=== PATIENT | female | born 1955 | race Caucasian/White ===

== ENCOUNTER → 2018-04-02 10:40 | Outpatient (CLI) | payer MEDICARE, MEDICAID, SELFPAY ==
--- NOTE | 2018-04-02 | DI.MRI.S_ITS ---
PROCEDURE: MR STROKE Pre- and post-contrast brain MRI, non-contrast brain MR angiogram, pre- and postcontrast neck MR angiogram INDICATIONS: TRANSIENT CEREBRAL ISCHEMIC ATTACK TECHNIQUE: Brain: Noncontrast axial T1 spin echo, axial T2 fast spin echo, sagittal and axial FLAIR, coronal T2 fast spin echo, axial gradient echo, axial diffusion and ADC through the brain. After the administration of contrast, axial 3D VIBE of the cranial vasculature and brain. Brain MRA: Non-contrast 3-D time of flight MR angiogram, with multiple jpjpugw-crvnmlfes-mlahfbjfew (MIP) reformats performed. Neck MRA: Axial and sagittal TruFISP through the neck. Coronal dynamic MR angiogram during administration of contrast in the arterial and venous phases, with 3-dimenstional abmzhoc-lvmghcnof-vjfkxrzsne (MIP) reformats constructed from subtraction images. COMPARISON: [facility], US, THYROID,NECK OR HEAD SONOGRAM, 01/09/2014, 13:51. [facility], CT, CHEST W/O CONTRAST, 10/20/2015, 10:57. FINDINGS: Image quality: Excellent. BRAIN: CSF spaces: Ventricles are normal in size and shape. Basal cisterns are patent. No extra-axial fluid collections. Brain: No intracranial bleeds or mass effects. Prather-white matter interface is normal. Mild cerebral volume loss. Diffusion weighted images show no acute ischemic insults. Brainstem appears normal. Normal intravascular flow voids are present. No abnormal intracranial enhancement. Skull and face: Calvarial marrow signal is normal. Orbits appear normal. Sinuses: Sinuses and mastoids are clear. BRAIN MR ANGIOGRAM: Anterior circulation: Intracranial internal carotid arteries are normal in size and enhancement. The flow within the paired anterior cerebral arteries is normal and symmetric. The flow within the middle cerebral arteries is normal and symmetric. The anterior communicating artery is seen. No stenoses, occlusions, or aneurysms. Posterior circulation: The visualized portions of the vertebral arteries demonstrate normal caliber, and join to form a normal appearing basilar artery. The flow within the posterior cerebral arteries is normal and symmetric. No stenoses, occlusions, or aneurysms. NECK MR ANGIOGRAM: Carotids: Great vessels demonstrate a conventional anatomy as they arise from the aortic arch. The origins of the common carotid arteries appear patent. The calibers and courses of both common carotid arteries are normal. The bifurcation regions appear normal bilaterally. The internal carotid arteries demonstrate normal course and caliber. Posterior circulation: The origins of the vertebral arteries appear patent. More superior portions of both vertebral arteries demonstrate normal course and caliber, and join to form a normal appearing basilar artery. Miscellaneous: Subclavian arteries appear patent. Pre-contrast images through the neck show no soft tissue abnormalities. IMPRESSION: BRAIN MRI: 1. No acute intracranial abnormalities. No acute stroke. 2. Mild cerebral volume loss. BRAIN MR ANGIOGRAM: 1. Normal anterior circulation. 2. Normal posterior circulation. NECK MR ANGIOGRAM: 1. Normal neck MR angiogram. 2. Suspect a left thyroid mass. A followup thyroid ultrasound is suggested if clinically indicated. Dictated by: Nivia Sarmiento M.D. on 04/02/2018 at 13:56 Approved by: Nivia Sarmiento M.D. on 04/03/2018 at 9:53
--- NOTE | 2018-04-02 | DI.ECHO.S_ITS ---
[place] [facility]---------+ [facility] +---------+ : : [address] : : : : [id number] : : : : Phone: [phone] Echocardiogram Report + + :Name: ALENA WASHINGTON Study Date: 04/02/2018 Height: 64 in : :[facility] Weight: 117 lb : : Gender: Female BSA: 1.6 m2 : :: 1955 Age: 62 yrs BP: 118/68 mmHg: :Reason For Study: TIA : : Performed By: Cammy Wang : :Referring: ELIDA FERGUSON : + + Interpretation Summary Normal sinus rhythm. Normal LV size, wall thickness, wall motion and LV systolic function. EF is 60-65%. Moderate left atrial enlargement. Aortic sclerosis without stenosis. No evidence of PFO present based on agitated saline study. No source of embolism identified. No prior study available for comparison. Procedure: A two-dimensional transthoracic echocardiogram with color flow and Doppler was performed. The study quality was technically good. There is no prior echocardiogram noted for this patient. The patient was in normal sinus rhythm during the exam. Left Ventricle: The left ventricle is normal in size, wall thickness, and systolic function without any focal wall motion abnormalities. The ejection fraction is estimated to be 60-65%. Assessment of diastolic parameters indicates normal left ventricular diastolic function and normal filling pressures. Right Ventricle: The right ventricle grossly appears normal in size with probable normal systolic function. Atria: The left atrium is moderately dilated. Right atrial size is normal. Injection of contrast documented no interatrial shunt. Mitral Valve: The mitral valve is normal. There is trace mitral regurgitation. Aortic Valve: The aortic valve is trileaflet. The aortic valve opens well. There is mild aortic valve sclerosis. No aortic regurgitation is present. Tricuspid Valve: The tricuspid valve is normal in structure and function. There is a trace or physiologic amount of tricuspid regurgitation. The right ventricular systolic pressure is estimated at 24 mmHg assuming a right atrial pressure of 3 mm Hg. Pulmonic Valve: The pulmonic valve is not well seen, but is grossly normal. There is trace pulmonic regurgitation. Great Vessels: The aortic root is normal size. The dimensions of the ascending aorta are normal. The IVC is of normal diameter and collapses greater than 50% with a sniff. This suggests a low right atrial pressure of 3 mm Hg. Pericardium/ Pleura There is no pericardial effusion. There is no pleural effusion. MMode/2D Measurements & Calculations LVIDd: 5.0 cm Ao root diam: 3.4 cm LVIDs: 3.2 cm Aortic Jxn: 2.6 cm FS: 34.5 % asc Aorta Diam: 3.2 cm EPSS: 0.32 cm Ao Arch Diam (Prox Trans): 2.5 cm IVSd: 0.78 cm LVPWd: 0.88 cm LV glez. diameter/BSA (cm/m^2): 3.2 LV sys. diameter/BSA (cm/m^2): 2.1 LA dimension: 4.1 cm RA long axis: 4.1 cm LA A2 area: 22.5 cm2 RA area: 15.4 cm2 LA A4 area: 18.4 cm2 RA vol: 48.5 ml LA length (vol): 4.9 cm RA : 31.1 ml/m2 LA vol: 71.5 ml IVC diam: 1.4 cm LA vol index: 45.9 ml/m2 RVDd major: 6.1 cm RVD1 (basal): 3.6 cm RVD2 (mid): 2.8 cm Doppler Measurements & Calculations Ao V2 max: 187.1 cm/sec MV E max jairo: 90.7 cm/sec Ao V2 mean: 124.2 cm/sec MV A max jairo: 103.1 cm/sec Ao max P.0 mmHg MV E/A: 0.88 Ao mean P.3 mmHg Med Peak E' Jairo: 8.3 cm/sec Ao V2 VTI: 42.7 cm E/E' med: 11.0 Lat Peak E' Jairo: 12.6 cm/sec E/E' lat: 7.2 E/e' average: 9.1 MV dec time: 0.23 sec MV P1/2t: 70.9 msec TR max jairo: 224.0 cm/sec MV P1/2t max jairo: 92.1 cm/sec TR max P.1 mmHg MVA(P1/2t): 3.1 cm2 PA V2 max: 76.2 cm/sec PA V2 mean: 51.1 cm/sec PA mean P.2 mmHg PA Accel Time: 0.13 sec Reading Physician:04:21 AM
[2018-04-02 13:02] LABS: BUN Creatinine Ratio 23.8 (6-22); Estimated Glomerular Filt Rate > 60.0 mL/min (>60)
== END ==
PROVIDERS: Family Provider Family Medicine; PCP Family Medicine; Visit Provider Family Medicine
DX: G45.9 Transient cerebral ischemic attack, unspecified (principal); R94.6 Abnormal results of thyroid function studies
CPT/HCPCS: 36415; 70553; 82565; 84520; 93306; A9579

== ENCOUNTER 2019-04-29 15:19 | Emergency (ER) | payer MEDICARE, MEDICAID, SELFPAY ==
[2019-04-29 15:29] VITALS: BP 181/67; PULSE 80; RESP 16; TEMP 36.9; O2SAT 98; BMI 20.9
--- NOTE | 2019-04-29 15:43 | DI.US.S_ITS ---
PROCEDURE: US ABDOMEN LIMITED INDICATIONS: RUQ PAIN, +SALAZAR'S SIGN TECHNIQUE: Real-time focused scanning was performed of the abdomen, with image documentation. COMPARISON: [facility], US, ABDOMEN COMPLETE, 10/15/2012, 11:13. [facility], CT, CHEST/ABD/PEL WITH CONTRAST, 08/02/2012, 14:51. FINDINGS: The liver is normal in size. No definite liver lesions are identified. There is no intrahepatic biliary dilatation. The common bile duct is noted to be enlarged and measures up to 9 mm in diameter, which is similar to the examination from 2012. The gallbladder is within normal limits. There is no cholelithiasis or evidence of gallbladder wall inflammation. Imaged portions of the pancreas are unremarkable. The main pancreatic duct measures 3 mm in diameter. Please note that the right kidney, abdominal aorta, and inferior vena cava were not well evaluated on this study. IMPRESSION: 1. No cholelithiasis or evidence to suggest acute cholecystitis. 2. Enlarged common bile duct is similar to exams from 2012. If there is clinical concern for choledocholithiasis, please consider MRCP for further evaluation. Dictated by: Gerry Guzman M.D. on 04/29/2019 at 17:35 Approved by: Gerry Guzman M.D. on 04/29/2019 at 17:37
--- NOTE | 2019-04-29 16:01 | ED_ITS ---
HPI - Abdominal Pain <CASEY Shook - Last Filed: 04/29/19 21:55> General Chief Complaint: Abdominal Pain Stated Complaint: REALLY BAD PAIN UNDER RIGHT SIDE OF RIBS Time Seen by Provider: 04/29/19 15:25 Source: patient Mode of arrival: ambulatory Limitations: no limitations History of Present Illness HPI narrative: 63-year-old female with a history of hypertension, hernia repair, chronic methadone use, presents emergency department complaining of right upper quadrant pain for the past 4 days which has worsened in the past hour. States pain is a dull aching with occasional sharp stabbing 6/10 that is worse with a deep breath and worse with moving. States pain is not affected with eating. Denies fevers, chills, nausea, vomiting, diarrhea, chest pain, trauma to the area, shortness of breath, increased leg swelling, or new medications. Related Data Home Medications Medication Instructions Recorded Confirmed Allergy Cream 1 applic TOPICAL PRN PRN 04/29/19 04/29/19 Centrum Silver Women 1 tab PO DAILY 04/29/19 04/29/19 aspirin 81 mg PO QPM 04/29/19 04/29/19 carisoprodol 350 mg PO QID 04/29/19 04/29/19 lamotrigine 50 mg PO BID 04/29/19 04/29/19 lamotrigine 200 mg PO BID 04/29/19 04/29/19 lisinopril 40 mg PO DAILY 04/29/19 04/29/19 lorazepam 0.5 mg PO TID 04/29/19 04/29/19 methadone 40 mg PO DAILY 04/29/19 04/29/19 temazepam 15 mg PO BEDTIME 04/29/19 04/29/19 Allergies Allergy/AdvReac Type Severity Reaction Status Date / Time carbamazepine Allergy Unknown Verified 04/29/19 18:29 Sulfa (Sulfonamide Allergy Unknown very Verified 04/29/19 18:29 Antibiotics) sick, hospitalized Ioevzti-Qhc-Oos Reductase AdvReac Mild extreme Verified 04/29/19 18:29 Inhibitor pain baclofen AdvReac Unknown felt like Verified 04/29/19 18:29 I was going to have a seizure, nausea NSAIDS (Non-Steroidal AdvReac Unknown gi upset; Verified 04/29/19 18:29 Anti-Inflamma ibuprofen ok Review of Systems <CASEY Shook - Last Filed: 04/29/19 21:55> Review of Systems REVIEW OF SYSTEMS: GENERAL: Denies fever or chills. HENT: No head trauma, hearing loss or sore throat. EYES: No loss of vision, double vision, eye pain, or irritation. CARDIOVASCULAR: No chest pain or syncope. RESPIRATORY: No shortness of breath or cough. GASTROINTESTINAL: See HPI, complaints of abdominal pain. GENITOURINARY: No flank pain or dysuria. MUSCULOSKELETAL: No pain, weakness, or deformities. INTEGUMENTARY: No rash, lesions, or pruritus. NEURO: No numbness, tingling, memory loss, or confusion. PSYCH: No behavior or mood changes. PFSH <CASEY Shook - Last Filed: 04/29/19 21:55> Medical History Methadone use (Chronic) Social History Smoking Status: Never smoker Social History Smoking Status: Never smoker Exam <CASEY Shook - Last Filed: 04/29/19 21:55> Initial Vital Signs Initial Vital Signs: Vital Signs Temperature 98.4 F 04/29/19 15:29 Pulse Rate 80 04/29/19 15:29 Respiratory Rate 16 04/29/19 15:29 Blood Pressure 181/67 H 04/29/19 15:29 Pulse Oximetry 98 04/29/19 15:29 PHYSICAL EXAMINATION: GENERAL: Disheveled but alert, smells of cigarette smoke. Answers questions promptly and appropriately. Vital signs noted. HENT: Normocephalic, atraumatic. EYES: Conjunctiva pink, sclera white, no periorbital swelling. CHEST: Normal to inspection and without deformities. CARDIOVASCULAR: S1 and S2 sounds normal. Regular rate and rhythm, no murmurs, clicks, or bruits. No pedal edema. RESPIRATORY: Normal respiratory rate, trachea midline, airway patent. No stridor, nasal flaring or accessory muscle use. Diminished lung sounds bilaterally, no wheeze, rhonchi, or crackles. GASTROINTESTINAL: Bowel sounds normoactive. Abdomen is soft, right upper quadr ant tenderness with deep palpation, positive Amaro sign. No flank tenderness, no masses, no rebound tenderness. MUSCULOSKELETAL: Normal gait and coordination. Equal tone and mass bilaterally. . EXTREMITIES: CMS intact. Moves all extremities. SKIN: Warm, dry, soft, appropriate color for ethnicity. No lesions, rashes, or wounds. NEURO: Alert and Oriented X 3. Good coordination. No ataxia, or cognitive issues. PSYCH: Appropriate affect and mood. <Ron Wu DO - Last Filed: 04/30/19 20:16> Initial Vital Signs Initial Vital Signs: Vital Signs Temperature 98.4 F 04/29/19 15:29 Pulse Rate 80 04/29/19 15:29 Respiratory Rate 16 04/29/19 15:29 Blood Pressure 181/67 H 04/29/19 15:29 Pulse Oximetry 98 04/29/19 15:29 Course <CASEY Shook - Last Filed: 04/29/19 21:55> Course Narrative: Nursing notes decreased oxygen saturation and patient is asleep, when patient is awake, oxygen saturation returns normal. Patient was observed sleeping, sleep apnea appears to be the cause of the hydration. However due to risk factors chest x-ray was obtained. Patient also admitted before discharge that she took methadone that she was prescribed. Orders Ordered: Discontinued Medications Ibuprofen (Advil) 400 mg PO NOW ONE Stop: 04/29/19 18:25 Last Admin: 04/29/19 18:25 Dose: 400 mg Reevaluation(s) Reevaluation #1: Patient's pain slightly decreased after examination however was not completely gone. Consultations Consultation #1: Patient discussed with Vital Signs - 8 hr 04/29/19 15:29 04/29/19 18:04 Temperature 98.4 F Pulse Rate 80 91 H Respiratory Rate 16 20 Blood Pressure 181/67 H Blood Pressure [Right Arm] 157/64 H Pulse Oximetry 98 94 <Ron Wu DO - Last Filed: 04/30/19 20:16> Orders Ordered: Discontinued Medications Ibuprofen (Advil) 400 mg PO NOW ONE Stop: 04/29/19 18:25 Last Admin: 04/29/19 18:25 Dose: 400 mg Vital Signs - 8 hr 04/29/19 15:29 04/29/19 18:04 Temperature 98.4 F Pulse Rate 80 91 H Respiratory Rate 16 20 Blood Pressure 181/67 H Blood Pressure [Right Arm] 157/64 H Pulse Oximetry 98 94 MDM - Abdominal Pain <Cheryl FrancoisCASEY - Last Filed: 04/29/19 21:55> Medical Records Attestation: I reviewed the patient's medical records. Lab Data Attestation: I reviewed the patient's lab results. Result diagrams: 04/29/19 15:57 04/29/19 15:57 Lab Results 04/29/19 04/29/19 04/29/19 Range/Units 15:57 15:57 15:57 WBC 6.0 (4.5-11.0) X10^3/uL RBC 3.47 L (4.0-5.2) X10^6/uL Hgb 11.3 L (12.0-16.0) g/dL Hct 32.5 L (36-46) % MCV 93.6 (80-100) fL MCH 32.5 (26-34) PG MCHC 34.7 (30-36) % RDW 14.0 (11.6-14.8) % Plt Count 191 (150-400) X10^3/uL Neut % (Auto) 60.0 (50-75) % Lymph % (Auto) 28.3 (25-40) % Carter % (Auto) 5.9 (3-14) % Eos % (Auto) 5.5 H (2-4) % Baso % (Auto) 0.3 (0-2) % Neut # (Auto) 3600 (6431-1062) /uL Lymph # (Auto) 1700 (9430-4994) /uL Carter # (Auto) 400 (0-900) /uL Eos # (Auto) 300 (0-450) /uL Baso # (Auto) 0 (0-100) /uL PT 10.4 (10.1-12.7) SECONDS INR 0.9 (0.9-1.3) APTT 33 (26.4-36.2) SECONDS Sodium 141 (137-145) mmol/L Potassium 4.0 (3.4-5.1) mmol/L Chloride 100 (98-107) mmol/L Carbon Dioxide 36 H (22-32) mmol/L BUN 16 (7-17) mg/dL Creatinine 0.70 (0.52-1.04) mg/dL Estimated GFR > 60.0 (>60) mL/min BUN/Creatinine Ratio 22.9 H (6-22) Glucose 87 (80-110) mg/dL Calcium 9.2 (8.4-10.2) mg/dL Total Bilirubin 0.4 (0.2-1.3) mg/dL AST 27 (14-36) IU/L ALT 18 (9-52) IU/L Alkaline Phosphatase 75 (38-126) U/L Total Protein 6.4 (6.3-8.2) g/dL Albumin 4.0 (3.5-5.0) g/dL Globulin 2.4 (1.7-4.1) g/dL Albumin/Globulin Ratio 1.7 (1.0-2.8) Lipase 35 (23-300) U/L Imaging Data Chest x-ray: Radiologist's impression: [address] [address] XRay Report Signed Patient: Silvia Rosas RMR#: [id number] : 4Acct:[id number] Age/Sex: 63 / FDate of Service: 04/29/19 Loc: ED Accession Number: [id number] Procedure: XR chest 1V Ordering Provider: Cheryl Francois PROCEDURE: XR CHEST 1V INDICATIONS: diminished lower lung sounds, R side pain.. TECHNIQUE: One view of the chest was acquired. COMPARISON: [facility], CT, CHEST/ABD/PEL WITH CONTRAST, 08/02/2012, 14:51. [facility], CR, CHEST 1 VIEW, 12/10/2010, 19:41. FINDINGS: Surgical changes and devices: None. Lungs and pleura: Lungs are clear. No pleural effusions or pneumothorax. Mediastinum: The cardiac contours are within normal limits. The aorta demonstrates calcification and tortuosity. Bones and chest wall: No suspicious bony lesions. Levoconvex thoracolumbar scoliosis is seen. Age-appropriate bony degenerative changes are seen. Overlying soft tissues appear unremarkable. IMPRESSION: No acute portable chest abnormality is seen. Dictated by: Malick Marino M.D. on 04/29/2019 at 16:26 Approved by: Malick Marino M.D. on 04/29/2019 at 16:27 US - abdomen: Radiologist's impression: [address] [address] Ultrasound Report Signed Patient: Silvia Rosas RMR#: [id number] : 4Acct:[id number] Age/Sex: 63 / FDate of Service: 04/29/19 Loc: ED Accession Number: [id number] Procedure: US abdomen limited Ordering Provider: Cheryl Francois PROCEDURE: US ABDOMEN LIMITED INDICATIONS: RUQ PAIN, +AMARO'S SIGN TECHNIQUE: Real-time focused scanning was performed of the abdomen, with image docu mentation. COMPARISON: [facility], US, ABDOMEN COMPLETE, 10/15/2012, 11:13. [facility], CT, CHEST/ABD/PEL WITH CONTRAST, 08/02/2012, 14:51. FINDINGS: The liver is normal in size. No definite liver lesions are identified. There is no intrahepatic biliary dilatation. The common bile duct is noted to be enlarged and measures up to 9 mm in diameter, which is similar to the examination from 2012. The gallbladder is within normal limits. There is no cholelithiasis or evidence of gallbladder wall inflammation. Imaged portions of the pancreas are unremarkable. The main pancreatic duct measures 3 mm in diameter. Please note that the right kidney, abdominal aorta, and inferior vena cava were not well evaluated on this study. IMPRESSION: 1. No cholelithiasis or evidence to suggest acute cholecystitis. 2. Enlarged common bile duct is similar to exams from 2011. If there is clinical concern for choledocholithiasis, please consider MRCP for further evaluation. Dictated by: Gerry Guzman M.D. on 04/29/2019 at 17:35 Approved by: Gerry Guzman M.D. on 04/29/2019 at 17:37 ECG Data Attestation: I personally reviewed and interpreted this ECG as follows: Interpretation: Rate 50 beats per minute, sinus rhythm, HI 182, QTC 423, no ST elevation or ST depression. EKG also reviewed by . [facility] Narrative Medical decision making narrative: Unsure exact cause of patient's upper abdominal pain, however it is a possibility that she may have a gallstone due to bile duct dilation seen on imaging. Patient was discharged due to normal lipase and liver enzymes, no change in bile duct dilation since 2011, and pain was not severe and disabling. Low suspicion for acute coronary syndrome as pain is more abdominal in nature and patient does not describe other associated symptoms such as diaphoresis, shortness of breath, chest pain, dizziness, or syncope. Low suspicion for acute abdomen due to lack of food and no rebound tenderness. Discussed with patient that she may have sleep apnea as observed during her stay. Patient was advised to follow up with primary care provider for further testing of her abdominal pain symptoms persist and further testing for sleep a pnea. Strict return precautions given. <Ron Wu, DO - Last Filed: 04/30/19 20:16> Lab Data Lab Results 04/29/19 04/29/19 04/29/19 Range/Units 15:57 15:57 15:57 WBC 6.0 (4.5-11.0) X10^3/uL RBC 3.47 L (4.0-5.2) X10^6/uL Hgb 11.3 L (12.0-16.0) g/dL Hct 32.5 L (36-46) % MCV 93.6 (80-100) fL MCH 32.5 (26-34) PG MCHC 34.7 (30-36) % RDW 14.0 (11.6-14.8) % Plt Count 191 (150-400) X10^3/uL Neut % (Auto) 60.0 (50-75) % Lymph % (Auto) 28.3 (25-40) % Carter % (Auto) 5.9 (3-14) % Eos % (Auto) 5.5 H (2-4) % Baso % (Auto) 0.3 (0-2) % Neut # (Auto) 3600 (8227-2414) /uL Lymph # (Auto) 1700 (0345-4910) /uL Carter # (Auto) 400 (0-900) /uL Eos # (Auto) 300 (0-450) /uL Baso # (Auto) 0 (0-100) /uL PT 10.4 (10.1-12.7) SECONDS INR 0.9 (0.9-1.3) APTT 33 (26.4-36.2) SECONDS Sodium 141 (137-145) mmol/L Potassium 4.0 (3.4-5.1) mmol/L Chloride 100 (98-107) mmol/L Carbon Dioxide 36 H (22-32) mmol/L BUN 16 (7-17) mg/dL Creatinine 0.70 (0.52-1.04) mg/dL Estimated GFR > 60.0 (>60) mL/min BUN/Creatinine Ratio 22.9 H (6-22) Glucose 87 (80-110) mg/dL Calcium 9.2 (8.4-10.2) mg/dL Total Bilirubin 0.4 (0.2-1.3) mg/dL AST 27 (14-36) IU/L ALT 18 (9-52) IU/L Alkaline Phosphatase 75 (38-126) U/L Total Protein 6.4 (6.3-8.2) g/dL Albumin 4.0 (3.5-5.0) g/dL Globulin 2.4 (1.7-4.1) g/dL Albumin/Globulin Ratio 1.7 (1.0-2.8) Lipase 35 (23-300) U/L Discharge Plan Departure Patient Disposition: Home Clinical Impression: Abdominal pain Qualifiers: Abdominal location: right upper quadrant Qualified Code(s): R10.11 - Right upper quadrant pain Discharge Date/Time: 04/29/19 18:31 Interventions: ED Discharge Assessment Last Done: 04/29/19 18:29 Instructions: DI for Gallstones, DI for Abdominal Pain-Adult Activity Restrictions/Additional Instructions: Thank you for entrusting me with your care today. As discussed, your ultrasound shows that you may have a gallstone, however this is not a change from the last ultrasound in 2011. I suggest to follow up with her primary care provider in the next week or so to discuss further testing if her symptoms do not resolve. I would also discuss testing for sleep apnea with your primary care provider as your oxygen saturation was low when you are sleeping during her stay in the emergency department. Return to the emergency department if you develop bleeding your stool, uncontrollable vomiting, disabling pain, fevers, chills, chest pain, or shortness of breath. Prescriptions: No Action carisoprodol 350 mg tablet 350 mg PO QID RF: 0 lamotrigine 200 mg tablet 200 mg PO BID RF: 0 methadone 10 mg tablet 40 mg PO DAILY RF: 0 lamotrigine 25 mg tablet 50 mg PO BID RF: 0 lorazepam 0.5 mg tablet 0.5 mg PO TID RF: 0 temazepam 15 mg capsule 15 mg PO BEDTIME RF: 0 lisinopril 40 mg tablet 40 mg PO DAILY RF: 0 Allergy Cream 1 applic topical PRN PRN (Reason: Itching) RF: 0 aspirin 81 mg Tablet,Delayed Release (Dr/Ec) 81 mg PO QPM RF: 0 Centrum Silver Women 1 tab PO DAILY RF: 0 Referrals: Viktor Alvarez MD [Primary Care Provider] - <Ron Wu DO - Last Filed: 04/30/19 20:16> Cosign ED Attending Kenjiature Attestation: I was available for consultation during this patient's emergency department encounter
[2019-04-29 16:05] LABS: Add Manual Diff / Slide Review NO; Basophils Absolute Auto 0 /uL (0-100); Basophils Percent Auto 0.3 % (0-2); Eosinophils Absolute Auto 300 /uL (0-450); Eosinophils Percent Auto 5.5 % (2-4); Hematocrit 32.5 % (36-46); Hemoglobin 11.3 g/dL (12.0-16.0); Lymphocytes Absolute Auto 1700 /uL (1100-4500); Lymphocytes Percent Auto 28.3 % (25-40); Mean Corpuscular HGB Conc 34.7 % (30-36); Mean Corpuscular Hemoglobin 32.5 PG (26-34); Mean Corpuscular Volume 93.6 fL (80-100); Monocytes Absolute Auto 400 /uL (0-900); Monocytes Percent Auto 5.9 % (3-14); Neutrophils Absolute Auto 3600 /uL (1500-7000); Platelet Count 191 X10^3/uL (150-400); Red Blood Cell Count 3.47 X10^6/uL (4.0-5.2)
[2019-04-29 16:09] LABS: INR 0.9 (0.9-1.3); Prothrombin Time 10.4 SECONDS (10.1-12.7)
[2019-04-29 16:12] LABS: PTT Partial Thromboplastin Tim 33 SECONDS (26.4-36.2)
[2019-04-29 16:18] LABS: Alanine Aminotransferase 18 IU/L (9-52); Albumin Globulin Ratio 1.7 (1.0-2.8); Alkaline Phosphatase 75 U/L (38-126); Aspartate Aminotransferase 27 IU/L (14-36); BUN Creatinine Ratio 22.9 (6-22); Bilirubin Total 0.4 mg/dL (0.2-1.3); Blood Urea Nitrogen 16 mg/dL (7-17); Calcium 9.2 mg/dL (8.4-10.2); Carbon Dioxide 36 mmol/L (22-32); Chloride 100 mmol/L (98-107); Estimated Glomerular Filt Rate > 60.0 mL/min (>60); Globulin 2.4 g/dL (1.7-4.1); Glucose 87 mg/dL (80-110); HEMOLYSIS < 15 (0-50); Lipase 35 U/L (23-300); Sodium 141 mmol/L (137-145); Total Protein 6.4 g/dL (6.3-8.2)
--- NOTE | 2019-04-29 16:58 | PC.NURSE ---
Report faxed to [facility].
--- NOTE | 2019-04-29 17:01 | DI.RAD.S_ITS ---
PROCEDURE: XR CHEST 1V INDICATIONS: diminished lower lung sounds, R side pain.. TECHNIQUE: One view of the chest was acquired. COMPARISON: [facility], CT, CHEST/ABD/PEL WITH CONTRAST, 08/02/2012, 14:51. [facility], CR, CHEST 1 VIEW, 12/10/2010, 19:41. FINDINGS: Surgical changes and devices: None. Lungs and pleura: Lungs are clear. No pleural effusions or pneumothorax. Mediastinum: The cardiac contours are within normal limits. The aorta demonstrates calcification and tortuosity. Bones and chest wall: No suspicious bony lesions. Levoconvex thoracolumbar scoliosis is seen. Age-appropriate bony degenerative changes are seen. Overlying soft tissues appear unremarkable. IMPRESSION: No acute portable chest abnormality is seen. Dictated by: Malick Marino M.D. on 04/29/2019 at 16:26 Approved by: Malick Marino M.D. on 04/29/2019 at 16:27
[2019-04-29 18:04] VITALS: BP 157/64; PULSE 91; RESP 20; O2SAT 94
[2019-04-29] MEDS: IBUPROFEN 400 MG TABLET PO (18:25)
== END 2019-04-29 18:31 | disposition home or self-care (01) ==
PROVIDERS: Emergency Provider Nurse Practitioner; Family Provider Family Medicine; PCP Family Medicine
DX: R10.11 Right upper quadrant pain (principal); R03.0 Elevated blood-pressure reading, without diagnosis of hypertension
CPT/HCPCS: 36415; 36591; 71045; 76705; 80053; 83690; 85025; 85610; 85730; 93005; 93010; 99282; 99285

== ENCOUNTER → 2019-05-08 16:13 | Outpatient (CLI) | payer MEDICARE, MEDICAID, SELFPAY ==
--- NOTE | 2019-05-08 | DI.MRI.S_ITS ---
PROCEDURE: MR ABDOMEN WO CON INDICATIONS: Right upper quadrant abdominal pain TECHNIQUE: Coronal HASTE through the abdomen, axial 2-D FLASH in- and [id number], and breath-hold T2 FSE with fat saturation through the biliary system and pancreas. Oblique coronal and axial thin-slice HASTE, radial thick-slab HASTE centered on the extrahepatic bile ducts. Intravenous secretin: Not requested. COMPARISON: [facility], , ABDOMEN LIMITED, 04/29/2019, 16:31. FINDINGS: Image quality: Excellent. Pancreas and biliary system: Intra- and extra-hepatic biliary ducts are non dilated. Pancreas is normal in morphology, without adjacent soft tissue edema. Pancreatic duct is normal in caliber, without developmental anomalies. Gallbladder appears normal. Other solid organs: Liver is normal in size. Spleen is normal in size. No adrenal nodules. Both kidneys are normal in size, without hydronephrosis. Nodes and vessels: No retroperitoneal or mesenteric adenopathy by size criteria. Aorta and inferior vena cava are normal in size. Bowel and peritoneum: Unenhanced bowel loops are normal in caliber. No free fluid. Lung bases: No basal pleural effusions. Heart size is normal. Bones and soft tissues: No ventral hernias. Bone marrow is of normal overall signal. IMPRESSION: Normal appearing gallbladder and bile ducts, no evidence of common duct calculus or impinging mass lesion. Source of right upper quadrant pain is not seen. Dictated by: Mario Newton M.D. on 05/09/2019 at 9:42 Approved by: Mario Newton M.D. on 05/09/2019 at 9:53
== END ==
PROVIDERS: Family Provider Family Medicine; PCP Family Medicine; Visit Provider Family Medicine
DX: R10.11 Right upper quadrant pain (principal)
CPT/HCPCS: 74181

== ENCOUNTER → 2019-06-06 12:13 | Outpatient (CLI) | payer MEDICARE, MEDICAID, SELFPAY ==
--- NOTE | 2019-06-06 12:17 | DI.NM.S_ITS ---
PROCEDURE: NM HIDA WITH CCK PHARMACEUTICAL: 5.2 mCi Tc-99m mebrofenin IV; 1.0 mcg CCK IV. INDICATIONS: Right upper quadrant pain TECHNIQUE: Following intravenous administration of Tc-99m mebrofenin, sequential anterior abdominal images were obtained. To evaluate the contractile response of the gallbladder in response to Cholecystokinin (CCK), sincalide (0.02 ?g/kg) was administered by slow intravenous infusion approximately 60 minutes after the administration of the radiopharmaceutical. Sequential imaging was continued for 30 minutes after the start of CCK infusion. Gallbladder ejection fraction was calculated. COMPARISON: [facility], US, US ABDOMEN LIMITED, 04/29/2019, 16:31. [facility], , MR ABDOMEN WO CON, 05/08/2019, 17:48. FINDINGS: Biliary scan: There is normal tracer uptake and excretion by the liver. There is normal visualization of the intrahepatic ducts, common bile duct, and gallbladder. There is normal tracer transit into the duodenum. CCK stimulation: There is normal contractile response of the gallbladder to CCK infusion. The calculated gallbladder ejection fraction is 89%; normal values are above 35%. It has been shown that any patient abdominal pain after CCK administration is related to the rate of CCK injection, rather than to any underlying gallbladder disease (Clinical Nuclear Medicine 2012; 37: 63-70. Journal of Nuclear Medicine 2014; 55: 1-9). IMPRESSION: 1. Normal filling of gallbladder. No evidence for acute cholecystitis. 2. Normal contractile response of gallbladder to CCK stimulation. Dictated by: Nivia Sarmiento M.D. on 06/06/2019 at 15:06 Approved by: Nivia Sarmiento M.D. on 06/06/2019 at 15:07
== END ==
PROVIDERS: Family Provider Family Medicine; PCP Family Medicine; Visit Provider Family Medicine
DX: R10.11 Right upper quadrant pain (principal)
CPT/HCPCS: 78227; A9537; J2805

== ENCOUNTER → 2020-06-10 14:08 | Outpatient (CLI) | payer MEDICARE, MEDICAID, SELFPAY | PROVIDERS: Family Provider Family Medicine; PCP Family Medicine; Referring Provider Family Medicine; Visit Provider Family Medicine | DX: M81.0 Age-related osteoporosis without current pathological fracture (principal); Z78.0 Asymptomatic menopausal state; Z82.62 Family history of osteoporosis; F17.200 Nicotine dependence, unspecified, uncomplicated | CPT/HCPCS: 77080 ==

== ENCOUNTER → 2021-05-05 11:54 | Outpatient (CLI) | payer MEDICARE, MEDICAID, SELFPAY ==
--- NOTE | 2021-05-05 | DI.MRI.S_ITS ---
PROCEDURE: MR HEAD/BRAIN WO/W CON INDICATIONS: unspecified convulsions TECHNIQUE: Noncontrast axial T1 spin echo, axial T2 fast spin echo, sagittal and axial FLAIR, coronal T2 fast spin echo, axial gradient echo, axial diffusion and ADC through the brain. After the administration of contrast, axial and coronal 3D VIBE or T1 spin echo with fat saturation through the brain. COMPARISON: None. FINDINGS: Image quality: Excellent. CSF Spaces: Basal cisterns are patent. No extra-axial fluid collections. Ventricles are normal in size and shape. Brain: No midline shift. No intracranial bleeds or masses. No abnormal intracranial enhancement. The brainstem appears normal. Diffusion-weighted images demonstrate no acute ischemic insults. No chronic ischemic insults. Normal intravascular flow voids are present. Skull and face: Calvarial marrow is normal in signal. Orbits appear normal. Sinuses: Sinuses and mastoids appear clear. IMPRESSION: 1. No acute intracranial process. Dictated by: Monica Mclaughlin M.D. on 05/05/2021 at 13:14 Approved by: Monica Mclaughlin M.D. on 05/05/2021 at 13:16
== END ==
PROVIDERS: Family Provider Family Medicine; PCP Family Medicine; Referring Provider Family Medicine; Visit Provider Family Medicine
DX: R56.9 Unspecified convulsions (principal); G44.89 Other headache syndrome; Z91.81 History of falling
CPT/HCPCS: 70553

== ENCOUNTER 2021-06-03 13:59 | Emergency (ER) | payer MEDICARE, MEDICAID, SELFPAY ==
[2021-06-03 14:37] VITALS: BP 195/95; PULSE 79; RESP 14; TEMP 36.5; O2SAT 97; BMI 21.4
--- NOTE | 2021-06-03 16:54 | ED.FALL ---
HPI - Fall General Chief Complaint: Fall Stated Complaint: I keep falling, going on for a long time, high BP Time Seen by Provider: 06/03/21 16:54 Source: patient Mode of arrival: Wheelchair Related Data Home Medications Medication Instructions Recorded Confirmed Allergy Cream 1 applic TOPICAL PRN PRN 04/29/19 04/29/19 Centrum Silver Women 1 tab PO DAILY 04/29/19 04/29/19 aspirin 81 mg tablet,delayed 81 mg PO QPM 04/29/19 04/29/19 release carisoprodol 350 mg tablet 350 mg PO QID 04/29/19 04/29/19 lamotrigine 200 mg tablet 200 mg PO BID 04/29/19 04/29/19 lamotrigine 25 mg tablet 50 mg PO BID 04/29/19 04/29/19 lisinopril 40 mg tablet 40 mg PO DAILY 04/29/19 04/29/19 lorazepam 0.5 mg tablet 0.5 mg PO TID 04/29/19 04/29/19 methadone 10 mg tablet 40 mg PO DAILY 04/29/19 04/29/19 temazepam 15 mg capsule 15 mg PO BEDTIME 04/29/19 04/29/19 Allergies Allergy/AdvReac Type Severity Reaction Status Date / Time carbamazepine Allergy Unknown Verified 06/03/21 14:37 Sulfa (Sulfonamide Allergy Unknown very Verified 06/03/21 14:37 Antibiotics) sick, hospitalized [id number] Reductase AdvReac Mild extreme Verified 06/03/21 14:37 Inhibitor pain baclofen AdvReac Unknown felt like Verified 06/03/21 14:37 I was going to have a seizure, nausea NSAIDS (Non-Steroidal AdvReac Unknown gi upset; Verified 06/03/21 14:37 Anti-Inflamma ibuprofen ok Patient History Medical History (Updated 05/14/19 @ 00:00 by ) Methadone use Social History Smoking Status: Current every day smoker Smoking Status: Current every day smoker alcohol intake frequency: holidays/special occasions only Substance Use Type: does not use Exam Initial Vital Signs Initial Vital Signs: Vital Signs Temperature 97.7 F 06/03/21 14:37 Pulse Rate 79 06/03/21 14:37 Respiratory Rate 14 06/03/21 14:37 Blood Pressure 195/95 H 06/03/21 14:37 Pulse Oximetry 97 06/03/21 14:37 Course Vital Signs Vital signs: Vital Signs - 8 hr 06/03/21 14:37 Temperature 97.7 F Pulse Rate 79 Respiratory Rate 14 Blood Pressure 195/95 H Pulse Oximetry 97 Discharge Plan Departure Prescriptions: No Action carisoprodol 350 mg tablet 350 mg PO QID RF: 0 lamotrigine 200 mg tablet 200 mg PO BID RF: 0 methadone 10 mg tablet 40 mg PO DAILY RF: 0 lamotrigine 25 mg tablet 50 mg PO BID RF: 0 lorazepam 0.5 mg tablet 0.5 mg PO TID RF: 0 temazepam 15 mg capsule 15 mg PO BEDTIME RF: 0 lisinopril 40 mg tablet 40 mg PO DAILY RF: 0 Allergy Cream 1 applic topical PRN PRN (Reason: Itching) RF: 0 aspirin 81 mg Tablet,Delayed Release (Dr/Ec) 81 mg PO QPM RF: 0 Centrum Silver Women 1 tab PO DAILY RF: 0 Referrals: Viktor Alvarez MD [Primary Care Provider] -
[2021-06-03 17:11] VITALS: PULSE 67; O2SAT 98
[2021-06-03 17:12] VITALS: BP 192/90; PULSE 64; O2SAT 97
[2021-06-03 17:30] VITALS: BP 209/94; PULSE 67; O2SAT 95
[2021-06-03 18:49] LABS: Add Manual Diff / Slide Review NO; Basophils Absolute Auto 0 /uL (0-100); Basophils Percent Auto 0.4 % (0-2); Eosinophils Absolute Auto 200 /uL (0-450); Eosinophils Percent Auto 4.2 % (2-4); Hematocrit 36.5 % (36-46); Hemoglobin 12.4 g/dL (12.0-16.0); Lymphocytes Absolute Auto 1600 /uL (1100-4500); Lymphocytes Percent Auto 29.5 % (25-40); Mean Corpuscular HGB Conc 33.9 % (30-36); Mean Corpuscular Hemoglobin 31.1 PG (26-34); Mean Corpuscular Volume 91.7 fL (80-100); Monocytes Absolute Auto 300 /uL (0-900); Monocytes Percent Auto 6.1 % (3-14); Neutrophils Absolute Auto 3300 /uL (1500-7000); Neutrophils Percent Auto 59.8 % (50-75); Platelet Count 251 X10^3/uL (150-400); Red Blood Cell Count 3.98 X10^6/uL (4.0-5.2); Red Cell Distribution Width 14.2 % (11.6-14.8); White Blood Cell Count 5.5 X10^3/uL (4.5-11.0)
[2021-06-03 18:54] LABS: BUN Creatinine Ratio 11.3 (6-22); Blood Urea Nitrogen 7 mg/dL (7-17); Calcium 9.2 mg/dL (8.4-10.2); Carbon Dioxide 37 mmol/L (22-32); Chloride 97 mmol/L (98-107); Creatine Kinase 215 U/L (30-135); Estimated Glomerular Filt Rate > 60.0 mL/min (>60); Glucose 88 mg/dL (80-110); HEMOLYSIS < 15 (0-50); Potassium 3.3 mmol/L (3.4-5.1); Sodium 138 mmol/L (137-145)
[2021-06-03 19:09] LABS: CKMB % Relative Index 2.8 % (1.5-5.0); Creatine Kinase MB 6.06 ng/mL (<2.37); Troponin I 0.037 ng/mL (0.01-0.034)
--- NOTE | 2021-06-03 19:11 | ED_ITS ---
HPI - Fall General Chief Complaint: Fall Stated Complaint: I keep falling, going on for a long time, high BP Time Seen by Provider: 06/03/21 16:54 Source: patient Mode of arrival: Wheelchair History of Present Illness HPI Narrative: Patient is a 65-year-old female who is here for evaluation multiple fall and also high blood pressure. She has a history of high blood pressure. Is on medication for this. She also has a history of seizures. For the past several weeks/months she has had episodes where she is losing her balance and falling over. She is not on blood thinners. Has not hit her head. She has had 2 occasions where she woke up on the ground is unsure exactly how she got there. She does not think that she had a seizure during these times. She also has issues with her knees and so she walks with a cane. She sometimes just loses her balance and falls over. She denies any chest pain or shortness of breath. No lightheadedness. No dizziness. She has seen her primary doctor. She has an appointment to see a neurologist. Has also being set up with home physical therapy. She also has an appointment to see orthopedics. She is here today because family stated that she should come in to be seen. Related Data Home Medications Medication Instructions Recorded Confirmed Allergy Cream 1 applic TOPICAL PRN PRN 04/29/19 04/29/19 Centrum Silver Women 1 tab PO DAILY 04/29/19 04/29/19 aspirin 81 mg tablet,delayed 81 mg PO QPM 04/29/19 04/29/19 release carisoprodol 350 mg tablet 350 mg PO QID 04/29/19 04/29/19 lamotrigine 200 mg tablet 200 mg PO BID 04/29/19 04/29/19 lamotrigine 25 mg tablet 50 mg PO BID 04/29/19 04/29/19 lisinopril 40 mg tablet 40 mg PO DAILY 04/29/19 04/29/19 lorazepam 0.5 mg tablet 0.5 mg PO TID 04/29/19 04/29/19 methadone 10 mg tablet 40 mg PO DAILY 04/29/19 04/29/19 temazepam 15 mg capsule 15 mg PO BEDTIME 04/29/19 04/29/19 Allergies Allergy/AdvReac Type Severity Reaction Status Date / Time carbamazepine Allergy Unknown Verified 06/03/21 14:37 Sulfa (Sulfonamide Allergy Unknown very Verified 06/03/21 14:37 Antibiotics) sick, hospitalized [id number]-Trc Reductase AdvReac Mild extreme Verified 06/03/21 14:37 Inhibitor pain baclofen AdvReac Unknown felt like Verified 06/03/21 14:37 I was going to have a seizure, nausea NSAIDS (Non-Steroidal AdvReac Unknown gi upset; Verified 06/03/21 14:37 Anti-Inflamma ibuprofen ok Review of Systems Constitutional Constitutional: Denies fever(s), Reports frequent falls and Denies headache(s) Eyes Eyes: Denies change in vision ENT Ears, Nose, Mouth, and Throat: Denies vertigo, Denies dizziness and Denies headache(s) Cardiovascular Cardiovascular: Denies chest pain, Denies rapid heart rate, Denies lightheadedness and Denies dyspnea Respiratory Respiratory: Denies dyspnea Gastrointestinal Gastrointestinal: Denies abdominal pain Genitourinary Comments: No urinary symptoms Musculoskeletal Musculoskeletal: Reports abnormal gait, Denies numbness and Denies tingling Comments: Knee pain but this is not new. No neck pain. Integumentary/Breasts Skin/Breast: Reports system reviewed and no additional complaints, except as documented Neurologic Neurologic: Reports abnormal gait, Denies behavioral changes, Denies vertigo, Denies dizziness, Reports frequent falls, Denies headache(s), Denies numbness and Denies tingling Psychiatric Psychiatric: Denies behavioral changes Hematologic/Lymphatic On Anticoagulants: No Allergic/Immunologic Allergic/Immunologic: Reports system reviewed and no additional complaints, except as documented Patient History Medical History Hypertension Methadone use Seizures Social History Smoking Status: Current every day smoker Smoking Status: Current every day smoker alcohol intake frequency: holidays/special occasions only Substance Use Type: does not use Exam Initial Vital Signs Initial Vital Signs: Vital Signs Temperature 97.7 F 06/03/21 14:37 Pulse Rate 79 06/03/21 14:37 Respiratory Rate 14 06/03/21 14:37 Blood Pressure 195/95 H 06/03/21 14:37 Pulse Oximetry 97 06/03/21 14:37 Const General: cooperative, healthy appearing, comfortable, well developed, well groomed and No acute distress [facility] Head: normal to inspection and normocephalic Eyes General: appearance normal, both eyes and all related structures Resp Effort & Inspection: normal respiratory effort Auscultation: clear to auscultation bilaterally Cardio Rate: regular rate Rhythm: regular rhythm GI Inspection: normal to inspection Palpation: soft Back/Spine/Pelvis Cervical Spine: No cervical spinal tenderness Skin General: no rashes or lesions noted Neuro General: patient alert, patient awake, patient oriented x3 and moves all extremi ties Cognition: normal cognition Speech: speech normal Sensory Exam: no sensory deficits noted Extrem General: normal to inspection and capillary refill normal Psych Appearance: grossly normal and well kempt Course Orders Ordered: ED Orders 06/03/21 18:24 EKG-12 Lead Stat 06/03/21 18:35 Basic Metabolic Panel Stat Complete Blood Count AUTO DIFF Stat Troponin & CK Cardiac Panel Stat Vital Signs Vital signs: Vital Signs - 8 hr 06/03/21 19:36 Pulse Rate 86 Respiratory Rate 12 Blood Pressure 192/80 H Pulse Oximetry 98 MDM - Fall Lab Data Attestation: I reviewed the patient's lab results. Result diagrams: 06/03/21 18:35 06/03/21 18:35 Labs: Lab Results 06/03/21 06/03/21 Range/Units 18:35 18:35 WBC 5.5 (4.5-11.0) X10^3/uL RBC 3.98 L (4.0-5.2) X10^6/uL Hgb 12.4 (12.0-16.0) g/dL Hct 36.5 (36-46) % MCV 91.7 (80-100) fL MCH 31.1 (26-34) PG MCHC 33.9 (30-36) % RDW 14.2 (11.6-14.8) % Plt Count 251 (150-400) X10^3/uL Neut % (Auto) 59.8 (50-75) % Lymph % (Auto) 29.5 (25-40) % [place] % (Auto) 6.1 (3-14) % Eos % (Auto) 4.2 H (2-4) % Baso % (Auto) 0.4 (0-2) % Neut # (Auto) 3300 (9618-3843) /uL Lymph # (Auto) 1600 (8642-8164) /uL [place] # (Auto) 300 (0-900) /uL Eos # (Auto) 200 (0-450) /uL Baso # (Auto) 0 (0-100) /uL Sodium 138 (137-145) mmol/L Potassium 3.3 L (3.4-5.1) mmol/L Chloride 97 L (98-107) mmol/L Carbon Dioxide 37 H (22-32) mmol/L BUN 7 (7-17) mg/dL Creatinine 0.62 (0.52-1.04) mg/dL Estimated GFR > 60.0 (>60) mL/min BUN/Creatinine Ratio 11.3 (6-22) Glucose 88 (80-110) mg/dL Calcium 9.2 (8.4-10.2) mg/dL Total Creatine Kinase 215 H (30-135) U/L CK-MB (CK-2) 6.06 H (<2.37) ng/mL CK-MB (CK-2) Rel Index 2.8 (1.5-5.0) % Troponin I 0.037 H (0.01-0.034) ng/mL Urine Dip Bedside Urine Glucose Negative Bedside Urine Bilirubin - Negative Bedside Urine Ketone - Negative Urine Specific [place] 1.015 Bedside Urine Occult Blood - Negative Bedside Urine pH 7.0 Bedside Urine Protein - Negative Bedside Urine Urobilinogen - Negative Bedside Urine Nitrite - Negative Bedside Urine Leukocytes - Negative Esterase ECG Data Attestation: I personally reviewed and interpreted this ECG as follows: Interpretation: Sinus rhythm Ventricular rate is 65 Normal axis Normal QRS QTC 503 Inverted T-waves V1 V2 V3 V4 V5 V6 MDM Narrative Medical decision making narrative: Patient is asymptomatic. She did ambulate here in the emergency department and does seem to have some discomfort with doing so because of pain in her left knee although she did not fall. She is using a cane she has no chest pain. No shortness of breath. Her balance issues and falls are not new today. She has seen her primary doctor does have appropriate referrals. Low suspicion for ACS given her presentation. I do have some concern that potentially some of these falls may have been seizures because she states that she wakes up on the ground is unsure as to how she got there. The patient does not think that they are seizures. Feel that we can hold on a further workup for now. She is alert oriented x3. Has a GCS of 15. Will have her follow-up with her primary doctor and keep all of her scheduled medical appointments. She was given strict return precautions. She expressed understanding and agreement. Discharge Plan Departure Patient Disposition: Home Clinical Impression: Balance problem Instructions: How to Prevent Falls Activity Restrictions/Additional Instructions: I do recommend that you continue with the scheduled appointments with the neurologist and also physical therapy and the orthopedic providers. Continue all of your medications as directed. Contact your primary provider for follow- up. Return to the emergency department for any new or worsening symptoms Prescriptions: No Action carisoprodol 350 mg tablet 350 mg PO QID RF: 0 lamotrigine 200 mg tablet 200 mg PO BID RF: 0 methadone 10 mg tablet 40 mg PO DAILY RF: 0 lamotrigine 25 mg tablet 50 mg PO BID RF: 0 lorazepam 0.5 mg tablet 0.5 mg PO TID RF: 0 temazepam 15 mg capsule 15 mg PO BEDTIME RF: 0 lisinopril 40 mg tablet 40 mg PO DAILY RF: 0 Allergy Cream 1 applic topical PRN PRN (Reason: Itching) RF: 0 aspirin 81 mg Tablet,Delayed Release (Dr/Ec) 81 mg PO QPM RF: 0 Centrum Silver Women 1 tab PO DAILY RF: 0 Referrals: Viktor Alvarez MD [Primary Care Provider] -
[2021-06-03 19:36] VITALS: BP 192/80; PULSE 86; RESP 12; O2SAT 98
== END 2021-06-03 19:37 | disposition home or self-care (01) ==
PROVIDERS: Emergency Provider Emergency Medicine; Family Provider Family Medicine; PCP Family Medicine
DX: R26.89 Other abnormalities of gait and mobility (principal); R29.6 Repeated falls; R07.9 Chest pain, unspecified
CPT/HCPCS: 36415; 80048; 81003; 82550; 82553; 84484; 85025; 93005; 93010; 99283; 99284

== ENCOUNTER 2021-10-19 13:00 | Outpatient (RCR) | payer MEDICARE, MEDICAID, SELFPAY ==
[2021-08-17 11:34] VITALS: BP 136/64
--- NOTE | 2021-08-17 12:41 | PT.OIE ---
Current Diagnoses Other abnormalities of gait and mobility (08/17/21) History of falling (08/17/21) Past Medical History (Last Reviewed 06/04/21 @ 01:39 by Ron Wu DO) Hypertension Methadone use Seizures Visit Care Team Role Provider Type Viktor Alvarez MD Family Provider Physician Primary Care Provider Specialty: Family Practice Address: [address] [place] [address], [facility] [place], [address] Email: [email or web address] Cyndi Keller MD Attending Provider Non-Staff Referring Provider Specialty: Neurology Address: [address] [place] [address], [id number] Email: Physical Therapy Initial Evaluation PT-OP-A Visit Information Start: 08/17/21 11:30 Freq: Status: Active Protocol: Document 08/17/21 11:34 HH (Rec: 08/17/21 12:10 [email or web address]) Out-Patient Physical Therapy Visit Information Visit Information Visit Type Initial Evaluation Visit Start Time 08:15 Visit Stop Time 09:00 Total Visit Minutes 45 Visit Number 12/01 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 She has a history of high blood pressure and osteoporosis. (T-score at L hip =-3.4) She also has a history of seizures and often zone out as she stated. She c/o severe R hip pain and L knee pain 10/10 often during WB activities. She has very poor balance which caused her to fall multiple times within the past couple months but she was able to get up on her own . She uses a SPC sometimes but does not drive and mostly stay home. 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 She had R hip replaced twice, L knee replaced twice and ORIF at L ankle. 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 Denies dizziness/ numbness. Any AROM / PROM on R hip and L knee tends to reproduce severe pain . She has to take methadone for pain management. She also smokes cig x5 /day. Prior Treatments and Tests L femur T-score= -3.4 Current Functional Impairments (Reported) Functional Limitations- Mobility/Gait multiple falls knee knee gait L>R furniture surfing at home for support B UE to push off for sit to stand Personal Factors Other Personal Factors That May Effect Osteoporosis Therapy/Recovery high fall risks HTN previous TIA 2019 seizures. PT-OP-C Subjective Start: 08/17/21 11:30 Freq: Status: Active Protocol: Document 08/17/21 11:34 (Rec: 08/17/21 12:10 [email or web address]) Patient Questionnaires ABC- Activity Specific Balance Confidence Scale ABC Score 23 ABC Functional Impairment 60 to <80% Impaired (Score 21- 40) OP-PT Pain Assessment Location L knee Intensity 10 Scale Used Numeric (0 - 10) Description Aching,Pinching,Pressure,Sharp Frequency Frequent Pain Aggravating Factors Position,Changing Position, Activity,Exercise,Standing, Walking,Stair Climbing,Bending ,Lifting Pain Alleviating Factors Inactivity R hip Intensity 10 Scale Used Numeric (0 - 10) Description Pinching,Pressure,Pulling, Radiating,Sharp Frequency Frequent Pain Aggravating Factors Position,ADL's,Activity, Exercise,Standing,Walking, Stair Climbing,Lifting Pain Alleviating Factors Inactivity PT-OP-D Balance Start: 08/17/21 11:30 Freq: Status: Active Protocol: Document 08/17/21 11:34 (Rec: 08/17/21 12:10 [email or web address]) Balance Tests Single Limb Standing Single Limb- Right unable Single Limb- Left unable PT-OP-G Mobility & Gait Start: 08/17/21 11:30 Freq: Status: Active Protocol: Document 08/17/21 11:34 (Rec: 08/17/21 12:10 [email or web address]) OP Mobility Evaluation Transfers Sit to Stand sit to stand: knock knee pattern to gain stability and BUE push off from chair armrests. stand to sit: BUE support to decend OP Gait Assessment Gait Deviations General Gait Pattern Antalgic,Decreased Stride Length,Decreased Feet Clearance,Flexed Trunk,Lateral Trunk Lean Factors Limiting Gait Function Factors Limiting Gait Function Decreased Activity Tolerance, Decreased Strength,Limited Range of Motion,Pain,Poor Balance,Poor Safety Awareness Comments Gait Comments often look for wall support while walking L knee extreme valgus, unstable gait with minimal step over pattern. excessive lateral shift bilaterally L>R PT-OP-H Neuro Start: 08/17/21 11:30 Freq: Status: Active Protocol: Document 08/17/21 11:34 HH (Rec: 08/17/21 12:10 [email or web address]) Deep Tendon Reflex & Clonus Assessment Deep Tendon Reflex Bilateral Achilles Deep Tendon Reflex 2+ Normal Left Patellar Deep Tendon Reflex 1+ Diminished Right Patellar Deep Tendon Reflex 2+ Normal Vital Signs Blood Pressure Sitting Blood Pressure (90/60-120/80 mmHg) 136/64 H Blood Pressure Source Manual Cuff PT-OP-J Posture/Palpation/Skin Start: 08/17/21 11:30 Freq: Status: Active Protocol: Document 08/17/21 11:34 HH (Rec: 08/17/21 12:10 [email or web address]) Posture Evaluation Position Standing Knee Posture (L) Genu Valgus,(L) Ext. Tibial Torsion,(L) Excess Flexion Ankle/Foot Posture (L) Pronated Palpation Assessment Location R hip Palpation Findings Tenderness,Trigger Point Palpation Details significant bony prominence on R greater trochanter. PT-OP-K Range of Motion Start: 08/17/21 11:30 Freq: Status: Active Protocol: Document 08/17/21 11:34 (Rec: 08/17/21 12:10 [email or web address]) Hip Goniometric Range of Motion Hip Right Active Comments grimacing pain with PROM Left Active Internal Rotation 55 External Rotation 30 Comments hip PROM = WFL Knee Goniometric Range of Motion Knee Right Extension Active (degrees) 0 Left Extension Active (degrees) 3 Comments knee valgus from mid line= 15 degrees R knee= 0 Ankle and Foot Goniometric Range of Motion Ankle and Foot Right Active Dorsiflexion with Knee Extended 2 Plantarflexion 56 Inversion 35 Eversion 11 Left Active Plantarflexion 48 Inversion 45 Eversion 10 Comments DF with knee extended= -2 PT-OP-M Strength Start: 08/17/21 11:30 Freq: Status: Active Protocol: Document 08/17/21 11:34 (Rec: 08/17/21 12:10 [email or web address]) Hip Strength Hip Manual Muscle Testing Right Flexion (L2) 2- Poor- Extension (S1) 2- Poor- Abduction 2- Poor- Adduction 2- Poor- Comments significant pain noted Left Flexion (L2) 2+ Poor+ Extension (S1) 2+ Poor+ Abduction 2+ Poor+ Adduction 2+ Poor+ Knee Strength Knee Manual Muscle Testing Right Flexion (S2) 3 Fair Extension (L3) 3 Fair Left Flexion (S2) 3+ Fair+ Extension (L3) 3+ Fair+ Ankle/Foot Strength Ankle and Foot Manual Muscle Testing Right Dorsiflexion (L4) 4- Good- Plantarflexion (S1) 4- Good- Inversion 3+ Fair+ Eversion (S1) 3+ Fair+ Left Dorsiflexion (L4) 4- Good- Plantarflexion (S1) 4- Good- Inversion 3+ Fair+ Eversion (S1) 3+ Fair+ PT-OP-T Assessment and Plan Start: 08/17/21 11:30 Freq: Status: Active Protocol: Document 08/17/21 11:34 (Rec: 08/17/21 12:10 [email or web address]) Physical Therapy Assessment Rehab Potential Rehabilitation Potential Fair Evaluation Complexity Number of Personal Factors/Comorbidities 3 or More Number of Body Systems Impaired 4 or More Clinical Presentation at Evaluation Stable Impairments Impairments Activity Tolerance,Balance, Functional Activities, Functional Mobility,Gait,Pain, Posture,ROM,Sensation,Soft Tissue Mobility,Strength, Transfers Goals strength Impairment very weak hip strength Short Term Goal (STG) pt will show improved overall hip strength up to 3-/5 to improve her gait stability STG Duration 5 weeks Shelter Goal (LTG) pt will show improved overall hip strength up to 3+/5 to improve her gait stability and balance LTG Duration 10 weeks falls Impairment multiple falls within the past few months Short Term Goal (STG) pt will show improved safety awareness to use AD for mobility and not fall for a month STG Duration 5 weeks Shelter Goal (LTG) pt will show improved safety awareness to use AD for mobility and overall balance so she will not fall for 2 months LTG Duration 10 weeks ABC scale Impairment pt scores 23% on ABC scale Short Term Goal (STG) pt will show improved confidence for balance to score >30 on ABC scale STG Duration 5 weeks Shelter Goal (LTG) pt will show improved confidence for balance to score >40 on ABC scale LTG Duration 10 weeks Assessment Summary Assessment Silvia is a 65yo fragile female here for decreased balance and chronic severe hip pain R>L. Pt has multiple cormobidities and complicated surgical hx such as osteoporosis, B hip displasia, previous TIA, HTN, seizures, multiple R RONNIE/ L TKA. Upon assessment, pt presents severe L knee valgus (>15 degrees) possibly d/t her previous L TKA and L ankle ORIF. Her R hip is extremely weak 2-/5 and very sensitive to movements. All these aforementioned impairments contribute to her poor gait stability and I recommended her to use SPC/ FWW for mobility at this point . D/t the complexity of her medical conditions, this is going to be a long rehab to address her impairments. I believe pt will benefit from increasing hip and ankle ROM followed by hip strengthening to improve her gait stability which reduces her fall risk. Physical Therapy Plan Frequency and Duration Frequency of Treatment 2x/Week Duration of Treatment 12 weeks Plan of Care Start Date 08/17/21 Plan of Care End Date 11/15/21 Therapeutic Interventions Therapeutic Interventions Aquatic Therapy,Balance Training,Gait Training,Home Exercise Program,Joint Mobilizations,Manual Therapy, Neuromuscular Re-education, Patient/Caregiver Education, Self-Care/Home Management,Soft Tissue Mobilization,Taping, Therapeutic Activities, Therapeutic Exercises Modalities Cold Pack/Ice Massage,Electric Stimulation,Hot Packs, Infrared Therapy,Ultrasound Next Visit Focus/Plan Next Note Type Treatment Note Next Visit Plan STM at hip gentle hip and ankle ROM isometric hip strengthening educate to use SPC/ FWW
--- NOTE | 2021-08-17 12:41 | PT.OPPOC ---
Physical, Occupational & Speech Therapy At [facility] Current Diagnoses Other abnormalities of gait and mobility (08/17/21) History of falling (08/17/21) Visit Care Team Role Provider Type Viktor Alvarez MD Family Provider Physician Primary Care Provider Specialty: Family Practice Address: [address] [place] [address], [id number] Email: [email or web address] Cyndi Keller MD Attending Provider Non-Staff Referring Provider Specialty: Neurology Address: [address] [place] [address], [id number] Email: Plan Of Care PT-OP-T Assessment and Plan Start: 08/17/21 11:30 Freq: Status: Active Protocol: Document 08/17/21 11:34 (Rec: 08/17/21 12:10 [email or web address]) Physical Therapy Assessment Rehab Potential Rehabilitation Potential Fair Evaluation Complexity Number of Personal Factors/Comorbidities 3 or More Number of Body Systems Impaired 4 or More Clinical Presentation at Evaluation Stable Impairments Impairments Activity Tolerance,Balance, Functional Activities, Functional Mobility,Gait,Pain, Posture,ROM,Sensation,Soft Tissue Mobility,Strength, Transfers Goals strength Impairment very weak hip strength Short Term Goal (STG) pt will show improved overall hip strength up to 3-/5 to improve her gait stability STG Duration 5 weeks Examiner Rating Clerk Goal (LTG) pt will show improved overall hip strength up to 3+/5 to improve her gait stability and balance LTG Duration 10 weeks falls Impairment multiple falls within the past few months Short Term Goal (STG) pt will show improved safety awareness to use AD for mobility and not fall for a month STG Duration 5 weeks Residential Goal (LTG) pt will show improved safety awareness to use AD for mobility and overall balance so she will not fall for 2 months LTG Duration 10 weeks ABC scale Impairment pt scores 23% on ABC scale Short Term Goal (STG) pt will show improved confidence for balance to score >30 on ABC scale STG Duration 5 weeks Examiner Rating Clerk Goal (LTG) pt will show improved confidence for balance to score >40 on ABC scale LTG Duration 10 weeks Assessment Summary Assessment Silvia is a 65yo fragile female here for decreased balance and chronic severe hip pain R>L. Pt has multiple cormobidities and complicated surgical hx such as osteoporosis, B hip displasia, previous TIA, HTN, seizures, multiple R RONNIE/ L TKA. Upon assessment, pt presents severe L knee valgus (>15 degrees) possibly d/t her previous L TKA and L ankle ORIF. Her R hip is extremely weak 2-/5 and very sensitive to movements. All these aforementioned impairments contribute to her poor gait stability and I recommended her to use SPC/ FWW for mobility at this point . D/t the complexity of her medical conditions, this is going to be a long rehab to address her impairments. I believe pt will benefit from increasing hip and ankle ROM followed by hip strengthening to improve her gait stability which reduces her fall risk. Physical Therapy Plan Frequency and Duration Frequency of Treatment 2x/Week Duration of Treatment 12 weeks Plan of Care Start Date 08/17/21 Plan of Care End Date 11/15/21 Therapeutic Interventions Therapeutic Interventions Aquatic Therapy,Balance Training,Gait Training,Home Exercise Program,Joint Mobilizations,Manual Therapy, Neuromuscular Re-education, Patient/Caregiver Education, Self-Care/Home Management,Soft Tissue Mobilization,Taping, Therapeutic Activities, Therapeutic Exercises Modalities Cold Pack/Ice Massage,Electric Stimulation,Hot Packs, Infrared Therapy,Ultrasound Next Visit Focus/Plan Next Note Type Treatment Note Next Visit Plan STM at hip gentle hip and ankle ROM isometric hip strengthening educate to use SPC/ FWW Plan of Care Dates Plan of Care Start Date 08/17/21 Plan of Care End Date 11/15/21 Electronically Signed by: Aj Nelson PT 08/17/21 0031 Please Sign and Return: I have reviewed this Plan of Care and certify that the skilled therapy services above are required to meet the patient?s needs. Physician Signature Date Printed Name and Credentials Clinical Instructor Signature Printed Name and Credentials
--- NOTE | 2021-08-19 15:28 | PT.OTN ---
Current Diagnoses Other abnormalities of gait and mobility (08/19/21) History of falling (08/19/21) Physical Therapy Treatment Note PT-OP-A Visit Information Start: 08/17/21 11:30 Freq: Status: Active Protocol: Document 08/19/21 12:59 HH (Rec: 08/19/21 15:28 HH [id number]) Out-Patient Physical Therapy Visit Information Visit Information Visit Type Treatment Note Visit Start Time 13:00 Visit Stop Time 13:55 Total Visit Minutes 55 Visit Number 01/01 Number of NUTRITIONIST PUBLIC HEALTH Visits 0 PT-OP-B Current Condition Start: 08/17/21 11:30 Freq: Status: Active Protocol: Document 08/17/21 11:34 HH (Rec: 08/17/21 12:10 HH [email or web address]) Current Condition History of Current Condition Onset Date many years ago Current Complaints B hip pain R>L, gait instability History of Current Condition 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 She has a history of high blood pressure and osteoporosis. (T-score at L hip =-3.4) She also has a history of seizures and often zone out as she stated. She c/o severe R hip pain and L knee pain 10/10 often during WB activities. She has very poor balance which caused her to fall multiple times within the past couple months but she was able to get up on her own . She uses a SPC sometimes but does not drive and mostly stay home. 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 She had R hip replaced twice, L knee replaced twice and ORIF at L ankle. 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 Denies dizziness/ numbness. Any AROM / PROM on R hip and L knee tends to reproduce severe pain . She has to take methadone for pain management. She also smokes cig x5 /day. Prior Treatments and Tests L femur T-score= -3.4 Current Functional Impairments (Reported) Functional Limitations- Mobility/Gait multiple falls knee knee gait L>R furniture surfing at home for support B UE to push off for sit to stand Personal Factors Other Personal Factors That May Effect Osteoporosis Therapy/Recovery high fall risks HTN previous TIA 2019 seizures. PT-OP-C Subjective Start: 08/17/21 11:30 Freq: Status: Active Protocol: Document 08/19/21 12:59 HH (Rec: 08/19/21 15:28 [id number]) OP-PT Subjective Patient Comments Patient Comments I just fell last night and hit my head. I just didnt feel balanced last night. Im doing okay. Patient Reported Progress Same PT-OP-D Balance Start: 08/17/21 11:30 Freq: Status: Active Protocol: Document 08/17/21 11:34 HH (Rec: 08/17/21 12:10 [email or web address]) Balance Tests Single Limb Standing Single Limb- Right unable Single Limb- Left unable PT-OP-G Mobility & Gait Start: 08/17/21 11:30 Freq: Status: Active Protocol: Document 08/17/21 11:34 HH (Rec: 08/17/21 12:10 [email or web address]) OP Mobility Evaluation Transfers Sit to Stand sit to stand: knock knee pattern to gain stability and BUE push off from chair armrests. stand to sit: BUE support to decend OP Gait Assessment Gait Deviations General Gait Pattern Antalgic,Decreased Stride Length,Decreased Feet Clearance,Flexed Trunk,Lateral Trunk Lean Factors Limiting Gait Function Factors Limiting Gait Function Decreased Activity Tolerance, Decreased Strength,Limited Range of Motion,Pain,Poor Balance,Poor Safety Awareness Comments Gait Comments often look for wall support while walking L knee extreme valgus, unstable gait with minimal step over pattern. excessive lateral shift bilaterally L>R PT-OP-H Neuro Start: 08/17/21 11:30 Freq: Status: Active Protocol: Document 08/17/21 11:34 HH (Rec: 08/17/21 12:10 [email or web address]) Deep Tendon Reflex & Clonus Assessment Deep Tendon Reflex Bilateral Achilles Deep Tendon Reflex 2+ Normal Left Patellar Deep Tendon Reflex 1+ Diminished Right Patellar Deep Tendon Reflex 2+ Normal Vital Signs Blood Pressure Sitting Blood Pressure (90/60-120/80 mmHg) 136/64 H Blood Pressure Source Manual Cuff PT-OP-J Posture/Palpation/Skin Start: 08/17/21 11:30 Freq: Status: Active Protocol: Document 08/17/21 11:34 HH (Rec: 08/17/21 12:10 [email or web address]) Posture Evaluation Position Standing Knee Posture (L) Genu Valgus,(L) Ext. Tibial Torsion,(L) Excess Flexion Ankle/Foot Posture (L) Pronated Palpation Assessment Location R hip Palpation Findings Tenderness,Trigger Point Palpation Details significant bony prominence on R greater trochanter. PT-OP-K Range of Motion Start: 08/17/21 11:30 Freq: Status: Active Protocol: Document 08/17/21 11:34 (Rec: 08/17/21 12:10 [email or web address]) Hip Goniometric Range of Motion Hip Right Active Comments grimacing pain with PROM Left Active Internal Rotation 55 External Rotation 30 Comments hip PROM = WFL Knee Goniometric Range of Motion Knee Right Extension Active (degrees) 0 Left Extension Active (degrees) 3 Comments knee valgus from mid line= 15 degrees R knee= 0 Ankle and Foot Goniometric Range of Motion Ankle and Foot Right Active Dorsiflexion with Knee Extended 2 Plantarflexion 56 Inversion 35 Eversion 11 Left Active Plantarflexion 48 Inversion 45 Eversion 10 Comments DF with knee extended= -2 PT-OP-M Strength Start: 08/17/21 11:30 Freq: Status: Active Protocol: Document 08/17/21 11:34 (Rec: 08/17/21 12:10 [email or web address]) Hip Strength Hip Manual Muscle Testing Right Flexion (L2) 2- Poor- Extension (S1) 2- Poor- Abduction 2- Poor- Adduction 2- Poor- Comments significant pain noted Left Flexion (L2) 2+ Poor+ Extension (S1) 2+ Poor+ Abduction 2+ Poor+ Adduction 2+ Poor+ Knee Strength Knee Manual Muscle Testing Right Flexion (S2) 3 Fair Extension (L3) 3 Fair Left Flexion (S2) 3+ Fair+ Extension (L3) 3+ Fair+ Ankle/Foot Strength Ankle and Foot Manual Muscle Testing Right Dorsiflexion (L4) 4- Good- Plantarflexion (S1) 4- Good- Inversion 3+ Fair+ Eversion (S1) 3+ Fair+ Left Dorsiflexion (L4) 4- Good- Plantarflexion (S1) 4- Good- Inversion 3+ Fair+ Eversion (S1) 3+ Fair+ PT-OP-Q Treatments Start: 08/17/21 11:30 Freq: Status: Active Protocol: Document 08/19/21 12:59 (Rec: 08/19/21 15:28 [id number]) Therapeutic Exercises Supine Exercises supine hip ER Comments unable with unilateral hip ER d/t weakness supine hip abd isometrics Equipment Used yellow band Reps/Minutes 10s hold x 10 Comments for HEP Manual Therapy Treatment Soft Tissue Mobilization R QL Mobilization Type Myofascial Release,Sustained Pressure,Trigger Point Release Intensity/Depth Moderate Body Position Sidelying R glute Mobilization Type Myofascial Release,Sustained Pressure,Trigger Point Release Intensity/Depth Moderate Body Position Sidelying Joint Mobilizations calcaneal Joint L calcaneal eversion Grade III Body Position Supine Comments pt reports of increased pain at medial knee at the begining buy subside after. Manual Traction hip Body Position Supine Reps/Duration 10s hold x10 Comments pt reports significant relief on Low back and hip PT-OP-R Modalities Start: 08/17/21 11:30 Freq: Status: Active Protocol: Document 08/19/21 12:59 HH (Rec: 08/19/21 15:28 [id number]) Hot Pack/Cold Pack Treatment hip Location bilateral Patient Position Hooklying Treatment Duration (minutes) 15 Patient Tolerance Good PT-OP-T Assessment and Plan Start: 08/17/21 11:30 Freq: Status: Active Protocol: Document 08/19/21 12:59 HH (Rec: 08/19/21 15:28 [id number]) Physical Therapy Assessment Goals strength Impairment very weak hip strength Short Term Goal (STG) pt will show improved overall hip strength up to 3-/5 to improve her gait stability STG Duration 5 weeks Group Home Goal (LTG) pt will show improved overall hip strength up to 3+/5 to improve her gait stability and balance LTG Duration 10 weeks falls Impairment multiple falls within the past few months Short Term Goal (STG) pt will show improved safety awareness to use AD for mobility and not fall for a month STG Duration 5 weeks Precision Farming Specialist Goal (LTG) pt will show improved safety awareness to use AD for mobility and overall balance so she will not fall for 2 months LTG Duration 10 weeks ABC scale Impairment pt scores 23% on ABC scale Short Term Goal (STG) pt will show improved confidence for balance to score >30 on ABC scale STG Duration 5 weeks Precision Farming Specialist Goal (LTG) pt will show improved confidence for balance to score >40 on ABC scale LTG Duration 10 weeks Assessment Summary Assessment pt does have good knee alignment in supine but significant valgus in WB position. Her core and hip are very weak and unable to tolerate supine hip ER. Started hip abd isometrics and she kristofer okay. Will check her post session tolerance. Physical Therapy Plan Frequency and Duration Frequency of Treatment 2x/Week Duration of Treatment 12 weeks Plan of Care Start Date 08/17/21 Plan of Care End Date 11/15/21 Therapeutic Interventions Therapeutic Interventions Aquatic Therapy,Balance Training,Gait Training,Home Exercise Program,Joint Mobilizations,Manual Therapy, Neuromuscular Re-education, Patient/Caregiver Education, Self-Care/Home Management,Soft Tissue Mobilization,Taping, Therapeutic Activities, Therapeutic Exercises Modalities Cold Pack/Ice Massage,Electric Stimulation,Hot Packs, Infrared Therapy,Ultrasound Next Visit Focus/Plan Next Note Type Treatment Note Next Visit Plan STM at hip gentle hip and ankle ROM isometric hip strengthening educate to use SPC/ FWW
--- NOTE | 2021-08-24 10:30 | PT.OTN ---
Current Diagnoses Other abnormalities of gait and mobility (08/24/21) History of falling (08/24/21) Physical Therapy Treatment Note PT-OP-A Visit Information Start: 08/17/21 11:30 Freq: Status: Active Protocol: Document 08/24/21 09:40 HH (Rec: 08/24/21 10:30 HH [id number]) Out-Patient Physical Therapy Visit Information Visit Information Visit Type Treatment Note Visit Start Time 09:45 Visit Stop Time 10:39 Total Visit Minutes 54 Visit Number 01/29 Number of SHEEP HERDER Visits 0 PT-OP-B Current Condition Start: 08/17/21 11:30 Freq: Status: Active Protocol: Document 08/17/21 11:34 HH (Rec: 08/17/21 12:10 HH [email or web address]) Current Condition History of Current Condition Onset Date many years ago Current Complaints B hip pain R>L, gait instability History of Current Condition 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 She has a history of high blood pressure and osteoporosis. (T-score at L hip =-3.4) She also has a history of seizures and often zone out as she stated. She c/o severe R hip pain and L knee pain 10/10 often during WB activities. She has very poor balance which caused her to fall multiple times within the past couple months but she was able to get up on her own . She uses a SPC sometimes but does not drive and mostly stay home. 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 She had R hip replaced twice, L knee replaced twice and ORIF at L ankle. 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 Denies dizziness/ numbness. Any AROM / PROM on R hip and L knee tends to reproduce severe pain . She has to take methadone for pain management. She also smokes cig x5 /day. Prior Treatments and Tests L femur T-score= -3.4 Current Functional Impairments (Reported) Functional Limitations- Mobility/Gait multiple falls knee knee gait L>R furniture surfing at home for support B UE to push off for sit to stand Personal Factors Other Personal Factors That May Effect Osteoporosis Therapy/Recovery high fall risks HTN previous TIA 2019 seizures. PT-OP-C Subjective Start: 08/17/21 11:30 Freq: Status: Active Protocol: Document 08/24/21 09:40 HH (Rec: 08/24/21 10:30 [id number]) OP-PT Subjective Patient Comments Patient Comments I havent done any exercises. I did feel really when i left here but got really sore the next day. Patient Reported Progress Improving PT-OP-D Balance Start: 08/17/21 11:30 Freq: Status: Active Protocol: Document 08/17/21 11:34 HH (Rec: 08/17/21 12:10 [email or web address]) Balance Tests Single Limb Standing Single Limb- Right unable Single Limb- Left unable PT-OP-G Mobility & Gait Start: 08/17/21 11:30 Freq: Status: Active Protocol: Document 08/17/21 11:34 HH (Rec: 08/17/21 12:10 [email or web address]) OP Mobility Evaluation Transfers Sit to Stand sit to stand: knock knee pattern to gain stability and BUE push off from chair armrests. stand to sit: BUE support to decend OP Gait Assessment Gait Deviations General Gait Pattern Antalgic,Decreased Stride Length,Decreased Feet Clearance,Flexed Trunk,Lateral Trunk Lean Factors Limiting Gait Function Factors Limiting Gait Function Decreased Activity Tolerance, Decreased Strength,Limited Range of Motion,Pain,Poor Balance,Poor Safety Awareness Comments Gait Comments often look for wall support while walking L knee extreme valgus, unstable gait with minimal step over pattern. excessive lateral shift bilaterally L>R PT-OP-H Neuro Start: 08/17/21 11:30 Freq: Status: Active Protocol: Document 08/17/21 11:34 HH (Rec: 08/17/21 12:10 [email or web address]) Deep Tendon Reflex & Clonus Assessment Deep Tendon Reflex Bilateral Achilles Deep Tendon Reflex 2+ Normal Left Patellar Deep Tendon Reflex 1+ Diminished Right Patellar Deep Tendon Reflex 2+ Normal Vital Signs Blood Pressure Sitting Blood Pressure (90/60-120/80 mmHg) 136/64 H Blood Pressure Source Manual Cuff PT-OP-J Posture/Palpation/Skin Start: 08/17/21 11:30 Freq: Status: Active Protocol: Document 08/17/21 11:34 HH (Rec: 08/17/21 12:10 [email or web address]) Posture Evaluation Position Standing Knee Posture (L) Genu Valgus,(L) Ext. Tibial Torsion,(L) Excess Flexion Ankle/Foot Posture (L) Pronated Palpation Assessment Location R hip Palpation Findings Tenderness,Trigger Point Palpation Details significant bony prominence on R greater trochanter. PT-OP-K Range of Motion Start: 08/17/21 11:30 Freq: Status: Active Protocol: Document 08/17/21 11:34 (Rec: 08/17/21 12:10 [email or web address]) Hip Goniometric Range of Motion Hip Right Active Comments grimacing pain with PROM Left Active Internal Rotation 55 External Rotation 30 Comments hip PROM = WFL Knee Goniometric Range of Motion Knee Right Extension Active (degrees) 0 Left Extension Active (degrees) 3 Comments knee valgus from mid line= 15 degrees R knee= 0 Ankle and Foot Goniometric Range of Motion Ankle and Foot Right Active Dorsiflexion with Knee Extended 2 Plantarflexion 56 Inversion 35 Eversion 11 Left Active Plantarflexion 48 Inversion 45 Eversion 10 Comments DF with knee extended= -2 PT-OP-M Strength Start: 08/17/21 11:30 Freq: Status: Active Protocol: Document 08/17/21 11:34 HH (Rec: 08/17/21 12:10 [email or web address]) Hip Strength Hip Manual Muscle Testing Right Flexion (L2) 2- Poor- Extension (S1) 2- Poor- Abduction 2- Poor- Adduction 2- Poor- Comments significant pain noted Left Flexion (L2) 2+ Poor+ Extension (S1) 2+ Poor+ Abduction 2+ Poor+ Adduction 2+ Poor+ Knee Strength Knee Manual Muscle Testing Right Flexion (S2) 3 Fair Extension (L3) 3 Fair Left Flexion (S2) 3+ Fair+ Extension (L3) 3+ Fair+ Ankle/Foot Strength Ankle and Foot Manual Muscle Testing Right Dorsiflexion (L4) 4- Good- Plantarflexion (S1) 4- Good- Inversion 3+ Fair+ Eversion (S1) 3+ Fair+ Left Dorsiflexion (L4) 4- Good- Plantarflexion (S1) 4- Good- Inversion 3+ Fair+ Eversion (S1) 3+ Fair+ PT-OP-Q Treatments Start: 08/17/21 11:30 Freq: Status: Active Protocol: Document 08/24/21 09:40 HH (Rec: 08/24/21 10:30 [id number]) Therapeutic Exercises Supine Exercises supine hip ER Equipment Used no band Reps/Minutes 8x2 Comments for HEP supine hip abd isometrics Equipment Used yellow band Reps/Minutes 10s hold x 10 Comments for HEP Manual Therapy Treatment Soft Tissue Mobilization R QL Mobilization Type Myofascial Release,Sustained Pressure,Trigger Point Release Intensity/Depth Moderate Body Position Sidelying R glute Body Location + L glute Mobilization Type Myofascial Release,Sustained Pressure,Trigger Point Release Intensity/Depth Moderate Body Position Sidelying Joint Mobilizations calcaneal Joint L calcaneal eversion Grade III Body Position Supine Comments pt reports of increased pain at medial knee at the begining buy subside after. Manual Traction hip Body Position Supine Reps/Duration 10s hold x10 Comments pt reports significant relief on Low back and hip PT-OP-R Modalities Start: 08/17/21 11:30 Freq: Status: Active Protocol: Document 08/24/21 09:40 HH (Rec: 08/24/21 10:30 [id number]) Hot Pack/Cold Pack Treatment hip Location bilateral Patient Position Hooklying Treatment Duration (minutes) 15 Patient Tolerance Good PT-OP-T Assessment and Plan Start: 08/17/21 11:30 Freq: Status: Active Protocol: Document 08/24/21 09:40 HH (Rec: 08/24/21 10:30 [id number]) Physical Therapy Assessment Goals strength Impairment very weak hip strength Short Term Goal (STG) pt will show improved overall hip strength up to 3-/5 to improve her gait stability STG Duration 5 weeks Director Of Distribution Goal (LTG) pt will show improved overall hip strength up to 3+/5 to improve her gait stability and balance LTG Duration 10 weeks falls Impairment multiple falls within the past few months Short Term Goal (STG) pt will show improved safety awareness to use AD for mobility and not fall for a month STG Duration 5 weeks Director Of Distribution Goal (LTG) pt will show improved safety awareness to use AD for mobility and overall balance so she will not fall for 2 months LTG Duration 10 weeks ABC scale Impairment pt scores 23% on ABC scale Short Term Goal (STG) pt will show improved confidence for balance to score >30 on ABC scale STG Duration 5 weeks Director Of Distribution Goal (LTG) pt will show improved confidence for balance to score >40 on ABC scale LTG Duration 10 weeks Assessment Summary Assessment Pt is very forgetful, and very CIRCLE and needs multiple reminders/cues of her HEP. She fell asleep couple times during reviewing HEP. Spent time educating her the importance of HEP, strength training for hip stabilizers and she expresses understading and will be compliant to her HEP Physical Therapy Plan Frequency and Duration Frequency of Treatment 2x/Week Duration of Treatment 12 weeks Plan of Care Start Date 08/17/21 Plan of Care End Date 11/15/21 Therapeutic Interventions Therapeutic Interventions Aquatic Therapy,Balance Training,Gait Training,Home Exercise Program,Joint Mobilizations,Manual Therapy, Neuromuscular Re-education, Patient/Caregiver Education, Self-Care/Home Management,Soft Tissue Mobilization,Taping, Therapeutic Activities, Therapeutic Exercises Modalities Cold Pack/Ice Massage,Electric Stimulation,Hot Packs, Infrared Therapy,Ultrasound Next Visit Focus/Plan Next Note Type Treatment Note Next Visit Plan STM at hip gentle hip and ankle ROM isometric hip strengthening educate to use SPC/ FWW
--- NOTE | 2021-08-26 14:31 | PT.OTN ---
Current Diagnoses Other abnormalities of gait and mobility (08/26/21) History of falling (08/26/21) Physical Therapy Treatment Note PT-OP-A Visit Information Start: 08/17/21 11:30 Freq: Status: Active Protocol: Document 08/26/21 12:53 HH (Rec: 08/26/21 14:31 HH [id number]) Out-Patient Physical Therapy Visit Information Visit Information Visit Type Treatment Note Visit Start Time 13:00 Visit Stop Time 13:55 Total Visit Minutes 55 Visit Number 03/01 Number of BARREL BANDER Visits 0 PT-OP-B Current Condition Start: 08/17/21 11:30 Freq: Status: Active Protocol: Document 08/17/21 11:34 HH (Rec: 08/17/21 12:10 HH [email or web address]) Current Condition History of Current Condition Onset Date many years ago Current Complaints B hip pain R>L, gait instability History of Current Condition 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 She has a history of high blood pressure and osteoporosis. (T-score at L hip =-3.4) She also has a history of seizures and often zone out as she stated. She c/o severe R hip pain and L knee pain 10/10 often during WB activities. She has very poor balance which caused her to fall multiple times within the past couple months but she was able to get up on her own . She uses a SPC sometimes but does not drive and mostly stay home. 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 She had R hip replaced twice, L knee replaced twice and ORIF at L ankle. 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 Denies dizziness/ numbness. Any AROM / PROM on R hip and L knee tends to reproduce severe pain . She has to take methadone for pain management. She also smokes cig x5 /day. Prior Treatments and Tests L femur T-score= -3.4 Current Functional Impairments (Reported) Functional Limitations- Mobility/Gait multiple falls knee knee gait L>R furniture surfing at home for support B UE to push off for sit to stand Personal Factors Other Personal Factors That May Effect Osteoporosis Therapy/Recovery high fall risks HTN previous TIA 2019 seizures. PT-OP-C Subjective Start: 08/17/21 11:30 Freq: Status: Active Protocol: Document 08/26/21 12:53 HH (Rec: 08/26/21 14:31 [id number]) OP-PT Subjective Patient Comments Patient Comments I started doing the home exercises. My L shoulder is hurting a lot today. Patient Reported Progress Same PT-OP-D Balance Start: 08/17/21 11:30 Freq: Status: Active Protocol: Document 08/17/21 11:34 HH (Rec: 08/17/21 12:10 [email or web address]) Balance Tests Single Limb Standing Single Limb- Right unable Single Limb- Left unable PT-OP-G Mobility & Gait Start: 08/17/21 11:30 Freq: Status: Active Protocol: Document 08/17/21 11:34 HH (Rec: 08/17/21 12:10 [email or web address]) OP Mobility Evaluation Transfers Sit to Stand sit to stand: knock knee pattern to gain stability and BUE push off from chair armrests. stand to sit: BUE support to decend OP Gait Assessment Gait Deviations General Gait Pattern Antalgic,Decreased Stride Length,Decreased Feet Clearance,Flexed Trunk,Lateral Trunk Lean Factors Limiting Gait Function Factors Limiting Gait Function Decreased Activity Tolerance, Decreased Strength,Limited Range of Motion,Pain,Poor Balance,Poor Safety Awareness Comments Gait Comments often look for wall support while walking L knee extreme valgus, unstable gait with minimal step over pattern. excessive lateral shift bilaterally L>R PT-OP-H Neuro Start: 08/17/21 11:30 Freq: Status: Active Protocol: Document 08/17/21 11:34 HH (Rec: 08/17/21 12:10 [email or web address]) Deep Tendon Reflex & Clonus Assessment Deep Tendon Reflex Bilateral Achilles Deep Tendon Reflex 2+ Normal Left Patellar Deep Tendon Reflex 1+ Diminished Right Patellar Deep Tendon Reflex 2+ Normal Vital Signs Blood Pressure Sitting Blood Pressure (90/60-120/80 mmHg) 136/64 H Blood Pressure Source Manual Cuff PT-OP-J Posture/Palpation/Skin Start: 08/17/21 11:30 Freq: Status: Active Protocol: Document 08/17/21 11:34 HH (Rec: 08/17/21 12:10 [email or web address]) Posture Evaluation Position Standing Knee Posture (L) Genu Valgus,(L) Ext. Tibial Torsion,(L) Excess Flexion Ankle/Foot Posture (L) Pronated Palpation Assessment Location R hip Palpation Findings Tenderness,Trigger Point Palpation Details significant bony prominence on R greater trochanter. PT-OP-K Range of Motion Start: 08/17/21 11:30 Freq: Status: Active Protocol: Document 08/17/21 11:34 HH (Rec: 08/17/21 12:10 [email or web address]) Hip Goniometric Range of Motion Hip Right Active Comments grimacing pain with PROM Left Active Internal Rotation 55 External Rotation 30 Comments hip PROM = WFL Knee Goniometric Range of Motion Knee Right Extension Active (degrees) 0 Left Extension Active (degrees) 3 Comments knee valgus from mid line= 15 degrees R knee= 0 Ankle and Foot Goniometric Range of Motion Ankle and Foot Right Active Dorsiflexion with Knee Extended 2 Plantarflexion 56 Inversion 35 Eversion 11 Left Active Plantarflexion 48 Inversion 45 Eversion 10 Comments DF with knee extended= -2 PT-OP-M Strength Start: 08/17/21 11:30 Freq: Status: Active Protocol: Document 08/17/21 11:34 (Rec: 08/17/21 12:10 [email or web address]) Hip Strength Hip Manual Muscle Testing Right Flexion (L2) 2- Poor- Extension (S1) 2- Poor- Abduction 2- Poor- Adduction 2- Poor- Comments significant pain noted Left Flexion (L2) 2+ Poor+ Extension (S1) 2+ Poor+ Abduction 2+ Poor+ Adduction 2+ Poor+ Knee Strength Knee Manual Muscle Testing Right Flexion (S2) 3 Fair Extension (L3) 3 Fair Left Flexion (S2) 3+ Fair+ Extension (L3) 3+ Fair+ Ankle/Foot Strength Ankle and Foot Manual Muscle Testing Right Dorsiflexion (L4) 4- Good- Plantarflexion (S1) 4- Good- Inversion 3+ Fair+ Eversion (S1) 3+ Fair+ Left Dorsiflexion (L4) 4- Good- Plantarflexion (S1) 4- Good- Inversion 3+ Fair+ Eversion (S1) 3+ Fair+ PT-OP-Q Treatments Start: 08/17/21 11:30 Freq: Status: Active Protocol: Document 08/26/21 12:53 HH (Rec: 08/26/21 14:31 [id number]) Therapeutic Exercises Supine Exercises supine hip ER Equipment Used no band Reps/Minutes 8x2 Comments for HEP, p shows good understanding supine hip abd isometrics Equipment Used yellow band Reps/Minutes 10s hold x 10 Comments for HEP, pt shows good understanding Manual Therapy Treatment Soft Tissue Mobilization L knee Body Location medial joint line Mobilization Type Myofascial Release R QL Mobilization Type Myofascial Release,Sustained Pressure,Trigger Point Release Intensity/Depth Moderate Body Position Sidelying R glute Body Location + L glute Mobilization Type Myofascial Release,Sustained Pressure,Trigger Point Release Intensity/Depth Moderate Body Position Sidelying Joint Mobilizations calcaneal Joint L calcaneal eversion Grade III Body Position Supine Comments reduced pain at medial knee Manual Traction hip Body Position Supine Reps/Duration 10s hold x10 Comments pt reports significant relief on Low back and hip PT-OP-R Modalities Start: 08/17/21 11:30 Freq: Status: Active Protocol: Document 08/26/21 12:53 HH (Rec: 08/26/21 14:31 [id number]) Hot Pack/Cold Pack Treatment Cold Pack Location ice massage at L shoulder Patient Tolerance Fair Comments warm and painful to touch, signifciant swelling at the anterior capsule. hip Location bilateral Patient Position Hooklying Treatment Duration (minutes) 10 Patient Tolerance Good PT-OP-T Assessment and Plan Start: 08/17/21 11:30 Freq: Status: Active Protocol: Document 08/26/21 12:53 HH (Rec: 08/26/21 14:31 [id number]) Physical Therapy Assessment Goals strength Impairment very weak hip strength Short Term Goal (STG) pt will show improved overall hip strength up to 3-/5 to improve her gait stability STG Duration 5 weeks Retail Merchandising Specialist Goal (LTG) pt will show improved overall hip strength up to 3+/5 to improve her gait stability and balance LTG Duration 10 weeks falls Impairment multiple falls within the past few months Short Term Goal (STG) pt will show improved safety awareness to use AD for mobility and not fall for a month STG Duration 5 weeks Fdc Goal (LTG) pt will show improved safety awareness to use AD for mobility and overall balance so she will not fall for 2 months LTG Duration 10 weeks ABC scale Impairment pt scores 23% on ABC scale Short Term Goal (STG) pt will show improved confidence for balance to score >30 on ABC scale STG Duration 5 weeks Retail Merchandising Specialist Goal (LTG) pt will show improved confidence for balance to score >40 on ABC scale LTG Duration 10 weeks Assessment Summary Assessment Pt came in with significant L shoulder pain today. Swelliing , warm and painful to touch at anterior joint capsule. Used Ice massage and she kristofer well. She was able to execute her HEP fairly well today. Physical Therapy Plan Frequency and Duration Frequency of Treatment 2x/Week Duration of Treatment 12 weeks Plan of Care Start Date 08/17/21 Plan of Care End Date 11/15/21 Therapeutic Interventions Therapeutic Interventions Aquatic Therapy,Balance Training,Gait Training,Home Exercise Program,Joint Mobilizations,Manual Therapy, Neuromuscular Re-education, Patient/Caregiver Education, Self-Care/Home Management,Soft Tissue Mobilization,Taping, Therapeutic Activities, Therapeutic Exercises Modalities Cold Pack/Ice Massage,Electric Stimulation,Hot Packs, Infrared Therapy,Ultrasound Next Visit Focus/Plan Next Note Type Treatment Note Next Visit Plan STM at hip gentle hip and ankle ROM isometric hip strengthening educate to use SPC/ FWW
--- NOTE | 2021-08-31 13:48 | PT.OTN ---
Current Diagnoses Other abnormalities of gait and mobility (08/31/21) History of falling (08/31/21) Physical Therapy Treatment Note PT-OP-A Visit Information Start: 08/17/21 11:30 Freq: Status: Active Protocol: Document 08/31/21 12:55 SP (Rec: 08/31/21 15:36 SP [id number]) Out-Patient Physical Therapy Visit Information Visit Information Visit Type Treatment Note Visit Start Time 13:00 Visit Stop Time 13:48 Total Visit Minutes 48 Visit Number 03/31 Number of BULK LOADER Visits 1 Evaluation Information Evaluation Date 08/17/21 Precautions Precautions Osteoporosis high fall risks HTN previous TIA 2019 seizures. 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 She has a history of high blood pressure and osteoporosis. (T-score at L hip =-3.4) She also has a history of seizures and often zone out as she stated. She c/o severe R hip pain and L knee pain 10/10 often during WB activities. She has very poor balance which caused her to fall multiple times within the past couple months but she was able to get up on her own . She uses a SPC sometimes but does not drive and mostly stay home. 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 She had R hip replaced twice, L knee replaced twice and ORIF at L ankle. 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 Denies dizziness/ numbness. Any AROM / PROM on R hip and L knee tends to reproduce severe pain . She has to take methadone for pain management. She also smokes cig x5 /day. Prior Treatments and Tests L femur T-score= -3.4 Current Functional Impairments (Reported) Functional Limitations- Mobility/Gait multiple falls knee knee gait L>R furniture surfing at home for support B UE to push off for sit to stand Personal Factors Other Personal Factors That May Effect Osteoporosis Therapy/Recovery high fall risks HTN previous TIA 2019 seizures. PT-OP-C Subjective Start: 08/17/21 11:30 Freq: Status: Active Protocol: Document 08/31/21 12:55 SP (Rec: 08/31/21 15:36 SP [id number]) OP-PT Subjective Patient Comments Patient Comments Pt stated L shld felt better after last tx with CP and manual. She states L shld affecting her sleeping on L. PT-OP-D Balance Start: 08/17/21 11:30 Freq: Status: Active Protocol: Document 08/17/21 11:34 HH (Rec: 08/17/21 12:10 HH [email or web address]) Balance Tests Single Limb Standing Single Limb- Right unable Single Limb- Left unable PT-OP-G Mobility & Gait Start: 08/17/21 11:30 Freq: Status: Active Protocol: Document 08/17/21 11:34 HH (Rec: 08/17/21 12:10 HH [email or web address]) OP Mobility Evaluation Transfers Sit to Stand sit to stand: knock knee pattern to gain stability and BUE push off from chair armrests. stand to sit: BUE support to decend OP Gait Assessment Gait Deviations General Gait Pattern Antalgic,Decreased Stride Length,Decreased Feet Clearance,Flexed Trunk,Lateral Trunk Lean Factors Limiting Gait Function Factors Limiting Gait Function Decreased Activity Tolerance, Decreased Strength,Limited Range of Motion,Pain,Poor Balance,Poor Safety Awareness Comments Gait Comments often look for wall support while walking L knee extreme valgus, unstable gait with minimal step over pattern. excessive lateral shift bilaterally L>R PT-OP-H Neuro Start: 08/17/21 11:30 Freq: Status: Active Protocol: Document 08/17/21 11:34 HH (Rec: 08/17/21 12:10 HH [email or web address]) Deep Tendon Reflex & Clonus Assessment Deep Tendon Reflex Bilateral Achilles Deep Tendon Reflex 2+ Normal Left Patellar Deep Tendon Reflex 1+ Diminished Right Patellar Deep Tendon Reflex 2+ Normal Vital Signs Blood Pressure Sitting Blood Pressure (90/60-120/80 mmHg) 136/64 H Blood Pressure Source Manual Cuff PT-OP-J Posture/Palpation/Skin Start: 08/17/21 11:30 Freq: Status: Active Protocol: Document 08/17/21 11:34 HH (Rec: 08/17/21 12:10 HH [email or web address]) Posture Evaluation Position Standing Knee Posture (L) Genu Valgus,(L) Ext. Tibial Torsion,(L) Excess Flexion Ankle/Foot Posture (L) Pronated Palpation Assessment Location R hip Palpation Findings Tenderness,Trigger Point Palpation Details significant bony prominence on R greater trochanter. PT-OP-K Range of Motion Start: 08/17/21 11:30 Freq: Status: Active Protocol: Document 08/17/21 11:34 HH (Rec: 08/17/21 12:10 [email or web address]) Hip Goniometric Range of Motion Hip Right Active Comments grimacing pain with PROM Left Active Internal Rotation 55 External Rotation 30 Comments hip PROM = WFL Knee Goniometric Range of Motion Knee Right Extension Active (degrees) 0 Left Extension Active (degrees) 3 Comments knee valgus from mid line= 15 degrees R knee= 0 Ankle and Foot Goniometric Range of Motion Ankle and Foot Right Active Dorsiflexion with Knee Extended 2 Plantarflexion 56 Inversion 35 Eversion 11 Left Active Plantarflexion 48 Inversion 45 Eversion 10 Comments DF with knee extended= -2 PT-OP-M Strength Start: 08/17/21 11:30 Freq: Status: Active Protocol: Document 08/17/21 11:34 HH (Rec: 08/17/21 12:10 [email or web address]) Hip Strength Hip Manual Muscle Testing Right Flexion (L2) 2- Poor- Extension (S1) 2- Poor- Abduction 2- Poor- Adduction 2- Poor- Comments significant pain noted Left Flexion (L2) 2+ Poor+ Extension (S1) 2+ Poor+ Abduction 2+ Poor+ Adduction 2+ Poor+ Knee Strength Knee Manual Muscle Testing Right Flexion (S2) 3 Fair Extension (L3) 3 Fair Left Flexion (S2) 3+ Fair+ Extension (L3) 3+ Fair+ Ankle/Foot Strength Ankle and Foot Manual Muscle Testing Right Dorsiflexion (L4) 4- Good- Plantarflexion (S1) 4- Good- Inversion 3+ Fair+ Eversion (S1) 3+ Fair+ Left Dorsiflexion (L4) 4- Good- Plantarflexion (S1) 4- Good- Inversion 3+ Fair+ Eversion (S1) 3+ Fair+ PT-OP-Q Treatments Start: 08/17/21 11:30 Freq: Status: Active Protocol: Document 08/31/21 12:55 SP (Rec: 08/31/21 15:36 SP [id number]) Therapeutic Exercises Supine Exercises supine hip ABD Supine Exercise Name opposite LE bent Side right Equipment Used assessment for potential HEP in future Reps/Minutes x5 reps- cued TA & PPT awareness. Comments unable on L due pain medial L knee and challenged TA weakness. supine hip ER Supine Exercise Name HEP Resistance AAROM Equipment Used (forefoot on 1/2 foam roller neutral ankle positioning) Reps/Minutes 8x2 Comments pt shows good understanding supine hip abd isometrics Supine Exercise Name HEP Equipment Used yellow band Reps/Minutes 10s hold x 10 Comments cued for neutral pelvis and TA to decrease LS ext/ hip ext recruitment Sitting Exercises ankle DF, EV Sitting Exercise Name assessed for future HEP Side bilateral Resistance AROM Reps/Minutes 10 reps Comments good performance to decrease PF tightness Therapeutic Activity Therapeutic Activity side sleeping alignment Comments education on use of pillows between BLE, small folded towel/ pillow under superior ribcage to unweight shld for pain control and allowance sleep. Gait Training Gait Activity gait using SPC Device Used SPC in RUE Level of Assistance S Surface firm Distance/Duration 100ft Treatment Focus tall posture, hip abd facilitation, increase stride, heel strike to toe Comments BLE valgus alignment, cued tall posture increase stride length with awareness of hip abd and quad facilitation upon WB, improved with cues but tires quickly Manual Therapy Treatment Soft Tissue Mobilization L knee Body Location medial joint line Mobilization Type Myofascial Release R QL Mobilization Type Myofascial Release,Sustained Pressure,Trigger Point Release Intensity/Depth Moderate Body Position Sidelying R glute Body Location + L glute Mobilization Type Myofascial Release,Sustained Pressure,Trigger Point Release Intensity/Depth Moderate Body Position Sidelying Joint Mobilizations calcaneal Joint L calcaneal eversion Grade III Body Position Supine Comments reduced pain at medial knee Manual Traction hip Body Position Supine Reps/Duration 10s hold x10 Comments pt reports significant relief on Low back and hip PT-OP-R Modalities Start: 08/17/21 11:30 Freq: Status: Active Protocol: Document 08/26/21 12:53 HH (Rec: 08/26/21 14:31 HH [id number]) Hot Pack/Cold Pack Treatment Cold Pack Location ice massage at L shoulder Patient Tolerance Fair Comments warm and painful to touch, signifciant swelling at the anterior capsule. hip Location bilateral Patient Position Hooklying Treatment Duration (minutes) 10 Patient Tolerance Good PT-OP-T Assessment and Plan Start: 08/17/21 11:30 Freq: Status: Active Protocol: Document 08/31/21 12:55 SP (Rec: 08/31/21 15:36 SP [id number]) Physical Therapy Assessment Goals strength Impairment very weak hip strength Short Term Goal (STG) pt will show improved overall hip strength up to 3-/5 to improve her gait stability STG Duration 5 weeks Care Home Goal (LTG) pt will show improved overall hip strength up to 3+/5 to improve her gait stability and balance LTG Duration 10 weeks falls Impairment multiple falls within the past few months Short Term Goal (STG) pt will show improved safety awareness to use AD for mobility and not fall for a month STG Duration 5 weeks Care Home Goal (LTG) pt will show improved safety awareness to use AD for mobility and overall balance so she will not fall for 2 months LTG Duration 10 weeks ABC scale Impairment pt scores 23% on ABC scale Short Term Goal (STG) pt will show improved confidence for balance to score >30 on ABC scale STG Duration 5 weeks High School Assistant Principal Goal (LTG) pt will show improved confidence for balance to score >40 on ABC scale LTG Duration 10 weeks Assessment Summary Assessment Pt reported L shld better after last tx. Continues to have L shld pain, will be calling physician for another shot has helped in past. Tx focused on manual for pain relief and allowable HEP review for hip abd facilitation strengtheng R>L. CP applied to L shld during ther ex for comfort. Cued for PPT and TA awareness w/ ankle alignment. Initiated Le and trunk alignment side sleeping for support and pain relief usign pillows with good response better than without. Check gait w/ FWW next tx, show racquetball self STMs to posterlateral hip at wall for self application. Physical Therapy Plan Frequency and Duration Frequency of Treatment 2x/Week Duration of Treatment 12 weeks Plan of Care Start Date 08/17/21 Plan of Care End Date 11/15/21 Therapeutic Interventions Therapeutic Interventions Aquatic Therapy,Balance Training,Gait Training,Home Exercise Program,Joint Mobilizations,Manual Therapy, Neuromuscular Re-education, Patient/Caregiver Education, Self-Care/Home Management,Soft Tissue Mobilization,Taping, Therapeutic Activities, Therapeutic Exercises Modalities Cold Pack/Ice Massage,Electric Stimulation,Hot Packs, Infrared Therapy,Ultrasound Next Visit Focus/Plan Next Note Type Treatment Note Next Visit Plan Assess response to side sleeping with pillow support ed last tx. POC: STM at hip gentle hip and ankle ROM isometric hip strengthening educate to use SPC/ FWW
--- NOTE | 2021-09-07 14:33 | PT.OTN ---
Current Diagnoses Other abnormalities of gait and mobility (09/07/21) History of falling (09/07/21) Physical Therapy Treatment Note PT-OP-A Visit Information Start: 08/17/21 11:30 Freq: Status: Active Protocol: Document 09/07/21 13:49 SP (Rec: 09/07/21 16:31 SP [id number]) Out-Patient Physical Therapy Visit Information Visit Information Visit Type Treatment Note Visit Start Time 13:49 Visit Stop Time 14:33 Total Visit Minutes 44 Visit Number 05/01 Number of HOT TAR ROOFER Visits 2 PT-OP-B Current Condition Start: 08/17/21 11:30 Freq: Status: Active Protocol: Document 08/17/21 11:34 HH (Rec: 08/17/21 12:10 HH [email or web address]) Current Condition History of Current Condition Onset Date many years ago Current Complaints B hip pain R>L, gait instability History of Current Condition 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 She has a history of high blood pressure and osteoporosis. (T-score at L hip =-3.4) She also has a history of seizures and often zone out as she stated. She c/o severe R hip pain and L knee pain 10/10 often during WB activities. She has very poor balance which caused her to fall multiple times within the past couple months but she was able to get up on her own . She uses a SPC sometimes but does not drive and mostly stay home. 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 She had R hip replaced twice, L knee replaced twice and ORIF at L ankle. 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 Denies dizziness/ numbness. Any AROM / PROM on R hip and L knee tends to reproduce severe pain . She has to take methadone for pain management. She also smokes cig x5 /day. Prior Treatments and Tests L femur T-score= -3.4 Current Functional Impairments (Reported) Functional Limitations- Mobility/Gait multiple falls knee knee gait L>R furniture surfing at home for support B UE to push off for sit to stand Personal Factors Other Personal Factors That May Effect Osteoporosis Therapy/Recovery high fall risks HTN previous TIA 2019 seizures. PT-OP-C Subjective Start: 08/17/21 11:30 Freq: Status: Active Protocol: Document 09/07/21 13:49 SP (Rec: 09/07/21 16:31 SP [id number]) OP-PT Subjective Patient Comments Patient Comments Pt stated felt better after last appt. She is more conscious of walking taller post last tx cues but doesn't last long due to leg weakness. She states still has R>L shld pain and b hip/ knee pain with no significant changes. PT-OP-D Balance Start: 08/17/21 11:30 Freq: Status: Active Protocol: Document 08/17/21 11:34 HH (Rec: 08/17/21 12:10 HH [email or web address]) Balance Tests Single Limb Standing Single Limb- Right unable Single Limb- Left unable PT-OP-G Mobility & Gait Start: 08/17/21 11:30 Freq: Status: Active Protocol: Document 08/17/21 11:34 HH (Rec: 08/17/21 12:10 HH [email or web address]) OP Mobility Evaluation Transfers Sit to Stand sit to stand: knock knee pattern to gain stability and BUE push off from chair armrests. stand to sit: BUE support to decend OP Gait Assessment Gait Deviations General Gait Pattern Antalgic,Decreased Stride Length,Decreased Feet Clearance,Flexed Trunk,Lateral Trunk Lean Factors Limiting Gait Function Factors Limiting Gait Function Decreased Activity Tolerance, Decreased Strength,Limited Range of Motion,Pain,Poor Balance,Poor Safety Awareness Comments Gait Comments often look for wall support while walking L knee extreme valgus, unstable gait with minimal step over pattern. excessive lateral shift bilaterally L>R PT-OP-H Neuro Start: 08/17/21 11:30 Freq: Status: Active Protocol: Document 08/17/21 11:34 HH (Rec: 08/17/21 12:10 HH [email or web address]) Deep Tendon Reflex & Clonus Assessment Deep Tendon Reflex Bilateral Achilles Deep Tendon Reflex 2+ Normal Left Patellar Deep Tendon Reflex 1+ Diminished Right Patellar Deep Tendon Reflex 2+ Normal Vital Signs Blood Pressure Sitting Blood Pressure (90/60-120/80 mmHg) 136/64 H Blood Pressure Source Manual Cuff PT-OP-J Posture/Palpation/Skin Start: 08/17/21 11:30 Freq: Status: Active Protocol: Document 08/17/21 11:34 HH (Rec: 08/17/21 12:10 HH [email or web address]) Posture Evaluation Position Standing Knee Posture (L) Genu Valgus,(L) Ext. Tibial Torsion,(L) Excess Flexion Ankle/Foot Posture (L) Pronated Palpation Assessment Location R hip Palpation Findings Tenderness,Trigger Point Palpation Details significant bony prominence on R greater trochanter. PT-OP-K Range of Motion Start: 08/17/21 11:30 Freq: Status: Active Protocol: Document 08/17/21 11:34 (Rec: 08/17/21 12:10 [email or web address]) Hip Goniometric Range of Motion Hip Right Active Comments grimacing pain with PROM Left Active Internal Rotation 55 External Rotation 30 Comments hip PROM = WFL Knee Goniometric Range of Motion Knee Right Extension Active (degrees) 0 Left Extension Active (degrees) 3 Comments knee valgus from mid line= 15 degrees R knee= 0 Ankle and Foot Goniometric Range of Motion Ankle and Foot Right Active Dorsiflexion with Knee Extended 2 Plantarflexion 56 Inversion 35 Eversion 11 Left Active Plantarflexion 48 Inversion 45 Eversion 10 Comments DF with knee extended= -2 PT-OP-M Strength Start: 08/17/21 11:30 Freq: Status: Active Protocol: Document 08/17/21 11:34 (Rec: 08/17/21 12:10 [email or web address]) Hip Strength Hip Manual Muscle Testing Right Flexion (L2) 2- Poor- Extension (S1) 2- Poor- Abduction 2- Poor- Adduction 2- Poor- Comments significant pain noted Left Flexion (L2) 2+ Poor+ Extension (S1) 2+ Poor+ Abduction 2+ Poor+ Adduction 2+ Poor+ Knee Strength Knee Manual Muscle Testing Right Flexion (S2) 3 Fair Extension (L3) 3 Fair Left Flexion (S2) 3+ Fair+ Extension (L3) 3+ Fair+ Ankle/Foot Strength Ankle and Foot Manual Muscle Testing Right Dorsiflexion (L4) 4- Good- Plantarflexion (S1) 4- Good- Inversion 3+ Fair+ Eversion (S1) 3+ Fair+ Left Dorsiflexion (L4) 4- Good- Plantarflexion (S1) 4- Good- Inversion 3+ Fair+ Eversion (S1) 3+ Fair+ PT-OP-Q Treatments Start: 08/17/21 11:30 Freq: Status: Active Protocol: Document 09/07/21 13:49 SP (Rec: 09/07/21 16:31 SP [id number]) Therapeutic Exercises Supine Exercises supine hip ABD Supine Exercise Name opposite LE bent- added to HEP Side right Equipment Used assessment for potential HEP in future Reps/Minutes x5 reps- cued TA & PPT awareness. Comments unable on L due pain medial L knee and challenged TA weakness. supine hip abd isometrics Supine Exercise Name HEP reviewed Equipment Used yellow band Reps/Minutes 10s hold x 10 Comments cued for neutral pelvis and TA to decrease LS ext/ hip ext recruitment Sitting Exercises clamshell Sitting Exercise Name performed in PT Side bilateral Resistance Tb #1 Reps/Minutes x5 Comments good performance Did not add to HEP due to overwhelming more than has. sit<> stands Sitting Exercise Name added to HEP Equipment Used small ball between knees for knee alignment Reps/Minutes x5 Comments 1 UE support, low pain level Gait Training Gait Activity gait using SPC Device Used SPC in RUE Level of Assistance S Surface firm Distance/Duration 40 ft x3 laps Treatment Focus tall posture, hip abd facilitation, increase stride, heel strike to toe Comments BLE valgus alignment, cued tall posture increase stride length with awareness of hip abd and quad facilitation upon WB, improved with cues but tires quickly PT-OP-R Modalities Start: 08/17/21 11:30 Freq: Status: Active Protocol: Document 08/26/21 12:53 HH (Rec: 08/26/21 14:31 HH [id number]) Hot Pack/Cold Pack Treatment Cold Pack Location ice massage at L shoulder Patient Tolerance Fair Comments warm and painful to touch, signifciant swelling at the anterior capsule. hip Location bilateral Patient Position Hooklying Treatment Duration (minutes) 10 Patient Tolerance Good PT-OP-T Assessment and Plan Start: 08/17/21 11:30 Freq: Status: Active Protocol: Document 09/07/21 13:49 SP (Rec: 09/07/21 16:31 SP [id number]) Physical Therapy Assessment Goals strength Impairment very weak hip strength Short Term Goal (STG) pt will show improved overall hip strength up to 3-/5 to improve her gait stability STG Duration 5 weeks Retirement Goal (LTG) pt will show improved overall hip strength up to 3+/5 to improve her gait stability and balance LTG Duration 10 weeks falls Impairment multiple falls within the past few months Short Term Goal (STG) pt will show improved safety awareness to use AD for mobility and not fall for a month STG Duration 5 weeks Configuration Specialist Goal (LTG) pt will show improved safety awareness to use AD for mobility and overall balance so she will not fall for 2 months LTG Duration 10 weeks ABC scale Impairment pt scores 23% on ABC scale Short Term Goal (STG) pt will show improved confidence for balance to score >30 on ABC scale STG Duration 5 weeks Retirement Goal (LTG) pt will show improved confidence for balance to score >40 on ABC scale LTG Duration 10 weeks Assessment Summary Assessment Pt continues to have L>R shoulder pain but knows unable to add to tx due to not UE order. Tx focused on HEP review, improved performance ROM B hip ER against resistance today in hooklying and able to perform hip ABD AROM today so added to HEP. Initiated sit<> stands with RUE support improved with stability and alignment with small ball between B thighs to help facilitate hip abds, added to HEP. Pt reports to condence HEP when progressed. Attempted Fig 4 piriformis stretch end of tx but causes to much discomfort. Physical Therapy Plan Frequency and Duration Frequency of Treatment 2x/Week Duration of Treatment 12 weeks Plan of Care Start Date 08/17/21 Plan of Care End Date 11/15/21 Therapeutic Interventions Therapeutic Interventions Aquatic Therapy,Balance Training,Gait Training,Home Exercise Program,Joint Mobilizations,Manual Therapy, Neuromuscular Re-education, Patient/Caregiver Education, Self-Care/Home Management,Soft Tissue Mobilization,Taping, Therapeutic Activities, Therapeutic Exercises Modalities Cold Pack/Ice Massage,Electric Stimulation,Hot Packs, Infrared Therapy,Ultrasound Next Visit Focus/Plan Next Note Type Treatment Note Next Visit Plan Assess response to added STS, hip abd supine and gait last tx. POC: STM at hip gentle hip and ankle ROM isometric hip strengthening educate to use SPC/ FWW
--- NOTE | 2021-09-14 13:56 | PT.OTN ---
Current Diagnoses Other abnormalities of gait and mobility (09/14/21) History of falling (09/14/21) Physical Therapy Treatment Note PT-OP-A Visit Information Start: 08/17/21 11:30 Freq: Status: Active Protocol: Document 09/14/21 12:55 HH (Rec: 09/14/21 13:56 HH [id number]) Out-Patient Physical Therapy Visit Information Visit Information Visit Type Treatment Note Visit Note pt has not fallen since evaluation. 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 She has a history of high blood pressure and osteoporosis. (T-score at L hip =-3.4) She also has a history of seizures and often zone out as she stated. She c/o severe R hip pain and L knee pain 10/10 often during WB activities. She has very poor balance which caused her to fall multiple times within the past couple months but she was able to get up on her own . She uses a SPC sometimes but does not drive and mostly stay home. 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 She had R hip replaced twice, L knee replaced twice and ORIF at L ankle. 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 Denies dizziness/ numbness. Any AROM / PROM on R hip and L knee tends to reproduce severe pain . She has to take methadone for pain management. She also smokes cig x5 /day. Prior Treatments and Tests L femur T-score= -3.4 Current Functional Impairments (Reported) Functional Limitations- Mobility/Gait multiple falls knee knee gait L>R furniture surfing at home for support B UE to push off for sit to stand Personal Factors Other Personal Factors That May Effect Osteoporosis Therapy/Recovery high fall risks HTN previous TIA 2019 seizures. PT-OP-C Subjective Start: 08/17/21 11:30 Freq: Status: Active Protocol: Document 09/14/21 12:55 HH (Rec: 09/14/21 13:56 [id number]) OP-PT Subjective Patient Comments Patient Comments I think Im getting stronger especially my legs. Im trying to do my exercises and walk straighter here and there. Patient Reported Progress Improving PT-OP-D Balance Start: 08/17/21 11:30 Freq: Status: Active Protocol: Document 08/17/21 11:34 HH (Rec: 08/17/21 12:10 [email or web address]) Balance Tests Single Limb Standing Single Limb- Right unable Single Limb- Left unable PT-OP-G Mobility & Gait Start: 08/17/21 11:30 Freq: Status: Active Protocol: Document 08/17/21 11:34 HH (Rec: 08/17/21 12:10 [email or web address]) OP Mobility Evaluation Transfers Sit to Stand sit to stand: knock knee pattern to gain stability and BUE push off from chair armrests. stand to sit: BUE support to decend OP Gait Assessment Gait Deviations General Gait Pattern Antalgic,Decreased Stride Length,Decreased Feet Clearance,Flexed Trunk,Lateral Trunk Lean Factors Limiting Gait Function Factors Limiting Gait Function Decreased Activity Tolerance, Decreased Strength,Limited Range of Motion,Pain,Poor Balance,Poor Safety Awareness Comments Gait Comments often look for wall support while walking L knee extreme valgus, unstable gait with minimal step over pattern. excessive lateral shift bilaterally L>R PT-OP-H Neuro Start: 08/17/21 11:30 Freq: Status: Active Protocol: Document 08/17/21 11:34 HH (Rec: 08/17/21 12:10 [email or web address]) Deep Tendon Reflex & Clonus Assessment Deep Tendon Reflex Bilateral Achilles Deep Tendon Reflex 2+ Normal Left Patellar Deep Tendon Reflex 1+ Diminished Right Patellar Deep Tendon Reflex 2+ Normal Vital Signs Blood Pressure Sitting Blood Pressure (90/60-120/80 mmHg) 136/64 H Blood Pressure Source Manual Cuff PT-OP-J Posture/Palpation/Skin Start: 08/17/21 11:30 Freq: Status: Active Protocol: Document 08/17/21 11:34 HH (Rec: 08/17/21 12:10 [email or web address]) Posture Evaluation Position Standing Knee Posture (L) Genu Valgus,(L) Ext. Tibial Torsion,(L) Excess Flexion Ankle/Foot Posture (L) Pronated Palpation Assessment Location R hip Palpation Findings Tenderness,Trigger Point Palpation Details significant bony prominence on R greater trochanter. PT-OP-K Range of Motion Start: 08/17/21 11:30 Freq: Status: Active Protocol: Document 08/17/21 11:34 (Rec: 08/17/21 12:10 [email or web address]) Hip Goniometric Range of Motion Hip Right Active Comments grimacing pain with PROM Left Active Internal Rotation 55 External Rotation 30 Comments hip PROM = WFL Knee Goniometric Range of Motion Knee Right Extension Active (degrees) 0 Left Extension Active (degrees) 3 Comments knee valgus from mid line= 15 degrees R knee= 0 Ankle and Foot Goniometric Range of Motion Ankle and Foot Right Active Dorsiflexion with Knee Extended 2 Plantarflexion 56 Inversion 35 Eversion 11 Left Active Plantarflexion 48 Inversion 45 Eversion 10 Comments DF with knee extended= -2 PT-OP-M Strength Start: 08/17/21 11:30 Freq: Status: Active Protocol: Document 08/17/21 11:34 (Rec: 08/17/21 12:10 [email or web address]) Hip Strength Hip Manual Muscle Testing Right Flexion (L2) 2- Poor- Extension (S1) 2- Poor- Abduction 2- Poor- Adduction 2- Poor- Comments significant pain noted Left Flexion (L2) 2+ Poor+ Extension (S1) 2+ Poor+ Abduction 2+ Poor+ Adduction 2+ Poor+ Knee Strength Knee Manual Muscle Testing Right Flexion (S2) 3 Fair Extension (L3) 3 Fair Left Flexion (S2) 3+ Fair+ Extension (L3) 3+ Fair+ Ankle/Foot Strength Ankle and Foot Manual Muscle Testing Right Dorsiflexion (L4) 4- Good- Plantarflexion (S1) 4- Good- Inversion 3+ Fair+ Eversion (S1) 3+ Fair+ Left Dorsiflexion (L4) 4- Good- Plantarflexion (S1) 4- Good- Inversion 3+ Fair+ Eversion (S1) 3+ Fair+ PT-OP-Q Treatments Start: 08/17/21 11:30 Freq: Status: Active Protocol: Document 09/14/21 12:55 (Rec: 09/14/21 13:56 [id number]) Therapeutic Exercises Supine Exercises heel slide Side left Reps/Minutes 10 x2 supine hip ABD Supine Exercise Name opposite LE bent- added to HEP Side right Equipment Used assessment for potential HEP in future Reps/Minutes x8 reps-2 sets cued TA & PPT awareness. Comments unable on L due pain medial L knee and challenged TA weakness. supine hip abd isometrics Supine Exercise Name HEP reviewed Equipment Used yellow band Reps/Minutes 10s hold x 10 Comments cued for neutral pelvis and TA to decrease LS ext/ hip ext recruitment Sitting Exercises LAQ Reps/Minutes 10 x2 Comments for HEP Gait Training Gait Activity gait using SPC Device Used SPC in RUE Level of Assistance S Surface firm Distance/Duration 40 ft x6 laps Treatment Focus tall posture, hip abd facilitation, increase stride, heel strike to toe Comments focus on 2 point pattern with same contact time with SPC and L heel. Pt shows improved gait stability and tall posture. Manual Therapy Treatment Soft Tissue Mobilization R glute Body Location + L glute Mobilization Type Myofascial Release,Sustained Pressure,Trigger Point Release Intensity/Depth Moderate Body Position Sidelying Joint Mobilizations calcaneal Joint L calcaneal eversion Grade III Body Position Supine Comments no pain at medial knee PT-OP-R Modalities Start: 08/17/21 11:30 Freq: Status: Active Protocol: Document 08/26/21 12:53 (Rec: 08/26/21 14:31 [id number]) Hot Pack/Cold Pack Treatment Cold Pack Location ice massage at L shoulder Patient Tolerance Fair Comments warm and painful to touch, signifciant swelling at the anterior capsule. hip Location bilateral Patient Position Hooklying Treatment Duration (minutes) 10 Patient Tolerance Good PT-OP-T Assessment and Plan Start: 08/17/21 11:30 Freq: Status: Active Protocol: Document 09/14/21 12:55 (Rec: 09/14/21 13:56 [id number]) Physical Therapy Assessment Goals strength Impairment very weak hip strength Short Term Goal (STG) pt will show improved overall hip strength up to 3-/5 to improve her gait stability STG Duration 5 weeks Group Home Goal (LTG) pt will show improved overall hip strength up to 3+/5 to improve her gait stability and balance LTG Duration 10 weeks falls Impairment multiple falls within the past few months Short Term Goal (STG) pt will show improved safety awareness to use AD for mobility and not fall for a month STG Duration 5 weeks Group Home Goal (LTG) pt will show improved safety awareness to use AD for mobility and overall balance so she will not fall for 2 months LTG Duration 10 weeks ABC scale Impairment pt scores 23% on ABC scale Short Term Goal (STG) pt will show improved confidence for balance to score >30 on ABC scale STG Duration 5 weeks Any Commod[employer]er Goal (LTG) pt will show improved confidence for balance to score >40 on ABC scale LTG Duration 10 weeks Assessment Summary Assessment pt reports she is getting stronger and has not fallen since evaluation. Reviewed exercises with her today and recommended her to bring HEP every visit since she is forgetful. Spent time on gait training today for 2 point pattern to improve gait stability. Physical Therapy Plan Frequency and Duration Frequency of Treatment 2x/Week Duration of Treatment 12 weeks Plan of Care Start Date 08/17/21 Plan of Care End Date 11/15/21 Therapeutic Interventions Therapeutic Interventions Aquatic Therapy,Balance Training,Gait Training,Home Exercise Program,Joint Mobilizations,Manual Therapy, Neuromuscular Re-education, Patient/Caregiver Education, Self-Care/Home Management,Soft Tissue Mobilization,Taping, Therapeutic Activities, Therapeutic Exercises Modalities Cold Pack/Ice Massage,Electric Stimulation,Hot Packs, Infrared Therapy,Ultrasound Next Visit Focus/Plan Next Note Type Treatment Note Next Visit Plan Assess response to added STS, hip abd supine and gait last tx. POC: STM at hip gentle hip and ankle ROM isometric hip strengthening educate to use SPC/ FWW
--- NOTE | 2021-09-16 15:17 | PT.OTN ---
Current Diagnoses Other abnormalities of gait and mobility (09/16/21) History of falling (09/16/21) Physical Therapy Treatment Note PT-OP-A Visit Information Start: 08/17/21 11:30 Freq: Status: Active Protocol: Document 09/16/21 12:56 HH (Rec: 09/16/21 15:17 HH [id number]) Out-Patient Physical Therapy Visit Information Visit Information Visit Type Treatment Note Visit Note pt has not fallen since evaluation. 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 She has a history of high blood pressure and osteoporosis. (T-score at L hip =-3.4) She also has a history of seizures and often zone out as she stated. She c/o severe R hip pain and L knee pain 10/10 often during WB activities. She has very poor balance which caused her to fall multiple times within the past couple months but she was able to get up on her own . She uses a SPC sometimes but does not drive and mostly stay home. 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 She had R hip replaced twice, L knee replaced twice and ORIF at L ankle. 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 Denies dizziness/ numbness. Any AROM / PROM on R hip and L knee tends to reproduce severe pain . She has to take methadone for pain management. She also smokes cig x5 /day. Prior Treatments and Tests L femur T-score= -3.4 Current Functional Impairments (Reported) Functional Limitations- Mobility/Gait multiple falls knee knee gait L>R furniture surfing at home for support B UE to push off for sit to stand Personal Factors Other Personal Factors That May Effect Osteoporosis Therapy/Recovery high fall risks HTN previous TIA 2019 seizures. PT-OP-C Subjective Start: 10/05/21 11:30 Freq: Status: Active Protocol: Document 09/16/21 12:56 HH (Rec: 09/16/21 15:17 HH [id number]) OP-PT Subjective Patient Comments Patient Comments Suzy been working really hard on walking upright. So far its been not bad. I also havent fallen since I saw you. Suzy been paying more attention to my steps. Patient Reported Progress Improving PT-OP-D Balance Start: 08/17/21 11:30 Freq: Status: Active Protocol: Document 08/17/21 11:34 HH (Rec: 08/17/21 12:10 [email or web address]) Balance Tests Single Limb Standing Single Limb- Right unable Single Limb- Left unable PT-OP-G Mobility & Gait Start: 08/17/21 11:30 Freq: Status: Active Protocol: Document 08/17/21 11:34 HH (Rec: 08/17/21 12:10 [email or web address]) OP Mobility Evaluation Transfers Sit to Stand sit to stand: knock knee pattern to gain stability and BUE push off from chair armrests. stand to sit: BUE support to decend OP Gait Assessment Gait Deviations General Gait Pattern Antalgic,Decreased Stride Length,Decreased Feet Clearance,Flexed Trunk,Lateral Trunk Lean Factors Limiting Gait Function Factors Limiting Gait Function Decreased Activity Tolerance, Decreased Strength,Limited Range of Motion,Pain,Poor Balance,Poor Safety Awareness Comments Gait Comments often look for wall support while walking L knee extreme valgus, unstable gait with minimal step over pattern. excessive lateral shift bilaterally L>R PT-OP-H Neuro Start: 08/17/21 11:30 Freq: Status: Active Protocol: Document 08/17/21 11:34 HH (Rec: 08/17/21 12:10 [email or web address]) Deep Tendon Reflex & Clonus Assessment Deep Tendon Reflex Bilateral Achilles Deep Tendon Reflex 2+ Normal Left Patellar Deep Tendon Reflex 1+ Diminished Right Patellar Deep Tendon Reflex 2+ Normal Vital Signs Blood Pressure Sitting Blood Pressure (90/60-120/80 mmHg) 136/64 H Blood Pressure Source Manual Cuff PT-OP-J Posture/Palpation/Skin Start: 08/17/21 11:30 Freq: Status: Active Protocol: Document 08/17/21 11:34 HH (Rec: 08/17/21 12:10 [email or web address]) Posture Evaluation Position Standing Knee Posture (L) Genu Valgus,(L) Ext. Tibial Torsion,(L) Excess Flexion Ankle/Foot Posture (L) Pronated Palpation Assessment Location R hip Palpation Findings Tenderness,Trigger Point Palpation Details significant bony prominence on R greater trochanter. PT-OP-K Range of Motion Start: 08/17/21 11:30 Freq: Status: Active Protocol: Document 08/17/21 11:34 (Rec: 08/17/21 12:10 [email or web address]) Hip Goniometric Range of Motion Hip Right Active Comments grimacing pain with PROM Left Active Internal Rotation 55 External Rotation 30 Comments hip PROM = WFL Knee Goniometric Range of Motion Knee Right Extension Active (degrees) 0 Left Extension Active (degrees) 3 Comments knee valgus from mid line= 15 degrees R knee= 0 Ankle and Foot Goniometric Range of Motion Ankle and Foot Right Active Dorsiflexion with Knee Extended 2 Plantarflexion 56 Inversion 35 Eversion 11 Left Active Plantarflexion 48 Inversion 45 Eversion 10 Comments DF with knee extended= -2 PT-OP-M Strength Start: 08/17/21 11:30 Freq: Status: Active Protocol: Document 08/17/21 11:34 (Rec: 08/17/21 12:10 [email or web address]) Hip Strength Hip Manual Muscle Testing Right Flexion (L2) 2- Poor- Extension (S1) 2- Poor- Abduction 2- Poor- Adduction 2- Poor- Comments significant pain noted Left Flexion (L2) 2+ Poor+ Extension (S1) 2+ Poor+ Abduction 2+ Poor+ Adduction 2+ Poor+ Knee Strength Knee Manual Muscle Testing Right Flexion (S2) 3 Fair Extension (L3) 3 Fair Left Flexion (S2) 3+ Fair+ Extension (L3) 3+ Fair+ Ankle/Foot Strength Ankle and Foot Manual Muscle Testing Right Dorsiflexion (L4) 4- Good- Plantarflexion (S1) 4- Good- Inversion 3+ Fair+ Eversion (S1) 3+ Fair+ Left Dorsiflexion (L4) 4- Good- Plantarflexion (S1) 4- Good- Inversion 3+ Fair+ Eversion (S1) 3+ Fair+ PT-OP-Q Treatments Start: 08/17/21 11:30 Freq: Status: Active Protocol: Document 09/16/21 12:56 (Rec: 09/16/21 15:17 [id number]) Therapeutic Exercises Supine Exercises marches Supine Exercise Name unilateral hip flexion Reps/Minutes 8x2 heel slide Side left Reps/Minutes 10 x2 supine hip ABD Supine Exercise Name opposite LE bent- added to HEP Side right Equipment Used assessment for potential HEP in future Reps/Minutes x8 reps-2 sets cued TA & PPT awareness. Comments soreness noted. supine hip abd isometrics Supine Exercise Name HEP reviewed Equipment Used yellow band Reps/Minutes 10s hold x 10 Comments cued for neutral pelvis and TA to decrease LS ext/ hip ext recruitment Gait Training Gait Activity gait using SPC Device Used SPC in RUE Level of Assistance S Surface firm Distance/Duration 40 ft x6 laps Treatment Focus tall posture, hip abd facilitation, increase stride, heel strike to toe Comments focus on 2 point pattern with same contact time with SPC and L heel. pt has difficulty understanding 2 point pattern today. She often misplaced her SPC while heel strike on LLE. Manual Therapy Treatment Soft Tissue Mobilization L knee Body Location medial joint line Mobilization Type Myofascial Release Joint Mobilizations calcaneal Joint L calcaneal eversion Grade III Body Position Supine Comments no pain at medial knee PT-OP-R Modalities Start: 08/17/21 11:30 Freq: Status: Active Protocol: Document 09/16/21 12:56 (Rec: 09/16/21 15:17 [id number]) Hot Pack/Cold Pack Treatment Cold Pack Location ice massage at L shoulder Patient Tolerance Fair Comments warm and painful to touch, signifciant swelling at the anterior capsule. hip Location bilateral Patient Position Hooklying Treatment Duration (minutes) 10 Patient Tolerance Good PT-OP-T Assessment and Plan Start: 08/17/21 11:30 Freq: Status: Active Protocol: Document 09/16/21 12:56 (Rec: 09/16/21 15:17 [id number]) Physical Therapy Assessment Goals strength Impairment very weak hip strength Short Term Goal (STG) pt will show improved overall hip strength up to 3-/5 to improve her gait stability STG Duration 5 weeks State [employer] Goal (LTG) pt will show improved overall hip strength up to 3+/5 to improve her gait stability and balance LTG Duration 10 weeks falls Impairment multiple falls within the past few months Short Term Goal (STG) pt will show improved safety awareness to use AD for mobility and not fall for a month STG Duration 5 weeks State Pilot Goal (LTG) pt will show improved safety awareness to use AD for mobility and overall balance so she will not fall for 2 months LTG Duration 10 weeks ABC scale Impairment pt scores 23% on ABC scale Short Term Goal (STG) pt will show improved confidence for balance to score >30 on ABC scale STG Duration 5 weeks State [employer] Goal (LTG) pt will show improved confidence for balance to score >40 on ABC scale LTG Duration 10 weeks Assessment Summary Assessment Pt reports she has been more stable by walking more upright . Continue to focus on hip strengthening ex and gait training today. She has significant difficulty practicing and remembering 2 point pattern today. Might recommend her to use FWW in the future if she cannot retain the skills. Physical Therapy Plan Frequency and Duration Frequency of Treatment 2x/Week Duration of Treatment 12 weeks Plan of Care Start Date 08/17/21 Plan of Care End Date 11/15/21 Therapeutic Interventions Therapeutic Interventions Aquatic Therapy,Balance Training,Gait Training,Home Exercise Program,Joint Mobilizations,Manual Therapy, Neuromuscular Re-education, Patient/Caregiver Education, Self-Care/Home Management,Soft Tissue Mobilization,Taping, Therapeutic Activities, Therapeutic Exercises Modalities Cold Pack/Ice Massage,Electric Stimulation,Hot Packs, Infrared Therapy,Ultrasound Next Visit Focus/Plan Next Note Type Treatment Note Next Visit Plan Assess response to added STS, hip abd supine and gait last tx. POC: STM at hip gentle hip and ankle ROM isometric hip strengthening educate to use SPC/ FWW
--- NOTE | 2021-09-21 13:48 | PT.OTN ---
Current Diagnoses Other abnormalities of gait and mobility (09/21/21) History of falling (09/21/21) Physical Therapy Treatment Note PT-OP-A Visit Information Start: 08/17/21 11:30 Freq: Status: Active Protocol: Document 09/21/21 13:00 HH (Rec: 09/21/21 13:48 HH [id number]) Out-Patient Physical Therapy Visit Information Visit Information Visit Type Treatment Note Visit Note pt has not fallen since evaluation. 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 She has a history of high blood pressure and osteoporosis. (T-score at L hip =-3.4) She also has a history of seizures and often zone out as she stated. She c/o severe R hip pain and L knee pain 10/10 often during WB activities. She has very poor balance which caused her to fall multiple times within the past couple months but she was able to get up on her own . She uses a SPC sometimes but does not drive and mostly stay home. 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 She had R hip replaced twice, L knee replaced twice and ORIF at L ankle. 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 Denies dizziness/ numbness. Any AROM / PROM on R hip and L knee tends to reproduce severe pain . She has to take methadone for pain management. She also smokes cig x5 /day. Prior Treatments and Tests L femur T-score= -3.4 Current Functional Impairments (Reported) Functional Limitations- Mobility/Gait multiple falls knee knee gait L>R furniture surfing at home for support B UE to push off for sit to stand Personal Factors Other Personal Factors That May Effect Osteoporosis Therapy/Recovery high fall risks HTN previous TIA 2019 seizures. PT-OP-C Subjective Start: 08/17/21 11:30 Freq: Status: Active Protocol: Document 09/21/21 13:00 HH (Rec: 09/21/21 13:48 HH [email or web address]) OP-PT Subjective Patient Comments Patient Comments I was tired after last session. I havent fallen so far. I did lose balance a few times but i was able to catch myself. Patient Reported Progress Improving PT-OP-D Balance Start: 08/17/21 11:30 Freq: Status: Active Protocol: Document 08/17/21 11:34 HH (Rec: 08/17/21 12:10 [email or web address]) Balance Tests Single Limb Standing Single Limb- Right unable Single Limb- Left unable PT-OP-G Mobility & Gait Start: 08/17/21 11:30 Freq: Status: Active Protocol: Document 08/17/21 11:34 HH (Rec: 08/17/21 12:10 [email or web address]) OP Mobility Evaluation Transfers Sit to Stand sit to stand: knock knee pattern to gain stability and BUE push off from chair armrests. stand to sit: BUE support to decend OP Gait Assessment Gait Deviations General Gait Pattern Antalgic,Decreased Stride Length,Decreased Feet Clearance,Flexed Trunk,Lateral Trunk Lean Factors Limiting Gait Function Factors Limiting Gait Function Decreased Activity Tolerance, Decreased Strength,Limited Range of Motion,Pain,Poor Balance,Poor Safety Awareness Comments Gait Comments often look for wall support while walking L knee extreme valgus, unstable gait with minimal step over pattern. excessive lateral shift bilaterally L>R PT-OP-H Neuro Start: 08/17/21 11:30 Freq: Status: Active Protocol: Document 08/17/21 11:34 HH (Rec: 08/17/21 12:10 [email or web address]) Deep Tendon Reflex & Clonus Assessment Deep Tendon Reflex Bilateral Achilles Deep Tendon Reflex 2+ Normal Left Patellar Deep Tendon Reflex 1+ Diminished Right Patellar Deep Tendon Reflex 2+ Normal Vital Signs Blood Pressure Sitting Blood Pressure (90/60-120/80 mmHg) 136/64 H Blood Pressure Source Manual Cuff PT-OP-J Posture/Palpation/Skin Start: 08/17/21 11:30 Freq: Status: Active Protocol: Document 08/17/21 11:34 HH (Rec: 08/17/21 12:10 [email or web address]) Posture Evaluation Position Standing Knee Posture (L) Genu Valgus,(L) Ext. Tibial Torsion,(L) Excess Flexion Ankle/Foot Posture (L) Pronated Palpation Assessment Location R hip Palpation Findings Tenderness,Trigger Point Palpation Details significant bony prominence on R greater trochanter. PT-OP-K Range of Motion Start: 08/17/21 11:30 Freq: Status: Active Protocol: Document 08/17/21 11:34 (Rec: 08/17/21 12:10 [email or web address]) Hip Goniometric Range of Motion Hip Right Active Comments grimacing pain with PROM Left Active Internal Rotation 55 External Rotation 30 Comments hip PROM = WFL Knee Goniometric Range of Motion Knee Right Extension Active (degrees) 0 Left Extension Active (degrees) 3 Comments knee valgus from mid line= 15 degrees R knee= 0 Ankle and Foot Goniometric Range of Motion Ankle and Foot Right Active Dorsiflexion with Knee Extended 2 Plantarflexion 56 Inversion 35 Eversion 11 Left Active Plantarflexion 48 Inversion 45 Eversion 10 Comments DF with knee extended= -2 PT-OP-M Strength Start: 08/17/21 11:30 Freq: Status: Active Protocol: Document 08/17/21 11:34 (Rec: 08/17/21 12:10 [email or web address]) Hip Strength Hip Manual Muscle Testing Right Flexion (L2) 2- Poor- Extension (S1) 2- Poor- Abduction 2- Poor- Adduction 2- Poor- Comments significant pain noted Left Flexion (L2) 2+ Poor+ Extension (S1) 2+ Poor+ Abduction 2+ Poor+ Adduction 2+ Poor+ Knee Strength Knee Manual Muscle Testing Right Flexion (S2) 3 Fair Extension (L3) 3 Fair Left Flexion (S2) 3+ Fair+ Extension (L3) 3+ Fair+ Ankle/Foot Strength Ankle and Foot Manual Muscle Testing Right Dorsiflexion (L4) 4- Good- Plantarflexion (S1) 4- Good- Inversion 3+ Fair+ Eversion (S1) 3+ Fair+ Left Dorsiflexion (L4) 4- Good- Plantarflexion (S1) 4- Good- Inversion 3+ Fair+ Eversion (S1) 3+ Fair+ PT-OP-Q Treatments Start: 08/17/21 11:30 Freq: Status: Active Protocol: Document 09/21/21 13:00 HH (Rec: 09/21/21 13:48 [id number]) Therapeutic Exercises Supine Exercises bridging Reps/Minutes 10 x2 Comments for HEP, few inches off the table. heel slide Side left Reps/Minutes 10 x2 supine hip ABD Supine Exercise Name opposite LE bent- added to HEP Side right Equipment Used assessment for potential HEP in future Reps/Minutes x8 reps-2 sets cued TA & PPT awareness. Comments soreness noted. supine hip ER Supine Exercise Name HEP Resistance yellow band Reps/Minutes 8x2 Comments for HEP Gait Training Gait Activity gait using SPC Device Used SPC in RUE Level of Assistance S Surface firm Distance/Duration 60 ft x4 laps Treatment Focus tall posture, hip abd facilitation, increase stride, heel strike to toe Comments min cues needed today. good 2 point pattern. Manual Therapy Treatment Joint Mobilizations calcaneal Joint L calcaneal eversion Grade III Body Position Supine Comments no pain at medial knee PT-OP-R Modalities Start: 08/17/21 11:30 Freq: Status: Active Protocol: Document 09/21/21 13:00 (Rec: 09/21/21 13:48 [id number]) Hot Pack/Cold Pack Treatment Cold Pack Location ice massage at L shoulder Patient Tolerance Fair Comments warm and painful to touch, signifciant swelling at the anterior capsule. 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) pt will show improved overall hip strength up to 3+/5 to improve her gait stability and balance LTG Duration 10 weeks falls Impairment multiple falls within the past few months Short Term Goal (STG) pt will show improved safety awareness to use AD for mobility and not fall for a month STG Duration 5 weeks Half-Way Goal (LTG) pt will show improved safety awareness to use AD for mobility and overall balance so she will not fall for 2 months LTG Duration 10 weeks ABC scale Impairment pt scores 23% on ABC scale Short Term Goal (STG) pt will show improved confidence for balance to score >30 on ABC scale STG Duration 5 weeks [place] Truck Driver Goal (LTG) pt will show improved confidence for balance to score >40 on ABC scale LTG Duration 10 weeks Assessment Summary Assessment Pt had a good session today. She was able to walk with 2 point pattern with SPC with min cues needed. She also reports less pain on R hip and L knee lately possibly d/t improved weight distribution during gait. Physical Therapy Plan Frequency and Duration Frequency of Treatment 2x/Week Duration of Treatment 12 weeks Plan of Care Start Date 08/17/21 Plan of Care End Date 11/15/21 Therapeutic Interventions Therapeutic Interventions Aquatic Therapy,Balance Training,Gait Training,Home Exercise Program,Joint Mobilizations,Manual Therapy, Neuromuscular Re-education, Patient/Caregiver Education, Self-Care/Home Management,Soft Tissue Mobilization,Taping, Therapeutic Activities, Therapeutic Exercises Modalities Cold Pack/Ice Massage,Electric Stimulation,Hot Packs, Infrared Therapy,Ultrasound Next Visit Focus/Plan Next Note Type Treatment Note Next Visit Plan Assess response to added STS, hip abd supine and gait last tx. POC: STM at hip gentle hip and ankle ROM isometric hip strengthening educate to use SPC/ FWW
--- NOTE | 2021-09-23 14:03 | PT.OTN ---
Current Diagnoses Other abnormalities of gait and mobility (09/23/21) History of falling (09/23/21) Physical Therapy Treatment Note PT-OP-A Visit Information Start: 08/17/21 11:30 Freq: Status: Active Protocol: Document 09/23/21 13:56 HH (Rec: 09/23/21 14:03 HH [email or web address]) Out-Patient Physical Therapy Visit Information Visit Information Visit Type Treatment Note Visit Note pt has not fallen since evaluation. 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 She has a history of high blood pressure and osteoporosis. (T-score at L hip =-3.4) She also has a history of seizures and often zone out as she stated. She c/o severe R hip pain and L knee pain 10/10 often during WB activities. She has very poor balance which caused her to fall multiple times within the past couple months but she was able to get up on her own . She uses a SPC sometimes but does not drive and mostly stay home. 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 She had R hip replaced twice, L knee replaced twice and ORIF at L ankle. 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 Denies dizziness/ numbness. Any AROM / PROM on R hip and L knee tends to reproduce severe pain . She has to take methadone for pain management. She also smokes cig x5 /day. Prior Treatments and Tests L femur T-score= -3.4 Current Functional Impairments (Reported) Functional Limitations- Mobility/Gait multiple falls knee knee gait L>R furniture surfing at home for support B UE to push off for sit to stand Personal Factors Other Personal Factors That May Effect Osteoporosis Therapy/Recovery high fall risks HTN previous TIA 2019 seizures. PT-OP-C Subjective Start: 08/17/21 11:30 Freq: Status: Active Protocol: Document 09/23/21 13:56 HH (Rec: 09/23/21 14:03 [email or web address]) OP-PT Subjective Patient Comments Patient Comments I honestly think im getting better and walking better. I have fallen since.I know how to use the cane better now Patient Reported Progress Improving PT-OP-D Balance Start: 08/17/21 11:30 Freq: Status: Active Protocol: Document 08/17/21 11:34 HH (Rec: 08/17/21 12:10 [email or web address]) Balance Tests Single Limb Standing Single Limb- Right unable Single Limb- Left unable PT-OP-G Mobility & Gait Start: 08/17/21 11:30 Freq: Status: Active Protocol: Document 08/17/21 11:34 HH (Rec: 08/17/21 12:10 [email or web address]) OP Mobility Evaluation Transfers Sit to Stand sit to stand: knock knee pattern to gain stability and BUE push off from chair armrests. stand to sit: BUE support to decend OP Gait Assessment Gait Deviations General Gait Pattern Antalgic,Decreased Stride Length,Decreased Feet Clearance,Flexed Trunk,Lateral Trunk Lean Factors Limiting Gait Function Factors Limiting Gait Function Decreased Activity Tolerance, Decreased Strength,Limited Range of Motion,Pain,Poor Balance,Poor Safety Awareness Comments Gait Comments often look for wall support while walking L knee extreme valgus, unstable gait with minimal step over pattern. excessive lateral shift bilaterally L>R PT-OP-H Neuro Start: 08/17/21 11:30 Freq: Status: Active Protocol: Document 08/17/21 11:34 HH (Rec: 08/17/21 12:10 [email or web address]) Deep Tendon Reflex & Clonus Assessment Deep Tendon Reflex Bilateral Achilles Deep Tendon Reflex 2+ Normal Left Patellar Deep Tendon Reflex 1+ Diminished Right Patellar Deep Tendon Reflex 2+ Normal Vital Signs Blood Pressure Sitting Blood Pressure (90/60-120/80 mmHg) 136/64 H Blood Pressure Source Manual Cuff PT-OP-J Posture/Palpation/Skin Start: 08/17/21 11:30 Freq: Status: Active Protocol: Document 08/17/21 11:34 HH (Rec: 08/17/21 12:10 [email or web address]) Posture Evaluation Position Standing Knee Posture (L) Genu Valgus,(L) Ext. Tibial Torsion,(L) Excess Flexion Ankle/Foot Posture (L) Pronated Palpation Assessment Location R hip Palpation Findings Tenderness,Trigger Point Palpation Details significant bony prominence on R greater trochanter. PT-OP-K Range of Motion Start: 08/17/21 11:30 Freq: Status: Active Protocol: Document 08/17/21 11:34 HH (Rec: 08/17/21 12:10 [email or web address]) Hip Goniometric Range of Motion Hip Right Active Comments grimacing pain with PROM Left Active Internal Rotation 55 External Rotation 30 Comments hip PROM = WFL Knee Goniometric Range of Motion Knee Right Extension Active (degrees) 0 Left Extension Active (degrees) 3 Comments knee valgus from mid line= 15 degrees R knee= 0 Ankle and Foot Goniometric Range of Motion Ankle and Foot Right Active Dorsiflexion with Knee Extended 2 Plantarflexion 56 Inversion 35 Eversion 11 Left Active Plantarflexion 48 Inversion 45 Eversion 10 Comments DF with knee extended= -2 PT-OP-M Strength Start: 08/17/21 11:30 Freq: Status: Active Protocol: Document 08/17/21 11:34 HH (Rec: 08/17/21 12:10 [email or web address]) Hip Strength Hip Manual Muscle Testing Right Flexion (L2) 2- Poor- Extension (S1) 2- Poor- Abduction 2- Poor- Adduction 2- Poor- Comments significant pain noted Left Flexion (L2) 2+ Poor+ Extension (S1) 2+ Poor+ Abduction 2+ Poor+ Adduction 2+ Poor+ Knee Strength Knee Manual Muscle Testing Right Flexion (S2) 3 Fair Extension (L3) 3 Fair Left Flexion (S2) 3+ Fair+ Extension (L3) 3+ Fair+ Ankle/Foot Strength Ankle and Foot Manual Muscle Testing Right Dorsiflexion (L4) 4- Good- Plantarflexion (S1) 4- Good- Inversion 3+ Fair+ Eversion (S1) 3+ Fair+ Left Dorsiflexion (L4) 4- Good- Plantarflexion (S1) 4- Good- Inversion 3+ Fair+ Eversion (S1) 3+ Fair+ PT-OP-Q Treatments Start: 08/17/21 11:30 Freq: Status: Active Protocol: Document 09/23/21 13:56 HH (Rec: 09/23/21 14:03 [email or web address]) Therapeutic Exercises Supine Exercises LTR Equipment Used red therapy ball Reps/Minutes 10 x2 Comments cues on good control leg curl Side bilateral Equipment Used blue therapy ball Reps/Minutes 10 x2 Comments cues on good control supine hip ABD Supine Exercise Name opposite LE bent- added to HEP Side right Equipment Used assessment for potential HEP in future Reps/Minutes x8 reps-2 sets cued TA & PPT awareness. Comments soreness noted. supine hip ER Supine Exercise Name HEP Resistance yellow band Reps/Minutes 10x2 Comments for HEP supine hip abd isometrics Supine Exercise Name HEP reviewed Equipment Used yellow band Reps/Minutes 10s hold x 10 Comments cued for neutral pelvis and TA to decrease LS ext/ hip ext recruitment Gait Training Gait Activity gait using SPC Device Used a different SPC in RUE Level of Assistance S Surface firm Distance/Duration 60 ft x4 laps Treatment Focus tall posture, hip abd facilitation, increase stride, heel strike to toe Comments min cues needed today. good 2 point pattern with better stability than her personal cane PT-OP-R Modalities Start: 08/17/21 11:30 Freq: Status: Active Protocol: Document 09/23/21 13:56 (Rec: 09/23/21 14:03 [email or web address]) Hot Pack/Cold Pack Treatment Cold Pack Location ice massage at L shoulder Patient Tolerance Fair Comments warm and painful to touch, signifciant swelling at the anterior capsule. hip Location bilateral Patient Position Hooklying Treatment Duration (minutes) 10 Patient Tolerance Good PT-OP-T Assessment and Plan Start: 08/17/21 11:30 Freq: Status: Active Protocol: Document 09/23/21 13:56 (Rec: 09/23/21 14:03 [email or web address]) Physical Therapy Assessment Goals strength Impairment very weak hip strength Short Term Goal (STG) 09/23 goal met pt shows improved overall hip strength up to 2+ to 3-/5 to improve her gait stability. She is able to comlpete supine hip ER and hip abduction. 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 She reports her strength and balance have improved and has better understanding to use her SPC. 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 She has not fallen since she started PT ( pt was falling almost every week). I also recommended her to acquire a new SPC which is canvas baster with better base of support for her since she showed improved gait quality. Physical Therapy Plan Frequency and Duration Frequency of Treatment 2x/Week Duration of Treatment 12 weeks Plan of Care Start Date 08/17/21 Plan of Care End Date 11/15/21 Therapeutic Interventions Therapeutic Interventions Aquatic Therapy,Balance Training,Gait Training,Home Exercise Program,Joint Mobilizations,Manual Therapy, Neuromuscular Re-education, Patient/Caregiver Education, Self-Care/Home Management,Soft Tissue Mobilization,Taping, Therapeutic Activities, Therapeutic Exercises Modalities Cold Pack/Ice Massage,Electric Stimulation,Hot Packs, Infrared Therapy,Ultrasound Next Visit Focus/Plan Next Note Type Treatment Note Next Visit Plan Assess response to added STS, hip abd supine and gait last tx. POC: STM at hip gentle hip and ankle ROM isometric hip strengthening educate to use SPC/ FWW
--- NOTE | 2021-09-28 13:47 | PT.OTN ---
Current Diagnoses Other abnormalities of gait and mobility (09/28/21) History of falling (09/28/21) Physical Therapy Treatment Note PT-OP-A Visit Information Start: 08/17/21 11:30 Freq: Status: Active Protocol: Document 09/28/21 12:57 HH (Rec: 09/28/21 13:47 HH [id number]) Out-Patient Physical Therapy Visit Information Visit Information Visit Type Treatment Note Visit Note pt has not fallen since evaluation. 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 She has a history of high blood pressure and osteoporosis. (T-score at L hip =-3.4) She also has a history of seizures and often zone out as she stated. She c/o severe R hip pain and L knee pain 10/10 often during WB activities. She has very poor balance which caused her to fall multiple times within the past couple months but she was able to get up on her own . She uses a SPC sometimes but does not drive and mostly stay home. 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 She had R hip replaced twice, L knee replaced twice and ORIF at L ankle. 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 Denies dizziness/ numbness. Any AROM / PROM on R hip and L knee tends to reproduce severe pain . She has to take methadone for pain management. She also smokes cig x5 /day. Prior Treatments and Tests L femur T-score= -3.4 Current Functional Impairments (Reported) Functional Limitations- Mobility/Gait multiple falls knee knee gait L>R furniture surfing at home for support B UE to push off for sit to stand Personal Factors Other Personal Factors That May Effect Osteoporosis Therapy/Recovery high fall risks HTN previous TIA 2019 seizures. PT-OP-C Subjective Start: 08/17/21 11:30 Freq: Status: Active Protocol: Document 09/23/21 13:56 HH (Rec: 09/23/21 14:03 [email or web address]) OP-PT Subjective Patient Comments Patient Comments I honestly think im getting better and walking better. I have fallen since.I know how to use the cane better now Patient Reported Progress Improving PT-OP-D Balance Start: 08/17/21 11:30 Freq: Status: Active Protocol: Document 08/17/21 11:34 HH (Rec: 08/17/21 12:10 [email or web address]) Balance Tests Single Limb Standing Single Limb- Right unable Single Limb- Left unable PT-OP-G Mobility & Gait Start: 08/17/21 11:30 Freq: Status: Active Protocol: Document 08/17/21 11:34 HH (Rec: 08/17/21 12:10 [email or web address]) OP Mobility Evaluation Transfers Sit to Stand sit to stand: knock knee pattern to gain stability and BUE push off from chair armrests. stand to sit: BUE support to decend OP Gait Assessment Gait Deviations General Gait Pattern Antalgic,Decreased Stride Length,Decreased Feet Clearance,Flexed Trunk,Lateral Trunk Lean Factors Limiting Gait Function Factors Limiting Gait Function Decreased Activity Tolerance, Decreased Strength,Limited Range of Motion,Pain,Poor Balance,Poor Safety Awareness Comments Gait Comments often look for wall support while walking L knee extreme valgus, unstable gait with minimal step over pattern. excessive lateral shift bilaterally L>R PT-OP-H Neuro Start: 08/17/21 11:30 Freq: Status: Active Protocol: Document 08/17/21 11:34 HH (Rec: 08/17/21 12:10 [email or web address]) Deep Tendon Reflex & Clonus Assessment Deep Tendon Reflex Bilateral Achilles Deep Tendon Reflex 2+ Normal Left Patellar Deep Tendon Reflex 1+ Diminished Right Patellar Deep Tendon Reflex 2+ Normal Vital Signs Blood Pressure Sitting Blood Pressure (90/60-120/80 mmHg) 136/64 H Blood Pressure Source Manual Cuff PT-OP-J Posture/Palpation/Skin Start: 08/17/21 11:30 Freq: Status: Active Protocol: Document 08/17/21 11:34 HH (Rec: 08/17/21 12:10 [email or web address]) Posture Evaluation Position Standing Knee Posture (L) Genu Valgus,(L) Ext. Tibial Torsion,(L) Excess Flexion Ankle/Foot Posture (L) Pronated Palpation Assessment Location R hip Palpation Findings Tenderness,Trigger Point Palpation Details significant bony prominence on R greater trochanter. PT-OP-K Range of Motion Start: 08/17/21 11:30 Freq: Status: Active Protocol: Document 08/17/21 11:34 (Rec: 08/17/21 12:10 [email or web address]) Hip Goniometric Range of Motion Hip Right Active Comments grimacing pain with PROM Left Active Internal Rotation 55 External Rotation 30 Comments hip PROM = WFL Knee Goniometric Range of Motion Knee Right Extension Active (degrees) 0 Left Extension Active (degrees) 3 Comments knee valgus from mid line= 15 degrees R knee= 0 Ankle and Foot Goniometric Range of Motion Ankle and Foot Right Active Dorsiflexion with Knee Extended 2 Plantarflexion 56 Inversion 35 Eversion 11 Left Active Plantarflexion 48 Inversion 45 Eversion 10 Comments DF with knee extended= -2 PT-OP-M Strength Start: 08/17/21 11:30 Freq: Status: Active Protocol: Document 08/17/21 11:34 (Rec: 08/17/21 12:10 [email or web address]) Hip Strength Hip Manual Muscle Testing Right Flexion (L2) 2- Poor- Extension (S1) 2- Poor- Abduction 2- Poor- Adduction 2- Poor- Comments significant pain noted Left Flexion (L2) 2+ Poor+ Extension (S1) 2+ Poor+ Abduction 2+ Poor+ Adduction 2+ Poor+ Knee Strength Knee Manual Muscle Testing Right Flexion (S2) 3 Fair Extension (L3) 3 Fair Left Flexion (S2) 3+ Fair+ Extension (L3) 3+ Fair+ Ankle/Foot Strength Ankle and Foot Manual Muscle Testing Right Dorsiflexion (L4) 4- Good- Plantarflexion (S1) 4- Good- Inversion 3+ Fair+ Eversion (S1) 3+ Fair+ Left Dorsiflexion (L4) 4- Good- Plantarflexion (S1) 4- Good- Inversion 3+ Fair+ Eversion (S1) 3+ Fair+ PT-OP-Q Treatments Start: 08/17/21 11:30 Freq: Status: Active Protocol: Document 09/28/21 12:57 (Rec: 09/28/21 13:47 HH [id number]) Therapeutic Exercises Supine Exercises LTR Equipment Used red therapy ball Reps/Minutes 10 x2 Comments cues on good control leg curl Side bilateral Equipment Used blue therapy ball Reps/Minutes 10 x2 Comments cues on good control marches Supine Exercise Name unilateral hip flexion Reps/Minutes 8x2 supine hip ER Supine Exercise Name HEP, unilateral Resistance yellow band Reps/Minutes 10x2 Comments for HEP Sitting Exercises sit<> stands Sitting Exercise Name from elevated table. Equipment Used small ball between knees for knee alignment Reps/Minutes 8x2 Comments 1 UE support, low pain level Gait Training Gait Activity gait using SPC Device Used a different SPC in RUE Level of Assistance S Surface firm Distance/Duration 60 ft x4 laps Treatment Focus tall posture, hip abd facilitation, increase stride, heel strike to toe Comments min cues needed today. good 2 point pattern with better stability than her personal cane Manual Therapy Treatment Soft Tissue Mobilization L knee Body Location medial joint line Mobilization Type Myofascial Release R glute Body Location + R glute Mobilization Type Myofascial Release,Sustained Pressure,Trigger Point Release Intensity/Depth Moderate Body Position Sidelying Joint Mobilizations calcaneal Joint L calcaneal eversion Grade III Body Position Supine Comments no pain at medial knee PT-OP-R Modalities Start: 08/17/21 11:30 Freq: Status: Active Protocol: Document 09/23/21 13:56 HH (Rec: 09/23/21 14:03 [email or web address]) Hot Pack/Cold Pack Treatment Cold Pack Location ice massage at L shoulder Patient Tolerance Fair Comments warm and painful to touch, signifciant swelling at the anterior capsule. hip Location bilateral Patient Position Hooklying Treatment Duration (minutes) 10 Patient Tolerance Good PT-OP-T Assessment and Plan Start: 08/17/21 11:30 Freq: Status: Active Protocol: Document 09/28/21 12:57 HH (Rec: 09/28/21 13:47 [id number]) Physical Therapy Assessment Goals STS x5 Impairment pt takes 35s to complete 5 x STS Short Term Goal (STG) pt will show improved leg strength to complete 5 times STS within 30 s STG Duration 4 weeks Appeals Reviewer Veteran Goal (LTG) pt will show improved leg strength to complete 5 times STS within 25 s LTG Duration 8 weeks strength Impairment very weak hip strength Short Term Goal (STG) 09/23 goal met pt shows improved overall hip strength up to 2+ to 3-/5 to improve her gait stability. She is able to comlpete supine hip ER and hip abduction. STG Duration 5 weeks Appeals Reviewer Veteran Goal (LTG) pt will show improved overall hip strength up to 3+/5 to improve her gait stability and balance LTG Duration 10 weeks falls Impairment multiple falls within the past few months Short Term Goal (STG) 09/23 goal met pt has not fallen since evaluation. She reports her strength and balance have improved and has better understanding to use her SPC. pt will show improved safety awareness to use AD for mobility and not fall for a month STG Duration 5 weeks Alf Goal (LTG) pt will show improved safety awareness to use AD for mobility and overall balance so she will not fall for 2 months LTG Duration 10 weeks ABC scale Impairment pt scores 23% on ABC scale Short Term Goal (STG) pt will show improved confidence for balance to score >30 on ABC scale STG Duration 5 weeks Alf Goal (LTG) pt will show improved confidence for balance to score >40 on ABC scale LTG Duration 10 weeks Assessment Summary Assessment Pt states she is getting stronger but she did forget her step sequence with a SPC. I encouraged her again to get a new cane from [employer] today. Physical Therapy Plan Frequency and Duration Frequency of Treatment 2x/Week Duration of Treatment 12 weeks Plan of Care Start Date 08/17/21 Plan of Care End Date 11/15/21 Therapeutic Interventions Therapeutic Interventions Aquatic Therapy,Balance Training,Gait Training,Home Exercise Program,Joint Mobilizations,Manual Therapy, Neuromuscular Re-education, Patient/Caregiver Education, Self-Care/Home Management,Soft Tissue Mobilization,Taping, Therapeutic Activities, Therapeutic Exercises Modalities Cold Pack/Ice Massage,Electric Stimulation,Hot Packs, Infrared Therapy,Ultrasound Next Visit Focus/Plan Next Note Type Treatment Note Next Visit Plan Assess response to added STS, hip abd supine and gait last tx. POC: STM at hip gentle hip and ankle ROM isometric hip strengthening educate to use SPC/ FWW
--- NOTE | 2021-10-04 13:48 | PT.OTN ---
Current Diagnoses Other abnormalities of gait and mobility (09/28/21) History of falling (09/28/21) Physical Therapy Treatment Note PT-OP-A Visit Information Start: 08/17/21 11:30 Freq: Status: Active Protocol: Document 10/04/21 12:57 HH (Rec: 10/04/21 13:48 HH [id number]) Out-Patient Physical Therapy Visit Information Visit Information Visit Type Treatment Note Visit Note pt has not fallen since evaluation. 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 She has a history of high blood pressure and osteoporosis. (T-score at L hip =-3.4) She also has a history of seizures and often zone out as she stated. She c/o severe R hip pain and L knee pain 10/10 often during WB activities. She has very poor balance which caused her to fall multiple times within the past couple months but she was able to get up on her own . She uses a SPC sometimes but does not drive and mostly stay home. 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 She had R hip replaced twice, L knee replaced twice and ORIF at L ankle. 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 Denies dizziness/ numbness. Any AROM / PROM on R hip and L knee tends to reproduce severe pain . She has to take methadone for pain management. She also smokes cig x5 /day. Prior Treatments and Tests L femur T-score= -3.4 Current Functional Impairments (Reported) Functional Limitations- Mobility/Gait multiple falls knee knee gait L>R furniture surfing at home for support B UE to push off for sit to stand Personal Factors Other Personal Factors That May Effect Osteoporosis Therapy/Recovery high fall risks HTN previous TIA 2019 seizures. PT-OP-C Subjective Start: 08/17/21 11:30 Freq: Status: Active Protocol: Document 10/04/21 12:57 HH (Rec: 10/04/21 13:48 HH [id number]) OP-PT Subjective Patient Comments Patient Comments Im more cautious in general. I havent been falling which I did before almost every couple days. Patient Reported Progress Improving Patient Questionnaires ABC- Activity Specific Balance Confidence Scale ABC Score 57.82 ABC Functional Impairment 40 to <60% Impaired (Score 41- 60) PT-OP-D Balance Start: 08/17/21 11:30 Freq: Status: Active Protocol: Document 08/17/21 11:34 HH (Rec: 08/17/21 12:10 [email or web address]) Balance Tests Single Limb Standing Single Limb- Right unable Single Limb- Left unable PT-OP-G Mobility & Gait Start: 08/17/21 11:30 Freq: Status: Active Protocol: Document 08/17/21 11:34 HH (Rec: 08/17/21 12:10 [email or web address]) OP Mobility Evaluation Transfers Sit to Stand sit to stand: knock knee pattern to gain stability and BUE push off from chair armrests. stand to sit: BUE support to decend OP Gait Assessment Gait Deviations General Gait Pattern Antalgic,Decreased Stride Length,Decreased Feet Clearance,Flexed Trunk,Lateral Trunk Lean Factors Limiting Gait Function Factors Limiting Gait Function Decreased Activity Tolerance, Decreased Strength,Limited Range of Motion,Pain,Poor Balance,Poor Safety Awareness Comments Gait Comments often look for wall support while walking L knee extreme valgus, unstable gait with minimal step over pattern. excessive lateral shift bilaterally L>R PT-OP-H Neuro Start: 08/17/21 11:30 Freq: Status: Active Protocol: Document 08/17/21 11:34 HH (Rec: 08/17/21 12:10 [email or web address]) Deep Tendon Reflex & Clonus Assessment Deep Tendon Reflex Bilateral Achilles Deep Tendon Reflex 2+ Normal Left Patellar Deep Tendon Reflex 1+ Diminished Right Patellar Deep Tendon Reflex 2+ Normal Vital Signs Blood Pressure Sitting Blood Pressure (90/60-120/80 mmHg) 136/64 H Blood Pressure Source Manual Cuff PT-OP-J Posture/Palpation/Skin Start: 08/17/21 11:30 Freq: Status: Active Protocol: Document 08/17/21 11:34 HH (Rec: 08/17/21 12:10 [email or web address]) Posture Evaluation Position Standing Knee Posture (L) Genu Valgus,(L) Ext. Tibial Torsion,(L) Excess Flexion Ankle/Foot Posture (L) Pronated Palpation Assessment Location R hip Palpation Findings Tenderness,Trigger Point Palpation Details significant bony prominence on R greater trochanter. PT-OP-K Range of Motion Start: 08/17/21 11:30 Freq: Status: Active Protocol: Document 08/17/21 11:34 (Rec: 08/17/21 12:10 [email or web address]) Hip Goniometric Range of Motion Hip Right Active Comments grimacing pain with PROM Left Active Internal Rotation 55 External Rotation 30 Comments hip PROM = WFL Knee Goniometric Range of Motion Knee Right Extension Active (degrees) 0 Left Extension Active (degrees) 3 Comments knee valgus from mid line= 15 degrees R knee= 0 Ankle and Foot Goniometric Range of Motion Ankle and Foot Right Active Dorsiflexion with Knee Extended 2 Plantarflexion 56 Inversion 35 Eversion 11 Left Active Plantarflexion 48 Inversion 45 Eversion 10 Comments DF with knee extended= -2 PT-OP-M Strength Start: 08/17/21 11:30 Freq: Status: Active Protocol: Document 08/17/21 11:34 (Rec: 08/17/21 12:10 [email or web address]) Hip Strength Hip Manual Muscle Testing Right Flexion (L2) 2- Poor- Extension (S1) 2- Poor- Abduction 2- Poor- Adduction 2- Poor- Comments significant pain noted Left Flexion (L2) 2+ Poor+ Extension (S1) 2+ Poor+ Abduction 2+ Poor+ Adduction 2+ Poor+ Knee Strength Knee Manual Muscle Testing Right Flexion (S2) 3 Fair Extension (L3) 3 Fair Left Flexion (S2) 3+ Fair+ Extension (L3) 3+ Fair+ Ankle/Foot Strength Ankle and Foot Manual Muscle Testing Right Dorsiflexion (L4) 4- Good- Plantarflexion (S1) 4- Good- Inversion 3+ Fair+ Eversion (S1) 3+ Fair+ Left Dorsiflexion (L4) 4- Good- Plantarflexion (S1) 4- Good- Inversion 3+ Fair+ Eversion (S1) 3+ Fair+ PT-OP-Q Treatments Start: 08/17/21 11:30 Freq: Status: Active Protocol: Document 10/04/21 12:57 HH (Rec: 10/04/21 13:48 [id number]) Cardio Equipment Recumbent Stepper (Sci-Fit) Duration (Minutes) 5 Resistance 5 Therapeutic Exercises Supine Exercises SLR Side bilateral Comments R= 8 x2, L= 6x2 LTR Equipment Used red therapy ball Reps/Minutes 10 x2 Comments cues on good control leg curl Side bilateral Equipment Used blue therapy ball Reps/Minutes 10 x2 Comments cues on good control supine hip ER Supine Exercise Name HEP, unilateral Resistance yellow band Reps/Minutes 10x2 Comments for HEP Sitting Exercises sit<> stands Sitting Exercise Name from elevated table. Equipment Used small ball between knees for knee alignment Reps/Minutes 8x2 Comments 1 UE support, low pain level Gait Training Gait Activity gait using SPC Device Used a different SPC in RUE Level of Assistance S Surface firm Distance/Duration 60 ft x4 laps Treatment Focus tall posture, hip abd facilitation, increase stride, heel strike to toe Comments min cues needed today. good 2 point pattern with better stability than her personal cane PT-OP-R Modalities Start: 08/17/21 11:30 Freq: Status: Active Protocol: Document 09/23/21 13:56 HH (Rec: 09/23/21 14:03 [email or web address]) Hot Pack/Cold Pack Treatment Cold Pack Location ice massage at L shoulder Patient Tolerance Fair Comments warm and painful to touch, signifciant swelling at the anterior capsule. hip Location bilateral Patient Position Hooklying Treatment Duration (minutes) 10 Patient Tolerance Good PT-OP-T Assessment and Plan Start: 08/17/21 11:30 Freq: Status: Active Protocol: Document 10/04/21 12:57 (Rec: 10/04/21 13:48 [id number]) Physical Therapy Assessment Goals STS x5 Impairment pt takes 35s to complete 5 x STS Short Term Goal (STG) pt will show improved leg strength to complete 5 times STS within 30 s STG Duration 4 weeks Shelter Goal (LTG) pt will show improved leg strength to complete 5 times STS within 25 s LTG Duration 8 weeks strength Impairment very weak hip strength Short Term Goal (STG) 09/23 goal met pt shows improved overall hip strength up to 2+ to 3-/5 to improve her gait stability. She is able to comlpete supine hip ER and hip abduction. STG Duration 5 weeks Harpsichord Maker Goal (LTG) pt will show improved overall hip strength up to 3+/5 to improve her gait stability and balance LTG Duration 10 weeks falls Impairment multiple falls within the past few months Short Term Goal (STG) 09/23 goal met pt has not fallen since evaluation. She reports her strength and balance have improved and has better understanding to use her SPC. pt will show improved safety awareness to use AD for mobility and not fall for a month STG Duration 5 weeks Harpsichord Maker Goal (LTG) pt will show improved safety awareness to use AD for mobility and overall balance so she will not fall for 2 months LTG Duration 10 weeks ABC scale Impairment pt scores 23% on ABC scale Short Term Goal (STG) 10/04 Pt scores 57.82 today. pt will show improved confidence for balance to score >30 on ABC scale STG Duration 5 weeks Shelter Goal (LTG) pt will show improved confidence for balance to score >40 on ABC scale LTG Duration 10 weeks Assessment Summary Assessment pt came in with the incorrect gait pattern again. Pt scores 57.82% on ABC balance score ( 23 from initial evaluation). Spent time educating her the reciprocal 2 point pattern and she was able to retain at the end of session. Added SLR today and she kristofer okay. Physical Therapy Plan Frequency and Duration Frequency of Treatment 2x/Week Duration of Treatment 12 weeks Plan of Care Start Date 08/17/21 Plan of Care End Date 11/15/21 Therapeutic Interventions Therapeutic Interventions Aquatic Therapy,Balance Training,Gait Training,Home Exercise Program,Joint Mobilizations,Manual Therapy, Neuromuscular Re-education, Patient/Caregiver Education, Self-Care/Home Management,Soft Tissue Mobilization,Taping, Therapeutic Activities, Therapeutic Exercises Modalities Cold Pack/Ice Massage,Electric Stimulation,Hot Packs, Infrared Therapy,Ultrasound Next Visit Focus/Plan Next Note Type Treatment Note Next Visit Plan Assess response to added STS, hip abd supine and gait last tx. POC: STM at hip gentle hip and ankle ROM isometric hip strengthening educate to use SPC/ FWW
--- NOTE | 2021-10-06 13:48 | PT.OTN ---
Current Diagnoses Other abnormalities of gait and mobility (10/06/21) History of falling (10/06/21) Physical Therapy Treatment Note PT-OP-A Visit Information Start: 08/17/21 11:30 Freq: Status: Active Protocol: Document 10/06/21 12:58 HH (Rec: 10/06/21 13:47 HH [id number]) Out-Patient Physical Therapy Visit Information Visit Information Visit Type Treatment Note Visit Note pt has not fallen since evaluation. 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 She has a history of high blood pressure and osteoporosis. (T-score at L hip =-3.4) She also has a history of seizures and often zone out as she stated. She c/o severe R hip pain and L knee pain 10/10 often during WB activities. She has very poor balance which caused her to fall multiple times within the past couple months but she was able to get up on her own . She uses a SPC sometimes but does not drive and mostly stay home. 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 She had R hip replaced twice, L knee replaced twice and ORIF at L ankle. 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 Denies dizziness/ numbness. Any AROM / PROM on R hip and L knee tends to reproduce severe pain . She has to take methadone for pain management. She also smokes cig x5 /day. Prior Treatments and Tests L femur T-score= -3.4 Current Functional Impairments (Reported) Functional Limitations- Mobility/Gait multiple falls knee knee gait L>R furniture surfing at home for support B UE to push off for sit to stand Personal Factors Other Personal Factors That May Effect Osteoporosis Therapy/Recovery high fall risks HTN previous TIA 2019 seizures. PT-OP-C Subjective Start: 10/05/21 11:30 Freq: Status: Active Protocol: Document 10/06/21 12:58 HH (Rec: 10/06/21 13:47 HH [id number]) OP-PT Subjective Patient Comments Patient Comments Suzy been practicing walking with the cane so its getting better. I tried to get a cane from [employer] but they only open on Monday for a few hours. Patient Reported Progress Improving PT-OP-D Balance Start: 08/17/21 11:30 Freq: Status: Active Protocol: Document 08/17/21 11:34 HH (Rec: 08/17/21 12:10 [email or web address]) Balance Tests Single Limb Standing Single Limb- Right unable Single Limb- Left unable PT-OP-G Mobility & Gait Start: 08/17/21 11:30 Freq: Status: Active Protocol: Document 08/17/21 11:34 HH (Rec: 08/17/21 12:10 [email or web address]) OP Mobility Evaluation Transfers Sit to Stand sit to stand: knock knee pattern to gain stability and BUE push off from chair armrests. stand to sit: BUE support to decend OP Gait Assessment Gait Deviations General Gait Pattern Antalgic,Decreased Stride Length,Decreased Feet Clearance,Flexed Trunk,Lateral Trunk Lean Factors Limiting Gait Function Factors Limiting Gait Function Decreased Activity Tolerance, Decreased Strength,Limited Range of Motion,Pain,Poor Balance,Poor Safety Awareness Comments Gait Comments often look for wall support while walking L knee extreme valgus, unstable gait with minimal step over pattern. excessive lateral shift bilaterally L>R PT-OP-H Neuro Start: 08/17/21 11:30 Freq: Status: Active Protocol: Document 08/17/21 11:34 HH (Rec: 08/17/21 12:10 [email or web address]) Deep Tendon Reflex & Clonus Assessment Deep Tendon Reflex Bilateral Achilles Deep Tendon Reflex 2+ Normal Left Patellar Deep Tendon Reflex 1+ Diminished Right Patellar Deep Tendon Reflex 2+ Normal Vital Signs Blood Pressure Sitting Blood Pressure (90/60-120/80 mmHg) 136/64 H Blood Pressure Source Manual Cuff PT-OP-J Posture/Palpation/Skin Start: 08/17/21 11:30 Freq: Status: Active Protocol: Document 08/17/21 11:34 HH (Rec: 08/17/21 12:10 [email or web address]) Posture Evaluation Position Standing Knee Posture (L) Genu Valgus,(L) Ext. Tibial Torsion,(L) Excess Flexion Ankle/Foot Posture (L) Pronated Palpation Assessment Location R hip Palpation Findings Tenderness,Trigger Point Palpation Details significant bony prominence on R greater trochanter. PT-OP-K Range of Motion Start: 08/17/21 11:30 Freq: Status: Active Protocol: Document 08/17/21 11:34 (Rec: 08/17/21 12:10 [email or web address]) Hip Goniometric Range of Motion Hip Right Active Comments grimacing pain with PROM Left Active Internal Rotation 55 External Rotation 30 Comments hip PROM = WFL Knee Goniometric Range of Motion Knee Right Extension Active (degrees) 0 Left Extension Active (degrees) 3 Comments knee valgus from mid line= 15 degrees R knee= 0 Ankle and Foot Goniometric Range of Motion Ankle and Foot Right Active Dorsiflexion with Knee Extended 2 Plantarflexion 56 Inversion 35 Eversion 11 Left Active Plantarflexion 48 Inversion 45 Eversion 10 Comments DF with knee extended= -2 PT-OP-M Strength Start: 08/17/21 11:30 Freq: Status: Active Protocol: Document 08/17/21 11:34 (Rec: 08/17/21 12:10 [email or web address]) Hip Strength Hip Manual Muscle Testing Right Flexion (L2) 2- Poor- Extension (S1) 2- Poor- Abduction 2- Poor- Adduction 2- Poor- Comments significant pain noted Left Flexion (L2) 2+ Poor+ Extension (S1) 2+ Poor+ Abduction 2+ Poor+ Adduction 2+ Poor+ Knee Strength Knee Manual Muscle Testing Right Flexion (S2) 3 Fair Extension (L3) 3 Fair Left Flexion (S2) 3+ Fair+ Extension (L3) 3+ Fair+ Ankle/Foot Strength Ankle and Foot Manual Muscle Testing Right Dorsiflexion (L4) 4- Good- Plantarflexion (S1) 4- Good- Inversion 3+ Fair+ Eversion (S1) 3+ Fair+ Left Dorsiflexion (L4) 4- Good- Plantarflexion (S1) 4- Good- Inversion 3+ Fair+ Eversion (S1) 3+ Fair+ PT-OP-Q Treatments Start: 08/17/21 11:30 Freq: Status: Active Protocol: Document 10/06/21 12:58 HH (Rec: 10/06/21 13:47 [id number]) Cardio Equipment Recumbent Stepper (Sci-Fit) Duration (Minutes) 5 Resistance 5 Therapeutic Exercises Supine Exercises SLR Side bilateral Comments R= 8 x2, L= 6x2 LTR Equipment Used red therapy ball Reps/Minutes 10 x2 Comments cues on good control leg curl Side bilateral Equipment Used blue therapy ball Reps/Minutes 10 x2 Comments cues on good control Sitting Exercises sit<> stands Sitting Exercise Name from elevated table. Resistance UE on chair backseat for support Reps/Minutes 8x2 Comments 1 UE support, low pain level Manual Therapy Treatment Soft Tissue Mobilization L knee Body Location medial joint line Mobilization Type Myofascial Release Intensity/Depth Moderate Body Position Supine R glute Body Location + R glute Mobilization Type Myofascial Release,Sustained Pressure,Trigger Point Release Intensity/Depth Moderate Body Position Sidelying Self-Care/Home Management Treatment Education Other Education educated pt focusing on eating less processed food d/t its inflammatory nature. PT-OP-R Modalities Start: 08/17/21 11:30 Freq: Status: Active Protocol: Document 09/23/21 13:56 (Rec: 09/23/21 14:03 [email or web address]) Hot Pack/Cold Pack Treatment Cold Pack Location ice massage at L shoulder Patient Tolerance Fair Comments warm and painful to touch, signifciant swelling at the anterior capsule. hip Location bilateral Patient Position Hooklying Treatment Duration (minutes) 10 Patient Tolerance Good PT-OP-T Assessment and Plan Start: 08/17/21 11:30 Freq: Status: Active Protocol: Document 10/06/21 12:58 (Rec: 10/06/21 13:47 [id number]) Physical Therapy Assessment Goals STS x5 Impairment pt takes 35s to complete 5 x STS Short Term Goal (STG) pt will show improved leg strength to complete 5 times STS within 30 s STG Duration 4 weeks Computer Systems Software Engineer Goal (LTG) pt will show improved leg strength to complete 5 times STS within 25 s LTG Duration 8 weeks strength Impairment very weak hip strength Short Term Goal (STG) 09/23 goal met pt shows improved overall hip strength up to 2+ to 3-/5 to improve her gait stability. She is able to comlpete supine hip ER and hip abduction. STG Duration 5 weeks Computer Systems Software Engineer Goal (LTG) pt will show improved overall hip strength up to 3+/5 to improve her gait stability and balance LTG Duration 10 weeks falls Impairment multiple falls within the past few months Short Term Goal (STG) 09/23 goal met pt has not fallen since evaluation. She reports her strength and balance have improved and has better understanding to use her SPC. pt will show improved safety awareness to use AD for mobility and not fall for a month STG Duration 5 weeks Longterm Goal (LTG) pt will show improved safety awareness to use AD for mobility and overall balance so she will not fall for 2 months LTG Duration 10 weeks ABC scale Impairment pt scores 23% on ABC scale Short Term Goal (STG) 10/04 Pt scores 57.82 today. pt will show improved confidence for balance to score >30 on ABC scale STG Duration 5 weeks Computer Systems Software Engineer Goal (LTG) pt will show improved confidence for balance to score >40 on ABC scale LTG Duration 10 weeks Assessment Summary Assessment pt reports improved gait stability and strength. She still c/o night pain which is possibly a chronic inflammatory response. Educated her to look into anti inflammatory diet such as fish, avocado, seeds. Physical Therapy Plan Frequency and Duration Frequency of Treatment 2x/Week Duration of Treatment 12 weeks Plan of Care Start Date 08/17/21 Plan of Care End Date 11/15/21 Therapeutic Interventions Therapeutic Interventions Aquatic Therapy,Balance Training,Gait Training,Home Exercise Program,Joint Mobilizations,Manual Therapy, Neuromuscular Re-education, Patient/Caregiver Education, Self-Care/Home Management,Soft Tissue Mobilization,Taping, Therapeutic Activities, Therapeutic Exercises Modalities Cold Pack/Ice Massage,Electric Stimulation,Hot Packs, Infrared Therapy,Ultrasound Next Visit Focus/Plan Next Note Type Treatment Note Next Visit Plan Assess response to added STS, hip abd supine and gait last tx. POC: STM at hip gentle hip and ankle ROM isometric hip strengthening educate to use SPC/ FWW
--- NOTE | 2021-10-14 13:50 | PT.OTN ---
Current Diagnoses Other abnormalities of gait and mobility (10/14/21) History of falling (10/14/21) Physical Therapy Treatment Note PT-OP-A Visit Information Start: 08/17/21 11:30 Freq: Status: Active Protocol: Document 10/14/21 12:56 HH (Rec: 10/14/21 13:50 HH [id number]) Out-Patient Physical Therapy Visit Information Visit Information Visit Type Treatment Note Visit Note pt has not fallen since evaluation. 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 She has a history of high blood pressure and osteoporosis. (T-score at L hip =-3.4) She also has a history of seizures and often zone out as she stated. She c/o severe R hip pain and L knee pain 10/10 often during WB activities. She has very poor balance which caused her to fall multiple times within the past couple months but she was able to get up on her own . She uses a SPC sometimes but does not drive and mostly stay home. 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 She had R hip replaced twice, L knee replaced twice and ORIF at L ankle. 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 Denies dizziness/ numbness. Any AROM / PROM on R hip and L knee tends to reproduce severe pain . She has to take methadone for pain management. She also smokes cig x5 /day. Prior Treatments and Tests L femur T-score= -3.4 Current Functional Impairments (Reported) Functional Limitations- Mobility/Gait multiple falls knee knee gait L>R furniture surfing at home for support B UE to push off for sit to stand Personal Factors Other Personal Factors That May Effect Osteoporosis Therapy/Recovery high fall risks HTN previous TIA 2019 seizures. PT-OP-C Subjective Start: 10/05/21 11:30 Freq: Status: Active Protocol: Document 10/14/21 12:56 HH (Rec: 10/14/21 13:50 HH [id number]) OP-PT Subjective Patient Comments Patient Comments I saw Dr. Alvarez and he is pleased with my progress. Suzy been practicing my walking and my balance has gotten so much better. But my shoulders hurt really bad. Patient Reported Progress Improving PT-OP-D Balance Start: 08/17/21 11:30 Freq: Status: Active Protocol: Document 08/17/21 11:34 HH (Rec: 08/17/21 12:10 [email or web address]) Balance Tests Single Limb Standing Single Limb- Right unable Single Limb- Left unable PT-OP-G Mobility & Gait Start: 08/17/21 11:30 Freq: Status: Active Protocol: Document 08/17/21 11:34 HH (Rec: 08/17/21 12:10 [email or web address]) OP Mobility Evaluation Transfers Sit to Stand sit to stand: knock knee pattern to gain stability and BUE push off from chair armrests. stand to sit: BUE support to decend OP Gait Assessment Gait Deviations General Gait Pattern Antalgic,Decreased Stride Length,Decreased Feet Clearance,Flexed Trunk,Lateral Trunk Lean Factors Limiting Gait Function Factors Limiting Gait Function Decreased Activity Tolerance, Decreased Strength,Limited Range of Motion,Pain,Poor Balance,Poor Safety Awareness Comments Gait Comments often look for wall support while walking L knee extreme valgus, unstable gait with minimal step over pattern. excessive lateral shift bilaterally L>R PT-OP-H Neuro Start: 08/17/21 11:30 Freq: Status: Active Protocol: Document 08/17/21 11:34 HH (Rec: 08/17/21 12:10 HH [email or web address]) Deep Tendon Reflex & Clonus Assessment Deep Tendon Reflex Bilateral Achilles Deep Tendon Reflex 2+ Normal Left Patellar Deep Tendon Reflex 1+ Diminished Right Patellar Deep Tendon Reflex 2+ Normal Vital Signs Blood Pressure Sitting Blood Pressure (90/60-120/80 mmHg) 136/64 H Blood Pressure Source Manual Cuff PT-OP-J Posture/Palpation/Skin Start: 08/17/21 11:30 Freq: Status: Active Protocol: Document 08/17/21 11:34 HH (Rec: 08/17/21 12:10 [email or web address]) Posture Evaluation Position Standing Knee Posture (L) Genu Valgus,(L) Ext. Tibial Torsion,(L) Excess Flexion Ankle/Foot Posture (L) Pronated Palpation Assessment Location R hip Palpation Findings Tenderness,Trigger Point Palpation Details significant bony prominence on R greater trochanter. PT-OP-K Range of Motion Start: 08/17/21 11:30 Freq: Status: Active Protocol: Document 08/17/21 11:34 (Rec: 08/17/21 12:10 [email or web address]) Hip Goniometric Range of Motion Hip Right Active Comments grimacing pain with PROM Left Active Internal Rotation 55 External Rotation 30 Comments hip PROM = WFL Knee Goniometric Range of Motion Knee Right Extension Active (degrees) 0 Left Extension Active (degrees) 3 Comments knee valgus from mid line= 15 degrees R knee= 0 Ankle and Foot Goniometric Range of Motion Ankle and Foot Right Active Dorsiflexion with Knee Extended 2 Plantarflexion 56 Inversion 35 Eversion 11 Left Active Plantarflexion 48 Inversion 45 Eversion 10 Comments DF with knee extended= -2 PT-OP-M Strength Start: 08/17/21 11:30 Freq: Status: Active Protocol: Document 08/17/21 11:34 (Rec: 08/17/21 12:10 [email or web address]) Hip Strength Hip Manual Muscle Testing Right Flexion (L2) 2- Poor- Extension (S1) 2- Poor- Abduction 2- Poor- Adduction 2- Poor- Comments significant pain noted Left Flexion (L2) 2+ Poor+ Extension (S1) 2+ Poor+ Abduction 2+ Poor+ Adduction 2+ Poor+ Knee Strength Knee Manual Muscle Testing Right Flexion (S2) 3 Fair Extension (L3) 3 Fair Left Flexion (S2) 3+ Fair+ Extension (L3) 3+ Fair+ Ankle/Foot Strength Ankle and Foot Manual Muscle Testing Right Dorsiflexion (L4) 4- Good- Plantarflexion (S1) 4- Good- Inversion 3+ Fair+ Eversion (S1) 3+ Fair+ Left Dorsiflexion (L4) 4- Good- Plantarflexion (S1) 4- Good- Inversion 3+ Fair+ Eversion (S1) 3+ Fair+ PT-OP-Q Treatments Start: 08/17/21 11:30 Freq: Status: Active Protocol: Document 10/14/21 12:56 (Rec: 10/14/21 13:50 [id number]) Cardio Equipment Recumbent Stepper (Sci-Fit) Duration (Minutes) 5 Resistance 5 Other just LEs. Therapeutic Exercises Supine Exercises SLR Side bilateral Comments R= 8 x2, L= 6x2 LTR Equipment Used red therapy ball Reps/Minutes 10 x2 Comments cues on good control leg curl Side bilateral Equipment Used blue therapy ball Reps/Minutes 10 x2 Comments cues on good control bridging Reps/Minutes 10 x2 Comments for HEP, few inches off the table. Gait Training Gait Activity gait using SPC Device Used a different SPC in RUE Level of Assistance S Surface firm Distance/Duration 60 ft x4 laps Treatment Focus tall posture, hip abd facilitation, increase stride, heel strike to toe Comments min cues needed today. good 2 point pattern with better stability than her personal cane Manual Therapy Treatment Soft Tissue Mobilization L knee Body Location medial joint line Mobilization Type Myofascial Release Intensity/Depth Moderate Body Position Supine PT-OP-R Modalities Start: 08/17/21 11:30 Freq: Status: Active Protocol: Document 09/23/21 13:56 (Rec: 09/23/21 14:03 [email or web address]) Hot Pack/Cold Pack Treatment Cold Pack Location ice massage at L shoulder Patient Tolerance Fair Comments warm and painful to touch, signifciant swelling at the anterior capsule. hip Location bilateral Patient Position Hooklying Treatment Duration (minutes) 10 Patient Tolerance Good PT-OP-T Assessment and Plan Start: 08/17/21 11:30 Freq: Status: Active Protocol: Document 10/14/21 12:56 (Rec: 10/14/21 13:50 [id number]) Physical Therapy Assessment Goals STS x5 Impairment pt takes 35s to complete 5 x STS Short Term Goal (STG) pt will show improved leg strength to complete 5 times STS within 30 s STG Duration 4 weeks Lumber Press Operator Goal (LTG) pt will show improved leg strength to complete 5 times STS within 25 s LTG Duration 8 weeks strength Impairment very weak hip strength Short Term Goal (STG) 09/23 goal met pt shows improved overall hip strength up to 2+ to 3-/5 to improve her gait stability. She is able to comlpete supine hip ER and hip abduction. STG Duration 5 weeks Skilled Nursing Goal (LTG) pt will show improved overall hip strength up to 3+/5 to improve her gait stability and balance LTG Duration 10 weeks falls Impairment multiple falls within the past few months Short Term Goal (STG) 09/23 goal met pt has not fallen since evaluation. She reports her strength and balance have improved and has better understanding to use her SPC. pt will show improved safety awareness to use AD for mobility and not fall for a month STG Duration 5 weeks Skilled Nursing Goal (LTG) pt will show improved safety awareness to use AD for mobility and overall balance so she will not fall for 2 months LTG Duration 10 weeks ABC scale Impairment pt scores 23% on ABC scale Short Term Goal (STG) 10/04 Pt scores 57.82 today. pt will show improved confidence for balance to score >30 on ABC scale STG Duration 5 weeks Lumber Press Operator Goal (LTG) pt will show improved confidence for balance to score >40 on ABC scale LTG Duration 10 weeks Assessment Summary Assessment pt states she is doing more housework carefully. She is more confident with her balance and gait now since she hasnt fallen. expect to DC next visit. Physical Therapy Plan Frequency and Duration Frequency of Treatment 2x/Week Duration of Treatment 12 weeks Plan of Care Start Date 08/17/21 Plan of Care End Date 11/15/21 Therapeutic Interventions Therapeutic Interventions Aquatic Therapy,Balance Training,Gait Training,Home Exercise Program,Joint Mobilizations,Manual Therapy, Neuromuscular Re-education, Patient/Caregiver Education, Self-Care/Home Management,Soft Tissue Mobilization,Taping, Therapeutic Activities, Therapeutic Exercises Modalities Cold Pack/Ice Massage,Electric Stimulation,Hot Packs, Infrared Therapy,Ultrasound Next Visit Focus/Plan Next Note Type Treatment Note Next Visit Plan Assess response to added STS, hip abd supine and gait last tx. POC: STM at hip gentle hip and ankle ROM isometric hip strengthening educate to use SPC/ FWW
--- NOTE | 2021-10-19 13:51 | PT.OTN ---
Current Diagnoses Other abnormalities of gait and mobility (10/19/21) History of falling (10/19/21) Physical Therapy Treatment Note PT-OP-A Visit Information Start: 08/17/21 11:30 Freq: Status: Active Protocol: Document 10/19/21 13:07 HH (Rec: 10/19/21 13:51 HH [id number]) Out-Patient Physical Therapy Visit Information Visit Information Visit Type Discharge Summary Visit Note pt fell a few days ago Visit Start Time 13:05 Visit Stop Time 13:45 Total Visit Minutes 42 Visit Number 15 Number of RESERVOIR CARETAKER Visits 0 PT-OP-B Current Condition Start: 08/17/21 11:30 Freq: Status: Active Protocol: Document 08/17/21 11:34 HH (Rec: 08/17/21 12:10 HH [email or web address]) Current Condition History of Current Condition Onset Date many years ago Current Complaints B hip pain R>L, gait instability History of Current Condition 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 She has a history of high blood pressure and osteoporosis. (T-score at L hip =-3.4) She also has a history of seizures and often zone out as she stated. She c/o severe R hip pain and L knee pain 10/10 often during WB activities. She has very poor balance which caused her to fall multiple times within the past couple months but she was able to get up on her own . She uses a SPC sometimes but does not drive and mostly stay home. 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 She had R hip replaced twice, L knee replaced twice and ORIF at L ankle. 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 Denies dizziness/ numbness. Any AROM / PROM on R hip and L knee tends to reproduce severe pain . She has to take methadone for pain management. She also smokes cig x5 /day. Prior Treatments and Tests L femur T-score= -3.4 Current Functional Impairments (Reported) Functional Limitations- Mobility/Gait multiple falls knee knee gait L>R furniture surfing at home for support B UE to push off for sit to stand Personal Factors Other Personal Factors That May Effect Osteoporosis Therapy/Recovery high fall risks HTN previous TIA 2019 seizures. PT-OP-C Subjective Start: 08/17/21 11:30 Freq: Status: Active Protocol: Document 10/19/21 13:07 HH (Rec: 10/19/21 13:51 [id number]) OP-PT Subjective Patient Comments Patient Comments I was out of my meclinzine couple days ago so my balance has not been too good Patient Reported Progress Same PT-OP-D Balance Start: 08/17/21 11:30 Freq: Status: Active Protocol: Document 08/17/21 11:34 HH (Rec: 08/17/21 12:10 [email or web address]) Balance Tests Single Limb Standing Single Limb- Right unable Single Limb- Left unable PT-OP-G Mobility & Gait Start: 08/17/21 11:30 Freq: Status: Active Protocol: Document 08/17/21 11:34 HH (Rec: 08/17/21 12:10 [email or web address]) OP Mobility Evaluation Transfers Sit to Stand sit to stand: knock knee pattern to gain stability and BUE push off from chair armrests. stand to sit: BUE support to decend OP Gait Assessment Gait Deviations General Gait Pattern Antalgic,Decreased Stride Length,Decreased Feet Clearance,Flexed Trunk,Lateral Trunk Lean Factors Limiting Gait Function Factors Limiting Gait Function Decreased Activity Tolerance, Decreased Strength,Limited Range of Motion,Pain,Poor Balance,Poor Safety Awareness Comments Gait Comments often look for wall support while walking L knee extreme valgus, unstable gait with minimal step over pattern. excessive lateral shift bilaterally L>R PT-OP-H Neuro Start: 08/17/21 11:30 Freq: Status: Active Protocol: Document 08/17/21 11:34 HH (Rec: 08/17/21 12:10 [email or web address]) Deep Tendon Reflex & Clonus Assessment Deep Tendon Reflex Bilateral Achilles Deep Tendon Reflex 2+ Normal Left Patellar Deep Tendon Reflex 1+ Diminished Right Patellar Deep Tendon Reflex 2+ Normal Vital Signs Blood Pressure Sitting Blood Pressure (90/60-120/80 mmHg) 136/64 H Blood Pressure Source Manual Cuff PT-OP-J Posture/Palpation/Skin Start: 08/17/21 11:30 Freq: Status: Active Protocol: Document 08/17/21 11:34 HH (Rec: 08/17/21 12:10 [email or web address]) Posture Evaluation Position Standing Knee Posture (L) Genu Valgus,(L) Ext. Tibial Torsion,(L) Excess Flexion Ankle/Foot Posture (L) Pronated Palpation Assessment Location R hip Palpation Findings Tenderness,Trigger Point Palpation Details significant bony prominence on R greater trochanter. PT-OP-K Range of Motion Start: 08/17/21 11:30 Freq: Status: Active Protocol: Document 08/17/21 11:34 (Rec: 08/17/21 12:10 [email or web address]) Hip Goniometric Range of Motion Hip Right Active Comments grimacing pain with PROM Left Active Internal Rotation 55 External Rotation 30 Comments hip PROM = WFL Knee Goniometric Range of Motion Knee Right Extension Active (degrees) 0 Left Extension Active (degrees) 3 Comments knee valgus from mid line= 15 degrees R knee= 0 Ankle and Foot Goniometric Range of Motion Ankle and Foot Right Active Dorsiflexion with Knee Extended 2 Plantarflexion 56 Inversion 35 Eversion 11 Left Active Plantarflexion 48 Inversion 45 Eversion 10 Comments DF with knee extended= -2 PT-OP-M Strength Start: 08/17/21 11:30 Freq: Status: Active Protocol: Document 08/17/21 11:34 (Rec: 08/17/21 12:10 [email or web address]) Hip Strength Hip Manual Muscle Testing Right Flexion (L2) 2- Poor- Extension (S1) 2- Poor- Abduction 2- Poor- Adduction 2- Poor- Comments significant pain noted Left Flexion (L2) 2+ Poor+ Extension (S1) 2+ Poor+ Abduction 2+ Poor+ Adduction 2+ Poor+ Knee Strength Knee Manual Muscle Testing Right Flexion (S2) 3 Fair Extension (L3) 3 Fair Left Flexion (S2) 3+ Fair+ Extension (L3) 3+ Fair+ Ankle/Foot Strength Ankle and Foot Manual Muscle Testing Right Dorsiflexion (L4) 4- Good- Plantarflexion (S1) 4- Good- Inversion 3+ Fair+ Eversion (S1) 3+ Fair+ Left Dorsiflexion (L4) 4- Good- Plantarflexion (S1) 4- Good- Inversion 3+ Fair+ Eversion (S1) 3+ Fair+ PT-OP-Q Treatments Start: 08/17/21 11:30 Freq: Status: Active Protocol: Document 10/19/21 13:07 (Rec: 10/19/21 13:51 [id number]) Cardio Equipment Recumbent Stepper (Sci-Fit) Duration (Minutes) 5 Resistance 5 Other just LEs. Therapeutic Exercises Supine Exercises SLR Side bilateral Comments R= 8 x2, L= 6x2 LTR Equipment Used red therapy ball Reps/Minutes 10 x2 Comments cues on good control leg curl Side bilateral Equipment Used blue therapy ball Reps/Minutes 10 x2 Comments cues on good control bridging Reps/Minutes 10 x2 Comments for HEP, few inches off the table. Manual Therapy Treatment Soft Tissue Mobilization L knee Body Location medial joint line Mobilization Type Myofascial Release Intensity/Depth Moderate Body Position Supine Joint Mobilizations calcaneal Joint L calcaneal eversion Grade III Body Position Supine Comments no pain at medial knee PT-OP-R Modalities Start: 08/17/21 11:30 Freq: Status: Active Protocol: Document 09/23/21 13:56 (Rec: 09/23/21 14:03 [email or web address]) Hot Pack/Cold Pack Treatment Cold Pack Location ice massage at L shoulder Patient Tolerance Fair Comments warm and painful to touch, signifciant swelling at the anterior capsule. hip Location bilateral Patient Position Hooklying Treatment Duration (minutes) 10 Patient Tolerance Good PT-OP-T Assessment and Plan Start: 08/17/21 11:30 Freq: Status: Active Protocol: Document 10/19/21 13:07 (Rec: 10/19/21 13:51 [id number]) Physical Therapy Assessment Goals STS x5 Impairment pt takes 35s to complete 5 x STS Short Term Goal (STG) pt will show improved leg strength to complete 5 times STS within 30 s STG Duration 4 weeks Group Home Goal (LTG) 10/19 goal met pt completed 7 times STS in 30s pt will show improved leg strength to complete 5 times STS within 25 s LTG Duration 8 weeks strength Impairment very weak hip strength Short Term Goal (STG) 09/23 goal met pt shows improved overall hip strength up to 2+ to 3-/5 to improve her gait stability. She is able to comlpete supine hip ER and hip abduction. STG Duration 5 weeks Group Home Goal (LTG) pt will show improved overall hip strength up to 3+/5 to improve her gait stability and balance LTG Duration 10 weeks falls Impairment multiple falls within the past few months Short Term Goal (STG) 09/23 goal met pt has not fallen since evaluation. She reports her strength and balance have improved and has better understanding to use her SPC. pt will show improved safety awareness to use AD for mobility and not fall for a month STG Duration 5 weeks Group Home Goal (LTG) pt will show improved safety awareness to use AD for mobility and overall balance so she will not fall for 2 months LTG Duration 10 weeks ABC scale Impairment pt scores 23% on ABC scale Short Term Goal (STG) 10/04 Pt scores 57.82 today. pt will show improved confidence for balance to score >30 on ABC scale STG Duration 5 weeks Group Home Goal (LTG) pt will show improved confidence for balance to score >40 on ABC scale LTG Duration 10 weeks Assessment Summary Assessment pt is very lethargic and tired today. She fell a few days and has been having difficulty staying awake possibly due to running out of her Meclinze for a few days. Pt stated she is slowly getting back to where she was earlier last week. Pt has a HEP routine and I reminded her to acquire a new SPC, use ice for shoulder pain and diet management. She agreed to be DC from PT today but I recommended her to have PT occasionally to improve her overall physical health. Physical Therapy Plan Frequency and Duration Frequency of Treatment 2x/Week Duration of Treatment 12 weeks Plan of Care Start Date 08/17/21 Plan of Care End Date 11/15/21 Therapeutic Interventions Therapeutic Interventions Aquatic Therapy,Balance Training,Gait Training,Home Exercise Program,Joint Mobilizations,Manual Therapy, Neuromuscular Re-education, Patient/Caregiver Education, Self-Care/Home Management,Soft Tissue Mobilization,Taping, Therapeutic Activities, Therapeutic Exercises Modalities Cold Pack/Ice Massage,Electric Stimulation,Hot Packs, Infrared Therapy,Ultrasound Next Visit Focus/Plan Next Note Type Treatment Note Next Visit Plan Assess response to added STS, hip abd supine and gait last tx. POC: STM at hip gentle hip and ankle ROM isometric hip strengthening educate to use SPC/ FWW
== END 2021-12-14 08:57 ==
LOC: PHYS 13:00
PROVIDERS: Family Provider Family Medicine; PCP Family Medicine; Referring Provider Psychiatry & Neurology Neurology; Visit Provider Psychiatry & Neurology Neurology
DX: R26.89 Other abnormalities of gait and mobility (principal); Z91.81 History of falling
CPT/HCPCS: 97110; 97116; 97140; 97163; 97530

== ENCOUNTER 2021-11-22 20:35 | Inpatient (IN) | payer MEDICARE, MEDICAID, SELFPAY ==
[2021-11-22] VITALS (13 sets, daily range): BP systolic 152–174; BP diastolic 74–86; PULSE 69–79; RESP 20; TEMP 36.4; O2SAT 93–97
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
--- NOTE | 2021-11-22 22:52 | DI.RAD.S_ITS ---
PROCEDURE: XR HAND RT MIN 3V INDICATIONS: Swelling and pain TECHNIQUE: 3 views of the hand(s) acquired. COMPARISON: [facility], , HAND 3V RIGHT, 07/26/2010, 10:34. FINDINGS: Bones: Study limited due to patient positioning. Diffuse osteopenia. No definite acute fractures or dislocations. Carpal bones appear to be normally aligned. No suspicious bony lesions. Degenerative changes of the right 1st metacarpophalangeal, 1st carpometacarpal, and triscaphe joints. There also degenerative changes of the 2nd and 3rd metacarpophalangeal joints. Soft tissues: No suspicious soft tissue calcifications. Moderate soft tissue swelling of the right hand and fingers. IMPRESSION: Moderate right hand soft tissue swelling without definite underlying osseous abnormalities. If there are persistent symptoms or clinical suspicion for pathology, then repeat radiographs or advanced imaging (CT or MRI) may be considered for further evaluation. Dictated by: Jeff Mata M.D. on 11/22/2021 at 23:37 Approved by: Jeff Mata M.D. on 11/22/2021 at 23:39
--- NOTE | 2021-11-22 22:52 | DI.RAD.S_ITS ---
PROCEDURE: XR HAND LT MIN 3V INDICATIONS: Swelling and pain TECHNIQUE: 3 views of the hand(s) acquired. COMPARISON: [facility], , HAND 3V RIGHT, 07/26/2010, 10:34. FINDINGS: Bones: No definite fracture or dislocation. Diffuse osteopenia. Carpal bones appear normally aligned. Moderate degenerative changes of the 1st metacarpophalangeal as well as the 1st carpometacarpal joints. Degenerative changes of the triscaphe joint. No suspicious osseous lesion. No suspicious osseous erosions. Soft tissues: No suspicious soft tissue calcifications. Moderate soft tissue swelling of the left hand and fingers. IMPRESSION: Moderate soft tissue swelling of the left hand/fingers without underlying osseous abnormalities. If there are persistent symptoms or clinical suspicion for pathology, then repeat radiographs or advanced imaging (CT or MRI) may be considered for further evaluation. Dictated by: Jeff Mata M.D. on 11/22/2021 at 23:35 Approved by: Jeff Mata M.D. on 11/22/2021 at 23:37
[2021-11-22 23:06] LABS: Alanine Aminotransferase 57 IU/L (<35); Albumin Globulin Ratio 1.5 (1.0-2.8); Alkaline Phosphatase 74 U/L (38-126); Aspartate Aminotransferase 102 IU/L (14-36); BUN Creatinine Ratio 35.6 (6-22); Blood Urea Nitrogen 26 mg/dL (7-17); Calcium 9.5 mg/dL (8.4-10.2); Carbon Dioxide 24 mmol/L (22-32); Chloride 106 mmol/L (98-107); Estimated Glomerular Filt Rate > 60.0 mL/min (>60); Ethanol (ETOH) < 10 mg/dL; Globulin 2.6 g/dL (1.7-4.1); Glucose 77 mg/dL (80-110); HEMOLYSIS 27 (0-50); Potassium 3.9 mmol/L (3.4-5.1); Sodium 142 mmol/L (137-145); Total Protein 6.6 g/dL (6.3-8.2)
[2021-11-22] MEDS: SODIUM CHLORIDE 0.9% 1,000 ML 125 ML IV (23:12)
[2021-11-22] MEDS: KETOROLAC 30 MG/ML VIAL IV (23:13)
[2021-11-22 23:15] LABS: Add Manual Diff / Slide Review NO; Basophils Absolute Auto 0 /uL (0-100); Basophils Percent Auto 0.4 % (0-2); Eosinophils Absolute Auto 100 /uL (0-450); Eosinophils Percent Auto 0.9 % (2-4); Hematocrit 40.2 % (36-46); Hemoglobin 13.8 g/dL (12.0-16.0); Lymphocytes Absolute Auto 1400 /uL (1100-4500); Lymphocytes Percent Auto 15.9 % (25-40); Mean Corpuscular HGB Conc 34.2 % (30-36); Mean Corpuscular Volume 90.5 fL (80-100); Monocytes Absolute Auto 500 /uL (0-900); Monocytes Percent Auto 5.5 % (3-14); Neutrophils Absolute Auto 7000 /uL (1500-7000); Neutrophils Percent Auto 77.3 % (50-75); Platelet Count 279 X10^3/uL (150-400); Red Blood Cell Count 4.44 X10^6/uL (4.0-5.2); White Blood Cell Count 9.1 X10^3/uL (4.5-11.0)
[2021-11-23 00:05] LABS: COVID19 - ADMIT (NP swab/PCR) Negative (Negative)
[2021-11-23] MEDS: TET,DIPH,PERTUSS(ACELL),VAC/PF 0.5 ML SYRINGE IM (00:59)
[2021-11-23 01:25] LABS: Creatine Kinase 449 U/L (30-135)
[2021-11-23 01:25] LABS: Appearance Urine UA CLEAR; Bilirubin Urine UA 2+ (NEGATIVE); Color Urine UA YELLOW; Glucose Urine UA TRACE g/dL (Negative); Ketones Urine UA 2+ (NEGATIVE); Leukocyte Esterase Urine UA TRACE (NEGATIVE); Nitrite Urine UA NEGATIVE (Negative); Occult Blood Urine UA 3+ (Negative); Protein Urine UA TRACE (Negative); Urobilinogen Urine UA 0.2 E.U./dL (0.2)
[2021-11-23 01:32] LABS: Ur Creatinine 20 (Normal); Urine pH 5.5 (Normal)
[2021-11-23 01:33] LABS: UR Morphine/Opiate cutoff 300 Negative (Negative); Urine Amphetamines Negative (Negative); Urine Barbiturates Negative (Negative); Urine Benzodiazepines Positive (Negative); Urine Cocaine Negative (Negative); Urine MDMA Negative (Negative); Urine Methadone Positive (Negative); Urine Methamphetamines Negative (Negative); Urine Oxycodone Negative (Negative); Urine Phencyclidine Negative (Negative); Urine Tetrahydrocannabinol Negative (Negative); Urine Tricyclic Antidepressant Negative (Negative)
[2021-11-23 01:42] LABS: pH Urine UA 5.5 (4.5-8.0)
[2021-11-23 01:43] LABS: Bacteria Urine None Seen; Culture Indicated Urine Cult Not Indicated; Ictotest Urine Negative (Negative); Mucus Urine 1+ (Negative); RBC Urine 10-30/HPF (0-5/HPF); Renal Epithelial Cells Urine 0-1/HPF (0-1/HPF); Squamous Epithelial Cell Urine 0-1 /HPF (0-5/HPF); WBC Urine 0-1/HPF (0-5/HPF)
[2021-11-23] MEDS: MORPHINE 2 MG/ML INJ IV ×2 (02:00→06:08)
[2021-11-23] MEDS: HYDROMORPHONE 1 MG INJ IV (02:15)
[2021-11-23] MEDS: SILVER SULFADIAZINE 1% CREAM 400 GM 1 APPLIC TOP (02:37)
[2021-11-23] MEDS: NEOMYCIN/POLYMYXIN/BACITRA UD OINT 1 EACH TOP (02:37)
[2021-11-23] MEDS: BACITRACIN OINT 0.9 GM PCKT 1 APPLIC TOP (02:38)
[2021-11-23 03:04] VITALS: BMI 19.6
--- NOTE | 2021-11-23 03:12 | PC.NURSE ---
Wound care done. Blisters opened to R hand, wounds dressed with antibiotic ointment and nonadherent pad. Eschar to left hand palm, left third distal finger, and left forearm attempted to debride, eschar could not be removed with soaking/scrubbing. Silvadene applied to areas of eschar, and wounds dressed with nonadherent dressings. Pt tolerated well.
[2021-11-23 03:30] VITALS: BP 165/79; PULSE 82; RESP 18; TEMP 36.4; O2SAT 100
[2021-11-23] MEDS: SODIUM CHLORIDE 0.9% 1,000 ML 125 ML IV ×3 (03:43→22:00)
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
[2021-11-23 08:22] VITALS: BP 115/69; PULSE 75; RESP 17; TEMP 37; O2SAT 98
[2021-11-23] MEDS: lisinopriL 20 MG TABLET 40 MG PO (08:25)
[2021-11-23] MEDS: lamoTRIgine 100 MG TABLET 200 MG PO ×2 (08:26→21:42)
[2021-11-23] MEDS: METHADONE 10 MG TABLET PO ×3 (08:26→21:42)
[2021-11-23] MEDS: lamoTRIgine 100 MG TABLET 50 MG PO ×2 (08:26→21:42)
[2021-11-23] MEDS: cephALEXin 250 MG CAPSULE 1000 MG PO ×2 (08:33→21:41)
[2021-11-23 09:28] VITALS: BP 119/61; PULSE 77; RESP 14; TEMP 36.8; O2SAT 99
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
[2021-11-23 11:35] VITALS: BP 125/67; PULSE 69; RESP 14; TEMP 36.5; O2SAT 94
[2021-11-23] MEDS: carisoprodoL 350 MG TABLET PO ×3 (11:43→21:42)
--- NOTE | 2021-11-23 11:43 | PM.CN ---
History of Present Illness Consult details Date Patient Seen: 11/23/21 Chief complaint: Failure to thrive Reason for consult: bilateral hand wounds and right cheek Requesting provider: Viktor Alvarez Narrative: Baseline unwell female with fall at home with prolong time down. NO recall of the incident. Has wounds on right cheek, chest, and bilateral hands. Hands are more consistent with [place], but could be pressure. Meds Home Medications and Allergies Home Medications Medication Instructions Recorded Confirmed Type Allergy Cream 1 applic TOPICAL PRN PRN 04/29/19 04/29/19 History Centrum Silver Women 1 tab PO DAILY 04/29/19 11/23/21 History aspirin 81 mg tablet,delayed 81 mg PO QPM 04/29/19 11/23/21 History release carisoprodol 350 mg tablet 350 mg PO QID PRN 04/29/19 11/23/21 History lamotrigine 200 mg tablet 200 mg PO BID 04/29/19 11/23/21 History lamotrigine 25 mg tablet 50 mg PO BID 04/29/19 11/23/21 History lisinopril 40 mg tablet 40 mg PO DAILY 04/29/19 11/23/21 History methadone 10 mg tablet 10 mg PO TID 04/29/19 11/23/21 History temazepam 15 mg capsule 15 mg PO BEDTIME PRN 04/29/19 11/23/21 History cephalexin 500 mg capsule 1,000 mg PO BID 11/23/21 11/23/21 History clonidine HCl 0.1 mg tablet 0.1 mg PO BEDTIME PRN 11/23/21 11/23/21 History Allergies Allergy/AdvReac Type Severity Reaction Status Date / Time carbamazepine Allergy Unknown Verified 11/22/21 23:07 Sulfa (Sulfonamide Allergy Unknown very Verified 11/22/21 23:07 Antibiotics) sick, hospitalized Qwtqlpt-NOT-GpZ Reductase AdvReac Mild extreme Verified 11/22/21 23:07 Inhibitor pain [Hppxpwc-Drr-Iai Reductase Inhibitor] baclofen AdvReac Unknown felt like Verified 11/22/21 23:07 I was going to have a seizure, nausea NSAIDS (Non-Steroidal AdvReac Unknown gi upset; Verified 11/22/21 23:07 Anti-Inflamma ibuprofen ok Review of Systems Constitutional Constitutional: Reports as per HPI, Reports frequent falls, Reports weakness and Reports weight loss ENT Ears, Nose, Mouth, and Throat: Yes disequilibrium Musculoskeletal Musculoskeletal: Reports abnormal gait, Reports myalgias, Reports atrophy, Reports deformity and Reports arthralgias Comments: hands are bilaterally deformed, swollen and limited motion Neurologic Neurologic: Reports abnormal gait, Reports confusion, Reports frequent falls, Reports memory loss, Reports seizure-like activity, Reports disequilibrium and Reports weakness Psychiatric Psychiatric: Reports confusion and Reports memory loss Exam Vital Signs (past 8 hours): - 11/23/21 08:22 11/23/21 09:28 11/23/21 11:35 Temperature 98.6 F 98.2 F 97.7 F Pulse Rate 75 77 69 Respiratory Rate 17 14 14 Blood Pressure 115/69 119/61 125/67 Pulse Oximetry 98 99 94 Oxygen Delivery Method Room Air Oxygen Flow Rate 0 Const General: cooperative and frail appearing Nutritional Appearance: malnourished [facility] Head: normocephalic Other: right check wound with escar Eyes General: appearance normal, both eyes and all related structures Sclera: sclerae normal Neck Neck: trachea midline Chest Chest: other (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 left had with larger wound and full thickness tissue loss on palm. Deformities of arthritis prohibit full range of motion. Neuro General: patient alert and patient oriented x3 Cognition: normal cognition Speech: speech normal Extrem Other: hands as above Psych Appearance: disheveled Affect: other (manipulative) Thought Process: normal Judgment: fair Objective Labs Result Diagrams: 11/22/21 20:51 11/22/21 20:51 Labs: Laboratory Results - last 24 hr 11/22/21 11/22/21 11/22/21 20:51 20:51 20:51 WBC 9.1 RBC 4.44 Hgb 13.8 Hct 40.2 MCV 90.5 MCH 31.0 MCHC 34.2 RDW 14.0 Plt Count 279 Neut % (Auto) 77.3 H Lymph % (Auto) 15.9 L [place] % (Auto) 5.5 Eos % (Auto) 0.9 L Baso % (Auto) 0.4 Neut # (Auto) 7000 Lymph # (Auto) 1400 [place] # (Auto) 500 Eos # (Auto) 100 Baso # (Auto) 0 Sodium 142 Potassium 3.9 Chloride 106 Carbon Dioxide 24 BUN 26 H Creatinine 0.73 Estimated GFR > 60.0 BUN/Creatinine Ratio 35.6 H Glucose 77 L Calcium 9.5 Total Bilirubin 1.0 AST 102 H ALT 57 H Alkaline Phosphatase 74 Total Creatine Kinase 449 H Total Protein 6.6 Albumin 4.0 Globulin 2.6 Albumin/Globulin Ratio 1.5 Urine Color Urine Appearance Urine pH Ur Specific [place] Urine Protein Urine Glucose (UA) Urine Ketones Urine Occult Blood Urine Nitrate Urine Bilirubin Ur Bilirubin Confirm Urine Urobilinogen Ur Leukocyte Esterase Urine RBC Urine WBC Ur Squamous Epith Cells Ur Renal Epithelial Cell Urine Bacteria Urine Mucus Ur Culture Indicated? U Opiates 300ng/mL cut Ur Oxycodone Screen Urine Methadone Screen Ur Barbiturates Screen U Tricyclic Antidepress Ur Phencyclidine Scrn Ur Amphetamines Screen U Methamphetamines Scrn Ur MDMA Scrn (Ecstasy) U Benzodiazepines Scrn Urine Cocaine Screen U Marijuana (THC) Screen Ethyl Alcohol < 10 SARS-CoV-2 (PCR) 11/22/21 11/23/21 11/23/21 23:17 01:15 01:15 WBC RBC Hgb Hct MCV MCH MCHC RDW Plt Count Neut % (Auto) Lymph % (Auto) [place] % (Auto) Eos % (Auto) Baso % (Auto) Neut # (Auto) Lymph # (Auto) [place] # (Auto) Eos # (Auto) Baso # (Auto) Sodium Potassium Chloride Carbon Dioxide BUN Creatinine Estimated GFR BUN/Creatinine Ratio Glucose Calcium Total Bilirubin AST ALT Alkaline Phosphatase Total Creatine Kinase Total Protein Albumin Globulin Albumin/Globulin Ratio Urine Color Yellow Urine Appearance Clear Urine pH 5.5 Ur Specific [place] 1.020 Urine Protein Trace H Urine Glucose (UA) Trace H Urine Ketones 2+ H Urine Occult Blood 3+ H Urine Nitrate Negative Urine Bilirubin 2+ H Ur Bilirubin Confirm Negative Urine Urobilinogen 0.2 Ur Leukocyte Esterase Trace H Urine RBC 10-30/hpf H Urine WBC 0-1/hpf Ur Squamous Epith Cells 0-1 /hpf Ur Renal Epithelial Cell 0-1/hpf Urine Bacteria None seen Urine Mucus 1+ H Ur Culture Indicated? Cult not indicated U Opiates 300ng/mL cut Negative Ur Oxycodone Screen Negative Urine Methadone Screen Positive H Ur Barbiturates Screen Negative U Tricyclic Antidepress Negative Ur Phencyclidine Scrn Negative Ur Amphetamines Screen Negative U Methamphetamines Scrn Negative Ur MDMA Scrn (Ecstasy) Negative U Benzodiazepines Scrn Positive H Urine Cocaine Screen Negative U Marijuana (THC) Screen Negative Ethyl Alcohol SARS-CoV-2 (PCR) Negative [facility] Medical History Hypertension Methadone use Seizures Social History household members: none Tobacco & Substance Use Smoking Status: Current every day smoker alcohol intake: former Assessment & Plan Assessment & Plan narrative: Bilateral hand and right cheek wounds requiring treatment. remaining wound will heal. Plan: Nutrition consult for high protein diet OR tomorrow for bilateral hand and right cheek debridement with possible wound vac left hand COVID-19 COVID-19 status: Negative Time Spent With Patient Time with patient: 50 to 69 minutes with 50% spent counseling/coordinating care Critical Care time: I spent a total of [] minutes of critical care time on this patient's care today; this time is exclusive of procedural time.
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
--- NOTE | 2021-11-23 13:06 | DI.MRI.S_ITS ---
PROCEDURE: MR HEAD/BRAIN WO/W CON INDICATIONS: mental status changes TECHNIQUE: Noncontrast axial T1 spin echo, axial T2 fast spin echo, sagittal and axial FLAIR, coronal T2 fast spin echo, axial gradient echo, axial diffusion and ADC through the brain. After the administration of contrast, axial and coronal 3D VIBE or T1 spin echo with fat saturation through the brain. COMPARISON: None. FINDINGS: Image quality: Excellent. CSF Spaces: Basal cisterns are patent. No extra-axial fluid collections. Ventricles are normal in size and shape. Brain: Mild global cerebral volume loss. No midline shift. No intracranial bleeds or masses. No abnormal intracranial enhancement. The brainstem appears normal. Diffusion-weighted images demonstrate no acute ischemic insults. No chronic ischemic insults. Normal intravascular flow voids are present. Skull and face: Calvarial marrow is normal in signal. Orbits appear normal. Sinuses: Sinuses and mastoids appear clear. IMPRESSION: Mild global cerebral volume loss. Otherwise unremarkable MRI of the brain. Dictated by: Jose Manuel Guadalupe M.D. on 11/23/2021 at 14:54 Approved by: Jose Manuel Guadalupe M.D. on 11/23/2021 at 14:58
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
[2021-11-23] MEDS: diazePAM 5 MG TABLET PO (14:07)
[2021-11-23] MEDS: ENOXAPARIN 40 MG/0.4 ML SYRINGE SUBCUT (14:07)
[2021-11-23 14:32] VITALS: BP 114/62; PULSE 69; RESP 16; TEMP 36.3; O2SAT 94
--- NOTE | 2021-11-23 14:58 | CM.DPC ---
DCP Ongoing SNF attempts: SW called following SNF's with new referral: [facility]- left msg and faxed referral [facility]- called and discussed and they will review [facility]- called and discussed and faxed referral [facility]- stop placement at this time, did not fax [facility]- left msg and faxed referral Printed copy of pt's COVID vaccination status. Jessica Krueger MSW
[2021-11-23] MEDS: ACETAMINOPHEN 325 MG TABLET 650 MG PO (17:31)
--- NOTE | 2021-11-23 17:40 | DIET.PN1 ---
Dietary Progress Note Assessment: RD attempted to see pt but pt was down for CT. RD to see pt first thing Wed morning to gain more insight into contributing factors to malnutrition and available food/supply resources where pt lives. In meantime, sending pt double protein portions, Vince niko to support wound healing, and Ensure Enlive. Ht: 165.1 cm Wt: 49.5 kg BMI: 19.6 UBW: Last BM: 11/23/21 (11/23/21 03:04) MNA: 8 Leonidas Score: 19 Diet: 11/23/21 Breakfast General (Regular) Diet Diet Modifications: 11/23/21 Lunch General (Regular) Diet Diet Modifications: double protein, Vince slushy c lunch, enlive bid 11/24/21 00:01 NPO Diet Diet Modifications: NPO Type: NPO except for Meds Nutrition Percent Meal Consumed 25% 11/23/21 12:41 Percent Meal Consumed 75% 11/23/21 09:30 Labs: RBC 4.44 X10^6/uL (4.0-5.2) 11/22/21 20:51 Hgb 13.8 g/dL (12.0-16.0) 11/22/21 20:51 Hct 40.2 % (36-46) 11/22/21 20:51 Creatinine 0.73 mg/dL (0.52-1.04) 11/22/21 20:51 Electronically Signed by: Kassy Walls 11/23/21 17:40 Clinical Dietitian [address] [id number]
[2021-11-23] MEDS: TEMAZEPAM 15 MG CAPSULE PO (21:42)
[2021-11-23] MEDS: SODIUM CHLORIDE 0.9% FLUSH 10 ML IV (21:45)
[2021-11-23 22:13] VITALS: BP 116/62; PULSE 65
[2021-11-24 00:09] VITALS: BP 110/65; PULSE 76; RESP 18; TEMP 36.8; O2SAT 99
[2021-11-24] MEDS: ACETAMINOPHEN 325 MG TABLET 650 MG PO ×2 (00:31→06:16)
[2021-11-24] MEDS: SODIUM CHLORIDE 0.9% 1,000 ML 125 ML IV ×2 (04:45→13:44)
[2021-11-24] MEDS: levoFLOXacin 250 MG TABLET PO (06:16)
[2021-11-24 08:00] VITALS: BP 129/63; PULSE 71; RESP 16; TEMP 36.6; O2SAT 95
[2021-11-24 08:16] LABS: Add Manual Diff / Slide Review NO; Basophils Absolute Auto 0 /uL (0-100); Basophils Percent Auto 0.4 % (0-2); Eosinophils Absolute Auto 300 /uL (0-450); Eosinophils Percent Auto 4.1 % (2-4); Hematocrit 32.2 % (36-46); Lymphocytes Absolute Auto 900 /uL (1100-4500); Lymphocytes Percent Auto 13.5 % (25-40); Mean Corpuscular Hemoglobin 31.3 PG (26-34); Monocytes Absolute Auto 500 /uL (0-900); Monocytes Percent Auto 7.2 % (3-14); Neutrophils Absolute Auto 4900 /uL (1500-7000); Neutrophils Percent Auto 74.8 % (50-75); Platelet Count 193 X10^3/uL (150-400); Red Cell Distribution Width 14.5 % (11.6-14.8); White Blood Cell Count 6.5 X10^3/uL (4.5-11.0)
[2021-11-24 08:22] LABS: Alanine Aminotransferase 30 IU/L (<35); Albumin 2.7 g/dL (3.5-5.0); Albumin Globulin Ratio 1.3 (1.0-2.8); Alkaline Phosphatase 46 U/L (38-126); Aspartate Aminotransferase 36 IU/L (14-36); BUN Creatinine Ratio 30.6 (6-22); Bilirubin Total 0.4 mg/dL (0.2-1.3); Blood Urea Nitrogen 19 mg/dL (7-17); Carbon Dioxide 26 mmol/L (22-32); Chloride 110 mmol/L (98-107); Creatine Kinase 122 U/L (30-135); Estimated Glomerular Filt Rate > 60.0 mL/min (>60); Globulin 2.1 g/dL (1.7-4.1); Glucose 99 mg/dL (80-110); HEMOLYSIS 15 (0-50); Potassium 3.8 mmol/L (3.4-5.1); Sodium 138 mmol/L (137-145); Total Protein 4.8 g/dL (6.3-8.2)
[2021-11-24] MEDS: lisinopriL 20 MG TABLET 40 MG PO (09:07)
[2021-11-24] MEDS: METHADONE 10 MG TABLET PO ×3 (09:07→20:31)
[2021-11-24] MEDS: cephALEXin 250 MG CAPSULE 1000 MG PO ×2 (09:08→20:30)
[2021-11-24] MEDS: lamoTRIgine 100 MG TABLET 200 MG PO ×2 (09:09→20:31)
[2021-11-24] MEDS: ENOXAPARIN 40 MG/0.4 ML SYRINGE SUBCUT (09:09)
[2021-11-24] MEDS: lamoTRIgine 100 MG TABLET 50 MG PO ×2 (09:10→20:31)
[2021-11-24 09:37] LABS: Prealbumin 6.4 mg/dL (17.6-36.0)
--- NOTE | 2021-11-24 10:51 | PM.PN.1 ---
Subjective Subjective Date Patient Seen: 11/24/21 Interval history: surgery postponed due to mechanical issues in OR. Continue dressing change daily. Exam Vital Signs (past 8 hours): - 11/24/21 08:00 Temperature 98 F Pulse Rate 71 Respiratory Rate 16 Blood Pressure 129/63 Pulse Oximetry 95 Oxygen Delivery Method Room Air Oxygen Flow Rate 0 Objective Labs Result Diagrams: 11/24/21 07:55 11/24/21 07:55 Labs: Laboratory Results - last 24 hr 11/24/21 11/24/21 11/24/21 07:55 07:55 07:55 WBC 6.5 RBC 3.50 L Hgb 11.0 L Hct 32.2 L MCV 92.0 MCH 31.3 MCHC 34.0 RDW 14.5 Plt Count 193 Neut % (Auto) 74.8 Lymph % (Auto) 13.5 L [place] % (Auto) 7.2 Eos % (Auto) 4.1 H Baso % (Auto) 0.4 Neut # (Auto) 4900 Lymph # (Auto) 900 L [place] # (Auto) 500 Eos # (Auto) 300 Baso # (Auto) 0 Sodium 138 Potassium 3.8 Chloride 110 H Carbon Dioxide 26 BUN 19 H Creatinine 0.62 Estimated GFR > 60.0 BUN/Creatinine Ratio 30.6 H Glucose 99 Calcium 8.0 L Total Bilirubin 0.4 AST 36 ALT 30 Alkaline Phosphatase 46 Total Creatine Kinase 122 D Total Protein 4.8 L Albumin 2.7 L Globulin 2.1 Albumin/Globulin Ratio 1.3 Prealbumin 6.4 L PFSH Medical History Hypertension Methadone use Seizures Social History household members: none Smoking Status: Current every day smoker alcohol intake: former Assessment & Plan Assessment & Plan narrative: bilateral hand wounds and face wound. Plan: Debridement when OR is repaired. Time Spent With Patient Critical Care time: I spent a total of [] minutes of critical care time on this patient's care today; this time is exclusive of procedural time. Quality VTE Deep Vein Thrombosis/Pulmonary Embolism Present on Admission: No
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
[2021-11-24] MEDS: OXYCODONE/ACETAMINOPHEN 5/325 TABLET 1 TAB PO (13:13)
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
[2021-11-24 15:59] VITALS: BP 139/68; PULSE 79; RESP 16; TEMP 36.6; O2SAT 95
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
[2021-11-24 20:30] VITALS: BP 134/63; PULSE 87; RESP 16; TEMP 36.9; O2SAT 97
[2021-11-24 20:31] VITALS: BP 139/68; PULSE 79
[2021-11-24] MEDS: cloNIDine 0.1 MG TABLET PO (20:31)
[2021-11-24] MEDS: SODIUM CHLORIDE 0.9% FLUSH 10 ML IV (20:31)
[2021-11-25] VITALS (17 sets, daily range): BP systolic 112–169; BP diastolic 58–78; PULSE 68–92; RESP 12–18; TEMP 36.2–37.2; O2SAT 91–98; BMI 18.1
[2021-11-25] MEDS: OXYCODONE/ACETAMINOPHEN 5/325 TABLET 1 TAB PO ×3 (00:10→14:10)
[2021-11-25] MEDS: SODIUM CHLORIDE 0.9% 1,000 ML 125 ML IV ×2 (03:54→22:06)
[2021-11-25] MEDS: levoFLOXacin 250 MG TABLET PO (06:39)
[2021-11-25 07:41] LABS: Add Manual Diff / Slide Review NO; Basophils Absolute Auto 0 /uL (0-100); Basophils Percent Auto 0.2 % (0-2); Eosinophils Absolute Auto 300 /uL (0-450); Eosinophils Percent Auto 4.8 % (2-4); Hematocrit 30.6 % (36-46); Hemoglobin 10.4 g/dL (12.0-16.0); Lymphocytes Absolute Auto 1400 /uL (1100-4500); Lymphocytes Percent Auto 21.3 % (25-40); Mean Corpuscular HGB Conc 33.8 % (30-36); Mean Corpuscular Hemoglobin 31.3 PG (26-34); Mean Corpuscular Volume 92.4 fL (80-100); Monocytes Absolute Auto 600 /uL (0-900); Monocytes Percent Auto 9.1 % (3-14); Neutrophils Absolute Auto 4200 /uL (1500-7000); Neutrophils Percent Auto 64.6 % (50-75); Platelet Count 180 X10^3/uL (150-400); Red Blood Cell Count 3.32 X10^6/uL (4.0-5.2); Red Cell Distribution Width 14.7 % (11.6-14.8); White Blood Cell Count 6.5 X10^3/uL (4.5-11.0)
[2021-11-25 07:55] LABS: Blood Urea Nitrogen 13 mg/dL (7-17); Calcium 8.1 mg/dL (8.4-10.2); Carbon Dioxide 28 mmol/L (22-32); Chloride 107 mmol/L (98-107); Estimated Glomerular Filt Rate > 60.0 mL/min (>60); Glucose 93 mg/dL (80-110); HEMOLYSIS < 15 (0-50); Sodium 135 mmol/L (137-145)
--- NOTE | 2021-11-25 08:12 | PC.NURSE ---
Addendum entered by Juliana Gaines R.N. 11/25/21 15:34: Patients wound vac is in place and putting out some drainage. Dressing to bilateral hands remain intact x2. Cheek dressing also in place. Given percocet about an hour and a half ago and patient denied pain. Addendum entered by Juliana Gaines R.N. 11/25/21 13:21: Patient back from [facility] about an hour ago. She has a wound vac on her l. hand and both hands are dressed with coban and dressings are cdi. She also has a dressing to her r.cheek that has also been debrided and dressing is wnl. Patient up to the commode, [facility]. She is due for pain medication at 1500. Original Note: Assess- Patient is alert and oriented x3 today, she states that she is having some pain. Will give her pain medications around 0830 and medications with a sip of water. She has dressings on both hands that are cdi, and cheek wound is the same as yesterday with some eschar. chest also has an abrasion, and chest area looks swollen. She is watching television and has been distracting herself. She remains NPO as she is going to go to surgery around 1045.
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
[2021-11-25] MEDS: lamoTRIgine 100 MG TABLET 200 MG PO ×2 (08:55→20:26)
[2021-11-25] MEDS: cephALEXin 250 MG CAPSULE 1000 MG PO ×2 (08:55→20:26)
[2021-11-25] MEDS: lamoTRIgine 100 MG TABLET 50 MG PO ×2 (08:56→20:26)
[2021-11-25] MEDS: METHADONE 10 MG TABLET PO ×3 (08:56→20:26)
--- NOTE | 2021-11-25 10:13 | PM.PREOP ---
Pre-operative Note COVID-19 COVID-19 status: Negative Interval Note History & Physical reviewed/Exam performed by Physician: Yes Changes to H&P: No
[2021-11-25] MEDS: LACTATED RINGERS 1,000 ML 42 ML IV (10:32)
--- NOTE | 2021-11-25 10:51 | SUR.OPER ---
Supine on padded OR bed, head on pillow, arms secured on padded arm boards at <90 degrees abduction, legs uncrossed, safety belt at thigh, tape over blanket over lower legs.
[2021-11-25] MEDS: BACITRACIN 28 GM OINT 1 APPLIC TOP (11:31)
--- NOTE | 2021-11-25 11:48 | P.OP_ITS ---
Operative Date/Time/Diagnoses Date of procedure: 11/25/21 Time of procedure: 11:48 Pre-op diagnosis: bilateral hand and right cheek wounds Post-op diagnosis: same Procedure & Clinicians Procedure: Debridement of bilateral hands and right cheek, negative pressure wound device placed on left hand Same procedure as scheduled: Yes Indications: Bilateral hand and right cheek wounds in need of debridement Surgeon: Regina Casey Click Yes if Unassisted: Yes Anesthesia Type: General Operative Notes Findings: Eschar of right cheek. Eschar of left hand with questionable full-thickness on the thenar portion of the palm. Fibrinous exudate of the right hand Closure Type: not applicable Specimen(s): none sent Prosthetic devices, grafts, tissues, transplants, or devices: Negative pressure wound device left hand Estimated Blood Loss (mL): 30 Procedure in detail: Preop diagnosis: Multiple wounds with eschar to include right cheek, bilateral hands Postop diagnosis: Same Operative procedure: Debridement and negative pressure wound dressing Surgeon: Bety Casey MD Anesthetic: General with LMA intubation Findings: Full-thickness pressure injury left thenar of palm. Full-thickness pressure injury left index finger at tip. Second-degree pressure ulcers of right palm and right thumb. Second degree pressure injury right cheek Procedure: Patient is placed in a supine position. Prepped with a Betadine chad ution to expose all indicated areas. All debridement carried out with a 15 blade sharp debridement. Hemostasis maintained with electrocautery and pressure. Measurements of the wounds are as follows Left hand: Palm 8 x 5 cm full-thickness through skin and subcutaneous tissue down to muscle. Left index finger: Circumferential at the tip with loss of fingernail. Full- thickness skin and subcutaneous tissue injury measures 1 cm x 0.5 cm Right hand: 5 mm x 5 mm ulcer at palm. 5 mm x 5 mm ulceration right thumb Face: New 3 x 4 cm skin and subcutaneous tissue Depth of all the above 2-3 mm Negative pressure dressing placed on left hand wounds with the left index finger separate. All other wounds were dressed appropriately with a thin layer of bacitracin and a non adhesive dressing prior to Coban. Patient was awakened, extubated, taken to recovery room in stable condition. Complications: none Post-operative Condition: stable Disposition: PACU
--- NOTE | 2021-11-25 13:11 | CM.DPNOTE ---
DCP Note Reviewed chart. Spoke w/Dr Germain this morning. Patient is scheduled today for an I+D of the wounds on her hands. Dr Germain states w/certainty that patient is a good candidate for SNF; unsure how patient will safely return home at this time... requiring almost 24 hr supervision d/t severity of the bilateral hand wounds and no confirmed support from family at this time. OT ordered today; after I+D, all the following must be clarified: wound care needs, therapy needs to include current assist needed for ADLs. Will plan on sending this information to SNF options. for APS compliance investigator Aide Thomas P#[phone]. Awaiting CB to discuss any new findings and/or to discuss a partnership between APS team and sister Tara if patient is inevitably discharged home Following for coordination of the safest DCP available to patient at this time. KARINA
--- NOTE | 2021-11-25 14:44 | OT.IPNOTE ---
Pt just back from having surgery earlier and not wanting to get up for OT eval at this time and agreed to work with OT for eval tomorrow. Requested from nursing to have another call light button to increase ease for pt to call for assist due to her swollen hands.
--- NOTE | 2021-11-25 15:45 | PT.IPTN ---
Current Diagnoses Unspecified protein-calorie malnutrition (11/25/21) Opioid dependence, uncomplicated (11/25/21) Other injury of unspecified body region, initial encounter (11/25/21) Starvation, sequela (11/25/21) Surgery Performed Operation Date: 11/25/21 10:45 Actual Procedures p Debridement of bilateral hands and face - Regina Casey MD Physical Therapy Treatment Note M2 PT-IP Current Condition Start: 11/23/21 09:18 Freq: NEEDED Status: Active Protocol: Document 11/23/21 13:00 AW (Rec: 11/23/21 14:01 AW [id number]) Physical Therapy Current Condition Current Condition Evaluation Date 11/23/21 Treatment Diagnosis failure to thrive, wounds, impaired mobility and gait Onset Date 11/22/21 M3 PT-IP Subjective Start: 11/23/21 09:18 Freq: NEEDED Status: Active Protocol: Document 11/25/21 15:45 AB (Rec: 11/25/21 16:56 AB [id number]) Subjective Physical Therapy Visit Type Type Treatment Note Visit Start Time 15:45 Visit Stop Time 16:20 Total Visit Minutes 35 Number of LANGUAGE ASST Visits 0 Physical Therapy Visit Comments Patient Comments wants her pain meds first before PT; nurse aware Therapy Pain Assessment Pain When Pain Assessed At Rest Pain Present Pain Present Pain Reported Location Bilateral Hand Scale Used pain scale not stated M4 PT-IP Mobility and Gait Start: 11/23/21 09:18 Freq: NEEDED Status: Active Protocol: Document 11/25/21 15:45 AB (Rec: 11/25/21 16:56 AB [id number]) PT-Bed Mobility Assessment Supine to Sit Supine to Sit Standby Assistance,Head of Bed Elevated Sit to Supine Sit to Supine Standby Assistance,Head of Bed Elevated PT-Transfer Assessment Sit to and From Stand Sit to and from Stand Contact Guard Assistance,1 Person Assistance,Use of Upper Extremities Equipment Transfer Assistive Device Gait Belt,Platform Walker Orthotic/Prosthetic Devices or Brace: No Comments Mobility Comments pt just underwent debridement of wound on B hands and R cheek. pt also has wound vac for L hand. agreeable to do PT but wants her pain meds first . informed nurse and checked back on pt after ~ 30 min. pt then agreed to do PT. Pt was seen for PT yesterday and able to ambulate without AD min A but with unsteady gait. Assessed ambulation using bilateral PFW. pt completed bed mobility supine to sit with HOB elevated SBA. completed sit to stand CGA and ambulated in room ~ 30 ft using PFW min A for maneuvering of PFW. Continues to have unsteady gait with increase L knee flexion and valgus. pt requested to go back to bed. completed sit to supine HOB elevated SBA with 2 attempts to elevate LE up to bed. positioned pt in bed. call light and table placed within reach. Gait Assessment Gait Gait Assistance Required: Minimum Assistance Distance (Feet) 30 Able to Maintain Weight Bearing Status Yes During Gait Assistive Devices Assistive Device Gait Belt,Platform Walker Orthotic/Prosthetic Devices or Brace: No Gait Deviations General Gait Pattern Antalgic,Decreased Stride Length,Decreased Feet Clearance,Flexed Trunk,Step-to Gait Factors Limiting Gait Function Factors Limiting Gait Function Decreased Activity Tolerance, Decreased Strength,Limited Range of Motion,Pain,Poor Balance,Poor Safety Awareness M5 PT-IP Objective Assessments Start: 11/23/21 09:18 Freq: NEEDED Status: Active Protocol: Document 11/23/21 13:00 AW (Rec: 11/23/21 14:15 AW [id number]) Orientation Orientation/Cognition Level of Alertness Confusional State Orientation Name,Place Language Function Ability No Deficits Noted Safety Awareness Decreased Safety Awareness Memory Description 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,Brim Buster Impaired Gross Range of Motion Lower Extremity ROM Assessment Bilaterally Impaired Impairments secondary to pain at hip and knee; AROM ankle DF to neutral only Strength Lower Extremity Strength Assessment Bilaterally Impaired Hip 3-/5 Knee 4-/5 flexion; 3+/5 extension Ankle 3+/5 Sensation Assessment Comments Sensation Comments Pt denies sensation disturbance BLE M6 PT-IP Treatment Start: 11/23/21 09:18 Freq: NEEDED Status: Active Protocol: Document 11/25/21 15:45 AB (Rec: 11/25/21 16:56 AB [email or web address]) Physical Therapy Treatment Education Education Provided Safety M7 PT-IP Assessment and Plan Start: 11/23/21 09:18 Freq: NEEDED Status: Active Protocol: Document 11/25/21 15:45 AB (Rec: 11/25/21 16:56 AB [email or web address]) PT Summary Assessment and Plan Potential Rehabilitation Potential Fair Summary Impairments Pain,ROM,Strength,Balance, Coordination,Sensation,Tone, Cognition,Bed Mobility, Transfers,Gait,Activity Tolerance Progress Towards Goals Slow Progress due to Medical Issues,Slow Progress due to Activity Tolerance,Slow Progress - Other Assessment Summary Assessed safety with use of PFW but will require further assessment if pt will be able to safey handle PFW. Pt has bilateral hand wounds affecting ability to use a FWW . Able to ambulate without AD but requiring min A with unsteady gait. pt will require assistance at home and has cognitive issues affecting safety awareness. will continue to assess progress. Goals Bed Mobility Goal Independent Transfer Goal Standby Assistance Gait Goal Standby Assistance Gait Distance 300 Other Goals - up/down 4 steps with left rail SBA Days to Meet Goals 10 Frequency of Treatment Frequency Of Treatment Once a Day Treatment Plan Physical Therapy Treatment Plan Bed Mobility Training,Transfer Training,Gait Training, Therapeutic Exercise,Balance Retraining,Discharge Planning, Hot or Cold Pack Other Recommendations and Next Treatment will continue assessessign Focus safety with use of PFW Precautions Other Precautions falls Recommendations To Nursing Amount of Assist Needed 1 Person Assist Discharge Recommendations PT Discharge Recommendations SNF Rehab Transportation Needs at Discharge Wheelchair/Cabulance
[2021-11-25] MEDS: carisoprodoL 350 MG TABLET PO ×2 (18:13→23:59)
[2021-11-25] MEDS: cloNIDine 0.1 MG TABLET PO (20:26)
[2021-11-26 05:05] VITALS: BP 112/59; PULSE 67; RESP 18; TEMP 37.3; O2SAT 96
[2021-11-26] MEDS: OXYCODONE/ACETAMINOPHEN 5/325 TABLET 1 TAB PO ×3 (05:52→20:29)
[2021-11-26] MEDS: SODIUM CHLORIDE 0.9% 1,000 ML 125 ML IV (05:52)
[2021-11-26] MEDS: levoFLOXacin 250 MG TABLET PO (06:23)
[2021-11-26 07:09] VITALS: O2SAT 96
--- NOTE | 2021-11-26 08:19 | PC.NURSE ---
Addendum entered by Juliana Gaines R.N. 11/26/21 16:25: Patient is sitting up in the chair and given methadone for discomfort. She has a wound vac to her l. hand that is going at 125mm of suction. She is tolerating this well. Both dressings to hands are cdi. it this am and put and order in to changes dressings bilaterally and this is to be done tomorrow. Original Note: Assess- Patient is alert and oriented. She is sad this morning because she is affraid that the people she was living by are calling her a liar and she is still trying to figure out how she got pressure injury to both hands and the right side of her cheek. She seems to be remembering things slowly. Wound vac is in place to l. hand and dressings to both hands are cdi. She is talking to at this time.
--- NOTE | 2021-11-26 08:36 | P.PN_ITS ---
Subjective Subjective Date Patient Seen: 11/26/21 Time Patient Seen: 08:36 Interval history: Patient followed up for metabolic encephalopathy and bilateral hand walden. Patient was debrided yesterday and has wound VAC on left hand. Otherwise is feeling okay pain is better controlled but still present. Has no other significant changes. Not sure what she is going to do long-term may go back to her trailer. Exam Vital Signs (past 8 hours): - 11/26/21 05:05 11/26/21 07:09 Temperature 99.1 F Pulse Rate 67 Respiratory Rate 18 Blood Pressure 112/59 L Pulse Oximetry 96 96 Oxygen Delivery Method Room Air Oxygen Flow Rate 0 Narrative Exam Narrative: Alert female much less fatigued in no acute distress Lungs are clear heart regular rate and rhythm. Walden are dressed no other change Objective Labs Result Diagrams: 11/25/21 06:51 11/25/21 06:51 [facility] Medical History Hypertension Methadone use Seizures Social History household members: none Smoking Status: Former smoker alcohol intake: former Assessment & Plan Assessment & Plan narrative: Bilateral hand walden left greater than right. Still does not really understand what happened. There has been no real definitive decision on how this happened. Seems like pressure sores on both hands and fingers would be difficult to do and chemical versus some type of other [place] other most likely cause. Otherwise no changes. Will continue to follow with surgeon and wound care. Appreciate their help. Metabolic encephalopathy. Negative MRI. Negative lab workup negative signs of infection. I suspect secondary to combination of walden and lack of medication. She is looks much better today. Certainly dehydration may have been involved and will continue to follow. More of her baseline at this time. Abnormal urine with hematuria. Will follow as outpatient. May need workup depending on how things go. Will repeat urine today if present will get CT scan of abdomen and pelvis why she is here. Dehydration. Stable. Seizure disorder. Stable. Continue current meds. How much this is involved with her mental status changes and there but she seems stable at this time. Chronic pain. Stable. On extra medication secondary to hand pain will need to address as discharge. History of hepatitis. Stable. No change. Will follow as outpatient. Elevated CPK. Resolved. Probably secondary to being down some. Code status. DNR. GI prophylaxis doing well. No need to treat. DVT prophylaxis on Lovenox. Disposition. This seems to be the biggest issue we discussed with discharge planning. She will and is qualified for sniff but issue it is most concerning is follow-up. Long discussion with her about where she will go. She may need to go back to her trailer for a while but I discussed this is not a good long-term solution. She agrees. He is trying to work out other options. Discussed with cyber policy and strategy planner they understand. Will need sniff for I am assuming a few weeks until wound care gets completely dealt with. She understands questions answered. 40 minute spent with patient and cyber policy and strategy planner and nurse discussing case reviewing and dictating Time Spent With Patient Critical Care time: I spent a total of [] minutes of critical care time on this patient's care today; this time is exclusive of procedural time. Quality VTE Deep Vein Thrombosis/Pulmonary Embolism Present on Admission: No
[2021-11-26 09:15] VITALS: BP 123/61; PULSE 77
[2021-11-26] MEDS: lamoTRIgine 100 MG TABLET 50 MG PO (09:34)
[2021-11-26] MEDS: lamoTRIgine 100 MG TABLET 200 MG PO (09:34)
[2021-11-26] MEDS: ENOXAPARIN 40 MG/0.4 ML SYRINGE SUBCUT (09:35)
[2021-11-26] MEDS: METHADONE 10 MG TABLET PO ×3 (09:35→20:29)
[2021-11-26] MEDS: cephALEXin 250 MG CAPSULE 1000 MG PO (09:35)
--- NOTE | 2021-11-26 09:50 | PT.IPTN ---
Current Diagnoses Unspecified protein-calorie malnutrition (11/25/21) Opioid dependence, uncomplicated (11/25/21) Other injury of unspecified body region, initial encounter (11/25/21) Starvation, sequela (11/25/21) Surgery Performed Operation Date: 11/25/21 10:45 Actual Procedures p Debridement of bilateral hands and face - Regina Casey MD Physical Therapy Treatment Note M2 PT-IP Current Condition Start: 11/23/21 09:18 Freq: NEEDED Status: Active Protocol: Document 11/23/21 13:00 AW (Rec: 11/23/21 14:01 AW [id number]) Physical Therapy Current Condition Current Condition Evaluation Date 11/23/21 Treatment Diagnosis failure to thrive, wounds, impaired mobility and gait Onset Date 11/22/21 M3 PT-IP Subjective Start: 11/23/21 09:18 Freq: NEEDED Status: Active Protocol: Document 11/26/21 09:50 AB (Rec: 11/26/21 11:50 AB [id number]) Subjective Physical Therapy Visit Type Type Treatment Note Visit Start Time 09:50 Visit Stop Time 10:18 Total Visit Minutes 28 Number of SENIOR TECHNICAL ANALYST Visits 0 Physical Therapy Visit Comments Patient Comments pt is agreeable to do PT Therapy Pain Assessment Pain When Pain Assessed At Rest Pain Present Pain Present Pain Reported Location Bilateral Hand Scale Used pain scale not stated Pain Management Techniques Distraction,Modification of Treatment,Re-positioning, Timing of Activity with Medications M4 PT-IP Mobility and Gait Start: 11/23/21 09:18 Freq: NEEDED Status: Active Protocol: Document 11/26/21 09:50 AB (Rec: 11/26/21 11:50 AB [id number]) PT-Bed Mobility Assessment Supine to Sit Supine to Sit Standby Assistance,Head of Bed Elevated PT-Transfer Assessment Sit to and From Stand Sit to and from Stand Contact Guard Assistance,1 Person Assistance,Use of Upper Extremities Equipment Transfer Assistive Device None,Gait Belt,Platform Walker Orthotic/Prosthetic Devices or Brace: No Transfers Transfer Destination Toilet Transfer Technique ambulated Transfer Ability Level of Assist Contact Guard Assistance,1 Person Assistance,Use of Upper Extremities Comments Mobility Comments pt completed supine to sit SBA with HOB elevated. Assessed ambulation with/without AD. pt completed sit to stand CGA and ambulated in room without AD CGA to min A 40 ft. presents with unsteady antalgic gait with occasional LOB requiring min A. pt rested and requested to use the toilet. completed sit to stand CGA and ambulated using PFW CGA to occasional min A for manuevering PFW. pt cued for posture and use of PFW. pt is steadier with PFW and pt stated that she feels steadier but has difficulty with maneuvering PFW with turning. pt ambulated to the toilet using PFW min A. completed sit to stand from the toilet mod A and pt ambulated to the chair using PFW CGA. pt agreed to sit up on chair. positioned on chair . call light and table placed within reach. Gait Assessment Gait Gait Assistance Required: Contact Guard Assist,Minimum Assistance Distance (Feet) 40 Able to Maintain Weight Bearing Status Yes During Gait Assistive Devices Assistive Device None,Gait Belt,Platform Walker Orthotic/Prosthetic Devices or Brace: No Gait Deviations General Gait Pattern Antalgic,Decreased Stride Length,Decreased Feet Clearance,Flexed Trunk Factors Limiting Gait Function Factors Limiting Gait Function Decreased Activity Tolerance, Decreased Strength,Limited Range of Motion,Pain,Poor Balance,Poor Safety Awareness Comments Gait Comments pls refer to mobility section for details M5 PT-IP Objective Assessments Start: 11/23/21 09:18 Freq: NEEDED Status: Active Protocol: Document 11/23/21 13:00 AW (Rec: 11/23/21 14:15 AW [id number]) Orientation Orientation/Cognition Level of Alertness Confusional State Orientation Name,Place Language Function Ability No Deficits Noted Safety Awareness Decreased Safety Awareness Memory Description 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,Skilled Nursing Impaired Gross Range of Motion Lower Extremity ROM Assessment Bilaterally Impaired Impairments secondary to pain at hip and knee; AROM ankle DF to neutral only Strength Lower Extremity Strength Assessment Bilaterally Impaired Hip 3-/5 Knee 4-/5 flexion; 3+/5 extension Ankle 3+/5 Sensation Assessment Comments Sensation Comments Pt denies sensation disturbance BLE M6 PT-IP Treatment Start: 11/23/21 09:18 Freq: NEEDED Status: Active Protocol: Document 11/26/21 09:50 AB (Rec: 11/26/21 11:50 AB [id number]) Physical Therapy Treatment Education Education Provided Safety M7 PT-IP Assessment and Plan Start: 11/23/21 09:18 Freq: NEEDED Status: Active Protocol: Document 11/26/21 09:50 AB (Rec: 11/26/21 11:50 AB [id number]) PT Summary Assessment and Plan Potential Rehabilitation Potential Good Summary Impairments Pain,ROM,Strength,Balance, Coordination,Sensation,Tone, Cognition,Bed Mobility, Transfers,Gait,Activity Tolerance Progress Towards Goals Slow Progress due to Pain Assessment Summary Assessed mobility using PFW and without AD. pt is steadier with ambulation using PFW but has difficulty maneuvering PFW during turning requiring min A. pt has prior hip problems affecting balance and mobility and was using a SPC prior to admission but currently is not able to use B hands for support due to pain from B hand walden/wounds . will continue to assess progress. Pt will require SNF rehab at this time. Goals Bed Mobility Goal Independent Transfer Goal Standby Assistance Gait Goal Standby Assistance Gait Distance 300 Other Goals - up/down 4 steps with left rail SBA Days to Meet Goals 10 Frequency of Treatment Frequency Of Treatment Once a Day Treatment Plan Physical Therapy Treatment Plan Bed Mobility Training,Transfer Training,Gait Training, Therapeutic Exercise,Balance Retraining,Discharge Planning, Hot or Cold Pack Precautions Other Precautions falls Recommendations To Nursing Amount of Assist Needed 1 Person Assist Discharge Recommendations PT Discharge Recommendations SNF Rehab Transportation Needs at Discharge Wheelchair/Cabulance
--- NOTE | 2021-11-26 12:12 | CM.DPNOTE ---
DCP Note [facility] and [facility] reviewing patient's referral today, updated clinical faxed...now awaiting CB from these facilities. Met w/patient to update on DC planning efforts, OT Lilli also joined this conversation. Patient remains agreeable to SNF stay and has no SNF preference. Patient shows good insight into her current state of debility, understands she will need assist upon DC for ADLs. Patient is tearful throughout this visit Patient requests her sister Lilli ([place]) be contacted to discuss DCP/medical POC not sister Lesvia ([place]). Lilli's contact: [phone]. Patient states her sister has driven up from [place] in the past to help her out and may be willing to do this again. Patient's landlorsoniya Allison's contact is P# [phone]. Patient reports Allison has provided transport for errands when needed. According to patient, Allison should not be contacted unless patient gives permission first. SNF search continues. CM team following closely. Will reattempt contact w/APS security investigator today JW
[2021-11-26 14:30] VITALS: BP 116/65; PULSE 80; RESP 18; TEMP 36.9; O2SAT 94
[2021-11-26] MEDS: carisoprodoL 350 MG TABLET PO (18:18)
[2021-11-26 19:53] VITALS: BP 132/57; PULSE 73; RESP 18; TEMP 37.2; O2SAT 95
[2021-11-26] MEDS: lamoTRIgine 100 MG TABLET 250 MG PO (20:28)
[2021-11-26 20:29] VITALS: BP 132/57; PULSE 73
[2021-11-26] MEDS: cloNIDine 0.1 MG TABLET PO (20:29)
[2021-11-26] MEDS: SODIUM CHLORIDE 0.9% FLUSH 10 ML IV ×2 (20:32)
[2021-11-26] MEDS: TEMAZEPAM 15 MG CAPSULE PO ×2 (23:42)
[2021-11-27] VITALS (8 sets, daily range): BP systolic 131–156; BP diastolic 64–75; PULSE 67–76; RESP 16–18; TEMP 36.1–37.6; O2SAT 92–96
[2021-11-27] MEDS: OXYCODONE/ACETAMINOPHEN 5/325 TABLET 1 TAB PO ×4 (04:23→23:06)
[2021-11-27] MEDS: carisoprodoL 350 MG TABLET PO (06:48)
[2021-11-27] MEDS: lamoTRIgine 100 MG TABLET 250 MG PO ×2 (08:30→20:24)
[2021-11-27] MEDS: ENOXAPARIN 40 MG/0.4 ML SYRINGE SUBCUT (08:30)
[2021-11-27] MEDS: lisinopriL 20 MG TABLET 40 MG PO (08:31)
[2021-11-27] MEDS: METHADONE 10 MG TABLET PO ×3 (08:32→20:24)
[2021-11-27] MEDS: SODIUM CHLORIDE 0.9% FLUSH 10 ML IV ×2 (08:32→20:25)
[2021-11-27 09:23] LABS: COVID19 -Nasal RAPID Negative (Negative)
--- NOTE | 2021-11-27 11:03 | PT.IPTN ---
Current Diagnoses Unspecified protein-calorie malnutrition (11/25/21) Opioid dependence, uncomplicated (11/25/21) Other injury of unspecified body region, initial encounter (11/25/21) Starvation, sequela (11/25/21) Surgery Performed Operation Date: 11/25/21 10:45 Actual Procedures p Debridement of bilateral hands and face - Regina Casey MD Operation Date: 11/29/21 07:45 <No data on this case meets the specified criteria> Physical Therapy Treatment Note M2 PT-IP Current Condition Start: 11/23/21 09:18 Freq: NEEDED Status: Active Protocol: Document 11/23/21 13:00 AW (Rec: 11/23/21 14:01 AW [id number]) Physical Therapy Current Condition Current Condition Evaluation Date 11/23/21 Treatment Diagnosis failure to thrive, wounds, impaired mobility and gait Onset Date 11/22/21 M3 PT-IP Subjective Start: 11/23/21 09:18 Freq: NEEDED Status: Active Protocol: Document 11/27/21 10:42 KS (Rec: 11/27/21 12:26 KS [id number]) Subjective Physical Therapy Visit Type Type Treatment Note Visit Start Time 10:42 Visit Stop Time 11:03 Total Visit Minutes 21 Number of STRUCTURAL DRAFTER Visits 1 Physical Therapy Visit Comments Patient Comments pt is agreeable to do PT Therapy Pain Assessment Pain When Pain Assessed At Rest Pain Present Pain Present Pain Reported M4 PT-IP Mobility and Gait Start: 11/23/21 09:18 Freq: NEEDED Status: Active Protocol: Document 11/27/21 10:42 KS (Rec: 11/27/21 12:26 KS [id number]) PT-Bed Mobility Assessment Sit to Supine Sit to Supine Minimal Assistance,1 Person Assistance,Head of Bed Elevated Scooting Scooting Up and Down in Bed Standby Assistance PT-Transfer Assessment Sit to and From Stand Sit to and from Stand Contact Guard Assistance,1 Person Assistance,Use of Upper Extremities Equipment Transfer Assistive Device Gait Belt,Platform Walker Orthotic/Prosthetic Devices or Brace: No Transfers Transfer Destination Bed Transfer Technique ambulated Transfer Ability Level of Assist Contact Guard Assistance,1 Person Assistance,Use of Upper Extremities Comments Mobility Comments Pt exiting bathroom w/ CRAS upon arrival and this STRUCTURAL DRAFTER took over. Pt CGA for ambulation back to bed w/ cues for slow descent when sitting on side of bed. Pt stated she did not want to ambulate more due to fatigue, however she did complete 5x sit<>stand w/ platform walker and CGA. Pt then completed 30 seconds seated marching and 1x10 biateral knee extension. Min A for sit<>sup. Pt then completed 1x10 ankle pumps and quad sets before c/o increased pain and fatigue. Pt left in bed w/ all needs in reach. Gait Assessment Gait Gait Assistance Required: Contact Guard Assist Distance (Feet) 10 Able to Maintain Weight Bearing Status Yes During Gait Assistive Devices Assistive Device Gait Belt,Platform Walker Orthotic/Prosthetic Devices or Brace: No Gait Deviations General Gait Pattern Antalgic,Decreased Stride Length,Decreased Feet Clearance,Flexed Trunk Factors Limiting Gait Function Factors Limiting Gait Function Decreased Activity Tolerance, Decreased Strength,Limited Range of Motion,Pain,Poor Balance,Poor Safety Awareness Comments Gait Comments pls refer to mobility section for details M5 PT-IP Objective Assessments Start: 11/23/21 09:18 Freq: NEEDED Status: Active Protocol: Document 11/23/21 13:00 AW (Rec: 11/23/21 14:15 AW [id number]) Orientation Orientation/Cognition Level of Alertness Confusional State Orientation Name,Place Language Function Ability No Deficits Noted Safety Awareness Decreased Safety Awareness Memory Description 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,Skilled Nursing Impaired Gross Range of Motion Lower Extremity ROM Assessment Bilaterally Impaired Impairments secondary to pain at hip and knee; AROM ankle DF to neutral only Strength Lower Extremity Strength Assessment Bilaterally Impaired Hip 3-/5 Knee 4-/5 flexion; 3+/5 extension Ankle 3+/5 Sensation Assessment Comments Sensation Comments Pt denies sensation disturbance BLE M6 PT-IP Treatment Start: 11/23/21 09:18 Freq: NEEDED Status: Active Protocol: Document 11/27/21 10:42 KS (Rec: 11/27/21 12:26 KS [id number]) Physical Therapy Treatment Exercises Exercises Ankle Pumps,Quad Sets,Seated Knee Flexion/Extension Education Education Provided Safety Other Treatments Other Treatment Performed Sit to stands and seated marching M7 PT-IP Assessment and Plan Start: 11/23/21 09:18 Freq: NEEDED Status: Active Protocol: Document 11/27/21 10:42 KS (Rec: 11/27/21 12:26 KS [id number]) PT Summary Assessment and Plan Potential Rehabilitation Potential Good Summary Impairments Pain,ROM,Strength,Balance, Coordination,Sensation,Tone, Cognition,Bed Mobility, Transfers,Gait,Activity Tolerance Progress Towards Goals Slow Progress due to Pain Assessment Summary Pt making slow progress due to pain and fatigue. She also needs frequent redirection to focus on tasks. CGA for ~10 ft ambulation and 5x sit<>stands w/ PFW. She was able to complete some LE exercises in bed to promote blood flow and strengthening however quickly reported pain and fatigue. She will require SNF to improve strength and functional independence. Goals Bed Mobility Goal Independent Transfer Goal Standby Assistance Gait Goal Standby Assistance Gait Distance 300 Other Goals - up/down 4 steps with left rail SBA Days to Meet Goals 10 Frequency of Treatment Frequency Of Treatment Once a Day Treatment Plan Physical Therapy Treatment Plan Bed Mobility Training,Transfer Training,Gait Training, Therapeutic Exercise,Balance Retraining,Discharge Planning, Hot or Cold Pack Other Recommendations and Next Treatment will continue assessessing Focus safety with use of PFW Precautions Other Precautions falls Recommendations To Nursing Amount of Assist Needed 1 Person Assist Discharge Recommendations PT Discharge Recommendations SNF Rehab Transportation Needs at Discharge Wheelchair/Cabulance
--- NOTE | 2021-11-27 11:50 | PM.PN.1 ---
Subjective Subjective Date Patient Seen: 11/27/21 Time Patient Seen: 11:50 Interval history: Patient does not appear to be in any distress She perseverates on the concept that she was not taking care of herself as she is fully in believe that she was doing everything possible and its other people's fault that she was unable to get out of her home etcetera Also very concerned that somebody would talk to her sister Uma that she does not want anyone talking to without her permission as she is trying to take advantage of her somehow Patient having pain in the hands and pain is a chronic thing for her as well. She continues on the methadone as prescribed. Really nothing new or different however she says she overall feels like she is doing better than she was when she came to the hospital. Still has no recollection of what happened to cause the injuries to her hands and face etcetera and is confused and concerned about that Continues to be seen by skilled therapies Exam Vital Signs (past 8 hours): - 11/27/21 04:18 11/27/21 07:52 11/27/21 08:31 Temperature 97.0 F L 97.9 F Pulse Rate 67 71 71 Respiratory Rate 18 18 Blood Pressure 133/65 136/64 136/64 Pulse Oximetry 94 96 11/27/21 08:55 Temperature Pulse Rate Respiratory Rate Blood Pressure Pulse Oximetry 96 Oxygen Delivery Method Room Air Oxygen Flow Rate 0 Objective Labs Result Diagrams: 11/25/21 06:51 11/25/21 06:51 Labs: Laboratory Results - last 24 hr 11/27/21 08:45 SARS-CoV-2 (PCR) Negative [facility] Medical History Hypertension Methadone use Seizures Social History household members: none Smoking Status: Former smoker alcohol intake: former Assessment & Plan Assessment & Plan narrative: 1. Burn/wounds of hands-continue management as per General surgery who took her to the OR and debrided on the . Continue wound care etcetera 2. Encephalopathy-patient seems to be functioning fairly well at the current time. Still has no recollection what might have happened and still has some disordered thinking as noted above in the HPI. This appears to be multifactorial without anyone particular etiology based on evaluation workup here in the hospital 3. Seizure disorder-no evidence of seizures during this hospitalization as yet. Continue on current medications. Unclear whether not this may have contributed to her presentation 4. Chronic pain-continue on patient's methadone and she is also using some Percocet intermittently 5. Disposition-plan for now is for patient to be [facility]. Timing will depend on appropriate wound care as per surgery. Bigger question will be long-term care and planning as it is unclear whether not she would be safe to return to her previous living environment Note: Greater than 30 minutes total time was spent on day of service, evaluating the patient on the floor, including examining the patient, discussing clinical course with clinical and nursing staff, reviewing clinical course in the computer, preparing documentation and writing orders for continued management of care, discussing status with family as appropriate, reviewing plans for the next 24 hours with both patient/family and nursing staff as appropriate. Quality VTE Deep Vein Thrombosis/Pulmonary Embolism Present on Admission: No
--- NOTE | 2021-11-27 12:27 | PC.NURSE ---
Addendum entered by Gaye Hernandez R.N. 11/27/21 17:18: Changed dsg on patients R cheek, serosang drainage noted, slough. Replaced with Allyvn. Patient tolerated. Patient boosted for dinner. Wound VAC remains intact to suction, SCD's on bilaterally, patient denies further needs at this time. Call light in reach. Original Note: Patient A/O x 3, up to restroom with SBA and walker. C/O pain 8-10/10, especially after working with PT. Pitting edema noted in bilateral hands, 2+ in right hand, 3+ in left hand, pulses intact bilaterally, patient endorses some numbness. Patient able to manipulate large silverware. Assisted patient with ADL's. VSS. Bilateral dressings intact. BT active x 4, patient voiding without complication, reports last BM approximately 4 days ago, abdomen soft, non tender. Discussed suppository with patient, patient receptive to use this afternoon, is currently up to restroom in an attempt to have BM. Barrelhead Inspector contacted per patient request. In to see patient at 11. Patient denies further needs at this time. Call light in reach, bed alarm on.
[2021-11-27] MEDS: cloNIDine 0.1 MG TABLET PO (20:24)
[2021-11-27] MEDS: TEMAZEPAM 15 MG CAPSULE PO (23:07)
[2021-11-28] MEDS: OXYCODONE/ACETAMINOPHEN 5/325 TABLET 1 TAB PO ×6 (02:43→23:51)
[2021-11-28 03:52] VITALS: BP 150/70; PULSE 63; RESP 18; TEMP 36.8; O2SAT 94
[2021-11-28 07:00] VITALS: BP 118/61; PULSE 62; RESP 16; TEMP 35.9; O2SAT 93
[2021-11-28 09:14] VITALS: BP 118/61; PULSE 62
[2021-11-28] MEDS: lisinopriL 20 MG TABLET 40 MG PO (09:14)
[2021-11-28] MEDS: ENOXAPARIN 40 MG/0.4 ML SYRINGE SUBCUT (09:14)
[2021-11-28] MEDS: METHADONE 10 MG TABLET PO ×3 (09:14→21:00)
[2021-11-28] MEDS: lamoTRIgine 100 MG TABLET 250 MG PO ×2 (09:14→21:01)
[2021-11-28] MEDS: SODIUM CHLORIDE 0.9% FLUSH 10 ML IV ×2 (09:15→21:03)
--- NOTE | 2021-11-28 10:23 | PM.PN.1 ---
Subjective Subjective Date Patient Seen: 11/28/21 Time Patient Seen: 10:23 Interval history: Basically uneventful day yesterday Wound VAC continues in place. Patient continues to work with physical therapy. Still complaining of significant pain from her wounds Exam Vital Signs (past 8 hours): - 11/28/21 03:52 11/28/21 09:14 Temperature 98.2 F Pulse Rate 63 62 Respiratory Rate 18 Blood Pressure 150/70 H 118/61 Pulse Oximetry 94 Oxygen Delivery Method Room Air Oxygen Flow Rate 0 Objective Labs Result Diagrams: 11/25/21 06:51 11/25/21 06:51 [facility] Medical History Hypertension Methadone use Seizures Social History household members: none Smoking Status: Former smoker alcohol intake: former Assessment & Plan Assessment & Plan narrative: 1. Snider/wounds of hands-continued treatment etcetera as outlined by General surgery and or wound care. Will need continued careful monitoring and potential additional debridement 2. Encephalopathy-patient seems perhaps to be a baseline. Difficult for me to assess since I have not seen her prior to this hospitalization. However seems clear to me there is some altered thinking here this probably longstanding given the history outlined in the chart yet that appears to be her baseline. She probably would best be served with long-term care somewhere 3. Seizure disorder-continues to be without evidence of active seizures at this time 4. Chronic pain-patient continues on methadone with occasional Percocet. Her complaints of pain not surprising given her past history and I would expect her to be hyper sensitized to pain which is what she is demonstrating. Thus far does not appear that she has over utilizing opiate narcotics least under while in the hospital with some element of control. I would have concerns about discharging her to some sort of outpatient setting where she might have more ready access to pain meds 5. Disposition-patient clearly I think we need to go to detention when okayed by General surgery who is managing monitoring her wounds. Note: Greater than 20 minutes total time was spent on day of service, evaluating the patient on the floor, including examining the patient, discussing clinical course with clinical and nursing staff, reviewing clinical course in the computer, preparing documentation and writing orders for continued management of care, discussing status with family as appropriate, reviewing plans for the next 24 hours with both patient/family and nursing staff as appropriate. Quality VTE Deep Vein Thrombosis/Pulmonary Embolism Present on Admission: No
--- NOTE | 2021-11-28 10:58 | PC.NURSE ---
Addendum entered by Gaye Hernandez R.N. 11/28/21 18:48: Patient refused to have IV site changed at this time, became tearful and asked if we could wait until tomorrow after she has her morning pain medications. Educated patient on risks of prolonged IV site, patient verbalized understanding and request we wait until 11/29. Addendum entered by Gaye Hernandez R.N. 11/28/21 18:14: Dsg change on R cheek, Bacitracin applied. Patient tolerated. Original Note: Patient A/O x 3. Denies SOB, chest pain or dizziness. L hand wound vac intact to suction, pulses equal, 3+ pitting edema noted in L hand. Patient endorses pain in both hands and in shoulders. Medicated with scheduled and PRN pain medication. VSS. Lungs CTA, patient on RA, 93%. BT active x 4. Voiding without complication. R FA IV remains intact, WNL. Saline locked. SCD's on bilaterally. Patient calls appropriately, bed alarm on, call light in reach.
--- NOTE | 2021-11-28 16:44 | PT.IPTN ---
Current Diagnoses Unspecified protein-calorie malnutrition (11/25/21) Opioid dependence, uncomplicated (11/25/21) Other injury of unspecified body region, initial encounter (11/25/21) Starvation, sequela (11/25/21) Surgery Performed Operation Date: 11/25/21 10:45 Actual Procedures p Debridement of bilateral hands and face - Regina Casey MD Operation Date: 11/29/21 07:45 <No data on this case meets the specified criteria> Physical Therapy Treatment Note M2 PT-IP Current Condition Start: 11/23/21 09:18 Freq: NEEDED Status: Active Protocol: Document 11/23/21 13:00 AW (Rec: 11/23/21 14:01 AW [id number]) Physical Therapy Current Condition Current Condition Evaluation Date 11/23/21 Treatment Diagnosis failure to thrive, wounds, impaired mobility and gait Onset Date 11/22/21 M3 PT-IP Subjective Start: 11/23/21 09:18 Freq: NEEDED Status: Active Protocol: Document 11/28/21 16:31 ISABEL (Rec: 11/28/21 16:44 [id number]) Subjective Physical Therapy Visit Type Type Treatment Note Visit Start Time 16:02 Visit Stop Time 16:26 Total Visit Minutes 24 Number of CUTTER OPERATOR TILE Visits 2 Physical Therapy Visit Comments Patient Comments pt is agreeable to do PT Therapy Pain Assessment Pain When Pain Assessed At Rest Pain Present Pain Present Pain Reported M4 PT-IP Mobility and Gait Start: 11/23/21 09:18 Freq: NEEDED Status: Active Protocol: Document 11/28/21 16:31 ISABEL (Rec: 11/28/21 16:44 [id number]) PT-Bed Mobility Assessment Sit to Supine Sit to Supine Contact Guard Assistance,1 Person Assistance,Head of Bed Elevated Scooting Scooting Up and Down in Bed Standby Assistance PT-Transfer Assessment Sit to and From Stand Sit to and from Stand Contact Guard Assistance,1 Person Assistance Equipment Transfer Assistive Device Gait Belt,Platform Walker Orthotic/Prosthetic Devices or Brace: No Transfers Transfer Destination Chair,Bedside Commode Transfer Ability Level of Assist Contact Guard Assistance,1 Person Assistance Comments Mobility Comments Pt in bed upon arrival. Willing to ambulate around the room. Pt able to complete exiting the bed with SBA to CGA. She did now use her UEs to stand. Pt placed forarms on platform walker and steared it with no assist. Pt did segundo loop around the room with assist for managing cords but she managed the platform walker independently. She requested to use the BSC prior to sitting in chair. She did a stand step pivot without the walker then backed to the BSc and sat w/o use of UEs. She was able to perform pericare herself then stood from BS without UEs and took 3 steps to the chair without AD. Similarly, she backed to the chair and sat without UEs. Pt was made comfortable with wound vac lines placed safely and all pts needs were within reach. Pt requested nursing attend to her loose bandage. Nursing notified. Gait Assessment Gait Gait Assistance Required: Contact Guard Assist Distance (Feet) 20 Able to Maintain Weight Bearing Status Yes During Gait Assistive Devices Assistive Device Gait Belt,Platform Walker Orthotic/Prosthetic Devices or Brace: No Gait Deviations General Gait Pattern Antalgic,Decreased Stride Length,Decreased Feet Clearance,Flexed Trunk Factors Limiting Gait Function Factors Limiting Gait Function Decreased Activity Tolerance, Decreased Strength,Limited Range of Motion,Pain,Poor Balance,Poor Safety Awareness Comments Gait Comments pls refer to mobility section for details M5 PT-IP Objective Assessments Start: 11/23/21 09:18 Freq: NEEDED Status: Active Protocol: Document 11/23/21 13:00 AW (Rec: 11/23/21 14:15 AW [id number]) Orientation Orientation/Cognition Level of Alertness Confusional State Orientation Name,Place Language Function Ability No Deficits Noted Safety Awareness Decreased Safety Awareness Memory Description 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,Product Scientist Impaired Gross Range of Motion Lower Extremity ROM Assessment Bilaterally Impaired Impairments secondary to pain at hip and knee; AROM ankle DF to neutral only Strength Lower Extremity Strength Assessment Bilaterally Impaired Hip 3-/5 Knee 4-/5 flexion; 3+/5 extension Ankle 3+/5 Sensation Assessment Comments Sensation Comments Pt denies sensation disturbance BLE M6 PT-IP Treatment Start: 11/23/21 09:18 Freq: NEEDED Status: Active Protocol: Document 11/28/21 16:31 LJ (Rec: 11/28/21 16:44 LJ [id number]) Physical Therapy Treatment Exercises Exercises Ankle Pumps,Gluteal Sets,Quad Sets,Seated Knee Flexion/ Extension Education Education Provided Safety M7 PT-IP Assessment and Plan Start: 11/23/21 09:18 Freq: NEEDED Status: Active Protocol: Document 11/28/21 16:31 ISABEL (Rec: 11/28/21 16:44 ISABEL [id number]) PT Summary Assessment and Plan Potential Rehabilitation Potential Good Summary Impairments Pain,ROM,Strength,Balance, Coordination,Sensation,Tone, Cognition,Bed Mobility, Transfers,Gait,Activity Tolerance Assessment Summary Pt without fatigue this session. She is able to ambulate without AD a short distance but distances longer than several feet not assessed . Pt will need SNF to return to PLOF Goals Bed Mobility Goal Independent Transfer Goal Standby Assistance Gait Goal Standby Assistance Gait Distance 300 Other Goals - up/down 4 steps with left rail SBA Days to Meet Goals 10 Frequency of Treatment Frequency Of Treatment Once a Day Treatment Plan Physical Therapy Treatment Plan Bed Mobility Training,Transfer Training,Gait Training, Therapeutic Exercise,Balance Retraining,Discharge Planning, Hot or Cold Pack Other Recommendations and Next Treatment will continue assessessing Focus safety with use of PFW Precautions Other Precautions falls Recommendations To Nursing Amount of Assist Needed 1 Person Assist Discharge Recommendations PT Discharge Recommendations SNF Rehab
[2021-11-28 17:50] VITALS: BP 139/76; PULSE 75; RESP 18; TEMP 35.7; O2SAT 95
[2021-11-28 20:10] VITALS: BP 158/73; PULSE 74; RESP 18; TEMP 37; O2SAT 94
[2021-11-28 21:00] VITALS: BP 182/78; PULSE 72
[2021-11-28] MEDS: cloNIDine 0.1 MG TABLET PO (21:00)
--- NOTE | 2021-11-28 21:47 | PC.NURSE ---
Patient is alert and oriented except did not know day of month and does not remember how she received [place]. Breath sounds CTA with RA sat of 94%. HRR. BP at time of assessment was elevated at 159/73. Denied nausea. BT present and is passing flatus. Denied dysuria, frequency or urgency with urination. Is able to move self in bed. Up to bathroom with platform walker and 1 assist. Has dressing to left hand to wound vac at 125mmHg. Dressing also intact to right thumb. Has edema in bilateral hands left > right. Difficulty with fine motor due to dressings/swelling. Burn/abrasion noted to mid chest and has scabbed abrasions on bilateral knees. Up in chair at start of shift and then assisted back into bed and bilateral calf SCD's put on. States pain is 6-9/10 with minimal relief from Percocet but gets more relief with Methadone. Fall risk score is high and bed alarm is activated. Seizure pads in place on bed. Is scheduled for wound vac change in a.m. so is aware she will be NPO after 0000 except for meds. Noted IV site is overdue but patient declines to have changed so will ask anesthesia to put in new IV during surgery tomorrow.
[2021-11-28] MEDS: TEMAZEPAM 15 MG CAPSULE PO (23:52)
[2021-11-29] VITALS (17 sets, daily range): BP systolic 105–152; BP diastolic 50–78; PULSE 65–96; RESP 10–18; TEMP 36.1–37.4; O2SAT 93–99; BMI 18.1
[2021-11-29] MEDS: OXYCODONE/ACETAMINOPHEN 5/325 TABLET 1 TAB PO ×3 (03:47→20:36)
[2021-11-29] MEDS: LACTATED RINGERS 1,000 ML 42 ML IV (07:34)
--- NOTE | 2021-11-29 07:47 | PM.PREOP ---
Pre-operative Note COVID-19 COVID-19 status: Negative Criteria for continued procedure: Possibility delay results in more complex future surgery or treatment Interval Note History & Physical reviewed/Exam performed by Physician: Yes Changes to H&P: No
[2021-11-29] MEDS: BACITRACIN 28 GM OINT 1 APPLIC TOP (08:19)
--- NOTE | 2021-11-29 08:55 | PM.OP.1 ---
Operative Date/Time/Diagnoses Date of procedure: 11/29/21 Time of procedure: 08:58 Pre-op diagnosis: Left hand wound Post-op diagnosis: same Procedure & Clinicians Procedure: Left hand debridement and wound VAC change Same procedure as scheduled: Yes Indications: left hand wound Surgeon: Regina Casey Click Yes if Unassisted: Yes Anesthesia Type: General Operative Notes Findings: Left hand shows improved healing of the 4th digit finger tip. The palm and forearm wound treated with negative pressure dressing also improved with the exception of too much moisture on the viable skin which can be addressed by changing style dressing. Debridement carried out on the palm and forearm. Closure Type: not applicable Specimen(s): none sent Prosthetic devices, grafts, tissues, transplants, or devices: Negative pressure dressing Blood products transfused: none Procedure in detail: Preop diagnosis: Left hand wound Postop diagnosis: Same Operative procedure: Debridement of left hand and forearm with replacement of negative pressure dressing Surgeon: MD Sanya Anesthetic: General with LMA intubation Findings: Improved healing with the decreased size of the wounds. Good granulation tissue and blood flow. Small amount of tissue in the palm region that was left from the last debridement. A more meticulous dressing will be placed this time in that the good skin showed signs of hydrosis Procedure: Patient placed in a supine position. Prepped and draped in a sterile fashion. Negative pressure dressing had been removed prior to the prepping. Forearm wound measured 4 x 1.1 cm with a depth of 1 mm had good granulation tissue, and minimal fibrinous exudate. Base was scraped for the subcutaneous tissue only using a 15 blade. Hemostasis achieved with direct pressure Palm wound: Measurements 6 cm x 5 cm x 1 mm. Sharp debridement of skin and subcutaneous tissue using a 15 blade. Has good granulation tissue and excellent blood supply. Hemostasis achieved with electrocautery and direct pressure. Negative pressure wound VAC replaced. White sponge used. Attempted bridge for the 2 wounds failed and a 2nd sucker placed at the palm. Kerlix and Coban for outer dressing and security of the wound VAC. finger dressing consisted of bacitracin Telfa and Coban. Patient was awakened, extubated, taken to recovery room stable condition. Needle, instrument, sponge counts were correct. Blood loss: 30 mL Specimen: None Complications: none Post-operative Condition: stable Disposition: PACU
--- NOTE | 2021-11-29 09:43 | SUR.PHASEI ---
pacu: 0930-more awake and responsive. deferred pain medication in pacu per patient request,need to use restroom and refused bedpan here. vss. csm lue: numb-pressure feeling only and pain left upper extremity digits, pain with movement, pulse check with oxymeter. warm,pink,and adequate refil. left hand puffy in appearence.wound vacs dressing left hand to cont.suction. no drainage seen. Rt hand dressing/csm unchanged. diminished sensation but better than left. dressing rt cheeck cdi. to room .no belongings. continue on 2 lnc.
[2021-11-29] MEDS: ENOXAPARIN 40 MG/0.4 ML SYRINGE SUBCUT (10:44)
[2021-11-29] MEDS: lamoTRIgine 100 MG TABLET 250 MG PO ×2 (10:45→20:37)
[2021-11-29] MEDS: lisinopriL 20 MG TABLET 40 MG PO (10:45)
[2021-11-29] MEDS: METHADONE 10 MG TABLET PO ×3 (10:46→20:37)
[2021-11-29] MEDS: SODIUM CHLORIDE 0.9% FLUSH 10 ML IV ×2 (10:47→20:42)
--- NOTE | 2021-11-29 12:35 | PC.NURSE ---
Addendum entered by Gaye Hernandez R.N. 11/29/21 18:26: Dressing change performed on R cheek. Patient requests to be medicated prior to dressing change. PRN Soma administered. Sero-sang drainage, noted slough in base. Bacitracin applied with cotton tipped applicator, Allyvn dressing applied. Patient tolerated. Original Note: Patient off unit for Sx wound care this morning, returned via bed, VSS, HRR, patient on 2L O2 NC, 94-96% unable to tolerated RA at this time drops to <90%. Continuous pulse ox on. Ambulated pt to restroom without difficulty, voiding without complications. Wound Vac remains intact, 125mmHg. Patient endorses pain in bilateral hands, scheduled medications administered after return from OR. Patient tolerating sips of water, advanced diet. Tolerating. BT active x 4. R AC IV removed, Sx team graciously put in a R Hand PIV. Remains saline locked at this time. Patient denies further needs. Call light in reach.
--- NOTE | 2021-11-29 13:30 | P.PN_ITS ---
Subjective Subjective Date Patient Seen: 11/29/21 Time Patient Seen: 13:30 Interval history: Patient overall feeling well. At surgical debridement today. Other than pain has been feeling pretty well. No significant new changes. Exam Vital Signs (past 8 hours): - 11/29/21 07:25 11/29/21 08:53 11/29/21 08:58 Temperature 99.3 F 97.8 F Pulse Rate 65 82 78 Respiratory Rate 16 10 L 10 L Blood Pressure 147/74 H 133/64 133/74 Pulse Oximetry 99 94 97 11/29/21 09:03 11/29/21 09:09 11/29/21 09:17 Temperature 97.9 F Pulse Rate 79 77 79 Respiratory Rate 11 L 12 12 Blood Pressure 135/68 144/66 H 133/69 Pulse Oximetry 97 97 96 11/29/21 09:25 11/29/21 09:40 11/29/21 10:10 Temperature 97.5 F L 97 F L 97 F L Pulse Rate 72 79 75 Respiratory Rate 12 12 12 Blood Pressure 140/69 148/68 H 139/65 Pulse Oximetry 97 94 95 11/29/21 10:40 11/29/21 10:45 11/29/21 11:40 Temperature 97.6 F 98.7 F Pulse Rate 71 75 96 H Respiratory Rate 14 14 Blood Pressure 133/66 139/65 120/70 Pulse Oximetry 99 93 Oxygen Delivery Method Room Air,Nasal Cannula Oxygen Flow Rate 1.5 Alert smiling female much less fatigued in no acute distress lungs are clear. Heart regular rate and rhythm. Right hand actually has less dressing in appears to be improving. Left hand in new dressing. Objective Labs Result Diagrams: 11/25/21 06:51 11/25/21 06:51 [facility] Medical History Hypertension Methadone use Seizures Social History household members: none Smoking Status: Former smoker alcohol intake: former Assessment & Plan Assessment & Plan narrative: Metabolic encephalopathy. Workup was negative. Probably combination of medication dehydration and mother cause. It is unclear what this represents. Negative MRI. Much improved now. Will follow walden hands. Still is unclear exactly what happened. Appreciate surgeon's input. At this point will need wound care follow-up. I still think she will need some help short term and with placement and then will follow from there. Pain is moderately well controlled. Hematuria will repeat UA. Dehydration resolved. Seizure disorder stable. Continue current medicines. Chronic pain. stable on meds continue additional meds for next week or so history of hepatitis. stable. increased cpk. resolved disposition. hope disharge to snf tomorrow. Time Spent With Patient Critical Care time: I spent a total of [] minutes of critical care time on this patient's care today; this time is exclusive of procedural time. Quality VTE Deep Vein Thrombosis/Pulmonary Embolism Present on Admission: No
--- NOTE | 2021-11-29 14:23 | PT.IPTN ---
Current Diagnoses Unspecified protein-calorie malnutrition (11/25/21) Opioid dependence, uncomplicated (11/25/21) Other injury of unspecified body region, initial encounter (11/25/21) Starvation, sequela (11/25/21) Surgery Performed Operation Date: 11/25/21 10:45 Actual Procedures p Debridement of bilateral hands and face - Regina Casey MD Operation Date: 11/29/21 07:45 Actual Procedures p I&D hand, wound vac change(Left) - Regina Casey MD Physical Therapy Treatment Note M2 PT-IP Current Condition Start: 11/23/21 09:18 Freq: NEEDED Status: Active Protocol: Document 11/23/21 13:00 AW (Rec: 11/23/21 14:01 AW [id number]) Physical Therapy Current Condition Current Condition Evaluation Date 11/23/21 Treatment Diagnosis failure to thrive, wounds, impaired mobility and gait Onset Date 11/22/21 M3 PT-IP Subjective Start: 11/23/21 09:18 Freq: NEEDED Status: Active Protocol: Document 11/29/21 14:23 MA (Rec: 11/29/21 14:34 MA [id number]) Subjective Physical Therapy Visit Type Type Treatment Note Visit Start Time 14:00 Visit Stop Time 14:23 Total Visit Minutes 23 Number of ANIMAL SHELTER SUPERVISOR Visits 3 Physical Therapy Visit Comments Patient Comments pt is agreeable to PT but states her hands are sore from surgery this morning Therapy Pain Assessment Pain When Pain Assessed At Rest Pain Present Pain Present Pain Reported M4 PT-IP Mobility and Gait Start: 11/23/21 09:18 Freq: NEEDED Status: Active Protocol: Document 11/29/21 14:23 MA (Rec: 11/29/21 14:34 MA [id number]) PT-Transfer Assessment Sit to and From Stand Sit to and from Stand Contact Guard Assistance,1 Person Assistance Equipment Transfer Assistive Device Gait Belt,Platform Walker Orthotic/Prosthetic Devices or Brace: No Transfers Transfer Destination Chair Transfer Ability Level of Assist Contact Guard Assistance,1 Person Assistance Comments Mobility Comments Pt found in room chair upon arrival. Nurse asks PT to remove O2 via NC and pt's vitals remain stable once removed. O2 98% on room air, BP 115/67. Pt is CGA for all mobility. She is able to sit<> stand from the chair without use of UEs. She ambulates around room using platform walker and can independently navigate walker with ANIMAL SHELTER SUPERVISOR managing all lines. Pt has to rock walker to assist in turning as she can only grab hand bar with single hand due to wounds. She shows good stability when moving around the room but takes increased time to ambulate and needs one rest break due to shd pain from an old injury. Gait Assessment Gait Gait Assistance Required: Contact Guard Assist Distance (Feet) 20 Able to Maintain Weight Bearing Status Yes During Gait Assistive Devices Assistive Device Gait Belt,Platform Walker Orthotic/Prosthetic Devices or Brace: No Gait Deviations General Gait Pattern Antalgic,Decreased Stride Length,Decreased Feet Clearance,Flexed Trunk Factors Limiting Gait Function Factors Limiting Gait Function Decreased Activity Tolerance, Decreased Strength,Limited Range of Motion,Pain,Poor Balance,Poor Safety Awareness Comments Gait Comments pls refer to mobility section for details M5 PT-IP Objective Assessments Start: 11/23/21 09:18 Freq: NEEDED Status: Active Protocol: Document 11/23/21 13:00 AW (Rec: 11/23/21 14:15 AW [id number]) Orientation Orientation/Cognition Level of Alertness Confusional State Orientation Name,Place Language Function Ability No Deficits Noted Safety Awareness Decreased Safety Awareness Memory Description 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,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 Gross Range of Motion Lower Extremity ROM Assessment Bilaterally Impaired Impairments secondary to pain at hip and knee; AROM ankle DF to neutral only Strength Lower Extremity Strength Assessment Bilaterally Impaired Hip 3-/5 Knee 4-/5 flexion; 3+/5 extension Ankle 3+/5 Sensation Assessment Comments Sensation Comments Pt denies sensation disturbance BLE M6 PT-IP Treatment Start: 11/23/21 09:18 Freq: NEEDED Status: Active Protocol: Document 11/29/21 14:23 MA (Rec: 11/29/21 14:34 MA [id number]) Physical Therapy Treatment Exercises Exercises Ankle Pumps,Seated Knee Flexion/Extension Education Education Provided Safety Other Treatments Other Treatment Performed Sit<>stands, LAQ, seated marches, heel raises. Pt able to perform all exercises SBA M7 PT-IP Assessment and Plan Start: 11/23/21 09:18 Freq: NEEDED Status: Active Protocol: Document 11/29/21 14:23 MA (Rec: 11/29/21 14:34 MA [id number]) PT Summary Assessment and Plan Potential Rehabilitation Potential Good Summary Impairments Pain,ROM,Strength,Balance, Coordination,Sensation,Tone, Cognition,Bed Mobility, Transfers,Gait,Activity Tolerance Assessment Summary Pt is motivated to do things herself this session. She is CGA for all mobility using platform walker with increased time needed for walker management when turning. Pt is looking forward to SNF where she will work on returning to PLOF. Her vitals remain stable once taken off O2; 98% O2 at rest and 96% after PT session. Goals Bed Mobility Goal Independent Transfer Goal Standby Assistance Gait Goal Standby Assistance Gait Distance 300 Other Goals - up/down 4 steps with left rail SBA Days to Meet Goals 10 Frequency of Treatment Frequency Of Treatment Once a Day Treatment Plan Physical Therapy Treatment Plan Bed Mobility Training,Transfer Training,Gait Training, Therapeutic Exercise,Balance Retraining,Discharge Planning, Hot or Cold Pack Other Recommendations and Next Treatment will continue assessessing Focus safety with use of PFW Precautions Other Precautions falls Recommendations To Nursing Amount of Assist Needed 1 Person Assist Discharge Recommendations PT Discharge Recommendations SNF Rehab Transportation Needs at Discharge Wheelchair/Cabulance
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
--- NOTE | 2021-11-29 15:30 | OT.IP.TRT ---
Current Diagnoses Unspecified protein-calorie malnutrition (11/25/21) Opioid dependence, uncomplicated (11/25/21) Other injury of unspecified body region, initial encounter (11/25/21) Starvation, sequela (11/25/21) Surgery Performed Operation Date: 11/25/21 10:45 Actual Procedures p Debridement of bilateral hands and face - Regina Casey MD Operation Date: 11/29/21 07:45 Actual Procedures p I&D hand, wound vac change(Left) - Regina Casey MD Occupational Therapy Treatment Note M2 OT-IP Current Condition Start: 11/26/21 15:32 Freq: Status: Active Protocol: Document 11/26/21 11:30 [facility] (Rec: 11/26/21 15:49 [facility] [id number]) Occupational Therapy Current Condition Current Condition Evaluation Date 11/26/21 Treatment Diagnosis Failure to thrive, bilateral hand wounds Diagnosis Onset Date 11/24/21 M3 OT- IP Subjective and Pain Start: 11/26/21 15:32 Freq: Status: Active Protocol: Document 11/29/21 15:06 [facility] (Rec: 11/29/21 15:44 [facility] [id number]) OT- Subjective Occupational Therapy Visit Type Type Treatment Note Visit Start Time 15:15 Visit Stop Time 15:33 Total Visit Minutes 18 Occupational Therapy Visit Comments Patient Comments Pt agreed to get up for OT and wanting to brush her teeth. Pt requesting to have Allison placed back on the list to be able to call her, nursing notified. OT Pain Assessment Pain When Pain Assessed At Rest Pain Present Pain Present Pain Reported Location Bilateral Hand Intensity 5 Scale Used Numeric (0 - 10) M4 OT- IP ADL's Start: 11/26/21 15:32 Freq: Status: Active Protocol: Document 11/29/21 15:06 [facility] (Rec: 11/29/21 15:44 [facility] [id number]) OT ADL-Oral Care General Eval Oral Care Ability Standby Assistance Comments Oral Care Comments Assist for set-up. Pt able to stand to brush her teeth. Pt dropping the toothbrush in the sink due to difficulty to manipulate her hands due to her swelling. OT ADL-Dressing Comments OT Dressing Comments Extensive assist for needs at this time. OT ADL-Toileting Comments OT Toileting Comments Per nursing aid pt needing assist for hygiene needs. OT ADL-Bathing Comments OT Bathing Comments Not performed. Due to her bandages and wound vac to left hand will need assist for bathing needs. M6 OT- IP Functional Cognition Start: 11/26/21 15:32 Freq: Status: Active Protocol: Document 11/29/21 15:06 [facility] (Rec: 11/29/21 15:44 [facility] [id number]) Cognitive Factors Limiting Selfcare Function Cognitive Ability Level of Alertness Alert Patient Orientation Name,Age,Birthday,Month,Date, Year,Day of Week,Place, Situation Attention Span Ability Capable of Focused Attention, Capable of Sustained Attention Ability to Follow Commands Able to Follow One Step Commands Cognitive Comments Cognitive Assessment Comments Pt able to states her needs and wants appropriately. M7 OT- IP Mobility and Balance Start: 11/26/21 15:32 Freq: Status: Active Protocol: Document 11/29/21 15:06 [facility] (Rec: 11/29/21 15:44 [facility] [id number]) OT-Transfer Assessment Sit to and From Stand Sit to and from Stand Standby Assistance Transfers Transfer Ability Standby Assistance,Contact Guard Assistance Technique Transfer Destination Chair Comments Mobility Comments SBA/CGA without a device to walk to the sink and back and needing assist for management on lines from the wound vac. OT- Balance Assessment Sitting Balance and Reactions Static Sitting Balance Ability Good Dynamic Sitting Balance Ability Fair Standing Balance and Reactions Static Standing Balance Ability Fair M8 OT- IP Objective Assessments Start: 11/26/21 15:32 Freq: Status: Active Protocol: Document 11/26/21 11:30 [facility] (Rec: 11/26/21 15:49 [facility] [id number]) OT Gross Range of Motion Upper Extremity Range of Motion Assessment Bilaterally Impaired OT Strength Upper Extremity Strength Assessment Bilaterally Impaired OT Sensation Assessment Comments Summary Comments Bilateral hands swollen and in bandages. M9 OT- IP Assessment and Plan Start: 11/26/21 15:32 Freq: Status: Active Protocol: Document 11/29/21 15:06 [facility] (Rec: 11/29/21 15:44 [facility] [id number]) OT Summary Assessment and Plan Potential Rehabilitation Potential Good Analytic Complexity at Evaluation High Summary OT Impairments Pain,Range of Motion,Strength, Balance,Functional Cognition, Functional Mobility,Self- Feeding,Grooming,Dressing, Toileting,Bathing,Toilet Transfers,Shower Transfers, Activity Tolerance Progress Towards Goals Progressing Toward Goals Assessment Summary Pt main barriers are swollen hands and not able to do FMS for set-up for grooming and eating needs.Pt needing assist for all dressing and toileting needs. Pt having to use adaptive utensils to eat at this time. Pt will benefit from skilled rehab to help improve her abilities to be able to care for herself again . Goals Self-Feeding Goal Independent Grooming Goal Independent Dressing Goal Independent Toileting Goal Independent Bathing Goal Independent Toilet Transfer Goal Independent Shower Transfer Goal Independent Days to Meet Goals 30 Frequency of Treatment Frequency Of Treatment Once a Day Treatment Plan OT Treatment Plan ADL Training,Functional Cognition Training,Functional Mobility,Patient/Family Education,Discharge Planning Discharge Recommendations OT Discharge Recommendations SNF Rehab Transportation Needs at Discharge Wheelchair/Cabulance
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
[2021-11-29] MEDS: carisoprodoL 350 MG TABLET PO (18:30)
[2021-11-29] MEDS: cloNIDine 0.1 MG TABLET PO (20:38)
[2021-11-29] MEDS: TEMAZEPAM 15 MG CAPSULE PO (23:11)
--- NOTE | 2021-11-30 00:55 | PC.NURSE ---
Patient is alert and oriented. Breath sounds CTA with RA sat of 96%. HRR. Denied nausea. BT present and abdomen is soft. Denied dysuria, frequency or urgency with urination. Is able to move self in bed and gets up to BSC with 1 assist. Reportedly uses platform walker for distance. Dressings to bilateral hands are CDI; wound vac intact at 125mmHg. Has some swelling in left hand and tingling/numbness/pain in bilateral hands; pain being moderately controlled with use of Percocet + Methadone. Has difficulty with fine motor movements related to dressings/swelling. Had bilateral calf SCD's on for brief time period but requested they be removed once she took her sleeping pill at 2311. Fall risk score is high and bed alarm is activated.
[2021-11-30] MEDS: OXYCODONE/ACETAMINOPHEN 5/325 TABLET 1 TAB PO ×3 (01:36→10:41)
[2021-11-30 07:00] VITALS: BP 136/69; PULSE 66; RESP 14; TEMP 36.2; O2SAT 96
[2021-11-30] MEDS: ENOXAPARIN 40 MG/0.4 ML SYRINGE SUBCUT (09:03)
[2021-11-30 09:04] VITALS: BP 136/69; PULSE 66
[2021-11-30] MEDS: lisinopriL 20 MG TABLET 40 MG PO (09:04)
[2021-11-30] MEDS: lamoTRIgine 100 MG TABLET 250 MG PO (09:05)
[2021-11-30] MEDS: METHADONE 10 MG TABLET PO ×2 (09:05→14:24)
[2021-11-30] MEDS: SODIUM CHLORIDE 0.9% FLUSH 10 ML IV (09:05)
--- NOTE | 2021-11-30 10:04 | PT-IP ANOTE ---
Pt elevated supine in bed with call light on, she reported wants to wait on working with therapy until get break through pain meds due to throbbing pain, waiting on nurse to return. GUM WORKER stated will come back in pm for further assessment after 1. Pt agreeable will be better time.
--- NOTE | 2021-11-30 11:55 | OT.IP.TRT ---
Current Diagnoses Unspecified protein-calorie malnutrition (11/25/21) Opioid dependence, uncomplicated (11/25/21) Other injury of unspecified body region, initial encounter (11/25/21) Starvation, sequela (11/25/21) Surgery Performed Operation Date: 11/25/21 10:45 Actual Procedures p Debridement of bilateral hands and face - Regina Casey MD Operation Date: 11/29/21 07:45 Actual Procedures p I&D hand, wound vac change(Left) - Regina Casey MD Occupational Therapy Treatment Note M2 OT-IP Current Condition Start: 11/26/21 15:32 Freq: Status: Active Protocol: Document 11/26/21 11:30 [facility] (Rec: 11/26/21 15:49 [facility] [id number]) Occupational Therapy Current Condition Current Condition Evaluation Date 11/26/21 Treatment Diagnosis Failure to thrive, bilateral hand wounds Diagnosis Onset Date 11/24/21 M3 OT- IP Subjective and Pain Start: 11/26/21 15:32 Freq: Status: Active Protocol: Document 11/30/21 11:57 [facility] (Rec: 11/30/21 12:03 [facility] [id number]) OT- Subjective Occupational Therapy Visit Type Type Treatment Note Visit Start Time 11:38 Visit Stop Time 11:55 Total Visit Minutes 17 Occupational Therapy Visit Comments Patient Comments Pt wanting to get up to brush her teeth. Patient/Caregiver Goals To go to skilled rehab. OT Pain Assessment Pain When Pain Assessed At Rest Pain Present Pain Present Denied Pain M4 OT- IP ADL's Start: 11/26/21 15:32 Freq: Status: Active Protocol: Document 11/30/21 11:57 [facility] (Rec: 11/30/21 12:03 [facility] [id number]) OT ADL-Grooming General Evaluation Grooming Ability Moderate Assistance Comments OT Grooming Comments pt able to wash her face after set-up of wash cloth. Pt needing assist to brush and put up her hair in a pony tail. OT ADL-Oral Care General Eval Oral Care Ability Standby Assistance Comments Oral Care Comments Pt needing assist to help put on toothpaste on the toothbrush. Pt doing a better job to manipulate the toothbrush in her hand today without dropping it. OT ADL-Dressing Comments OT Dressing Comments Pt states prior not able to lou sports bra due to bad shoulders. Suggested best to have loose clothing and shoes if going to skilled rehab. M6 OT- IP Functional Cognition Start: 11/26/21 15:32 Freq: Status: Active Protocol: Document 11/30/21 11:57 [facility] (Rec: 11/30/21 12:03 [facility] [id number]) Cognitive Factors Limiting Selfcare Function Cognitive Ability Level of Alertness Alert Patient Orientation Name,Age,Birthday,Month,Date, Year,Day of Week,Place, Situation Attention Span Ability Capable of Focused Attention, Capable of Sustained Attention Ability to Follow Commands Able to Follow One Step Commands Cognitive Comments Cognitive Assessment Comments Pt appears to be at baseline for cognitive needs. M7 OT- IP Mobility and Balance Start: 11/26/21 15:32 Freq: Status: Active Protocol: Document 11/30/21 11:57 [facility] (Rec: 11/30/21 12:03 [facility] [id number]) OT-Transfer Assessment Sit to and From Stand Sit to and from Stand Standby Assistance Transfers Transfer Ability Standby Assistance,Contact Guard Assistance Technique Transfer Destination Chair Comments Mobility Comments Pt needing wide base of support and able to walk to and from the sink on her own with assist to hold lines from wound vac. OT- Balance Assessment Sitting Balance and Reactions Static Sitting Balance Ability Good Dynamic Sitting Balance Ability Fair Standing Balance and Reactions Static Standing Balance Ability Fair M8 OT- IP Objective Assessments Start: 11/26/21 15:32 Freq: Status: Active Protocol: Document 11/26/21 11:30 [facility] (Rec: 11/26/21 15:49 [facility] [id number]) OT Gross Range of Motion Upper Extremity Range of Motion Assessment Bilaterally Impaired OT Strength Upper Extremity Strength Assessment Bilaterally Impaired OT Sensation Assessment Comments Summary Comments Bilateral hands swollen and in bandages. M9 OT- IP Assessment and Plan Start: 11/26/21 15:32 Freq: Status: Active Protocol: Document 11/30/21 11:57 [facility] (Rec: 11/30/21 12:03 [facility] [id number]) OT Summary Assessment and Plan Potential Rehabilitation Potential Good Analytic Complexity at Evaluation High Summary OT Impairments Pain,Range of Motion,Strength, Balance,Functional Cognition, Functional Mobility,Self- Feeding,Grooming,Dressing, Toileting,Bathing,Toilet Transfers,Shower Transfers, Activity Tolerance Progress Towards Goals Progressing Toward Goals Assessment Summary Able to educated pt to do gentle stretching with her hands. Pt is very motivated to go to skilled rehab. Goals Self-Feeding Goal Independent Grooming Goal Independent Dressing Goal Independent Toileting Goal Independent Bathing Goal Independent Toilet Transfer Goal Independent Shower Transfer Goal Independent Days to Meet Goals 29 Frequency of Treatment Frequency Of Treatment Once a Day Treatment Plan OT Treatment Plan ADL Training,Functional Cognition Training,Functional Mobility,Patient/Family Education,Discharge Planning Discharge Recommendations OT Discharge Recommendations SNF Rehab Transportation Needs at Discharge Wheelchair/Cabulance
--- NOTE | 2021-11-30 12:51 | P.DS_ITS ---
History of Present Illness History of Present Illness Date Patient Seen: 11/30/21 Time Patient Seen: 12:51 Date of Onset of Symptoms: 11/21/21 Chief complaint: Failure to thrive Narrative: Patient Is a [age]-year-old female well known to me. Patient is difficult historian. Apparently she presented MS after being found running in her dirt b [place] no other close stating that she was being held against her will. She was brought to emergency room and found to have pretty severe but walden or least some type of skin damage to bilateral hands chest and head. She was alert and oriented but somewhat confused. Emergency room consulted with [facility] and they felt like would be okay to stay here. She denies any significant headaches or other changes. She states that she has had some falls. She has no recollection of how she got the wounds on her hands. She has been drinking only water and has known maybe been taking her medicine that is unclear. She did not feel like she can use her hands and was having difficulty functioning at home. Her memory is somewhat unclear. She feels as she has asked for help from family who live an adjoining house and they have been unwilling to help her. Otherwise there has been no significant changes. She has not had any abdominal pain nausea vomiting fevers chills. She has noted that she feels like she has fallen but she is not really sure. She was having issues with some type of bugs in her house and they were putting some type of spray and she was having to get out. She has otherwise had difficulty with her family but it has not been overly problematic. They have been driving her to different locations. She does have other family in the area. There has been no other changes. Currently patient denies any new symptoms. 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 Single significant other 3 years ago. Disabled. Fourteen years Education. Lives in trailer on aunts property Discharge Providers Provider Date of admission: 11/25/21 13:07 Discharge Date: 11/30/21 Primary care physician: Viktor Alvarez MD Consults: 11/23/21 01:48 Consult to Physician Urgent Comment: Consulting Provider: Cortney Alvarez Reason for consultation: Admission Has provider been notified: Yes 11/23/21 01:54 Consult to VOLLEYBALL COACH - Needle Loom Operator Helper Stat Comment: VOLLEYBALL COACH Consult: [facility] Need Consult to Physical Therapy Evaluate & Treat Comment: Physician Instructions: Evaluate and Treat Consult to Wound Care Stat Comment: Consulting Provider: [facility] 11/23/21 04:57 Consult to Dietitian, Adult Routine Comment: Reason For Exam: failure to thrive 11/23/21 08:02 Consult to General Surgery Routine Comment: Consulting Provider: Regina Casey Reason for consultation: hand wounds Has provider been notified: Yes 11/23/21 11:40 Consult to Dietitian, Adult Routine Comment: needs concentrated ensure b/t meals Reason For Exam: walden and malnutrition 11/25/21 10:38 Consult to Occupational Therapy Evaluate & Treat Comment: Physician Instructions: Evaluate and treat Discharge provider: Viktor Alvarez MD Summary Hospital Course Discharge Diagnosis: Metabolic encephalopathy Walden bilateral hands Hematuria Dehydration Seizure disorder Chronic pain History of hepatitis Increased CPK Hospital Course: Metabolic encephalopathy. Patient was admitted and found to be confused. She had normal metabolic panel no evidence of significant infection although there was question of UTI her urine was cultured she was found not to be infected antibiotics were discontinued. She had no infections in her wounds felt to be secondary to surgeons. She had normal MRI on day 2. Patient has slowly cleared as she was here. The question is whether it was secondary to medication which we could not define or whether it was a combination of dehydration medication and possible seizures. There was no evidence of seizure activity during her presence and at this point it resolved and no further workup will need to be done. Patient will be followed up with me as an outpatient. Walden bilateral hands. Etiology is continues to be unclear. Mentally she could not remember when or at what happen. She felt it might be secondary to some toxic chemicals that were in her location but she does not know. There was question whether how much of this was walden how much of what was pressure related. Seems hard to believe pressure would place the walden in the locations that she had they were bilateral on both hands and thumbs. Patient was then able to function and do ADLs no other significant changes. Surgeons were consulted and debrided wounds x2. Wound VAC was applied through the course of most of her treatment and was felt to be adequate on discharge. She will be discharge to [facility] for help with ADLs and with wound care and will be followed up with surgeons as scheduled. Hematuria. Patient had hematuria culture was negative this will be followed as an outpatient there was no symptoms. Seizure disorder. Patient was stable throughout the course of her admission she continued on her usual meds and will be followed Dehydration. She was hydrated over the course of the 1st 48 hours and then discontinued she seemed to be stable and will be followed. Chronic pain. Patient has longstanding methadone user secondary to multiple joint issues. Patient with increasing pain secondary to her walden which will be treated with oxycodone and seemed to be adequately treated although this will not be something that should be continued more than 1-2 weeks. She understands this will be followed. History of hepatitis thought to be originally secondary to alcohol is been stable with no change History of elevated CPK felt to be secondary to her being prone no major issue resolved over the course of the 1st 24 hours and will be followed as outpatient. Exam Vital Signs (past 8 hours): - 11/30/21 07:00 11/30/21 09:04 Temperature 97.2 F L Pulse Rate 66 66 Respiratory Rate 14 Blood Pressure 136/69 136/69 Pulse Oximetry 96 Oxygen Delivery Method Room Air Oxygen Flow Rate 0 Narrative Exam Narrative: Alert female much less fatigued in no acute distress holding her hands gingerly. HEENT exam is unremarkable except for bandage lesion on her right cheek neck supple without adenopathy lungs are clear heart regular rate and rhythm abdomen is benign hands show bandaged wounds left greater than right neurologic exam normal no other changes Objective Labs Result Diagrams: 11/25/21 06:51 11/25/21 06:51 [facility] Medical History Hypertension Methadone use Seizures Social History household members: none Smoking Status: Former smoker alcohol intake: former Discharge Assessment & Plan Assessment and Plan Assessment: See above Plan of Treatment: Transferred senior living Discharge Plan Discharge Plan Patient Disposition: SNF Transfer to: [facility] Under care of provider: nancy PURI Consult as needed: Dental, Hearing, Mental health, Podiatry and Vision Discharge orders & Medications Prescriptions: New methadone 10 mg Tablet 10 mg PO TID Qty: 30 0RF oxycodone-acetaminophen 5-325 mg Tablet 1 tab PO Q4HR PRN (Reason: Pain, Moderate (4-6)) Qty: 30 0RF temazepam 15 mg Capsule 15 mg PO BEDTIME PRN (Reason: Sleep) Qty: 30 0RF oxycodone-acetaminophen [Percocet] 5-325 mg tablet 1 tab PO Q6H PRN (Reason: pain) Qty: 30 0RF methadone 10 mg tablet 10 mg PO TID Qty: 30 0RF Continued carisoprodol 350 mg tablet 350 mg PO QID PRN (Reason: Pain (Scale Score 4-6)) 0RF lamotrigine 200 mg tablet 200 mg PO BID 0RF methadone 10 mg tablet 10 mg PO TID 0RF lamotrigine 25 mg tablet 50 mg PO BID 0RF temazepam 15 mg capsule 15 mg PO BEDTIME PRN (Reason: Sleep) 0RF lisinopril 40 mg tablet 40 mg PO DAILY 0RF aspirin 81 mg Tablet,Delayed Release (Dr/Ec) 81 mg PO QPM 0RF Centrum Silver Women 1 tab PO DAILY 0RF Changed clonidine HCl 0.1 mg Tablet 0.1 mg PO BEDTIME Qty: 0 0RF Discontinued cephalexin 500 mg Capsule 1,000 mg PO BID 0RF Rx Instructions: was to start mid october and take x1 month. Allergy Cream 1 applic topical PRN PRN (Reason: Itching) 0RF Label Comments: patient states uses cream for allergies..did not think it was OTC but pharmacy has no record of RX topical. jh Follow up/Referrals: Viktor Alvarez MD [Primary Care Provider] - 2 Weeks (Needs follow-up with surgeons at their request) Discharge Health Status Multidrug resistant organism: No MDRO Precautions: [place] Diet/Activity/Treatments Diet: Diet as Tolerated Liquid consistency: Normal/Thin Food texture: Regular Activity: As tolerated Skin/Wound/Dressing Care Dressing: wet to dry dressing changes to both hands with kerlex and ade or coban once a day Special [facility] Rehab type: Physical therapy and Occupational therapy Discharge Data Primary Care Provider: Viktor Alvarez Quality VTE Deep Vein Thrombosis/Pulmonary Embolism Present on Admission: No
--- NOTE | 2021-11-30 13:28 | PT-IP ANOTE ---
Pt refused tx when arrived. Pt seated in chair with nurse in room, nurse just completed removal of hand wound vac and pt stated in alot pain, nurse verified. I am sorry, I can't do anything right now with amount pain having, I need time to recover and am leaving soon to SNF. [employer]BESTOS SIDING INSTALLER provided benefit of importance if participate with mobility as many opportunities as can. Pt verbalized understanding and in agreement, stated will work hard with nurses and therapists at SNF. ASBESTOS SIDING INSTALLER unable to progress mobility this tx. Will continue to assess progress.
[2021-11-30 14:03] LABS: COVID19 -Nasal RAPID Negative (Negative)
--- NOTE | 2021-11-30 14:35 | PC.NURSE ---
A&OX4. VSS. Pain consisitantly 9-10/10 even with PRN percocet, ibuprofen, and scheduled methadone. Wound vac removed and dressing replaced with wet to dry dressing. IV removed. Has some use of her hands but requires help with taking pills, dressing, and toileting. Picked up to go to [facility] at 14:30, off of unit at 14:35.
--- NOTE | 2021-11-30 16:12 | CM.DPC ---
DCP/continued: Reviewed chart. RN PACU has made several attempts to find SNF placement. This AM Bette at [facility] was considering however, she determined that she did not have room. Placed return phone call to April at [facility] to review. April reviewed and reports that they can accept. Placed call to Dr. Alvarez for orders. Patient scheduled to be picked up around 2:30pm today. Orders and prescriptions completed by provider. RN PACU met with patient and she is aware and agreeable to transfer. Patient very grateful that she can stay in town. A.P.S./Aide notified of patient's d/c disposition. Aide reports that she will f/u with patient at facility. In addition, patient requested that RN PACU call patient's sister/Lilli ph# [phone] to provide her facility information. Lilli in agreement to follow up with facility and be available to assist if needed at time of d/c. Patient reports that she hopes to d/c home once she is able to use her hands. Wound vac removed per Dr. Casey's order and daily dressing changes now needed. Order obtained and included in orders. P: Transfer to [facility] today. ABBEY
== END 2021-11-30 14:45 | DRG 934 ==
LOC: ED 11-23 01:41 → AC 11-23 02:49
PROVIDERS: Surgery; Admitting Provider Family Medicine; Emergency Provider Emergency Medicine; Family Provider Family Medicine; PCP Family Medicine; Visit Provider Family Medicine
PROC: 0KBD0ZZ Excision of Left Hand Muscle, Open Approach (ICD-10-PCS; principal; 2021-11-25 10:45)
PROC: 0JBK0ZZ Excision of Left Hand Subcutaneous Tissue and Fascia, Open Approach (ICD-10-PCS; principal; 2021-11-29 07:45)
DX: T23.352A Burn of third degree of left palm, initial encounter (principal); G93.41 Metabolic encephalopathy; T23.322A Burn of third degree of single left finger (nail) except thumb, initial encounter; T23.311A Burn of third degree of right thumb (nail), initial encounter; T23.251A Burn of second degree of right palm, initial encounter; T23.221A Burn of second degree of single right finger (nail) except thumb, initial encounter; T20.26XA Burn of second degree of forehead and cheek, initial encounter; E86.0 Dehydration; R31.9 Hematuria, unspecified; F17.200 Nicotine dependence, unspecified, uncomplicated; G40.909 Epilepsy, unspecified, not intractable, without status epilepticus; I10 Essential (primary) hypertension; G89.29 Other chronic pain; Z66 Do not resuscitate; Z20.822 Contact with and (suspected) exposure to COVID-19; Z23 Encounter for immunization; X08.8XXA Exposure to other specified smoke, fire and flames, initial encounter
CPT/HCPCS: 36415; 70553; 73130; 80048; 80053; 80305; 80320; 81001; 82550; 84134; 85025; 87040; 87086; 87635; 90471; 94762; 96361; 96374; 96375; 97110; 97116; 97162; 97167; 97530; 97535; 99232; 99284; 99285; C9803; G0378; 90715; J1100; J1170; J1650; J1885; J2250; J2270; J2405; J2704; J3010

== ENCOUNTER → 2021-12-08 11:26 | Outpatient (CLI) | payer MEDICARE, MEDICAID, SELFPAY ==
[2021-11-23 03:04] VITALS: BMI 19.6
== END ==
PROVIDERS: Family Provider Family Medicine; PCP Family Medicine; Referring Provider Nurse Practitioner Family; Visit Provider Family Medicine
DX: L89.893 Pressure ulcer of other site, stage 3 (principal); L89.890 Pressure ulcer of other site, unstageable; L08.9 Local infection of the skin and subcutaneous tissue, unspecified; E46 Unspecified protein-calorie malnutrition; Z72.0 Tobacco use; Z60.8 Other problems related to social environment; Z73.89 Other problems related to life management difficulty
CPT/HCPCS: 11042; 11045; 87070; 87075; 87077; 87147; 87186; 87205; 99205; 99214

== ENCOUNTER → 2021-12-15 15:40 | Outpatient (CLI) | payer MEDICARE, MEDICAID, SELFPAY ==
[2021-11-23 03:04] VITALS: BMI 19.6
== END ==
PROVIDERS: Family Provider Family Medicine; PCP Family Medicine; Referring Provider Family Medicine; Visit Provider Family Medicine
DX: L89.893 Pressure ulcer of other site, stage 3 (principal); L89.890 Pressure ulcer of other site, unstageable; L08.9 Local infection of the skin and subcutaneous tissue, unspecified; B95.7 Other staphylococcus as the cause of diseases classified elsewhere; E46 Unspecified protein-calorie malnutrition; Z60.8 Other problems related to social environment; Z73.89 Other problems related to life management difficulty; Z72.0 Tobacco use
CPT/HCPCS: 11042; 99214

== ENCOUNTER → 2021-12-17 10:43 | Outpatient (CLI) | payer MEDICARE, MEDICAID, SELFPAY ==
[2021-11-23 03:04] VITALS: BMI 19.6
== END ==
PROVIDERS: Family Provider Family Medicine; PCP Family Medicine; Referring Provider Family Medicine; Visit Provider Nurse Practitioner Family
DX: L89.890 Pressure ulcer of other site, unstageable (principal); L89.893 Pressure ulcer of other site, stage 3; L89.813 Pressure ulcer of head, stage 3
CPT/HCPCS: 99213

== ENCOUNTER → 2021-12-20 11:59 | Outpatient (CLI) | payer MEDICARE, MEDICAID, SELFPAY ==
[2021-11-23 03:04] VITALS: BMI 19.6
== END ==
PROVIDERS: Family Provider Family Medicine; PCP Family Medicine; Referring Provider Family Medicine; Visit Provider Family Medicine
DX: L89.890 Pressure ulcer of other site, unstageable (principal); L89.893 Pressure ulcer of other site, stage 3
CPT/HCPCS: 99213

== ENCOUNTER → 2021-12-22 15:32 | Outpatient (CLI) | payer MEDICARE, MEDICAID, SELFPAY ==
[2021-12-22 15:03] VITALS: BMI 19.6
== END ==
PROVIDERS: Family Provider Family Medicine; PCP Family Medicine; Referring Provider Registered Nurse; Visit Provider Family Medicine
DX: L89.893 Pressure ulcer of other site, stage 3 (principal); E46 Unspecified protein-calorie malnutrition; Z60.8 Other problems related to social environment; Z72.0 Tobacco use
CPT/HCPCS: 11042; 11045; 99212

== ENCOUNTER → 2022-01-13 15:49 | Outpatient (CLI) | payer MEDICARE, MEDICAID, SELFPAY ==
[2021-12-22 15:03] VITALS: BMI 19.6
== END ==
PROVIDERS: Family Provider Family Medicine; PCP Family Medicine; Referring Provider Family Medicine; Visit Provider Family Medicine
DX: L89.893 Pressure ulcer of other site, stage 3 (principal); E46 Unspecified protein-calorie malnutrition; L92.8 Other granulomatous disorders of the skin and subcutaneous tissue; Z60.8 Other problems related to social environment; Z72.0 Tobacco use
CPT/HCPCS: 11042; 97597; 99212

== ENCOUNTER → 2022-01-14 09:11 | Outpatient (CLI) | payer MEDICARE, MEDICAID, SELFPAY ==
[2021-12-22 15:03] VITALS: BMI 19.6
[2022-01-14 10:17] LABS: COVID19 -Nasal RAPID Negative (Negative)
== END ==
PROVIDERS: Family Provider Family Medicine; PCP Family Medicine; Visit Provider Surgery
DX: Z01.812 Encounter for preprocedural laboratory examination (principal); Z20.822 Contact with and (suspected) exposure to COVID-19
CPT/HCPCS: 87635; C9803

== ENCOUNTER 2022-01-17 09:26 | Day surgery (SDC) | payer MEDICARE, MEDICAID, SELFPAY ==
[2021-12-22 15:03] VITALS: BMI 19.6
[2022-01-17] VITALS (9 sets, daily range): BP systolic 108–132; BP diastolic 51–72; PULSE 61–67; RESP 12–18; TEMP 36.4–36.9; O2SAT 90–98; BMI 20.2
--- NOTE | 2022-01-17 10:10 | PM.PREOP ---
Pre-operative Note COVID-19 COVID-19 status: Negative Result date/Date tested (Pos, Neg/Pending): 01/14/22 Criteria for continued procedure: Expected advancement of disease process and Possibility delay results in more complex future surgery or treatment Interval Note History & Physical reviewed/Exam performed by Physician: Yes Changes to H&P: No ASA Class (for procedural sedation): III
[2022-01-17] MEDS: LACTATED RINGERS 1,000 ML 42 ML IV (10:12)
--- NOTE | 2022-01-17 10:50 | SUR.OPER ---
Addendum entered by Cookie Katz R.N. 01/17/22 10:54: Warm blankets placed over patient. Original Note: Supine on padded OR bed, head on pillow, right arm secured on padded arm boards at <90 degrees abduction, left arm on arm board extension and in control of the Surgeon, legs uncrossed, safety belt at thigh, tape over blanket over lower legs. Gel pad under heels.
[2022-01-17] MEDS: LIDOCAINE 1% W/EPI 20 ML INJ (11:00)
--- NOTE | 2022-01-17 11:19 | PM.OP.1 ---
Operative Date/Time/Diagnoses Date of procedure: 01/17/22 Time of procedure: 11:19 Pre-op diagnosis: Left hand wound Post-op diagnosis: same Procedure & Clinicians Procedure: Debridement of left hand wound Same procedure as scheduled: Yes Indications: Left hand wound Surgeon: Aakash Perez Anesthesia Type: General Operative Notes Findings: Health the appearing granulation tissue with minimal fibrinous exudate Procedure in detail: The patient was brought to the operating room and placed on the table in the supine position. Anesthesia was induced via LMA. No antibiotics were not indicated. The dressing was removed from the left hand wound and the left arm was prepped and draped in the usual fashion to the elbow. We injected some lidocaine with epinephrine to perform a field block proximal to the wound edge. The wound was about 4 cm x 3.5 cm over the hypothenar eminence. There was a very small amount of fibrinous exudate in the central part of the wound was ribs removed with a curette. There was good perfusion to the granulation tissue which bled easily after some debridement. We then injected some Marcaine the subcutaneous tissue proximal to the wound. We then placed Adaptic gauze over the granulation tissue followed by a 4 x 4 and Kerlix wrap and a Coban wrap. EBL 10 mL Post-operative Condition: stable Disposition: PACU
[2022-01-17] MEDS: BUPIVACAINE 0.5% (PF) VIAL 30 ML INJ (11:48)
[2022-01-17 11:59] LABS: Add Manual Diff / Slide Review NO; Basophils Absolute Auto 0 /uL (0-100); Basophils Percent Auto 0.4 % (0-2); Eosinophils Absolute Auto 300 /uL (0-450); Eosinophils Percent Auto 6.7 % (2-4); Hematocrit 29.2 % (36-46); Hemoglobin 9.7 g/dL (12.0-16.0); Lymphocytes Absolute Auto 1200 /uL (1100-4500); Lymphocytes Percent Auto 23.7 % (25-40); Mean Corpuscular HGB Conc 33.4 % (30-36); Mean Corpuscular Hemoglobin 30.8 PG (26-34); Mean Corpuscular Volume 92.1 fL (80-100); Monocytes Absolute Auto 400 /uL (0-900); Monocytes Percent Auto 8.4 % (3-14); Neutrophils Absolute Auto 3100 /uL (1500-7000); Neutrophils Percent Auto 60.8 % (50-75); Platelet Count 171 X10^3/uL (150-400); Red Blood Cell Count 3.17 X10^6/uL (4.0-5.2); Red Cell Distribution Width 15.3 % (11.6-14.8); White Blood Cell Count 5.1 X10^3/uL (4.5-11.0)
[2022-01-17 12:14] LABS: Alanine Aminotransferase 13 IU/L (<35); Albumin 3.4 g/dL (3.5-5.0); Albumin Globulin Ratio 1.3 (1.0-2.8); Alkaline Phosphatase 77 U/L (38-126); Aspartate Aminotransferase 24 IU/L (14-36); BUN Creatinine Ratio 26.3 (6-22); Bilirubin Total 0.4 mg/dL (0.2-1.3); Blood Urea Nitrogen 15 mg/dL (7-17); Calcium 8.9 mg/dL (8.4-10.2); Carbon Dioxide 35 mmol/L (22-32); Chloride 102 mmol/L (98-107); Estimated Glomerular Filt Rate > 60.0 mL/min (>60); Globulin 2.6 g/dL (1.7-4.1); Glucose 98 mg/dL (80-110); HEMOLYSIS < 15 (0-50); Potassium 3.9 mmol/L (3.4-5.1); Sodium 137 mmol/L (137-145)
[2022-01-17 12:22] LABS: Prealbumin 12.8 mg/dL (17.6-36.0)
[2022-01-17] MEDS: ACETAMINOPHEN 325 MG TABLET 650 MG PO (12:53)
--- NOTE | 2022-01-17 12:54 | SUR.PHASEII ---
Pt sitting on side of bed eating cookies and drinking water, pt c/o pain rated 7/10, but stated It is not bad, its like a 7. pt medicated with Tylenol
--- NOTE | 2022-01-17 13:37 | SUR.PHASEII ---
1315-home care instructions completed with patient and copies of paperwork with patient. 13[facility] awaiting call back. 1335-Dis[facility] with [facility] and [facility] 1340-report to Mariama from [facility] done by phone.
== END 2022-01-17 13:35 | disposition home or self-care (01) ==
PROVIDERS: Family Provider Family Medicine; PCP Family Medicine; Referring Provider Surgery; Visit Provider Surgery
PROC: (CPT 11042; principal; 2022-01-17 10:45)
DX: S61.402A Unspecified open wound of left hand, initial encounter (principal); Z87.891 Personal history of nicotine dependence
CPT/HCPCS: 11042; 80053; 84134; 85025; J2405; J2704; J3010

== ENCOUNTER → 2022-01-20 14:27 | Outpatient (CLI) | payer MEDICARE, MEDICAID, SELFPAY ==
[2021-12-22 15:03] VITALS: BMI 19.6
== END ==
PROVIDERS: Family Provider Family Medicine; PCP Family Medicine; Referring Provider Family Medicine; Visit Provider Family Medicine
DX: L89.893 Pressure ulcer of other site, stage 3 (principal); L92.8 Other granulomatous disorders of the skin and subcutaneous tissue; E46 Unspecified protein-calorie malnutrition; R77.0 Abnormality of albumin; Z60.8 Other problems related to social environment
CPT/HCPCS: 11042; 99213

== ENCOUNTER 2022-01-25 15:25 | Emergency (ER) | payer MEDICARE, MEDICAID, SELFPAY ==
[2021-12-22 15:03] VITALS: BMI 19.6
[2022-01-25 15:32] VITALS: BP 204/87; PULSE 68; RESP 20; TEMP 36.8; O2SAT 97
--- NOTE | 2022-01-25 15:41 | DI.US.S_ITS ---
PROCEDURE: US PERIPH VENOUS LOW EXTREM LT INDICATIONS: PAIN/SWELLING TECHNIQUE: Real-time imaging, as well as color and pulse Doppler interrogation, were performed of the lower extremity deep veins from the inguinal ligament to the popliteal fossa. COMPARISON: None. FINDINGS: The common femoral, femoral and popliteal veins are normally compressible, and free of intraluminal thrombus. Color and pulse Doppler demonstrate normal phasic intraluminal flow. There is normal augmentation response to distal compression maneuver. A prominent left groin lymph node can be seen. IMPRESSION: Negative for deep venous thrombosis. Note: Concordant preliminary findings given by the industrial maintenance mechanic upon the completion of the examination to Dr. Bravo at 4:10 p.m. on January 25, 2022. Dictated by: Malick Marino M.D. on 01/25/2022 at 15:27 Approved by: Malick Marino M.D. on 01/25/2022 at 15:27
--- NOTE | 2022-01-25 16:50 | DI.RAD.S_ITS ---
PROCEDURE: XR TIBIA FIBULA LT 2V INDICATIONS: pain and swelling TECHNIQUE: 2 views of the tibia and fibula were acquired. COMPARISON: [facility], CR, TIB/FIB 2V LEFT, 05/28/2010, 17:06. FINDINGS: Bones: Right knee arthroplasty components and medial compression plate and multiple screws in the distal tibia. Diffuse demineralization. No acute fractures. Soft tissues: No suspicious soft tissue calcifications or masses. IMPRESSION: 1. No acute fracture or dislocation. 2. Stable proximal and distal hardware in expected location. Dictated by: Kathy Alberts M.D. on 01/25/2022 at 18:49 Approved by: Kathy Alberts M.D. on 01/25/2022 at 18:51
--- NOTE | 2022-01-25 16:51 | ED.EXTPRO ---
HPI - Extremity Problem <Juan Gabriel PA-C - Last Filed: 01/25/22 19:20> General Chief complaint: Extremity Problem,Nontraumatic Stated complaint: LEFT LEG SWELLING Time Seen by Provider: 01/25/22 16:45 Source: patient Mode of arrival: Ambulatory History of Present Illness HPI Narrative: Patient is a 66-year-old female who presents to the ED with left lower leg swelling that started approximately 1 week ago. She had concerns of a possible blood clot and presents today for evaluation. She denies any fever no recent trauma or fall reported. She had a total knee arthroplasty done with revision 3 years ago on the left knee. She also had a previous fracture of left tibia that has hardware in place from a few years back. She does have osteoporosis and is on a preventative medication. She does have pain with palpation and pain with ambulation and movement of the left leg. Related Data Home Medications Medication Instructions Recorded Confirmed aspirin 81 mg tablet,delayed 81 mg PO QPM 04/29/19 01/17/22 release carisoprodol 350 mg tablet 350 mg PO QID PRN 04/29/19 01/17/22 lamotrigine 200 mg tablet 200 mg PO BID 04/29/19 01/17/22 lamotrigine 25 mg tablet 50 mg PO BID 04/29/19 01/17/22 lisinopril 40 mg tablet 40 mg PO DAILY 04/29/19 01/17/22 multivit with 1 tab PO DAILY #0 04/29/19 01/17/22 nxqiesxi-ahql-GZ-lutein 8 mg iron-400 mcg-300 mcg tablet (Centrum Silver Women) TS-jzybroenqydxh-JN oral liquid ea PO 01/05/22 01/05/22 famotidine 20 mg tablet (Pepcid) 20 mg PO DAILY 01/05/22 01/17/22 gabapentin 300 mg capsule 300 mg PO BID cap 01/05/22 01/17/22 zinc gluconate 100 mg tablet 100 mg PO DAILY 01/05/22 01/17/22 Previous Rx's Medication Instructions Recorded clonidine HCl 0.1 mg tablet 0.1 mg PO BEDTIME #0 tab 11/27/21 methadone 10 mg tablet 10 mg PO TID #30 tab 11/30/21 oxycodone-acetaminophen 5 mg-325 1 tab PO Q6H PRN #30 tab 11/30/21 mg tablet (Percocet) temazepam 15 mg capsule 15 mg PO BEDTIME PRN #30 cap 11/30/21 Allergies Allergy/AdvReac Type Severity Reaction Status Date / Time carbamazepine Allergy Unknown Verified 01/25/22 17:52 Sulfa (Sulfonamide Allergy Unknown very Verified 01/25/22 17:52 Antibiotics) sick, hospitalized Kidjtor-BLO-FcK Reductase AdvReac Mild extreme Verified 01/25/22 17:52 Inhibitor pain [Miynjuv-Sde-Giy Reductase Inhibitor] baclofen AdvReac Unknown felt like Verified 01/25/22 17:52 I was going to have a seizure, nausea NSAIDS (Non-Steroidal AdvReac Unknown gi upset; Verified 01/25/22 17:52 Anti-Inflamma ibuprofen ok Review of Systems <Juan Gabriel PA-C - Last Filed: 01/25/22 19:20> Review of Systems ROS Unobtainable: All systems reviewed & are unremarkable except as noted in HPI and below Constitutional Constitutional: Denies chills, Denies fatigue, Denies fever(s), Denies frequent falls, Denies lethargy and Denies weakness Eyes Eyes: Denies change in vision, Denies eye discharge, Denies irritation and Denies loss of vision ENT Ears, Nose, Mouth, and Throat: Denies change in voice, Denies dizziness, Denies neck pain, Denies sore throat and Denies throat swelling Cardiovascular Cardiovascular: Denies chest pain, Denies irregular heart rhythm, Denies lightheadedness, Denies palpitations, Denies dyspnea, Denies dyspnea on exertion and Denies orthopnea Respiratory Respiratory: Denies cough, Denies dyspnea, Denies dyspnea on exertion and Denies wheezing Gastrointestinal Gastrointestinal: Denies abdominal pain, Denies change in bowel habits, Denies diarrhea, Denies nausea and Denies vomiting Genitourinary Genitourinary: Denies hematuria, Denies flank pain, Denies urinary incontinence and Denies urinary urgency Musculoskeletal Musculoskeletal: Reports arthralgias, Denies back pain, Reports joint swelling, Denies muscle weakness, Denies neck pain, Denies numbness and Denies tingling Integumentary/Breasts Skin/Breast: Denies pruritus, Denies erythema, Denies rash and Denies wounds Neurologic Neurologic: Denies behavioral changes, Denies confusion, Denies dizziness, Denies frequent falls, Denies loss of vision, Denies numbness, Denies tingling and Denies weakness Psychiatric Psychiatric: Denies anxiety, Denies behavioral changes, Denies confusion, Denies depression, Denies homicidal ideation and Denies suicidal ideation Endocrine Endocrine: Denies fatigue, Denies flushing and Denies palpitations Hematologic/Lymphatic Hematologic/Lymphatic: Denies easy bruising Allergic/Immunologic Allergic/Immunologic: Denies urticaria, Denies throat swelling and Denies wheezing Patient History <Juan Gabriel PA-C - Last Filed: 01/25/22 19:20> Medical History Anxiety Depression Hepatitis History of ETOH abuse Hypercholesteremia Hypertension Methadone use Seizures TIA (transient ischemic attack) Surgical History History of carpal tunnel surgery of left wrist (2014) History of hip surgery History of surgery (11/25/21) History of surgery (11/29/21) Hx of hernia repair Hx of left knee surgery (2010) Hx of tonsillectomy Social History household members: other Smoking Status: Former smoker alcohol intake: former Smoking Status: Former smoker alcohol intake frequency: holidays/special occasions only Substance Use Type: tranquilizers and opiates Exam <Juan Gabriel PA-C - Last Filed: 01/25/22 19:20> Initial Vital Signs Initial Vital Signs: Vital Signs Temperature 98.2 F 01/25/22 15:32 Pulse Rate 68 01/25/22 15:32 Respiratory Rate 20 01/25/22 15:32 Blood Pressure 204/87 H 01/25/22 15:32 Pulse Oximetry 97 01/25/22 15:32 Const General: cooperative, healthy appearing, comfortable and well developed [facility] Head: normal to inspection and normocephalic Ears: hearing grossly normal bilaterally and external ears normal Nose: external nose normal and nares normal Face and sinus: normal facial exam Resp Effort & Inspection: normal respiratory effort and able to speak in complete sentences Auscultation: clear to auscultation bilaterally Extrem Left lower extremity: edema Details: pitting and 1+ and lower leg Details: tenderness and localized swelling <DO Sameera Hilliard Last Filed: 01/26/22 01:39> Initial Vital Signs Initial Vital Signs: Vital Signs Temperature 98.2 F 01/25/22 15:32 Pulse Rate 68 01/25/22 15:32 Respiratory Rate 20 01/25/22 15:32 Blood Pressure 204/87 H 01/25/22 15:32 Pulse Oximetry 97 01/25/22 15:32 Course <Juan Gabriel PA-C - Last Filed: 01/25/22 19:20> Orders Ordered: ED Orders 01/25/22 16:50 XR tibia fibula LT 2V Stat Vital Signs Vital signs: Vital Signs - 8 hr 01/25/22 17:44 Pulse Rate 72 Blood Pressure 165/77 H Pulse Oximetry 96 <Megan Wallace DO - Last Filed: 01/26/22 01:39> Orders Ordered: ED Orders 01/25/22 16:50 XR tibia fibula LT 2V Stat Vital Signs Vital signs: Vital Signs - 8 hr 01/25/22 17:44 Pulse Rate 72 Blood Pressure 165/77 H Pulse Oximetry 96 MDM - Extremity (Nontraumatic) <LAKISHA Wade Last Filed: 01/25/22 19:20> Differential Diagnosis Differential diagnosis: Likely lower extremity edema Imaging Data Extremity x-ray #1: Radiologist's Impression: PROCEDURE:? XR TIBIA FIBULA LT 2V ? INDICATIONS:? pain and swelling ? TECHNIQUE:? 2 views of the tibia and fibula were acquired.? ? COMPARISON:? [facility], , TIB/FIB 2V LEFT, 05/28/2010, 17:06. ? FINDINGS:? ? Bones:? Right knee arthroplasty components and medial compression plate and multiple screws in the distal tibia.? Diffuse demineralization.? No acute fractures. ? Soft tissues:? No suspicious soft tissue calcifications or masses.? ? IMPRESSION:? ? 1. No acute fracture or dislocation. ? 2. Stable proximal and distal hardware in expected location.? ? ? Dictated by: Kathy Alberts M.D. on 01/25/2022 at 18:49 ? ? Approved by: Kathy Alberts M.D. on 01/25/2022 at 18:51?? US - DVT: Radiologist's Impression: PROCEDURE:? US PERIPH VENOUS LOW EXTREM LT ? INDICATIONS:? PAIN/SWELLING ? TECHNIQUE:? Real-time imaging, as well as color and pulse Doppler interrogation, were performed of the lower extremity deep veins from the inguinal ligament to the popliteal fossa.? ? COMPARISON:? None. ? FINDINGS:? The common femoral, femoral and popliteal veins are normally compressible, and free of intraluminal thrombus.? Color and pulse Doppler demonstrate normal phasic intraluminal flow.? There is normal augmentation response to distal compression maneuver. ? ? A prominent left groin lymph node can be seen. ? ? IMPRESSION:? ? Negative for deep venous thrombosis. ? Note: Concordant preliminary findings given by the hydro plant operator upon the completion of the examination to Dr. Bravo at 4:10 p.m. on January 25, 2022. ? ? ? Dictated by: Malick Marino M.D. on 01/25/2022 at 15:27 ? ? Approved by: Malick Marino M.D. on 01/25/2022 at 15:27?? MDM Narrative Medical decision making narrative: Patient was evaluated today for left lower extremity swelling that she noticed over the past few days. She is a [facility] [place] [facility] she denies any significant amounts of pain. She does have pain with ambulation and has difficulty with walking. Swelling is only on the left leg extending from the ankle up mid calf. Ultrasound shows no evidence of DVT x-ray of the tib-fib shows no hardware lucency or movement. I think likely her swelling as a result of the hardware being placed and she could consider having it removed if it continues to give her problems. She should follow up with landscaping specialist if the swelling and pain continues or she can return to the emergency room. She will be discharged home with an order for compression stockings and L elevation of the left foot. Discharge Plan Departure Patient Disposition: Home Clinical Impression: Lower extremity edema Instructions: Edema Activity Restrictions/Additional Instructions: The swelling in her left leg is not from a blood clot in your x-ray does not show any instability new hardware from her previous fracture. I would recommend compression stockings for the left leg and foot elevation to help decrease the swelling if the pain and swelling continues you should consider following up with an technical customer support specialist to have the hardware evaluated. He may return to the emergency room if you have any worsening symptoms or any further concerns. Prescriptions: No Action gabapentin 300 mg capsule 300 mg PO BID 0RF zinc gluconate 100 mg tablet 100 mg PO DAILY 0RF famotidine [Pepcid] 20 mg tablet 20 mg PO DAILY 0RF QE-kayjejjyoavss-XH Liquid PO 0RF clonidine HCl 0.1 mg Tablet 0.1 mg PO BEDTIME Qty: 0 0RF methadone 10 mg Tablet 10 mg PO TID Qty: 30 0RF temazepam 15 mg Capsule 15 mg PO BEDTIME PRN (Reason: Sleep) Qty: 30 0RF oxycodone-acetaminophen [Percocet] 5-325 mg tablet 1 tab PO Q6H PRN (Reason: pain) Qty: 30 0RF carisoprodol 350 mg tablet 350 mg PO QID PRN (Reason: Pain (Scale Score 4-6)) 0RF lamotrigine 200 mg tablet 200 mg PO BID 0RF lamotrigine 25 mg tablet 50 mg PO BID 0RF lisinopril 40 mg tablet 40 mg PO DAILY 0RF aspirin 81 mg Tablet,Delayed Release (Dr/Ec) 81 mg PO QPM 0RF Centrum Silver Women 8 mg iron-400 mcg-300 mcg Tablet 1 tab PO DAILY Qty: 0 0RF Referrals: Viktor Alvarez MD [Primary Care Provider] - <Megan Wallace DO - Last Filed: 01/26/22 01:39> Cosign ED Attending Cosignature Attestation: I was immediately available in the department for consultation. Documentation has been reviewed.
[2022-01-25 17:44] VITALS: BP 165/77; PULSE 72; O2SAT 96
== END 2022-01-25 19:44 | disposition home or self-care (01) ==
PROVIDERS: Emergency Provider Physician Assistant; Family Provider Family Medicine; PCP Family Medicine
DX: R60.0 Localized edema (principal)
CPT/HCPCS: 73590; 93971; 99281; 99283

== ENCOUNTER → 2022-01-26 10:29 | Outpatient (CLI) | payer MEDICARE, MEDICAID, SELFPAY ==
[2021-12-22 15:03] VITALS: BMI 19.6
== END ==
PROVIDERS: Family Provider Family Medicine; PCP Family Medicine; Referring Provider Family Medicine; Visit Provider Family Medicine
DX: L89.893 Pressure ulcer of other site, stage 3 (principal); E46 Unspecified protein-calorie malnutrition; R77.0 Abnormality of albumin; Z60.8 Other problems related to social environment; Z72.0 Tobacco use
CPT/HCPCS: 97597

== ENCOUNTER → 2022-02-02 10:10 | Outpatient (CLI) | payer MEDICARE, MEDICAID, SELFPAY ==
[2021-12-22 15:03] VITALS: BMI 19.6
[2022-02-02 12:38] LABS: Add Manual Diff / Slide Review NO; Basophils Absolute Auto 0 /uL (0-100); Basophils Percent Auto 0.4 % (0-2); Eosinophils Absolute Auto 800 /uL (0-450); Eosinophils Percent Auto 9.8 % (2-4); Hematocrit 30.7 % (36-46); Hemoglobin 10.5 g/dL (12.0-16.0); Lymphocytes Absolute Auto 1600 /uL (1100-4500); Lymphocytes Percent Auto 20.2 % (25-40); Mean Corpuscular HGB Conc 34.1 % (30-36); Mean Corpuscular Hemoglobin 30.7 PG (26-34); Mean Corpuscular Volume 90.1 fL (80-100); Monocytes Absolute Auto 500 /uL (0-900); Neutrophils Absolute Auto 5000 /uL (1500-7000); Neutrophils Percent Auto 63.6 % (50-75); Platelet Count 342 X10^3/uL (150-400); Red Blood Cell Count 3.41 X10^6/uL (4.0-5.2); White Blood Cell Count 7.9 X10^3/uL (4.5-11.0)
[2022-02-02 12:52] LABS: Alanine Aminotransferase 15 IU/L (<35); Albumin Globulin Ratio 1.5 (1.0-2.8); Alkaline Phosphatase 88 U/L (38-126); Aspartate Aminotransferase 27 IU/L (14-36); BUN Creatinine Ratio 27.3 (6-22); Bilirubin Total 0.2 mg/dL (0.2-1.3); Blood Urea Nitrogen 18 mg/dL (7-17); Calcium 9.5 mg/dL (8.4-10.2); Carbon Dioxide 30 mmol/L (22-32); Chloride 102 mmol/L (98-107); Estimated Glomerular Filt Rate > 60.0 mL/min (>60); Globulin 2.7 g/dL (1.7-4.1); Glucose 113 mg/dL (80-110); HEMOLYSIS < 15 (0-50); Potassium 4.5 mmol/L (3.4-5.1); Sodium 138 mmol/L (137-145); Total Protein 6.7 g/dL (6.3-8.2)
[2022-02-02 12:59] LABS: Prealbumin 17.5 mg/dL (17.6-36.0)
== END ==
PROVIDERS: Family Provider Family Medicine; PCP Family Medicine; Referring Provider Surgery; Visit Provider Surgery
DX: S61.402A Unspecified open wound of left hand, initial encounter (principal)
CPT/HCPCS: 36415; 80053; 84134; 85025

== ENCOUNTER → 2022-02-02 11:53 | Outpatient (CLI) | payer MEDICARE, MEDICAID, SELFPAY ==
[2021-12-22 15:03] VITALS: BMI 19.6
== END ==
PROVIDERS: Family Provider Family Medicine; PCP Family Medicine; Referring Provider Family Medicine; Visit Provider Family Medicine
DX: S61.402D Unspecified open wound of left hand, subsequent encounter (principal); S61.402A Unspecified open wound of left hand, initial encounter; L89.893 Pressure ulcer of other site, stage 3; E46 Unspecified protein-calorie malnutrition; R77.0 Abnormality of albumin; Z60.8 Other problems related to social environment; Z72.0 Tobacco use
CPT/HCPCS: 36415; 80053; 84134; 85025; 99213

== ENCOUNTER → 2022-02-09 14:31 | Outpatient (CLI) | payer MEDICARE, MEDICAID, SELFPAY ==
[2021-12-22 15:03] VITALS: BMI 19.6
== END ==
PROVIDERS: Family Provider Family Medicine; PCP Family Medicine; Referring Provider Family Medicine; Visit Provider Family Medicine
DX: L89.893 Pressure ulcer of other site, stage 3 (principal)
CPT/HCPCS: 99213

== ENCOUNTER → 2022-02-14 09:32 | Outpatient (CLI) | payer MEDICARE, MEDICAID, SELFPAY ==
[2021-12-22 15:03] VITALS: BMI 19.6
[2022-02-14 14:10] LABS: COVID19 -Nasal RAPID Negative (Negative)
== END ==
PROVIDERS: Family Provider Family Medicine; PCP Family Medicine; Visit Provider Surgery
DX: Z01.812 Encounter for preprocedural laboratory examination (principal); Z20.822 Contact with and (suspected) exposure to COVID-19
CPT/HCPCS: 87635; C9803

== ENCOUNTER 2022-02-15 06:26 | Day surgery (SDC) | payer MEDICARE, MEDICAID, SELFPAY ==
[2021-12-22 15:03] VITALS: BMI 19.6
[2022-02-15] MEDS: ACETAMINOPHEN 325 MG TABLET 650 MG PO (07:20)
[2022-02-15] MEDS: LACTATED RINGERS 1,000 ML 42 ML IV (07:20)
[2022-02-15 07:22] VITALS: BP 131/79; PULSE 63; RESP 18; TEMP 36.7; O2SAT 97; BMI 19.1
--- NOTE | 2022-02-15 07:38 | SUR.PREOP ---
Pt earrings in Med Cup in right inside pocket of coat
--- NOTE | 2022-02-15 07:47 | PM.PREOP ---
Pre-operative Note COVID-19 COVID-19 status: Negative Result date/Date tested (Pos, Neg/Pending): 02/14/22 Interval Note History & Physical reviewed/Exam performed by Physician: Yes Changes to H&P: No ASA Class (for procedural sedation): III
[2022-02-15] MEDS: CEFAZOLIN 2 GM/20 ML SYRINGE IV (08:18)
--- NOTE | 2022-02-15 08:27 | SUR.OPER ---
Supine on padded OR bed, head on pillow, right arm secured on padded arm board at <90 degrees abduction, left arm draped into field on arm table. Legs uncrossed, safety belt at thigh, tape over blanket over lower legs. Directed and approved by surgeon MD Perez
[2022-02-15] MEDS: LIDOCAINE 1% W/EPI 20 ML INJ (08:32)
[2022-02-15 09:33] VITALS: BP 154/80; PULSE 74; RESP 15; TEMP 36.9; O2SAT 90
--- NOTE | 2022-02-15 09:33 | P.OP_ITS ---
Operative Date/Time/Diagnoses Date of procedure: 02/15/22 Time of procedure: 09:33 Pre-op diagnosis: Left hand chronic wound Post-op diagnosis: same Procedure & Clinicians Procedure: Full-thickness skin graft of left and chronic wound Same procedure as scheduled: Yes Surgeon: Aakash Perez Anesthesia Type: General Operative Notes Procedure in detail: The patient received Ancef. The patient was brought to the operating room, placed on the table in the supine position and general anesthesia was induced via LMA. The left arm was placed in the left arm board. The old bandages were removed. The left arm was prepped to the elbow and the left lower quadrant of the abdomen was prepped all with Betadine. The patient was then draped with an extremity drape and half sheet. A time-out was performed. Lidocaine with epinephrine was injected into the skin and subcutaneous adipose tissue of the left lower quadrant of the abdomen and proximal to the left hand wound to create a field block. The hand wound was very clean with good healthy granulation tissue throughout the wound bed. The edges the wound showed thin friable new skin that was not very robust. Therefore, the margin of the wound was trimmed with a 15 blade scalpel to get the wound back to healthy tissue. The size of the wound after debridement was approximately 2.5 cm x 2.5 cm. Next, a 6 cm by 2.5 cm ellipse of skin was excised from the left lower quadrant of the abdomen taking care not to include any subcutaneous adipose tissue. The graft was tucked in a damp Ray-Marline and abdominal wound was closed in layers using interrupted 3-0 Vicryl dermal sutures and a running 4-0 Monocryl subcuti cular closure. Next, the dermis of the skin graft was thinned out using iris scissors and perforations were created using an 11 blade scalpel. Graft was then sutured to the wound bed using 3-0 chromic sutures. Xeroform gauze was trimmed and placed over the graft. A bolster was created using a dry scrub sponge and the chromic ties were tied over the bolster. The extremity was then wrapped loosely with Coban dressing and a splint was applied. Steri-Strips and Telfa were applied over the left lower quadrant donor site. The patient was awakened and brought to recovery room. EBL: 10 mL Post-operative Condition: stable Disposition: PACU
[2022-02-15 09:38] VITALS: BP 162/84; PULSE 72; RESP 10; O2SAT 99
[2022-02-15 09:43] VITALS: PULSE 65; RESP 15; O2SAT 97
[2022-02-15 09:53] VITALS: BP 155/76; BP 156/93; PULSE 69; PULSE 71; RESP 12; TEMP 36.9; TEMP 37.1; O2SAT 97
[2022-02-15 10:04] VITALS: BP 154/66; PULSE 77; RESP 14; TEMP 36.8; O2SAT 96
--- NOTE | 2022-02-15 10:40 | SUR.PHASEII ---
Helped pt to BR and then got dressed. Earrings replaced in ears and glasses on face. Instructions gone over, ride called, will be here at 1100.
== END 2022-02-15 11:01 | disposition home or self-care (01) ==
PROVIDERS: Family Provider Family Medicine; PCP Family Medicine; Referring Provider Surgery; Visit Provider Surgery
PROC: (CPT 15240; principal; 2022-02-15 07:45)
DX: S61.402A Unspecified open wound of left hand, initial encounter (principal); D64.9 Anemia, unspecified; I10 Essential (primary) hypertension; F32.9 Major depressive disorder, single episode, unspecified; F41.9 Anxiety disorder, unspecified
CPT/HCPCS: 15240; 15004; J0690; J2250; J2405; J2704; J3010

== ENCOUNTER 2022-06-16 19:21 | Emergency (ER) | payer MEDICARE, MEDICAID, SELFPAY ==
[2022-02-25 11:54] VITALS: BMI 19.6
[2022-06-16 19:59] VITALS: BP 197/86; PULSE 68; RESP 16; TEMP 36.3; O2SAT 98; BMI 21.4
--- NOTE | 2022-06-16 20:03 | DI.RAD.S_ITS ---
PROCEDURE: XR SHOULDER RT MIN 2V INDICATIONS: pain TECHNIQUE: 3 views of the shoulder were acquired. COMPARISON: None. FINDINGS: Bones: No fractures or dislocations. No suspicious bony lesions. Visualized ribs appear intact. Soft tissues: No suspicious soft tissue calcifications. IMPRESSION: 1. No fracture or dislocation. Dictated by: Kamran Pozo M.D. on 06/16/2022 at 20:33 Approved by: Kamran Pozo M.D. on 06/16/2022 at 20:44
--- NOTE | 2022-06-16 22:15 | ED.UPPEXIN ---
HPI - Extremity Injury (Upper) General Chief Complaint: Extremity Injury, Upper Stated Complaint: Thinks shoulder out Time Seen by Provider: 06/16/22 22:10 Source: patient Mode of arrival: Wheelchair History of Present Illness HPI narrative: 66-year-old female former smoker with history of chronic pain presents for evaluation of right shoulder pain and concern for dislocation. Patient states that she was walking out of the bathroom pushing the door knob to open the door when she felt a pop and significant pain in her shoulder. She has increased pain with range of motion and improvement with rest. She denies any numbness, tingling weakness. She has no elbow or wrist pain. She has no chest pain or shortness of breath. She had taken her home pain medications including methadone and Soma prior to her arrival and is feeling much better now. Related Data Home Medications Medication Instructions Recorded Confirmed aspirin 81 mg tablet,delayed 81 mg PO QPM 04/29/19 03/04/22 release carisoprodol 350 mg tablet 350 mg PO QID PRN Pain (Scale 04/29/19 03/04/22 Score 4-6) lamotrigine 200 mg tablet 200 mg PO BID 04/29/19 03/04/22 lamotrigine 25 mg tablet 50 mg PO BID 04/29/19 03/04/22 lisinopril 40 mg tablet 40 mg PO DAILY 04/29/19 03/04/22 multivit with 1 tab PO DAILY ##0 04/29/19 03/04/22 diqdlidb-xixr-RG-lutein 8 mg iron-400 mcg-300 mcg tablet (Centrum Silver Women) ZJ-ptzawyrbdpmom-RB oral liquid ea PO 01/05/22 03/04/22 famotidine 20 mg tablet (Pepcid) 20 mg PO DAILY 01/05/22 03/04/22 gabapentin 300 mg capsule 300 mg PO BID 01/05/22 03/04/22 zinc gluconate 100 mg tablet 100 mg PO DAILY 01/05/22 03/04/22 Previous Rx's Medication Instructions Recorded clonidine HCl 0.1 mg tablet 0.1 mg PO BEDTIME #0 tabs 11/27/21 methadone 10 mg tablet 10 mg PO TID #30 tabs 11/30/21 oxycodone-acetaminophen 5 mg-325 1 tab PO Q6H PRN pain #30 tabs 01/18/22 mg tablet (Percocet) temazepam 15 mg capsule 15 mg PO BEDTIME PRN Sleep #30 caps 11/30/21 oxycodone-acetaminophen 5 mg-325 1 tab PO Q6H PRN pain #10 tabs 02/15/22 mg tablet Allergies Allergy/AdvReac Type Severity Reaction Status Date / Time carbamazepine Allergy Unknown Verified 06/16/22 20:03 Sulfa (Sulfonamide Allergy Unknown very Verified 06/16/22 20:03 Antibiotics) sick, hospitalized Glyzpcv-HZI-KgR Reductase AdvReac Mild extreme Verified 06/16/22 20:03 Inhibitor pain [Nrnnoou-Dnv-Ymh Reductase Inhibitor] baclofen AdvReac Unknown felt like Verified 06/16/22 20:03 I was going to have a seizure, nausea NSAIDS (Non-Steroidal AdvReac Unknown gi upset; Verified 06/16/22 20:03 Anti-Inflamma ibuprofen ok Review of Systems Review of Systems Narrative: GENERAL: Denies chills, fatigue, malaise, fever, sweats. HEENT: Denies sinus pain, ear pain, sore throat, difficulty swallowing, dizziness. RESPIRATORY: Denies dyspnea, cough, wheezing, hemoptysis, sputum. CARDIOVASCULAR: Denies chest pain, palpitations, orthopnea, edema, GASTROINTESTINAL: Denies nausea, vomiting, abdominal pain, diarrhea, constipation, melena. : Denies dysuria, frequency, incontinence, hematuria, urinary retention. MUSCULOSKELETAL: See HPI SKIN: Denies rash, skin lesions, or other NEUROLOGIC: Denies weakness, headache, numbness, change in speech, confusion, seizures, incoordination. PSYCHIATRIC: No concerning psychosocial issues. 12 point review of systems is negative except for those stated above Patient History Medical History Anxiety Depression Hepatitis History of ETOH abuse Hypercholesteremia Hypertension Methadone use Seizures TIA (transient ischemic attack) Surgical History History of carpal tunnel surgery of left wrist (2014) History of hip surgery History of surgery (11/25/21) History of surgery (11/29/21) History of surgery (01/17/22) Hx of hernia repair Hx of left knee surgery (2010) Hx of tonsillectomy Social History household members: other Smoking Status: Former smoker alcohol intake: former Smoking Status: Former smoker alcohol intake frequency: holidays/special occasions only Substance Use Type: tranquilizers and opiates Exam Narrative Exam Narrative: GEN: AOx3 and in mild distress EYES: Pupils are equal, round, and reactive to light and accommodation. Extraoccular muscles are intact bilaterally. There is no subconjunctival hemorrhage or exudate. CHEST: Lungs are clear to auscultation bilaterally and free of wheezes, rales, or rhonchi. Heart rate is regular rhythm, there are no murmurs, clicks, rubs, or gallops. There is no chest wall tenderness. ABD: Abdomen is soft and nontender. There is no guarding or rebound. Bowel sounds are normal in all 4 quadrants. There is no mass or organomegaly. EXT: Full painless ROM of all extremities with no loss of sensation or strength. No obvious deformity SKIN: Warm, pink, and dry. No erythema or rash Initial Vital Signs Initial Vital Signs: Vital Signs Temperature 97.4 F L 06/16/22 19:59 Pulse Rate 68 06/16/22 19:59 Respiratory Rate 16 06/16/22 19:59 Blood Pressure 197/86 H 06/16/22 19:59 Pulse Oximetry 98 06/16/22 19:59 Oxygen Delivery Method 06/16/22 19:59 Procedures Orthopedic Splinting/Casting Injury #1: Side: right Upper Extremity Injury Location: shoulder Upper Extremity Immobilizer: sling/shoulder immobilizer Course Orders Ordered: ED Orders 06/16/22 20:03 XR shoulder RT min 2V Stat Vital Signs Vital signs: Vital Signs - 8 hr 06/16/22 22:48 Pulse Rate 59 L Respiratory Rate 16 Blood Pressure 175/86 H Pulse Oximetry 97 Oxygen Delivery Method Room Air Discharge Plan Departure Patient Disposition: Home Clinical Impression: Acute shoulder pain Instructions: DI for Shoulder Sprain Activity Restrictions/Additional Instructions: *You have been diagnosed with [right shoulder pain. As we discussed your history and physical exam as well as x-ray are reassuring and there is no evidence of dislocation or fracture] *What to do: *Please continue to take your regular medications as directed. [ ] New medication prescriptions sent to your pharmacy: [ ] [ ] New medication written as a paper prescription [x ] No new medications given *Please follow up with your primary care provider in 2-3 days, call for an appointment. Let them know you were seen in the Emergency Department and that we ask that you be seen in follow up. We will electronically transmit a record of today's note if your PCP is in our system *If you do not have a primary care provider please contact the [facility] Resource line at [phone]. They will ask some questions about your medical history and help get you set up with a doctor in the community. *Return to Emergency Department if you should have any new, worsening or concerning symptoms, such as [fever greater than 101 F, shaking chills, worsening pain, persistent vomiting or other bothersome symptoms] Prescriptions: No Action gabapentin 300 mg capsule 300 mg PO BID zinc gluconate 100 mg tablet 100 mg PO DAILY famotidine [Pepcid] 20 mg tablet 20 mg PO DAILY DB-vbcchhdrkdivm-UF Liquid PO clonidine HCl 0.1 mg Tablet 0.1 mg PO BEDTIME Qty: 0 0RF methadone 10 mg Tablet 10 mg PO TID Qty: 30 0RF temazepam 15 mg Capsule 15 mg PO BEDTIME PRN (Reason: Sleep) Qty: 30 0RF oxycodone-acetaminophen [Percocet] 5-325 mg tablet 1 tab PO Q6H PRN (Reason: pain) Qty: 30 0RF oxycodone-acetaminophen 5-325 mg tablet 1 tab PO Q6H PRN (Reason: pain) Qty: 10 0RF carisoprodol 350 mg tablet 350 mg PO QID PRN (Reason: Pain (Scale Score 4-6)) lamotrigine 200 mg tablet 200 mg PO BID lamotrigine 25 mg tablet 50 mg PO BID lisinopril 40 mg tablet 40 mg PO DAILY aspirin 81 mg Tablet,Delayed Release (Dr/Ec) 81 mg PO QPM Centrum Silver Women 8 mg iron-400 mcg-300 mcg Tablet 1 tab PO DAILY Qty: 0 Referrals: Viktor Alvarez MD [Primary Care Provider] - Visit Report Forms: Patient Portal/API
[2022-06-16 22:48] VITALS: BP 175/86; PULSE 59; RESP 16; O2SAT 97
== END 2022-06-16 22:49 | disposition home or self-care (01) ==
PROVIDERS: Emergency Provider Emergency Medicine; Family Provider Family Medicine; PCP Family Medicine
DX: M25.511 Pain in right shoulder (principal)
CPT/HCPCS: 73030; 99282; 99283

== ENCOUNTER 2022-07-15 14:02 | Emergency (ER) | payer MEDICARE, MEDICAID, SELFPAY ==
[2022-02-25 11:54] VITALS: BMI 19.6
[2022-07-15 14:20] VITALS: BP 162/74; PULSE 81; RESP 18; TEMP 36.9; O2SAT 97; BMI 20.7
--- NOTE | 2022-07-15 14:24 | DI.RAD.S_ITS ---
PROCEDURE: XR FOOT RT MIN 3V INDICATIONS: dropped something on right foot, pain and swelling TECHNIQUE: 3 views of the foot were acquired. COMPARISON: [facility], , FOOT 3V RIGHT, 08/02/2012, 17:59. FINDINGS: Bones: There is a comminuted fracture of the distal aspect of the 5th metatarsal. No other fracture or dislocation. No suspicious bony lesions. Degenerative changes are present at the 1st MTP and the 3rd MTP joint. Soft tissues: No tibiotalar joint effusion. Achilles tendon appears normal. IMPRESSION: Comminuted displaced distal 5th metatarsal fracture. Dictated by: Joann Long M.D. on 07/15/2022 at 14:55 Approved by: Joann Long M.D. on 07/15/2022 at 14:57
--- NOTE | 2022-07-15 18:39 | ED.LOWEXIN ---
HPI - Extremity Injury (Lower) <Amari Perkins PA-C - Last Filed: 07/15/22 19:36> General Chief Complaint: Extremity Injury, Lower Stated Complaint: Poss broken foot- rt Time Seen by Provider: 07/15/22 15:48 Source: patient Mode of arrival: Wheelchair History of Present Illness HPI Narrative: Patient is a 66-year-old female who presents to the emergency room today with complaint pain and swelling to her right foot after dropping a NT cast iron magnesium rash under her right foot. States she did this earlier this morning. Denies any other concerns at this time other than pain. Related Data Home Medications Medication Instructions Recorded Confirmed aspirin 81 mg tablet,delayed 81 mg PO QPM 04/29/19 03/04/22 release carisoprodol 350 mg tablet 350 mg PO QID PRN Pain (Scale 04/29/19 03/04/22 Score 4-6) lamotrigine 200 mg tablet 200 mg PO BID 04/29/19 03/04/22 lamotrigine 25 mg tablet 50 mg PO BID 04/29/19 03/04/22 lisinopril 40 mg tablet 40 mg PO DAILY 04/29/19 03/04/22 multivit with 1 tab PO DAILY ##0 04/29/19 03/04/22 udlwuvxt-lors-ED-lutein 8 mg iron-400 mcg-300 mcg tablet (Centrum Silver Women) ZC-twdidramuxmkh-AV oral liquid ea PO 01/05/22 03/04/22 famotidine 20 mg tablet (Pepcid) 20 mg PO DAILY 01/05/22 03/04/22 gabapentin 300 mg capsule 300 mg PO BID 01/05/22 03/04/22 zinc gluconate 100 mg tablet 100 mg PO DAILY 01/05/22 03/04/22 Previous Rx's Medication Instructions Recorded clonidine HCl 0.1 mg tablet 0.1 mg PO BEDTIME #0 tabs 11/27/21 methadone 10 mg tablet 10 mg PO TID #30 tabs 11/30/21 oxycodone-acetaminophen 5 mg-325 1 tab PO Q6H PRN pain #30 tabs 11/30/21 mg tablet (Percocet) temazepam 15 mg capsule 15 mg PO BEDTIME PRN Sleep #30 caps 11/30/21 oxycodone-acetaminophen 5 mg-325 1 tab PO Q6H PRN pain #10 tabs 02/15/22 mg tablet oxycodone-acetaminophen 2.5 mg-325 1 tab PO Q8H PRN pain #10 tabs 07/15/22 mg tablet (Percocet) Allergies Allergy/AdvReac Type Severity Reaction Status Date / Time carbamazepine Allergy Unknown Verified 07/15/22 14:24 Sulfa (Sulfonamide Allergy Unknown very Verified 07/15/22 14:24 Antibiotics) sick, hospitalized Sjcdgaz-KDT-BkJ Reductase AdvReac Mild extreme Verified 07/15/22 14:24 Inhibitor pain [Pnhazxx-Rhc-Afj Reductase Inhibitor] baclofen AdvReac Unknown felt like Verified 07/15/22 14:24 I was going to have a seizure, nausea NSAIDS (Non-Steroidal AdvReac Unknown gi upset; Verified 07/15/22 14:24 Anti-Inflamma ibuprofen ok Review of Systems <Amari Perkins PA-C - Last Filed: 07/15/22 19:36> Review of Systems Narrative: R.O.S.: General: No fever, chills or fatigue. Cardiovascular: No chest pain or palpitations Respiratory: No S.O.B. HEENT: No congestion, ear pain, rhinorrhea, sore throat or tinnitus Gastrointestinal: No nausea or vomiting Skin: No rash or associated abnormalities Musculoskeletal: Pain and swelling to right foot. Neurological: Awake, alert and in not apparent distress. No Headaches, changes in vision or other related neurological concerns. Patient History <Amari Perkins PA-C - Last Filed: 07/15/22 19:36> Medical History Anxiety Depression Hepatitis History of ETOH abuse Hypercholesteremia Hypertension Methadone use Seizures TIA (transient ischemic attack) Surgical History History of carpal tunnel surgery of left wrist (2014) History of hip surgery History of surgery (11/25/21) History of surgery (11/29/21) History of surgery (01/17/22) Hx of hernia repair Hx of left knee surgery (2010) Hx of tonsillectomy Social History household members: other Smoking Status: Former smoker alcohol intake: former Smoking Status: Former smoker alcohol intake frequency: holidays/special occasions only Substance Use Type: tranquilizers and opiates Exam <Amari Perkins PA-C - Last Filed: 07/15/22 19:36> Narrative Exam Narrative: Physical Exam: ? General: normal appearance, well developed, well nourished, alert, and awake. Not in acute distress. ? Head: Normocephalic, no lesions. Chest: Lungs CTAB, no rales, rhonchi or wheezes. ?? Heart: RRR, no murmurs, rubs or gallops. Eyes: PERRLA, EOM's full, conjunctivae clear. ? Neuro: Physiological, no localizing findings, CN3-12 intact. ?? Extremities/musculoskeletal: Patient right foot has tenderness to palpation at the distal 5th metatarsal area. Foot also has swelling at the distal 5th metatarsal area. The foot also has intact sensation to touch and good capillary refill. ? Skin: Normal, no rashes, no lesions noted. ?? PSYCHIATRIC: The mood is good, no blunted affect. Speech is clear. Thought process is linear, thought content is appropriate. The voice is without significant inflection. Gastrointestinal: Soft; NT; ND; Pos BS with Neg. rebound tenderness. No scars or major deformities noted on Visual Inspection. Initial Vital Signs Initial Vital Signs: Vital Signs Temperature 98.5 F 07/15/22 14:20 Pulse Rate 81 07/15/22 14:20 Respiratory Rate 18 07/15/22 14:20 Blood Pressure 162/74 H 07/15/22 14:20 Pulse Oximetry 97 07/15/22 14:20 Oxygen Delivery Method 07/15/22 14:20 <Ron Wu DO - Last Filed: 07/16/22 13:29> Initial Vital Signs Initial Vital Signs: Vital Signs Temperature 98.5 F 07/15/22 14:20 Pulse Rate 81 07/15/22 14:20 Respiratory Rate 18 07/15/22 14:20 Blood Pressure 162/74 H 07/15/22 14:20 Pulse Oximetry 97 07/15/22 14:20 Oxygen Delivery Method 07/15/22 14:20 Course <Amari Perkins PA-C - Last Filed: 07/15/22 19:36> Orders Ordered: Discontinued Medications Oxycodone/Acetaminophen (Oxycodone/Acetaminophen 5/325 Tablet) 1 tab PO NOW ONE Stop: 07/15/22 18:46 Last Admin: 07/15/22 18:52 Dose: 1 tab Documented By: MILLA Vital Signs Vital signs: Vital Signs - 8 hr 07/15/22 14:20 Temperature 98.5 F Pulse Rate 81 Respiratory Rate 18 Blood Pressure 162/74 H Pulse Oximetry 97 Oxygen Delivery Method Room Air <Ron Wu DO - Last Filed: 07/16/22 13:29> Orders Ordered: Discontinued Medications Oxycodone/Acetaminophen (Oxycodone/Acetaminophen 5/325 Tablet) 1 tab PO NOW ONE Stop: 07/15/22 18:46 Last Admin: 07/15/22 18:52 Dose: 1 tab Documented By: MILLA Vital Signs Vital signs: Vital Signs - 8 hr 07/15/22 14:20 Temperature 98.5 F Pulse Rate 81 Respiratory Rate 18 Blood Pressure 162/74 H Pulse Oximetry 97 Oxygen Delivery Method Room Air MDM - Extremity Injury (Lower) <Amari Perkins PA-C - Last Filed: 07/15/22 19:36> Imaging Data Extremity x-ray #1: Radiologist's Impression: PROCEDURE:? XR FOOT RT MIN 3V ? INDICATIONS:? dropped something on right foot, pain and swelling ? TECHNIQUE:? 3 views of the foot were acquired.? ? COMPARISON:? [facility], , FOOT 3V RIGHT, 08/02/2012, 17:59. ? FINDINGS:? ? Bones:? There is a comminuted fracture of the distal aspect of the 5th metatarsal.? No other fracture or dislocation.? No suspicious bony lesions.? Degenerative changes are present at the 1st MTP and the 3rd MTP joint. Soft tissues:? No tibiotalar joint effusion.? Achilles tendon appears normal.? ? ? IMPRESSION:? Comminuted displaced distal 5th metatarsal fracture. ? ? Dictated by: Joann Long M.D. on 07/15/2022 at 14:55 ? ? Approved by: Joann Long M.D. on 07/15/2022 at 14:57 ? [facility] Narrative Medical decision making narrative: Patient is a 66-year-old female presents to the emergency room today with complaint of right foot pain after dropping a cast iron exam back onto her foot this morning. X-ray confirmed a 5th distal metatarsal fracture. Plan is to administer a Posterior short leg splint non weight bearing and have patient follow-up with ortho pediatrics next week. Patient given pain management and advised to contact her primary care provider with any nonemergent concerns. Patient advised to return to emergency room for any emergent concerns patient agrees with plan. Discharge Plan Departure Patient Disposition: Home Clinical Impression: Fracture of 5th metatarsal Instructions: DI for Foot Fracture Activity Restrictions/Additional Instructions: *You have been diagnosed with 5th metatarsal fracture of the right foot. X-rays confirm this and the nurse will be applying a splint to her right foot. I will suggest follow up with Dr. Calle at [facility] next week. Her phone number is [phone]. I suggest she return to the emergency room with any emergent concerns. [ ] *What to do: *Please continue to take your regular medications as directed. [ ] New medication prescriptions sent to your pharmacy: [ ] [x] New medication written as a paper prescription [ ] No new medications given *Please follow up with your primary care provider in 2-3 days, call for an appointment. Let them know you were seen in the Emergency Department and that we ask that you be seen in follow up. We will electronically transmit a record of today's note if your PCP is in our system *If you do not have a primary care provider please contact the [facility] Resource line at [phone]. They will ask some questions about your medical history and help get you set up with a doctor in the community. *Return to Emergency Department if you should have any new, worsening or concerning symptoms, such as [fever greater than 101 F, shaking chills, worsening pain, persistent vomiting or other bothersome symptoms] Prescriptions: New oxycodone-acetaminophen [Percocet] 2.5-325 mg tablet 1 tab PO Q8H PRN (Reason: pain) Qty: 10 0RF No Action gabapentin 300 mg capsule 300 mg PO BID zinc gluconate 100 mg tablet 100 mg PO DAILY famotidine [Pepcid] 20 mg tablet 20 mg PO DAILY HC-wceodggqvzfst-DT Liquid PO clonidine HCl 0.1 mg Tablet 0.1 mg PO BEDTIME Qty: 0 0RF methadone 10 mg Tablet 10 mg PO TID Qty: 30 0RF temazepam 15 mg Capsule 15 mg PO BEDTIME PRN (Reason: Sleep) Qty: 30 0RF oxycodone-acetaminophen [Percocet] 5-325 mg tablet 1 tab PO Q6H PRN (Reason: pain) Qty: 30 0RF oxycodone-acetaminophen 5-325 mg tablet 1 tab PO Q6H PRN (Reason: pain) Qty: 10 0RF carisoprodol 350 mg tablet 350 mg PO QID PRN (Reason: Pain (Scale Score 4-6)) lamotrigine 200 mg tablet 200 mg PO BID lamotrigine 25 mg tablet 50 mg PO BID lisinopril 40 mg tablet 40 mg PO DAILY aspirin 81 mg Tablet,Delayed Release (Dr/Ec) 81 mg PO QPM Centrum Silver Women 8 mg iron-400 mcg-300 mcg Tablet 1 tab PO DAILY Qty: 0 Referrals: Viktor Alvarez MD [Primary Care Provider] - Visit Report Forms: Patient Portal/API <Ron Wu, DO - Last Filed: 07/16/22 13:29> Cosign ED Attending Cosignature Attestation: Dr Wu Co-Sign Statement: I was available for consultation during this patient's emergency department visit. This chart is signed by myself for administrative purposes only. I did not have direct contact with this patient during this visit. They were seen independently by the APC.
[2022-07-15] MEDS: OXYCODONE/ACETAMINOPHEN 5/325 TABLET 1 TAB PO (18:52)
[2022-07-15 19:53] VITALS: BP 202/91; PULSE 54; O2SAT 96
== END 2022-07-15 19:54 | disposition home or self-care (01) ==
PROVIDERS: Emergency Provider Physician Assistant; Family Provider Family Medicine; PCP Family Medicine
DX: S92.351A Displaced fracture of fifth metatarsal bone, right foot, initial encounter for closed fracture (principal); W22.8XXA Striking against or struck by other objects, initial encounter
CPT/HCPCS: 29515; 73630; 99283; 99284

== ENCOUNTER → 2022-08-10 13:47 | Outpatient (CLI) | payer MEDICARE, MEDICAID, SELFPAY ==
[2022-02-25 11:54] VITALS: BMI 19.6
--- NOTE | 2022-08-10 | DI.MG.S_ITS ---
BILATERAL DIGITAL SCREENING MAMMOGRAM 3D/2D WITH CAD: 08/10/2022 CLINICAL: Routine screening. Comparison is made to exams dated: 09/29/2014 mammogram, 12/02/2010 mammogram, and 07/05/2009 mammogram - [facility]. There are scattered areas of fibroglandular density in both breasts (category b / 25%-50% glandular tissue). Current study was also evaluated with a Computer Aided Detection (CAD) system. There are benign calcifications in both breasts. There also are benign vascular calcifications in the left breast. No significant masses, calcifications, or other findings are seen in either breast. There has been no significant interval change. IMPRESSION: BENIGN There is no mammographic evidence of malignancy. A 1 year screening mammogram is recommended. Based on the Tyrer Cuzick model (a risk assessment model) the patient's lifetime risk is 4.8% and her 10 year risk is 2.5%. According to the ACR, ACS, and NCCN guidelines, an annual breast MRI exam along with mammogram is recommended if the patient's lifetime risk is 20% or greater. This exam was interpreted at Station ID: [id number]. NOTE: For mammograms, a report in lay terms will be sent to the patient. Approximately 15% of breast malignancies will not be visualized mammographically. In the management of a palpable breast mass, a negative mammogram must not discourage biopsy of a clinically suspicious lesion. Electronically Signed By: Daren snyder/ruby:08/10/2022 21:47:51 letter sent: Normal Exam ACR BI-RADS Category 2: Benign Finding(s) [id number]
== END ==
PROVIDERS: Family Provider Family Medicine; PCP Family Medicine; Referring Provider Family Medicine; Visit Provider Family Medicine
DX: Z12.31 Encounter for screening mammogram for malignant neoplasm of breast (principal); M81.0 Age-related osteoporosis without current pathological fracture; Z78.0 Asymptomatic menopausal state
CPT/HCPCS: 77063; 77067; 77080; 77081

== ENCOUNTER 2022-09-19 16:23 | Observation (INO) | payer MEDICARE, MEDICAID, SELFPAY ==
[2022-02-25 11:54] VITALS: BMI 19.6
[2022-09-19] VITALS (17 sets, daily range): BP systolic 132–188; BP diastolic 63–107; PULSE 60–95; RESP 13–23; TEMP 36.4–36.9; O2SAT 72–97; BMI 21.4
--- NOTE | 2022-09-19 16:53 | ED_ITS ---
HPI - General Adult General Chief complaint: Weakness Stated complaint: Thinks stroke Time Seen by Provider: 09/19/22 16:29 Source: patient Mode of arrival: Family Vehicle Limitations: no limitations History of Present Illness HPI narrative: 66-year-old female. Does have a history of epilepsy. Also other orthopedic injuries. States yesterday she woke up and noticed that her left arm/left hand was weak. She also thought that she was drooping on the left side of her face. She did not come in to be evaluated she thought that maybe her symptoms improve. This morning her symptoms have not improved so she decided to come in. No headache. No vision changes. No chest pain. No shortness of breath. No abdo scooby pain. No lower extremity neurologic symptoms. No new medications. She is taking all of her medications as directed. Related Data Home Medications Medication Instructions Recorded Confirmed aspirin 81 mg tablet,delayed 81 mg PO QPM 04/29/19 03/04/22 release carisoprodol 350 mg tablet 350 mg PO QID PRN Pain (Scale 04/29/19 03/04/22 Score 4-6) lamotrigine 200 mg tablet 200 mg PO BID 04/29/19 03/04/22 lamotrigine 25 mg tablet 50 mg PO BID 04/29/19 03/04/22 lisinopril 40 mg tablet 40 mg PO DAILY 04/29/19 03/04/22 multivit with 1 tab PO DAILY ##0 04/29/19 03/04/22 lztqxjrq-jnvx-JZ-lutein 8 mg iron-400 mcg-300 mcg tablet (Centrum Silver Women) QM-ypxzvcrdnxdpg-LD oral liquid ea PO 01/05/22 03/04/22 famotidine 20 mg tablet (Pepcid) 20 mg PO DAILY 01/05/22 03/04/22 gabapentin 300 mg capsule 300 mg PO BID 01/05/22 03/04/22 zinc gluconate 100 mg tablet 100 mg PO DAILY 01/05/22 03/04/22 Previous Rx's Medication Instructions Recorded clonidine HCl 0.1 mg tablet 0.1 mg PO BEDTIME #0 tabs 11/27/21 methadone 10 mg tablet 10 mg PO TID #30 tabs 11/30/21 oxycodone-acetaminophen 5 mg-325 1 tab PO Q6H PRN pain #30 tabs 11/30/21 mg tablet (Percocet) temazepam 15 mg capsule 15 mg PO BEDTIME PRN Sleep #30 caps 11/30/21 oxycodone-acetaminophen 5 mg-325 1 tab PO Q6H PRN pain #10 tabs 02/15/22 mg tablet oxycodone-acetaminophen 2.5 mg-325 1 tab PO Q8H PRN pain #10 tabs 07/15/22 mg tablet (Percocet) Allergies Allergy/AdvReac Type Severity Reaction Status Date / Time carbamazepine Allergy Unknown Verified 07/15/22 14:24 Sulfa (Sulfonamide Allergy Unknown very Verified 07/15/22 14:24 Antibiotics) sick, hospitalized Gvmiwkb-TDE-VeX Reductase AdvReac Mild extreme Verified 07/15/22 14:24 Inhibitor pain [Juaxonh-Odj-Och Reductase Inhibitor] baclofen AdvReac Unknown felt like Verified 07/15/22 14:24 I was going to have a seizure, nausea NSAIDS (Non-Steroidal AdvReac Unknown gi upset; Verified 07/15/22 14:24 Anti-Inflamma ibuprofen ok Review of Systems Review of Systems ROS Unobtainable: All systems reviewed & are unremarkable except as noted in HPI and below Patient History Medical History Anxiety Depression Hepatitis History of ETOH abuse Hypercholesteremia Hypertension Methadone use Seizures TIA (transient ischemic attack) Surgical History History of carpal tunnel surgery of left wrist (2014) History of hip surgery History of surgery (11/25/21) History of surgery (11/29/21) History of surgery (01/17/22) Hx of hernia repair Hx of left knee surgery (2010) Hx of tonsillectomy Social History household members: other Smoking Status: Former smoker alcohol intake: former Smoking Status: Former smoker alcohol intake frequency: holidays/special occasions only Substance Use Type: tranquilizers and opiates Exam Initial Vital Signs Initial Vital Signs: Vital Signs Temperature 98.4 F 09/19/22 16:25 Pulse Rate 90 09/19/22 16:25 Respiratory Rate 14 09/19/22 16:25 Blood Pressure 187/92 H 09/19/22 16:25 Pulse Oximetry 96 09/19/22 16:25 Oxygen Delivery Method 09/19/22 16:25 Const General: cooperative, comfortable and No ill appearing HENMT Head: normal to inspection and atraumatic Eyes General: Yes appearance normal, both eyes and all related structures Pupils: PERRL Resp Effort & Inspection: normal respiratory effort Auscultation: clear to auscultation bilaterally Cardio Rate: regular rate Rhythm: regular rhythm Skin General: no rashes or lesions noted Neuro General: patient alert, patient awake, patient oriented x3 and moves all extremities Cranial Nerves: CN's II-XI intact bilaterally Cognition: normal cognition Speech: speech normal Sensory Exam: no sensory deficits noted Coordination: msucgo-bg-nugl test normal and ofbk-hq-gnxv test normal Extrem General: normal to inspection and capillary refill normal Psych Appearance: grossly normal and well kempt Scores GCS Cristhian coma scale eye opening: Spontaneous Cristhian coma scale verbal response: Orientated [place] coma scale motor response: Obey commands Cristhian coma scale total score: 15 NIH Stroke Scale Level of Conciousness: Alert, keenly responsive Ask month/age: Answers both questions correctly. Open/close eyes, close hand: Performs both tasks correctly Best gaze horizontal: Normal Visual mckoen: No visual loss Facial palsy: Normal symetrical movement Left arm drift: No drift for full 10 sec Right arm drift: No drift for full 10 sec Left leg drift: No drift for full 5 sec Right leg drift: No drift for full 5 sec Limb ataxia: Absent Sensory on face/arms/legs: Normal, no sensory loss Best language: No aphasia, normal Dysarthria: Normal Extinction or inattention: No abnormality Total NIH Stroke scale score: 0 Course Orders Ordered: ED Orders 09/19/22 16:24 UA Complete [Urinalysis and Microscopic] Stat 09/19/22 16:46 Complete Blood Count AUTO DIFF Stat Comprehensive Metabolic Panel Stat Ethanol (ETOH) Stat Lipase Stat Partial Thromboplastin Time Stat Prothrombin Time INR Stat Troponin & CK Cardiac Panel Stat 09/19/22 17:00 CT angio head and neck Stat CT head/brain wo con Stat 09/19/22 17:07 EKG-12 Lead Stat 09/19/22 17:10 COVID19 -Nasal RAPID/Pre-Proc Stat Discontinued Medications Aspirin (Aspirin 81 Mg Chew Tab) 324 mg PO NOW ONE Stop: 09/19/22 19:09 Vital Signs Vital signs: Vital Signs - 8 hr 09/19/22 16:25 09/19/22 16:35 09/19/22 16:36 Temperature 98.4 F Pulse Rate 90 95 H Respiratory Rate 14 Blood Pressure 187/92 H Pulse Oximetry 96 72 L 97 Oxygen Delivery Method Room Air 09/19/22 16:36 09/19/22 16:38 09/19/22 16:38 Temperature Pulse Rate 88 Respiratory Rate Blood Pressure 188/107 H 187/92 H Pulse Oximetry 97 Oxygen Delivery Method 09/19/22 16:55 09/19/22 16:55 09/19/22 17:00 Temperature Pulse Rate 78 Respiratory Rate Blood Pressure 175/84 H 135/77 Pulse Oximetry 96 Oxygen Delivery Method 09/19/22 17:00 09/19/22 17:30 09/19/22 17:30 Temperature Pulse Rate 76 67 Respiratory Rate 13 Blood Pressure 134/63 Pulse Oximetry 95 91 Oxygen Delivery Method 09/19/22 18:00 09/19/22 18:00 09/19/22 18:30 Temperature Pulse Rate 67 63 Respiratory Rate 14 19 Blood Pressure 132/63 Pulse Oximetry 91 94 Oxygen Delivery Method Medical Decision Making Lab Data Lab results reviewed: Yes I reviewed the patient's lab results. Result diagrams: 09/19/22 16:46 09/19/22 16:46 Labs: Lab Results 09/19/22 09/19/22 09/19/22 Range/Units 16:24 16:46 16:46 WBC 7.2 (4.5-11.0) X10^3/uL RBC 4.20 (4.0-5.2) X10^6/uL Hgb 12.8 (12.0-16.0) g/dL Hct 37.6 (36-46) % MCV 89.4 (80-100) fL MCH 30.4 (26-34) PG MCHC 34.1 (30-36) % RDW 14.7 (11.6-14.8) % Plt Count 273 (150-400) X10^3/uL Neut % (Auto) 59.8 (50-75) % Lymph % (Auto) 30.0 (25-40) % Elbert % (Auto) 4.6 (3-14) % Eos % (Auto) 5.1 H (2-4) % Baso % (Auto) 0.5 (0-2) % Neut # (Auto) 4300 (5671-7342) /uL Lymph # (Auto) 2200 (8635-6294) /uL Elbert # (Auto) 300 (0-900) /uL Eos # (Auto) 400 (0-450) /uL Baso # (Auto) 0 (0-100) /uL PT 10.7 (10.1-12.7) SECONDS INR 0.9 (0.9-1.3) APTT 33 (26-36) SECONDS Sodium (137-145) mmol/L Potassium (3.4-5.1) mmol/L Chloride (98-107) mmol/L Carbon Dioxide (22-32) mmol/L BUN (7-17) mg/dL Creatinine (0.52-1.04) mg/dL Estimated GFR (>60) mL/min BUN/Creatinine Ratio (6-22) Glucose (80-110) mg/dL Calcium (8.4-10.2) mg/dL Total Bilirubin (0.2-1.3) mg/dL AST (14-36) IU/L ALT (<35) IU/L Alkaline Phosphatase (38-126) U/L Total Creatine Kinase (30-135) U/L CK-MB (CK-2) (<2.37) ng/mL CK-MB (CK-2) Rel Index (1.5-5.0) % Troponin I (0.01-0.034) ng/mL Total Protein (6.3-8.2) g/dL Albumin (3.5-5.0) g/dL Globulin (1.7-4.1) g/dL Albumin/Globulin Ratio (1.0-2.8) Lipase (23-300) U/L Urine Color Yellow Urine Appearance Clear Urine pH 5.0 (4.5-8.0) Ur Specific [place] >=1.030 H (1.000-1.035) Urine Protein 1+ H (Negative) Urine Glucose (UA) Negative (Negative) g/dL Urine Ketones Trace H (NEGATIVE) Urine Occult Blood Trace-lysed (Negative) Urine Nitrate Negative (Negative) Urine Bilirubin Negative (NEGATIVE) Urine Urobilinogen 0.2 (0.2) E.U./dL Ur Leukocyte Esterase Negative (NEGATIVE) Ethyl Alcohol ( - 10) mg/dL SARS-CoV-2 (PCR) (Negative) 09/19/22 09/19/22 Range/Units 16:46 17:10 WBC (4.5-11.0) X10^3/uL RBC (4.0-5.2) X10^6/uL Hgb (12.0-16.0) g/dL Hct (36-46) % MCV (80-100) fL MCH (26-34) PG MCHC (30-36) % RDW (11.6-14.8) % Plt Count (150-400) X10^3/uL Neut % (Auto) (50-75) % Lymph % (Auto) (25-40) % Elbert % (Auto) (3-14) % Eos % (Auto) (2-4) % Baso % (Auto) (0-2) % Neut # (Auto) (7545-4021) /uL Lymph # (Auto) (4925-8176) /uL Elbert # (Auto) (0-900) /uL Eos # (Auto) (0-450) /uL Baso # (Auto) (0-100) /uL PT (10.1-12.7) SECONDS INR (0.9-1.3) APTT (26-36) SECONDS Sodium 139 (137-145) mmol/L Potassium 4.6 (3.4-5.1) mmol/L Chloride 101 (98-107) mmol/L Carbon Dioxide 28 (22-32) mmol/L BUN 13 (7-17) mg/dL Creatinine 0.80 (0.52-1.04) mg/dL Estimated GFR > 60 (>60) mL/min BUN/Creatinine Ratio 16.3 (6-22) Glucose 109 (80-110) mg/dL Calcium 9.2 (8.4-10.2) mg/dL Total Bilirubin 0.4 (0.2-1.3) mg/dL AST 31 (14-36) IU/L ALT 18 (<35) IU/L Alkaline Phosphatase 98 (38-126) U/L Total Creatine Kinase 206 H (30-135) U/L CK-MB (CK-2) 5.38 H (<2.37) ng/mL CK-MB (CK-2) Rel Index 2.6 (1.5-5.0) % Troponin I < 0.012 (0.01-0.034) ng/mL Total Protein 7.9 (6.3-8.2) g/dL Albumin 4.4 (3.5-5.0) g/dL Globulin 3.5 (1.7-4.1) g/dL Albumin/Globulin Ratio 1.3 (1.0-2.8) Lipase 37 (23-300) U/L Urine Color Urine Appearance Urine pH (4.5-8.0) Ur Specific [place] (1.000-1.035) Urine Protein (Negative) Urine Glucose (UA) (Negative) g/dL Urine Ketones (NEGATIVE) Urine Occult Blood (Negative) Urine Nitrate (Negative) Urine Bilirubin (NEGATIVE) Urine Urobilinogen (0.2) E.U./dL Ur Leukocyte Esterase (NEGATIVE) Ethyl Alcohol < 10 ( - 10) mg/dL SARS-CoV-2 (PCR) Negative (Negative) Urine Dip Bedside Urine Glucose Negative Bedside Urine Bilirubin - Negative Bedside Urine Ketone +/- 5 Urine Specific [place] 1.030 Bedside Urine Occult Blood - Negative Bedside Urine pH 6.0 Bedside Urine Protein + 30 Bedside Urine Urobilinogen - Negative Bedside Urine Nitrite - Negative Bedside Urine Leukocytes - Negative Esterase Point of care testing: Urine Dip Bedside Urine Glucose Negative Bedside Urine Bilirubin - Negative Bedside Urine Ketone +/- 5 Urine Specific [place] 1.030 Bedside Urine Occult Blood - Negative Bedside Urine pH 6.0 Bedside Urine Protein + 30 Bedside Urine Urobilinogen - Negative Bedside Urine Nitrite - Negative Bedside Urine Leukocytes - Negative Esterase Imaging Data CT scan - head: Radiologist's Impression: [place] [address] CT Scan Report Signed Patient: Silvia Rosas MR#: [id number] : 1955 Acct:[id number] Age/Sex: 66 / F Date of Service: 09/19/22 Loc: ED Accession Number: [id number] ?? Procedure: CT angio head and neck Ordering Provider: Ron Wu D.O. PROCEDURE:? CT ANGIO HEAD AND NECK ? INDICATIONS:? L hand weakness and L sided facial droop ? TECHNIQUE:? ? After the administration of intravenous contrast, 1 mm thick sections acquired from the aortic arch through the [place] of [place].? Post-contrast 4.5 mm thick sections then re-acquired from the foramen magnum to the vertex. For radiation dose reduction, the following was used:? automated exposure control, adjustment of mA and/or kV according to patient size.? ? COMPARISON:? None. ? FINDINGS:? Image quality:? Excellent.? ? HEAD CT ANGIOGRAPHY:? Anterior circulation:? Intracranial internal carotid arteries are normal in size and flow.? The flow within the paired anterior cerebral arteries is normal and symmetric.? The flow within the middle cerebral arteries is normal and symmetric.? The anterior communicating artery is seen.? No aneurysms are seen.? ? Posterior circulation:? Visualized portions of the vertebral arteries demonstrate normal caliber, and join to form a normal appearing basilar artery.? Flow within the posterior cerebral arteries is normal and symmetric.? No aneurysms are seen.? ? NECK CT ANGIOGRAPHY:? Carotid system:? The great vessels demonstrate a conventional anatomy as they arise from the aortic arch.? The origins of the common carotid arteries appear patent.? The common carotid arteries demonstrate normal caliber and courses.? The bifurcation region s are both widely patent.? The internal carotid arteries demonstrate normal calibers and courses.? ? Posterior circulation:? The origins of the vertebral arteries both appear widely patent.? The more superior extracranial portions of both vertebral arteries also demonstrate normal courses and calibers.? They join to form a normal appearing basilar artery.? ? Soft tissues:? Visualized neck soft tissues demonstrate no suspicious abnormalities.? Multilevel degenerative disc disease and arthropathy in the cervical spine results in reversal the normal cervical lordosis and moderate central stenosis C5-6.? Large irregular left thyroid nodule 2.4 cm? ? Bones:? No suspicious bony lesions.? Visualized cervical spine appears normally aligned.? IMPRESSION:? ? Unremarkable CT angiogram head neck without large vessel occlusion, aneurysm vascular malformation. ? Incidental large left thyroid nodule, 2.4 cm.? Consider follow-up ultrasound evaluation.? Paragraphs degenerative disc disease and arthropathy in the cervical spine results in moderate central stenosis C5-6 ? Any quantitative measurements of stenosis were performed using NASCET criteria.? Approved by: Harshad Moffett M.D. on 09/19/2022 at 17:46? CTA - brain/neck: Radiologist's Impression: [address] [address] [address] Scan Report Signed Patient: Silvia Rosas MR#: [id number] : 1955 Acct:[id number] Age/Sex: 66 / F Date of Service: 09/19/22 Loc: ED Accession Number: [id number] ?? Procedure: CT head/brain wo con Ordering Provider: Ron Wu D.O. PROCEDURE:? CT HEAD/BRAIN WO CON ? INDICATIONS:? L hand weakness and L sided facial droop ? TECHNIQUE:? Noncontrast 4.5 mm thick angled axial sections acquired from the foramen magnum to the vertex, with coronal and sagittal reformats.? For radiation dose reduction, the following was used:? automated exposure control, adjustment of mA and/or kV according to patient size.? ? COMPARISON:? [facility], CT, HEAD WITHOUT CONTRAST, 08/02/2012, 14:51. ? FINDINGS:? Image quality:? Excellent.? ? CSF spaces:? Basal cisterns are patent.? No extra-axial fluid collections.? The ventricles are symmetric in size and shape.? ? Brain:? No intracranial bleeds or masses.? There is cerebral volume loss for age, with resultant ventricular and sulcal prominence.? There are periventricular and deep white matter chronic small vessel ischemic changes.? There is intracranial internal carotid artery atherosclerosis.? ? Skull and face:? Calvarium and visualized facial bones appear intact, without suspicious lesions.? ? Sinuses:? Visualized sinuses and mastoids are clear.? ? IMPRESSION:? 1. No acute intracranial abnormality. 2. Cerebral volume loss and small vessel ischemic changes.? Dictated by: Sony Turner M.D. on 09/19/2022 at 18:46 ? ? Approved by: Sony Turner M.D. on 09/19/2022 at 18:48? MDM Narrative Medical decision making narrative: Patient arrives greater than 24 hours after the onset of the symptoms. The CTA/CTA of her head and neck were unremarkable show no acute pathology. Patient does have an NIH score of 0 because she can lift her left arm in the air and hold it and can do ddneax-yo-azla however she has objective sales center associate difference to her left hand compared with the right. I do not appreciate any facial droop. Blood pressure improved without specific intervention here in the ER. Given her presentation has potentially having a facial droop yesterday in her objective sales center associate findings today I did discuss the case with Dr. Alvarez and we will admit her for continued evaluation to include an MRI. Discussed the need for admission with the patient. She expressed understanding and agreement. Discharge Plan Departure Patient Disposition: Admitted as Observation Clinical Impression: CVA (cerebral vascular accident) Admit Date/Time: 09/19/22 19:13
--- NOTE | 2022-09-19 17:00 | DI.CT.S_ITS ---
PROCEDURE: CT HEAD/BRAIN WO CON INDICATIONS: L hand weakness and L sided facial droop TECHNIQUE: Noncontrast 4.5 mm thick angled axial sections acquired from the foramen magnum to the vertex, with coronal and sagittal reformats. For radiation dose reduction, the following was used: automated exposure control, adjustment of mA and/or kV according to patient size. COMPARISON: , CT, HEAD WITHOUT CONTRAST, 08/02/2012, 14:51. FINDINGS: Image quality: Excellent. CSF spaces: Basal cisterns are patent. No extra-axial fluid collections. The ventricles are symmetric in size and shape. Brain: No intracranial bleeds or masses. There is cerebral volume loss for age, with resultant ventricular and sulcal prominence. There are periventricular and deep white matter chronic small vessel ischemic changes. There is intracranial internal carotid artery atherosclerosis. Skull and face: Calvarium and visualized facial bones appear intact, without suspicious lesions. Sinuses: Visualized sinuses and mastoids are clear. IMPRESSION: 1. No acute intracranial abnormality. 2. Cerebral volume loss and small vessel ischemic changes. Dictated by: Sony Turner M.D. on 09/19/2022 at 18:46 Approved by: Sony Turner M.D. on 09/19/2022 at 18:48
--- NOTE | 2022-09-19 17:00 | DI.CT.S_ITS ---
PROCEDURE: CT ANGIO HEAD AND NECK INDICATIONS: L hand weakness and L sided facial droop TECHNIQUE: After the administration of intravenous contrast, 1 mm thick sections acquired from the aortic arch through the [place] of [place]. Post-contrast 4.5 mm thick sections then re-acquired from the foramen magnum to the vertex. For radiation dose reduction, the following was used: automated exposure control, adjustment of mA and/or kV according to patient size. COMPARISON: None. FINDINGS: Image quality: Excellent. HEAD CT ANGIOGRAPHY: Anterior circulation: Intracranial internal carotid arteries are normal in size and flow. The flow within the paired anterior cerebral arteries is normal and symmetric. The flow within the middle cerebral arteries is normal and symmetric. The anterior communicating artery is seen. No aneurysms are seen. Posterior circulation: Visualized portions of the vertebral arteries demonstrate normal caliber, and join to form a normal appearing basilar artery. Flow within the posterior cerebral arteries is normal and symmetric. No aneurysms are seen. NECK CT ANGIOGRAPHY: Carotid system: The great vessels demonstrate a conventional anatomy as they arise from the aortic arch. The origins of the common carotid arteries appear patent. The common carotid arteries demonstrate normal caliber and courses. The bifurcation regions are both widely patent. The internal carotid arteries demonstrate normal calibers and courses. Posterior circulation: The origins of the vertebral arteries both appear widely patent. The more superior extracranial portions of both vertebral arteries also demonstrate normal courses and calibers. They join to form a normal appearing basilar artery. Soft tissues: Visualized neck soft tissues demonstrate no suspicious abnormalities. Multilevel degenerative disc disease and arthropathy in the cervical spine results in reversal the normal cervical lordosis and moderate central stenosis C5-6. Large irregular left thyroid nodule 2.4 cm Bones: No suspicious bony lesions. Visualized cervical spine appears normally aligned. IMPRESSION: Unremarkable CT angiogram head neck without large vessel occlusion, aneurysm vascular malformation. Incidental large left thyroid nodule, 2.4 cm. Consider follow-up ultrasound evaluation. Paragraphs degenerative disc disease and arthropathy in the cervical spine results in moderate central stenosis C5-6 Any quantitative measurements of stenosis were performed using NASCET criteria. Approved by: Harshad Moffett M.D. on 09/19/2022 at 17:46
--- NOTE | 2022-09-19 17:16 | PC.NURSE ---
1645: NIH of 1. 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
[2022-09-19 17:19] LABS: Add Manual Diff / Slide Review NO; Basophils Absolute Auto 0 /uL (0-100); Basophils Percent Auto 0.5 % (0-2); Eosinophils Absolute Auto 400 /uL (0-450); Eosinophils Percent Auto 5.1 % (2-4); Hematocrit 37.6 % (36-46); Hemoglobin 12.8 g/dL (12.0-16.0); INR 0.9 (0.9-1.3); Lymphocytes Absolute Auto 2200 /uL (1100-4500); Mean Corpuscular HGB Conc 34.1 % (30-36); Mean Corpuscular Hemoglobin 30.4 PG (26-34); Mean Corpuscular Volume 89.4 fL (80-100); Monocytes Absolute Auto 300 /uL (0-900); Monocytes Percent Auto 4.6 % (3-14); Neutrophils Absolute Auto 4300 /uL (1500-7000); Neutrophils Percent Auto 59.8 % (50-75); Platelet Count 273 X10^3/uL (150-400); Prothrombin Time 10.7 SECONDS (10.1-12.7); Red Cell Distribution Width 14.7 % (11.6-14.8); White Blood Cell Count 7.2 X10^3/uL (4.5-11.0)
[2022-09-19 17:22] LABS: PTT Partial Thromboplastin Tim 33 SECONDS (26-36)
[2022-09-19 17:24] LABS: Alanine Aminotransferase 18 IU/L (<35); Albumin 4.4 g/dL (3.5-5.0); Albumin Globulin Ratio 1.3 (1.0-2.8); Alkaline Phosphatase 98 U/L (38-126); Aspartate Aminotransferase 31 IU/L (14-36); BUN Creatinine Ratio 16.3 (6-22); Bilirubin Total 0.4 mg/dL (0.2-1.3); Blood Urea Nitrogen 13 mg/dL (7-17); Calcium 9.2 mg/dL (8.4-10.2); Carbon Dioxide 28 mmol/L (22-32); Chloride 101 mmol/L (98-107); Creatine Kinase 206 U/L (30-135); Estimated Glomerular Filt Rate > 60 mL/min (>60); Ethanol (ETOH) < 10 mg/dL; Globulin 3.5 g/dL (1.7-4.1); Glucose 109 mg/dL (80-110); Lipase 37 U/L (23-300); Potassium 4.6 mmol/L (3.4-5.1); Sodium 139 mmol/L (137-145); Total Protein 7.9 g/dL (6.3-8.2)
[2022-09-19 17:33] LABS: COVID19 -Nasal RAPID Negative (Negative)
[2022-09-19 17:35] LABS: Troponin I < 0.012 ng/mL (0.01-0.034)
[2022-09-19 17:38] LABS: CKMB % Relative Index 2.6 % (1.5-5.0); Creatine Kinase MB 5.38 ng/mL (<2.37); HEMOLYSIS 37 (0-50)
[2022-09-19 18:59] LABS: Appearance Urine UA CLEAR; Bilirubin Urine UA NEGATIVE (NEGATIVE); Color Urine UA YELLOW; Glucose Urine UA NEGATIVE (Negative); Ketones Urine UA TRACE (NEGATIVE); Leukocyte Esterase Urine UA NEGATIVE (NEGATIVE); Nitrite Urine UA NEGATIVE (Negative); Occult Blood Urine UA TRACE-LYSED (Negative); Protein Urine UA 1+ (Negative); Specific Gravity Urine UA >=1.030 (1.000-1.035); Urobilinogen Urine UA 0.2 E.U./dL (0.2)
[2022-09-19 19:14] LABS: Amorphous Sediment Urine 1+; Bacteria Urine None Seen; Calcium Oxalate Crystals Urine Moderate; Culture Indicated Urine Cult Not Indicated; RBC Urine None Seen (0-5/HPF); WBC Urine None Seen (0-5/HPF)
[2022-09-19] MEDS: ASPIRIN 81 MG CHEW TAB 324 MG PO (19:23)
[2022-09-19] MEDS: lamoTRIgine 100 MG TABLET 200 MG PO (22:12)
[2022-09-19] MEDS: TEMAZEPAM 15 MG CAPSULE PO (22:12)
[2022-09-19] MEDS: cloNIDine 0.1 MG TABLET PO (22:13)
[2022-09-19] MEDS: METHADONE 10 MG TABLET PO (22:13)
[2022-09-20] VITALS: BP 127/69; PULSE 62; RESP 19; TEMP 37.6; O2SAT 94
--- NOTE | 2022-09-20 04:03 | PC.NURSE ---
Pt arrived to the unit from PACU around 1949 and pt's orientation was 1-2 and pt was very drowsy. Pt's orientation got better and now pt is AxOx4, a lot more awake and ask for pain med frequently. Pt has pain on her throat and difficult to swallow now so PO medication not given. IV Dilaudid 0.5mg given for pain. Pt can have ice chips. VSS, dressing C/D/I. Pt has cervical collar on her. Cronin is draining clear and yellow urine output. No other changes. Continue monitor.
--- NOTE | 2022-09-20 04:37 | PC.NURSE ---
Pt arrived to the unit from ER around 2029. Pt is AxOx4, independent and cooperative. VSS, pt denies pain. NIH score was very low. Pt has L arm weakness and very slight left side of face droop. Otherwise, pt is doing well. Pt is on Tele and it shows sinus ruth ann at night; Sometimes it went down till 40s-48s. Pt slept deeply during that time. Will continue monitor.
[2022-09-20 06:14] VITALS: BP 134/59; PULSE 57; RESP 20; O2SAT 94
[2022-09-20] MEDS: METHADONE 10 MG TABLET PO ×2 (07:51→14:10)
[2022-09-20 08:00] VITALS: BP 147/68; PULSE 62; RESP 16; TEMP 36.2; O2SAT 95
--- NOTE | 2022-09-20 08:19 | P.HP_ITS ---
History of Present Illness History of Present Illness Date Patient Seen: 09/20/22 Time Patient Seen: 08:20 Date of Onset of Symptoms: 09/19/22 Chief complaint: Thinks stroke Narrative: Patient is a 66-year-old female well known to me who presents with concerns for left arm numbness and left facial drooping. Apparently she woke up yesterday and was stating that she felt like her left arm was numb. Maybe a little bit of tingling in her left face. But primarily her left arm. [place] like she was left with feeling where she could not open her hand. But has no other changes. Patient does have a history of epilepsy but that has been stable. With no other changes. She is had no visual symptoms no other numbness or changes. No nausea vomiting. No headaches. She is had no fevers no chills or other change. Over the course of the last 24 hours she felt as if her hand still continues to be weak. CT scan was negative. There was no other findings on workup in the emergency room. She feels about the same. She is had no other complaint. Patient History Medical History Anxiety Depression Hepatitis History of ETOH abuse Hypercholesteremia Hypertension Methadone use Seizures TIA (transient ischemic attack) Surgical History History of carpal tunnel surgery of left wrist (2014) History of hip surgery History of surgery (11/25/21) History of surgery (11/29/21) History of surgery (01/17/22) Hx of hernia repair Hx of left knee surgery (2010) Hx of tonsillectomy Family & Social History Social History: household members other Prior Living Arrangements Assisted Living Safety & Behavioral: Feels Safe in Current Yes Environment Been Physically Hurt or No Threatened By a Person Tobacco & Substance use: Tobacco type cigarettes Smoking Status Former smoker alcohol intake former alcohol intake frequency holiday/special occasion Substance Use Type tranquilizers,opiates Meds Home Medications and Allergies Home Medications Medication Instructions Recorded Confirmed Type aspirin 81 mg tablet,delayed 81 mg PO QPM 04/29/19 09/19/22 History release carisoprodol 350 mg tablet 350 mg PO TID PRN Muscle Spasm 04/29/19 09/19/22 History lamotrigine 200 mg tablet 200 mg PO BID 04/29/19 09/19/22 History lamotrigine 25 mg tablet 50 mg PO BID 04/29/19 09/19/22 History lisinopril 40 mg tablet 40 mg PO DAILY 04/29/19 09/19/22 History clonidine HCl 0.1 mg tablet 0.1 mg PO BEDTIME #0 tabs 11/27/21 09/19/22 Rx methadone 10 mg tablet 10 mg PO TID #30 tabs 11/30/21 09/19/22 Rx temazepam 15 mg capsule 15 mg PO BEDTIME PRN Sleep #30 caps 11/30/21 09/19/22 Rx gabapentin 300 mg capsule 300 mg PO BID 01/05/22 09/19/22 History ibuprofen 600 mg tablet 600 mg PO TID PRN Pain, Moderate 09/19/22 09/19/22 History Allergies Allergy/AdvReac Type Severity Reaction Status Date / Time carbamazepine Allergy Unknown Verified 07/15/22 14:24 Sulfa (Sulfonamide Allergy Unknown very Verified 07/15/22 14:24 Antibiotics) sick, hospitalized Wninucp-AHK-AfT Reductase AdvReac Mild extreme Verified 07/15/22 14:24 Inhibitor pain [Imkullq-Jun-Wts Reductase Inhibitor] baclofen AdvReac Unknown felt like Verified 07/15/22 14:24 I was going to have a seizure, nausea NSAIDS (Non-Steroidal AdvReac Unknown gi upset; Verified 07/15/22 14:24 Anti-Inflamma ibuprofen ok Review of Systems Review of Systems Narrative: See above all negative Exam Vital Signs (past 8 hours): - 09/20/22 06:14 Pulse Rate 57 L Respiratory Rate 20 Blood Pressure 134/59 L Pulse Oximetry 94 Oxygen Flow Rate 0 Oxygen Delivery Method Room Air Oxygen Flow Rate 0 Narrative Exam Narrative: Alert female lying in bed no acute distress HEENT exam is unremarkable neck supple without adenopathy JVD or bruits lungs are clear heart regular rate and rhythm abdomen is soft positive bowel sounds nontender extremities show continued deviation of multiple joints with degenerative arthritis. No swelling erythema or other changes. Usual pain in hips and knees. Neurologic exam shows cranial nerves 2-12 are intact motor is 5/5 reflexes are 2+ and symmetric. Hand move but does seem to have a little bit less flexion on the left but otherwise no definitive findings. She is alert she is oriented she is interactive. Objective Labs Result Diagrams: 09/19/22 16:46 09/19/22 16:46 Labs: Laboratory Results - last 24 hr 09/19/22 09/19/22 09/19/22 16:24 16:46 16:46 WBC 7.2 RBC 4.20 Hgb 12.8 Hct 37.6 MCV 89.4 MCH 30.4 MCHC 34.1 RDW 14.7 Plt Count 273 Neut % (Auto) 59.8 Lymph % (Auto) 30.0 Major % (Auto) 4.6 Eos % (Auto) 5.1 H Baso % (Auto) 0.5 Neut # (Auto) 4300 Lymph # (Auto) 2200 Major # (Auto) 300 Eos # (Auto) 400 Baso # (Auto) 0 PT 10.7 INR 0.9 APTT 33 Sodium Potassium Chloride Carbon Dioxide BUN Creatinine Estimated GFR BUN/Creatinine Ratio Glucose Calcium Total Bilirubin AST ALT Alkaline Phosphatase Total Creatine Kinase CK-MB (CK-2) CK-MB (CK-2) Rel Index Troponin I Total Protein Albumin Globulin Albumin/Globulin Ratio Lipase Urine Color Yellow Urine Appearance Clear Urine pH 5.0 Ur Specific [place] >=1.030 H Urine Protein 1+ H Urine Glucose (UA) Negative Urine Ketones Trace H Urine Occult Blood Trace-lysed Urine Nitrate Negative Urine Bilirubin Negative Urine Urobilinogen 0.2 Ur Leukocyte Esterase Negative Urine RBC None seen Urine WBC None seen Calcium Oxalate Crystal Moderate H Amorphous Sediment 1+ Urine Bacteria None seen Ur Culture Indicated? Cult not indicated Ethyl Alcohol SARS-CoV-2 (PCR) 09/19/22 09/19/22 16:46 17:10 WBC RBC Hgb Hct MCV MCH MCHC RDW Plt Count Neut % (Auto) Lymph % (Auto) Major % (Auto) Eos % (Auto) Baso % (Auto) Neut # (Auto) Lymph # (Auto) Major # (Auto) Eos # (Auto) Baso # (Auto) PT INR APTT Sodium 139 Potassium 4.6 Chloride 101 Carbon Dioxide 28 BUN 13 Creatinine 0.80 Estimated GFR > 60 BUN/Creatinine Ratio 16.3 Glucose 109 Calcium 9.2 Total Bilirubin 0.4 AST 31 ALT 18 Alkaline Phosphatase 98 Total Creatine Kinase 206 H CK-MB (CK-2) 5.38 H CK-MB (CK-2) Rel Index 2.6 Troponin I < 0.012 Total Protein 7.9 Albumin 4.4 Globulin 3.5 Albumin/Globulin Ratio 1.3 Lipase 37 Urine Color Urine Appearance Urine pH Ur Specific [place] Urine Protein Urine Glucose (UA) Urine Ketones Urine Occult Blood Urine Nitrate Urine Bilirubin Urine Urobilinogen Ur Leukocyte Esterase Urine RBC Urine WBC Calcium Oxalate Crystal Amorphous Sediment Urine Bacteria Ur Culture Indicated? Ethyl Alcohol < 10 SARS-CoV-2 (PCR) Negative Assessment & Plan Assessment & Plan narrative: CVA. Left hand weakness which is minimally definable on exam. But certainly concerning. Patient with history of previous neurologic impact. Do not believe it is related to her seizure disorder. Has been quite stable for some time. Will add Plavix. Will continue blood pressure control and management no other symptoms and will obtain MRI today. PT evaluation and follow from there. Do not think we have to worry about swallowing. And will re-evaluate. Chronic pain with methadone use. Stable longstanding. No change at this time. Seizure disorder. Stable. Continue usual meds. Hypertension. So far looks good. Will follow closely. Depression. Stable. DVT prophylaxis Lovenox. GI prophylaxis not needed. Code status probable full but will discuss. Disposition. MRI today. If stable after PT evaluation probable discharge home depending on results. She understands questions answered. Time Spent With Patient Critical Care time: I spent a total of [] minutes of critical care time on this patient's care today; this time is exclusive of procedural time.
[2022-09-20 09:11] VITALS: BP 147/68
[2022-09-20] MEDS: lamoTRIgine 100 MG TABLET 200 MG PO (09:11)
[2022-09-20] MEDS: lisinopriL 20 MG TABLET 40 MG PO (09:11)
[2022-09-20] MEDS: ENOXAPARIN 40 MG/0.4 ML SYRINGE SUBCUT (09:11)
[2022-09-20] MEDS: GABAPENTIN 300 MG CAPSULE PO (09:11)
[2022-09-20] MEDS: ASPIRIN EC 81 MG TABLET PO (09:11)
[2022-09-20] MEDS: FAMOTIDINE 20 MG TABLET PO (09:11)
[2022-09-20] MEDS: CLOPIDOGREL 75 MG TABLET PO (09:11)
--- NOTE | 2022-09-20 09:35 | CM.DANOTE ---
Addendum entered by Ana Maria Coles R.N. 09/20/22 10:26: Called [facility], spoke to nurse, Isadora. Stated, she was not aware that patient was here in the hospital, she checked herself out at about 3:00pm, and was gone overnight. Updated her, and that patient had MRI, may be ready for discharge today. She will just need to work with P.T. They can take her back without an assessment, has not yet been 24 hours, will need to let them know soon for transportation. Jeannine, patient's nurse, will update Dr. Alvarez. Faxed Isadora over clinical information. Original Note: DCP: Case received, EMR reviewed and met with patient. Introduced self and role. Was able to obtain information regarding patient's baseline activity status prior to hospitalization, as well as her current living situation. DCP assessment completed with information currently available. Patient is a 66 year old female who admitted yesterday evening to the care of the hospitalist team. PCP: Dr. Alvarez. Payer: confirmed: Medicare/Medicaid. Patient came to the hospital via private vehicle secondary to having left arm numbness. Patient also complained of some left facial drooping. Patient is here to be evaluated for CVA, she is having MRI. Met with patient in her room. She was sitting on the edge of the bed, alert and oriented. Confirmed that she lives at [facility], is independent, they do administrate her meds. Prior, she had been to [facility] for rehab. P: DCP to continue to follow. She will work with P.T, will see how MRI results are. Patient is continuing to not be able to use her left arm. Patient should be able to return to [facility] when stable, will contact facility. Ana Maria Coles RN/[employer] Discharge Planning/Care Management CM Discharge Assessment Start: 09/20/22 09:33 Freq: Status: Active Protocol: Document 09/20/22 09:33 (Rec: 09/20/22 09:35 [id number]) Discharge Planning Assessment Assigned [employer] Ana Maria Coles RN/[employer] Advance Directives? Yes Advance Directives on File No History Provided By Patient,Family Member,Medical Record Prior Living Arrangements Assisted Living Comment Patient resides at [facility] Household Members other Type of transporation used prior to Relies on Others admit Willing to Return to Facility? Yes Independent with ADL's Yes Is patient alert and oriented? Yes Needs Assistance With Home Chores / Shopping Comment Return back to [facility] Discharge Plan Assisted Living Facility Transportation Arrangement Facility van or taxi Whiteboard Updated in Patient Room with Yes name and ext. # of [employer] Review Status In Process Next Review Type Continued Stay Review
--- NOTE | 2022-09-20 09:54 | ST.IPSCREEN ---
Pt was seated at the edge of the bed when [facility] arrived. Pt presented with a negligible left side labial droop, but otherwise symmetrical features at rest and in motion. Slightly slurred speech observed, which pt stated is consistent with baseline. Completed oral mechanism assessment. Pt presented with mildly reduced tongue ROM for elevation and depression, though this did not appear to impact speech or swallowing. 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 Pt reported no difficulty swallowing and reported no coughing or choking while eating/drinking. She has a missing front tooth and damage to the adjoining tooth, but stated this does not impact her ability to chew. MRI and CT indicate no stroke. Speech therapy is not indicated at this time.
--- NOTE | 2022-09-20 10:30 | OT.IP.EVAL ---
Past Medical History (Last Reviewed 09/20/22 @ 08:22 by Viktor Alvarez MD) Anxiety Depression Hepatitis History of ETOH abuse Hypercholesteremia Hypertension Methadone use Seizures TIA (transient ischemic attack) Surgical History (Last Reviewed 09/20/22 @ 08:22 by Viktor Alvarez MD) History of carpal tunnel surgery of left wrist (2014) History of hip surgery History of surgery (11/25/21) History of surgery (11/29/21) History of surgery (01/17/22) Hx of hernia repair Hx of left knee surgery (2010) Hx of tonsillectomy Occupational Therapy Inpatient Evaluation/Re-Eval M1 PT/OT-IP Prior Functional Status Start: 09/20/22 11:37 Freq: NEEDED Status: Active Protocol: Document 09/20/22 10:06 [facility] (Rec: 09/20/22 12:14 [facility] [id number]) Medical Review Prior Functional Status Communication independent Mobility and Gait Pt states usually she does not use a device to walk with , occasionally she uses a SPC. Pt states that she tends to limp due to a leg length difference. Activities of Daily Living and IADL's Pt states able to do all her ADL's, staff sets up the shower for her but per pt showers on her own. Staff at [facility] give her medications and brings her meals. Social History Household Members other Living Arrangements Assisted Living Home Environment Standard Height Toilet,Walk in Shower Home Equipment Hand Held Shower,Grab Bars Near Toilet,Grab Bars In Shower Additional Social History Comment Pt currently lives at [facility] M2 OT-IP Current Condition Start: 09/20/22 11:37 Freq: Status: Active Protocol: Document 09/20/22 10:06 [facility] (Rec: 09/20/22 12:14 [facility] [id number]) Occupational Therapy Current Condition Current Condition Evaluation Date 09/20/22 Treatment Diagnosis LUE weakness Diagnosis Onset Date 09/19/22 M3 OT- IP Subjective and Pain Start: 09/20/22 11:37 Freq: Status: Active Protocol: Document 09/20/22 10:06 [facility] (Rec: 09/20/22 12:14 [facility] [id number]) OT- Subjective Occupational Therapy Visit Type Type Initial Evaluation Visit Start Time 10:06 Visit Stop Time 10:30 Total Visit Minutes 24 Occupational Therapy Visit Comments Patient Comments Pt states feels that she is close to her baseline and that her LUE is still a little weaker at this time. Pt on 09/18 woke up with LUE weakness and facial droop. Patient/Caregiver Goals TO go home. OT Pain Assessment Pain When Pain Assessed At Rest Pain Present Pain Present Pain Reported Location left shoulder Pain Behaviors Guarding,Holding Area M4 OT- IP ADL's Start: 09/20/22 11:37 Freq: Status: Active Protocol: Document 09/20/22 10:06 [facility] (Rec: 09/20/22 12:14 [facility] [id number]) OT [id number] Comments OT Self-Feeding Comments Not at meal time. OT ADL-Grooming Comments OT Grooming Comments Pt states did earlier. OT ADL-Oral Care Comments Oral Care Comments Pt states already performed earlier. OT ADL-Dressing General Eval Lower Body Dressing Ability Independent Comments OT Dressing Comments Pt able to independently lou/ doff her socks on her own. Pt tends to use her right hand more then left hand to assist for the left sock. OT ADL-Toileting Comments OT Toileting Comments Pt states already toileted prior and not wanting to go at this time. OT ADL-Bathing Comments OT Bathing Comments Not performed. M5 OT- IP IADL's Start: 09/20/22 11:37 Freq: Status: Active Protocol: Document 09/20/22 10:06 [facility] (Rec: 09/20/22 12:14 [facility] [id number]) OT-Instrumental Activities of Daily Living Home Safety Awareness Home Safety Comments Pt is aware of her needs and able to problem solve safety situations on her own. Medication Management Medication Management Caregiver Administers Meal Preparation Meal Preparation Caregiver Provides Assist M6 OT- IP Functional Cognition Start: 09/20/22 11:37 Freq: Status: Active Protocol: Document 09/20/22 10:06 [facility] (Rec: 09/20/22 12:14 [facility] [id number]) Cognitive Factors Limiting Selfcare Function Cognitive Ability Level of Alertness Alert Patient Orientation Name,Age,Birthday,Month,Date, Year,Day of Week,Place, Situation Attention Span Ability Capable of Focused Attention, Capable of Sustained Attention Ability to Follow Commands Able to Follow Multi-Step Commands Cognitive Comments Cognitive Assessment Comments Pt appears to be at baseline for her cognition with no needs at this time Pt is insistent on her care and how she performs her ADL and mobility needs. Pt not wanting her LUE to be touched due to pain. OT- Vision and Hearing OT- Hearing Assessment OT- Hearing Assessment WFL OT- Vision Assessment Visual Acuity Glasses All The Time M7 OT- IP Mobility and Balance Start: 09/20/22 11:37 Freq: Status: Active Protocol: Document 09/20/22 10:06 [facility] (Rec: 09/20/22 12:14 [facility] [id number]) OT- Bed Mobility Assessment Supine to Sit Supine to Sit Assist Independent Sit to Supine Sit to Supine Assist Independent OT-Transfer Assessment Sit to and From Stand Sit to and from Stand Independent Transfers Transfer Ability Standby Assistance Technique Transfer Destination Bed,Chair Transfer Technique Stand Step Pivot Comments Mobility Comments Pt independent with bed mobility and distant supervision while walking in the room and for transfers to the chair, bench seating,etc.. . Pt tends to limp, per pt has a leg length difference. OT- Balance Assessment Sitting Balance and Reactions Static Sitting Balance Ability Good Dynamic Sitting Balance Ability Good Standing Balance and Reactions Static Standing Balance Ability Fair Dynamic Standing Balance Ability Fair M8 OT- IP Objective Assessments Start: 09/20/22 11:37 Freq: Status: Active Protocol: Document 09/20/22 10:06 [facility] (Rec: 09/20/22 12:14 [facility] [id number]) OT Gross Range of Motion Upper Extremity Range of Motion ROM Impairments RUE grossly WFL, LUE limted due to pain. Pt not wanting to be touched on her LUE at this time , therefore unable to fully assess. OT Strength Upper Extremity Strength Assessment Left Impaired Comments Strength Comments Pt has arthritic changes in both hands and also unable to fully extend her left fingers. Pt has recent of 3rd degress walden on her hands/arms which also limits her AROM. OT- Coordination Assessment Upper Extremity Finger to Nose Test Within Functional Limits OT-Muscle Tone Assessment Muscle Tone WNL Yes M9 OT- IP Assessment and Plan Start: 09/20/22 11:37 Freq: Status: Active Protocol: Document 09/20/22 10:06 [facility] (Rec: 09/20/22 12:14 [facility] [id number]) OT Summary Assessment and Plan Potential Rehabilitation Potential Good Analytic Complexity at Evaluation Low Summary OT Impairments Pain,Range of Motion,Strength, Balance,Functional Mobility, Bathing,Activity Tolerance Progress Towards Goals Progressing Toward Goals,Slow Progress due to Pain Assessment Summary Pt here due to two days ago woke up not being able to use her left hand/arm and slight facial droop. Pt states LUE doing much better but still weak at this time. Pt not wanting therapist to touch her arm due to complaints of pain and able to go over positioning needs while in bed for side-lying for her left shoulder and in addition suggested to have a rolled towel or pillows as support while sitting up in a chair. Encourage pt to put lotion/ massage her LUE to help desensitize her sensitivity to the LUE. Pt looking to go home when medically stable. pt would benefit from outpt hand therapy. Goals Bathing Goal Independent OT-Other Goals Pt to be independent for all positioning needs for her LUE to help decreased her green. Days to Meet Goals 2 Frequency of Treatment Frequency Of Treatment Once a Day Treatment Plan OT Treatment Plan ADL Training,Functional Mobility,Patient/Family Education,Discharge Planning Discharge Recommendations OT Discharge Recommendations Home with Assistance Transportation Needs at Discharge Private Vehicle
--- NOTE | 2022-09-20 11:50 | PT.IIE ---
Surgical History (Last Reviewed 09/20/22 @ 08:22 by Viktor Alvarez MD) History of carpal tunnel surgery of left wrist (2014) History of hip surgery History of surgery (11/25/21) History of surgery (11/29/21) History of surgery (01/17/22) Hx of hernia repair Hx of left knee surgery (2010) Hx of tonsillectomy Medical History (Last Reviewed 09/20/22 @ 08:22 by Viktor Alvarez MD) Anxiety Depression Hepatitis History of ETOH abuse Hypercholesteremia Hypertension Methadone use Seizures TIA (transient ischemic attack) Physical Therapy Inpatient Evaluation/Re-Eval M1 PT/OT-IP Prior Functional Status Start: 09/20/22 12:52 Freq: NEEDED Status: Active Protocol: Document 09/20/22 11:50 AB (Rec: 09/20/22 13:01 AB [id number]) Medical Review Prior Functional Status Medical History Reviewed Yes Communication able to make needs known Mobility and Gait pt stated that she is indpeendent with all mobilities and ambulation without AD Activities of Daily Living and IADL's per OT notes: Pt states able to do all her ADL's, staff sets up the shower for her but per pt showers on her own. Staff at [facility] give her medications and brings her meals. Social History Household Members other Living Arrangements Assisted Living Number of Floors (Floors) One Floor Number of Stairs To Enter/Railing? pt lives at [facility] Home Environment Standard Height Toilet,Walk in Shower Home Equipment Straight Cane,Hand Held Shower ,Grab Bars Near Toilet,Grab Bars In Shower Additional Social History Comment pt has an adjustble bed M2 PT-IP Current Condition Start: 09/20/22 12:52 Freq: NEEDED Status: Active Protocol: Document 09/20/22 11:50 AB (Rec: 09/20/22 13:01 AB [email or web address]) Physical Therapy Current Condition Current Condition Evaluation Date 09/20/22 Treatment Diagnosis L arm weakness; difficulty in walking Onset Date 09/19/22 M3 PT-IP Subjective Start: 09/20/22 12:52 Freq: NEEDED Status: Active Protocol: Document 09/20/22 11:50 AB (Rec: 09/20/22 13:01 AB [email or web address]) Subjective Physical Therapy Visit Type Type Initial Evaluation Visit Start Time 11:50 Visit Stop Time 12:05 Total Visit Minutes 15 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 0 Physical Therapy Visit Comments Patient Comments pt is agreeable to do PT Therapy Pain Assessment Pain Present Pain Present Pain Reported Location Bilateral Hand Scale Used stated chronic pain due to h/o walden on UE M4 PT-IP Mobility and Gait Start: 09/20/22 12:52 Freq: NEEDED Status: Active Protocol: Document 09/20/22 11:50 AB (Rec: 09/20/22 13:01 [email or web address]) PT-Bed Mobility Assessment Supine to Sit Supine to Sit Independent Sit to Supine Sit to Supine Independent PT-Transfer Assessment Sit to and From Stand Sit to and from Stand Independent Equipment Transfer Assistive Device None Orthotic/Prosthetic Devices or Brace: No Comments Mobility Comments pt is modified independent with bed mobility. able to sit on EOB mod I and ambulated in room without AD mod I. presents with an antalgic gait with lateral trunk lean but without LOB. pt stated that she had previous hip and knee surgeries and has LLD affecting posture and ambulation. pt requested to go back to bed and sat on EOB. informed pt regarding mobility level and agreed that there is not PT intervention needed at this time. Gait Assessment Gait Gait Assistance Required: Independent Distance (Feet) 40 Able to Maintain Weight Bearing Status Yes During Gait Assistive Devices Assistive Device None,Gait Belt Orthotic/Prosthetic Devices or Brace: No Gait Deviations General Gait Pattern Antalgic,Decreased Stride Length,Decreased Feet Clearance,Lateral Trunk Lean, Step-to Gait Factors Limiting Gait Function Factors Limiting Gait Function Decreased Activity Tolerance, Decreased Sensation,Decreased Strength,Pain,Poor Balance, Poor Safety Awareness PT-Balance Assessment Sitting Balance and Reactions Static Sitting Balance Ability Normal Dynamic Sitting Balance Ability Normal Standing Balance and Reactions Static Standing Balance Ability Good Dynamic Standing Balance Ability Good Device Used without AD M5 PT-IP Objective Assessments Start: 09/20/22 12:52 Freq: NEEDED Status: Active Protocol: Document 09/20/22 11:50 AB (Rec: 09/20/22 13:01 [email or web address]) Orientation Orientation/Cognition Level of Alertness Alert Orientation Name,Age,Birthday,Month,Date, Year,Day of Week,Place, Situation Language Function Ability No Deficits Noted Safety Awareness Understands Safety Issues Memory Description No Deficits Noted Gross Range of Motion Lower Extremity ROM Assessment Within Functional Limits Strength Comments Strength Comments pt has chronic LE pain and stated that she does not want to push too much during MMT due to pain Sensation Assessment Comments Sensation Comments has chronic numbness and pain on UE due to h/o walden per pt Muscle Tone Muscle Tone WNL Yes M6 PT-IP Treatment Start: 09/20/22 12:52 Freq: NEEDED Status: Active Protocol: Document 09/20/22 11:50 AB (Rec: 09/20/22 13:01 AB [id number]) Physical Therapy Treatment Education Education Provided Safety M7 PT-IP Assessment and Plan Start: 09/20/22 12:52 Freq: NEEDED Status: Active Protocol: Document 09/20/22 11:50 AB (Rec: 09/20/22 13:01 AB [email or web address]) PT Summary Assessment and Plan Potential Rehabilitation Potential Fair Status of Condition at Evaluation Stable Summary Impairments Pain,Balance,Gait,Activity Tolerance Assessment Summary PT eval completed and pt is modified independent with mobility. No further PT needs at this time. Pt agreed. Frequency of Treatment Frequency Of Treatment Discharge Discharge Recommendations Transportation Needs at Discharge Private Vehicle
[2022-09-20 12:10] VITALS: BP 112/66; PULSE 65; RESP 16; TEMP 36.4; O2SAT 96
[2022-09-20] MEDS: lamoTRIgine 100 MG TABLET 50 MG PO (13:12)
--- NOTE | 2022-09-20 13:17 | PM.DS.1 ---
History of Present Illness History of Present Illness Date Patient Seen: 09/20/22 Time Patient Seen: 13:17 Chief complaint: Thinks stroke Narrative: Patient is a 66-year-old female well known to me who presents with concerns for left arm numbness and left facial drooping. Apparently she woke up yesterday and was stating that she felt like her left arm was numb. Maybe a little bit of tingling in her left face. But primarily her left arm. [place] like she was left with feeling where she could not open her hand. But has no other changes. Patient does have a history of epilepsy but that has been stable. With no other changes. She is had no visual symptoms no other numbness or changes. No nausea vomiting. No headaches. She is had no fevers no chills or other change. Over the course of the last 24 hours she felt as if her hand still continues to be weak. CT scan was negative. There was no other findings on workup in the emergency room. She feels about the same. She is had no other complaint. Discharge Providers Provider Date of admission: 09/19/22 19:13 Discharge Date: 09/20/22 Primary care physician: Viktor Alvarez MD Consults: 09/19/22 21:00 Consult to Discharge Planning Routine Comment: Consult to Occupational Therapy Evaluate & Treat Comment: Physician Instructions: Evaluate and treat Consult to Physical Therapy Evaluate & Treat Comment: Physician Instructions: Evaluate and Treat Consult to Speech Therapy Evaluate & Treat Comment: Physician Instructions: Evaluate and treat 09/20/22 08:26 Consult to Physical Therapy Evaluate & Treat Comment: Physician Instructions: Evaluate and Treat Discharge provider: Viktor Alvarez MD Summary Hospital Course Discharge Diagnosis: TIA versus CVA Chronic pain Seizure disorder Hypertension Depression Hospital Course: TIA versus CVA. Patient was admitted with left hand numbness. She had no progression no other change still felt like she could not move her hand. Evaluation of the original CT scan showed no stroke MRI follow-up showed no significant abnormality. Patient was still feeling slightly weak although it was not demonstrate audible in her left hand. We discussed this. Could be TIA. Carotids look good. We discussed options elected for Plavix for 1 month and then will discontinue and go to full aspirin. Will obtain echo as outpatient. No evidence of AFib. Will consider long-term monitor Patient has been stable otherwise. Will discharge home. Chronic pain stable continue methadone Seizure disorder stable. Continue usual meds Hypertension. Controlled. Follow-up 10 days. Depression stable no new changes Exam Vital Signs (past 8 hours): - 09/20/22 06:14 09/20/22 08:00 09/20/22 09:11 Temperature 97.1 F L Pulse Rate 57 L 62 Respiratory Rate 20 16 Blood Pressure 134/59 L 147/68 H 147/68 H Pulse Oximetry 94 95 Oxygen Flow Rate 0 0 09/20/22 12:10 Temperature 97.6 F Pulse Rate 65 Respiratory Rate 16 Blood Pressure 112/66 Pulse Oximetry 96 Oxygen Flow Rate 0 Oxygen Delivery Method Room Air Oxygen Flow Rate 0 Narrative Exam Narrative: Alert female elderly in no acute distress No change in exam from this a.m.. 3 hours ago Objective Labs Result Diagrams: 09/19/22 16:46 09/19/22 16:46 Labs: Laboratory Results - last 24 hr 09/19/22 09/19/22 09/19/22 16:24 16:46 16:46 WBC 7.2 RBC 4.20 Hgb 12.8 Hct 37.6 MCV 89.4 MCH 30.4 MCHC 34.1 RDW 14.7 Plt Count 273 Neut % (Auto) 59.8 Lymph % (Auto) 30.0 Bennett % (Auto) 4.6 Eos % (Auto) 5.1 H Baso % (Auto) 0.5 Neut # (Auto) 4300 Lymph # (Auto) 2200 Bennett # (Auto) 300 Eos # (Auto) 400 Baso # (Auto) 0 PT 10.7 INR 0.9 APTT 33 Sodium Potassium Chloride Carbon Dioxide BUN Creatinine Estimated GFR BUN/Creatinine Ratio Glucose Calcium Total Bilirubin AST ALT Alkaline Phosphatase Total Creatine Kinase CK-MB (CK-2) CK-MB (CK-2) Rel Index Troponin I Total Protein Albumin Globulin Albumin/Globulin Ratio Lipase Urine Color Yellow Urine Appearance Clear Urine pH 5.0 Ur Specific [place] >=1.030 H Urine Protein 1+ H Urine Glucose (UA) Negative Urine Ketones Trace H Urine Occult Blood Trace-lysed Urine Nitrate Negative Urine Bilirubin Negative Urine Urobilinogen 0.2 Ur Leukocyte Esterase Negative Urine RBC None seen Urine WBC None seen Calcium Oxalate Crystal Moderate H Amorphous Sediment 1+ Urine Bacteria None seen Ur Culture Indicated? Cult not indicated Ethyl Alcohol SARS-CoV-2 (PCR) 09/19/22 09/19/22 16:46 17:10 WBC RBC Hgb Hct MCV MCH MCHC RDW Plt Count Neut % (Auto) Lymph % (Auto) Bennett % (Auto) Eos % (Auto) Baso % (Auto) Neut # (Auto) Lymph # (Auto) Bennett # (Auto) Eos # (Auto) Baso # (Auto) PT INR APTT Sodium 139 Potassium 4.6 Chloride 101 Carbon Dioxide 28 BUN 13 Creatinine 0.80 Estimated GFR > 60 BUN/Creatinine Ratio 16.3 Glucose 109 Calcium 9.2 Total Bilirubin 0.4 AST 31 ALT 18 Alkaline Phosphatase 98 Total Creatine Kinase 206 H CK-MB (CK-2) 5.38 H CK-MB (CK-2) Rel Index 2.6 Troponin I < 0.012 Total Protein 7.9 Albumin 4.4 Globulin 3.5 Albumin/Globulin Ratio 1.3 Lipase 37 Urine Color Urine Appearance Urine pH Ur Specific [place] Urine Protein Urine Glucose (UA) Urine Ketones Urine Occult Blood Urine Nitrate Urine Bilirubin Urine Urobilinogen Ur Leukocyte Esterase Urine RBC Urine WBC Calcium Oxalate Crystal Amorphous Sediment Urine Bacteria Ur Culture Indicated? Ethyl Alcohol < 10 SARS-CoV-2 (PCR) Negative REPLACED BY [facility] Medical History Anxiety Depression Hepatitis History of ETOH abuse Hypercholesteremia Hypertension Methadone use Seizures TIA (transient ischemic attack) Surgical History History of carpal tunnel surgery of left wrist (2014) History of hip surgery History of surgery (11/25/21) History of surgery (11/29/21) History of surgery (01/17/22) Hx of hernia repair Hx of left knee surgery (2010) Hx of tonsillectomy Social History household members: other Smoking Status: Former smoker alcohol intake: former Discharge Assessment & Plan Assessment and Plan Assessment: TIA versus CVA Plan of Treatment: Discharge home follow-up as outpatient stable without changes Discharge Plan Discharge Plan Patient Disposition: Assisted Living Under care of provider: leo Transportation: Facility vehicle Discharge orders & Medications Discharge Orders: Discharge (Order); Ordered 09/20/22 Ordered By: Viktor Alvarez Prescriptions: New clopidogrel 75 mg Tablet 75 mg PO DAILY Qty: 30 1RF Continued gabapentin 300 mg capsule 300 mg PO BID Label Comments: Pt takes first dose at 0600 and second dose at 1200; pt reports it causes her to feel too sedated and increases risk of falling when taken with other night time medications clonidine HCl 0.1 mg Tablet 0.1 mg PO BEDTIME Qty: 0 0RF methadone 10 mg Tablet 10 mg PO TID Qty: 30 0RF temazepam 15 mg Capsule 15 mg PO BEDTIME PRN (Reason: Sleep) Qty: 30 0RF carisoprodol 350 mg tablet 350 mg PO TID PRN (Reason: Muscle Spasm) lamotrigine 200 mg tablet 200 mg PO BID lamotrigine 25 mg tablet 50 mg PO BID lisinopril 40 mg tablet 40 mg PO DAILY aspirin 81 mg Tablet,Delayed Release (Dr/Ec) 81 mg PO QPM Discontinued ibuprofen 600 mg tablet 600 mg PO TID PRN (Reason: Pain, Moderate) Follow up/Referrals: Viktor Alvarez MD [Primary Care Provider] - 09/30/22 (Patient already has an appointment) Discharge Health Status Multidrug resistant organism: No MDRO MDRO Verified by culture: Yes Precautions: [place] Diet/Activity/Treatments Diet: Diet as Tolerated Food texture: Regular Skin/Wound/Dressing Care Report to your healthcare provider any signs of infection, such as:: chills, fever, night sweats and increased pain Special Rehabilitation Services Rehab type: Physical therapy Visit Report/Discharge Packet Instructions: Transient Ischemic Attack, DI for Stroke-Ischemic, DI for Prescription Opioid Use, Clopidogrel Discharge Data Primary Care Provider: Viktor Alvarez Attending Provider: Viktor Alvarez
--- NOTE | 2022-09-20 14:19 | PC.NURSE ---
Pt is dressed and ready for discharge back to [facility]. IV and tele have been removed. Went over d/c instructions with Pt-discussed d/c meds, time of last dose, reviewed stroke education, discussed Plavix/blood thinner use. Provided separate med List for [facility] signed by . Pt states she will call a taxi to get back to [facility] and we will take her down to the taxi via w/c by [facility] STRIPPER with all belongings.
--- NOTE | 2022-09-20 21:00 | DI.MRI.S_ITS ---
PROCEDURE: MR STROKE Pre- and post-contrast brain MRI, non-contrast brain MR angiogram, pre- and postcontrast neck MR angiogram INDICATIONS: cva TECHNIQUE: Brain: Noncontrast axial T1 spin echo, axial T2 fast spin echo, sagittal and axial FLAIR, coronal T2 fast spin echo, axial gradient echo, axial diffusion and ADC through the brain. After the administration of contrast, axial 3D VIBE of the cranial vasculature and brain. Brain MRA: Non-contrast 3-D time of flight MR angiogram, with multiple dewqjsf-hmmgicvph-xoddflhrgl (MIP) reformats performed. Neck MRA: Axial and sagittal TruFISP through the neck. Coronal dynamic MR angiogram during administration of contrast in the arterial and venous phases, with 3-dimenstional paffhrq-bcnnmhxwn-xxfuzbculh (MIP) reformats constructed from subtraction images. COMPARISON: [facility], , MR STROKE, 04/02/2018, 13:12. FINDINGS: Image quality: Excellent. BRAIN: CSF spaces: Ventricles are normal in size and shape. Basal cisterns are patent. No extra-axial fluid collections. Brain: No intracranial bleeds or mass effects. There is mild diffuse age-appropriate cerebral volume loss. Minimal degree of patchy high FLAIR signal within the periventricular white matter. Prather-white matter interface is normal. Diffusion weighted images show no acute ischemic insults. Brainstem appears normal. Normal intravascular flow voids are present. No abnormal intracranial enhancement. Skull and face: Calvarial marrow signal is normal. Orbits appear normal. Sinuses: Sinuses and mastoids are clear. BRAIN MR ANGIOGRAM: Anterior circulation: Intracranial internal carotid arteries are normal in size and enhancement. The flow within the paired anterior cerebral arteries is normal and symmetric. The flow within the middle cerebral arteries is normal and symmetric. The anterior communicating artery is seen. No stenoses, occlusions, or aneurysms. Posterior circulation: The visualized portions of the vertebral arteries demonstrate normal caliber, and join to form a normal appearing basilar artery. The flow within the posterior cerebral arteries is normal and symmetric. No stenoses, occlusions, or aneurysms. NECK MR ANGIOGRAM: Carotids: Great vessels demonstrate a conventional anatomy as they arise from the aortic arch. The origins of the common carotid arteries appear patent. The calibers and courses of both common carotid arteries are normal. The bifurcation regions appear normal bilaterally. The internal carotid arteries demonstrate normal course bilaterally. Mild, roughly 10% focal stenosis of the internal carotid arteries bilaterally. Posterior circulation: The origins of the vertebral arteries appear patent. More superior portions of both vertebral arteries demonstrate normal course and caliber, and join to form a normal appearing basilar artery. Miscellaneous: Subclavian arteries appear patent. Pre-contrast images through the neck demonstrate a 27 mm diameter heterogeneous T2 signal lesion within the left thyroid. IMPRESSION: BRAIN MRI: 1. No acute process. No recent infarct. BRAIN MR ANGIOGRAM: Negative cerebral MR angiography. NECK MR ANGIOGRAM: 1. No acute process involving the arterial tree of the neck. 2. Left thyroid nodule, which could be further assessed with nonemergent outpatient follow-up thyroid ultrasound, if clinically indicated. Dictated by: Chester Das M.D. on 09/20/2022 at 9:09 Approved by: Chester Das M.D. on 09/20/2022 at 9:12
== END 2022-09-20 14:26 ==
LOC: ED 19:09 → AC 19:14
PROVIDERS: Admitting Provider Family Medicine; Emergency Provider Emergency Medicine; Family Provider Family Medicine; PCP Family Medicine; Visit Provider Family Medicine
DX: R53.1 Weakness (principal); R29.810 Facial weakness; R20.0 Anesthesia of skin; F32.A Depression, unspecified; R29.700 NIHSS score 0; I10 Essential (primary) hypertension; G40.909 Epilepsy, unspecified, not intractable, without status epilepticus; G89.29 Other chronic pain; F11.90 Opioid use, unspecified, uncomplicated; Z20.822 Contact with and (suspected) exposure to COVID-19
CPT/HCPCS: 36415; 70450; 70496; 70498; 70548; 70553; 80053; 80320; 81001; 81003; 82550; 82553; 83690; 84484; 85025; 85610; 85730; 87635; 93005; 93010; 96372; 97161; 97165; 99284; C9803; G0378; A9270; A9579; J1650; Q9967

== ENCOUNTER → 2023-09-04 15:26 | Outpatient (CLI) | payer MEDICARE, MEDICAID, SELFPAY ==
[2022-09-19 21:21] VITALS: BMI 21.4
--- NOTE | 2023-09-04 | DI.RAD.S_ITS ---
PROCEDURE: XR CHEST 2V INDICATIONS: Moderate persistent asthma, uncomplicated TECHNIQUE: 2 views of the chest were acquired. COMPARISON: [facility], , XR CHEST 1V, 04/29/2019, 17:14. [facility], , CHEST 1 VIEW, 12/10/2010, 19:41. FINDINGS: Surgical changes and devices: None. Lungs and pleura: Lungs are clear. No pleural effusions or pneumothorax. Mediastinum: Mediastinal contours are normal. Heart size is normal. Bones and chest wall: No suspicious bony abnormalities. S shaped scoliosis of the thoracolumbar spine. Soft tissues appear unremarkable. IMPRESSION: No acute cardiopulmonary abnormality is seen. Dictated by: Sony Turner M.D. on 09/04/2023 at 17:00 Approved by: Sony uTrner M.D. on 09/04/2023 at 17:01
== END ==
PROVIDERS: Family Provider Family Medicine; PCP Family Medicine; Referring Provider Family Medicine; Visit Provider Family Medicine
DX: J45.40 Moderate persistent asthma, uncomplicated (principal)
CPT/HCPCS: 71046

== ENCOUNTER 2023-09-12 13:15 | Outpatient (RCR) | payer MEDICARE, MEDICAID, SELFPAY ==
[2022-09-19 21:21] VITALS: BMI 21.4
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
== END 2023-09-14 09:44 | disposition home or self-care (01) ==
LOC: PHYS 13:15
PROVIDERS: Family Provider Family Medicine; PCP Family Medicine; Referring Provider Family Medicine; Visit Provider Family Medicine
DX: M79.642 Pain in left hand (principal); M25.642 Stiffness of left hand, not elsewhere classified; M25.641 Stiffness of right hand, not elsewhere classified; M62.81 Muscle weakness (generalized); M79.89 Other specified soft tissue disorders; M25.512 Pain in left shoulder; M25.511 Pain in right shoulder
CPT/HCPCS: 95851; 97110; 97112; 97140; 97162; 97530; 97535; 97750

== ENCOUNTER 2023-10-09 16:32 | Emergency (ER) | payer MEDICARE, MEDICAID, SELFPAY ==
[2022-09-19 21:21] VITALS: BMI 21.4
--- NOTE | 2023-10-09 16:52 | DI.RAD.S_ITS ---
PROCEDURE: XR CHEST 1V INDICATIONS: chest pain TECHNIQUE: One view of the chest was acquired. COMPARISON: [facility], CR, XR CHEST 2V, 09/04/2023, 15:30. [facility], CR, XR CHEST 1V, 04/29/2019, 17:14. FINDINGS: Surgical changes and devices: None. Lungs and pleura: Lungs are clear. No pleural effusions or pneumothorax. Mediastinum: Mediastinal contours appear normal. Heart size is normal. Bones and chest wall: No suspicious bony lesions. Overlying soft tissues appear unremarkable. Scoliotic curvature of the spine. IMPRESSION: No acute cardiopulmonary abnormality is seen. Approved by: J Luis Merchant M.D. on 10/09/2023 at 17:21
[2023-10-09 17:00] VITALS: BP 175/95; PULSE 93; RESP 20; TEMP 36.4; O2SAT 98; BMI 20.5
[2023-10-09 17:11] LABS: Add Manual Diff / Slide Review NO; Basophils Absolute Auto 100 /uL (0-100); Basophils Percent Auto 0.9 % (0-2); Eosinophils Absolute Auto 300 /uL (0-450); Eosinophils Percent Auto 3.8 % (2-4); Hematocrit 39.3 % (36-46); Hemoglobin 13.2 g/dL (12.0-16.0); Lymphocytes Absolute Auto 2300 /uL (1100-4500); Lymphocytes Percent Auto 31.7 % (25-40); Mean Corpuscular HGB Conc 33.5 % (30-36); Mean Corpuscular Hemoglobin 29.9 PG (26-34); Mean Corpuscular Volume 89.2 fL (80-100); Monocytes Absolute Auto 500 /uL (0-900); Monocytes Percent Auto 6.6 % (3-14); Neutrophils Absolute Auto 4100 /uL (1500-7000); Platelet Count 364 X10^3/uL (150-400); Red Blood Cell Count 4.41 X10^6/uL (4.0-5.2); Red Cell Distribution Width 14.6 % (11.6-14.8); White Blood Cell Count 7.1 X10^3/uL (4.5-11.0)
[2023-10-09 17:14] LABS: Prothrombin Time 11.3 SECONDS (9.4-12.5)
[2023-10-09 17:16] LABS: PTT Partial Thromboplastin Tim 32 SECONDS (25.1-36.5)
[2023-10-09 17:18] LABS: Alanine Aminotransferase 17 IU/L (<35); Albumin 4.8 g/dL (3.5-5.0); Albumin Globulin Ratio 1.5 (1.0-2.8); Alkaline Phosphatase 106 U/L (38-126); Aspartate Aminotransferase 28 IU/L (14-36); BUN Creatinine Ratio 17.6 (6-22); Bilirubin Total 0.7 mg/dL (0.2-1.3); Blood Urea Nitrogen 13 mg/dL (7-17); Calcium 10.3 mg/dL (8.4-10.2); Carbon Dioxide 33 mmol/L (22-32); Chloride 97 mmol/L (98-107); Creatine Kinase 114 U/L (30-135); Estimated Glomerular Filt Rate > 60 mL/min (>60); Globulin 3.2 g/dL (1.7-4.1); Glucose 91 mg/dL (80-110); HEMOLYSIS < 15 (0-50); Lipase 44 U/L (23-300); Magnesium 2.1 mg/dL (1.6-2.3); Potassium 4.2 mmol/L (3.4-5.1); Sodium 136 mmol/L (137-145)
[2023-10-09 17:29] LABS: Troponin I 0.017 ng/mL (0.01-0.034)
[2023-10-09 17:34] VITALS: BP 182/89; PULSE 81; O2SAT 98
--- NOTE | 2023-10-09 17:48 | ED_ITS ---
HPI - Chest Pain General Chief Complaint: Chest Pain Stated Complaint: intermittant chest pain Time Seen by Provider: 10/09/23 17:33 Source: patient Mode of arrival: Ambulatory Limitations: no limitations History of Present Illness HPI narrative: 67-year-old female with history of hypertension, hip dysplasia presents by private vehicle from home for intermittent chest pains for the last 3-4 months. Patient states that her blood pressure at home has also been poorly controlled and her primary care doctor wanted her to be seen in the emergency department to evaluate for acute conditions. Patient states that her blood pressure seems to be the same no matter if she takes her blood pressure medications or not. She is tried various different medications but can not tolerate the side effects such as constipation. Currently pain-free. Patient can not identify what makes the pain come or go. She has never seen a carport erector. Related Data Home Medications Medication Instructions Recorded Confirmed aspirin 81 mg tablet,delayed 81 mg PO QPM 04/29/19 09/19/22 release carisoprodol 350 mg tablet 350 mg PO TID PRN Muscle Spasm 04/29/19 09/19/22 lamotrigine 200 mg tablet 200 mg PO BID 04/29/19 09/19/22 lamotrigine 25 mg tablet 50 mg PO BID 04/29/19 09/19/22 lisinopril 40 mg tablet 40 mg PO DAILY 04/29/19 09/19/22 gabapentin 300 mg capsule 300 mg PO BID 01/05/22 09/19/22 Previous Rx's Medication Instructions Recorded clonidine HCl 0.1 mg tablet 0.1 mg PO BEDTIME #0 tabs 11/27/21 methadone 10 mg tablet 10 mg PO TID #30 tabs 11/30/21 temazepam 15 mg capsule 15 mg PO BEDTIME PRN Sleep #30 caps 11/30/21 clopidogrel 75 mg tablet 75 mg PO DAILY #30 tabs 09/20/22 Allergies Allergy/AdvReac Type Severity Reaction Status Date / Time carbamazepine Allergy Unknown Verified 10/09/23 17:04 Sulfa (Sulfonamide Allergy Unknown very Verified 10/09/23 17:04 Antibiotics) sick, hospitalized Rvvxton-NTJ-YvF Reductase AdvReac Mild extreme Verified 10/09/23 17:04 Inhibitor pain [Fruavfr-Dbs-Jfu Reductase Inhibitor] baclofen AdvReac Unknown felt like Verified 10/09/23 17:04 I was going to have a seizure, nausea NSAIDS (Non-Steroidal AdvReac Unknown gi upset; Verified 10/09/23 17:04 Anti-Inflamma ibuprofen ok Review of Systems Review of Systems Narrative: Negative except as noted above Patient History Medical History Anxiety Depression Hepatitis History of ETOH abuse Hypercholesteremia Hypertension Methadone use Seizures TIA (transient ischemic attack) Surgical History History of carpal tunnel surgery of left wrist (2014) History of hip surgery History of surgery (11/25/21) History of surgery (11/29/21) History of surgery (01/17/22) Hx of hernia repair Hx of left knee surgery (2010) Hx of tonsillectomy Social History household members: other Smoking Status: Former smoker alcohol intake: former Smoking Status: Former smoker tobacco type: cigarettes alcohol intake frequency: holidays/special occasions only Substance Use Type: does not use Exam Initial Vital Signs Initial Vital Signs: Vital Signs Temperature 97.6 F 10/09/23 17:00 Pulse Rate 93 H 10/09/23 17:00 Respiratory Rate 20 10/09/23 17:00 Blood Pressure 175/95 H 10/09/23 17:00 Pulse Oximetry 98 10/09/23 17:00 Oxygen Delivery Method Room Air 10/09/23 17:00 Const: Awake, alert, no acute distress, nontoxic appearing Eyes: PERRL, EOMI, conjunctiva normal ENT: Atraumatic, dentition normal, mucous membranes moist Cardiac: regular rate, regular rhythm RESP: unlabored, clear bilaterally, no wheezing GI: Atraumatic, soft, nontender, nondistended, no rebound, no guarding MSK: Atraumatic, full range of motion, pulses equal Skin: Warm, Dry, intact, no rashes Neuro: AO x3, CN II-XII grossly intact, moves all extremities Psych: affect normal, mood normal, not suicidal, not homicidal Scores HEART Score Heart Score history: Slightly Suspicious Heart Score EKG: Normal Heart Score Age: > or = 65 years old Heart Score risk factors: 1-2 risk factors Heart Score troponin: < or = to normal limit Heart Score Total: 3 Course Orders Ordered: ED Orders 10/09/23 16:52 XR chest 1V Stat EKG-12 Lead Stat 10/09/23 17:00 Complete Blood Count AUTO DIFF Stat Comprehensive Metabolic Panel Stat Lipase Stat Magnesium Stat PTT Partial Thromboplastin Yefri Stat Prothrombin Time INR Stat Troponin & CK Cardiac Panel Stat Vital Signs Vital signs: Vital Signs - 8 hr 10/09/23 17:00 Temperature 97.6 F Pulse Rate 93 H Respiratory Rate 20 Blood Pressure 175/95 H Pulse Oximetry 98 Oxygen Delivery Method Room Air MDM - Chest Pain Differential Diagnosis Differential diagnosis: Likely fracture of rib, unstable angina pectoris and atypical chest pain Lab Data 10/09/23 17:00 10/09/23 17:00 Labs: Lab Results 10/09/23 Range/Units 17:00 WBC 7.1 (4.5-11.0) X10^3/uL RBC 4.41 (4.0-5.2) X10^6/uL Hgb 13.2 (12.0-16.0) g/dL Hct 39.3 (36-46) % MCV 89.2 (80-100) fL MCH 29.9 (26-34) PG MCHC 33.5 (30-36) % RDW 14.6 (11.6-14.8) % Plt Count 364 (150-400) X10^3/uL Neut % (Auto) 57.0 (50-75) % Lymph % (Auto) 31.7 (25-40) % [place] % (Auto) 6.6 (3-14) % Eos % (Auto) 3.8 (2-4) % Baso % (Auto) 0.9 (0-2) % Neut # (Auto) 4100 (1747-9022) /uL Lymph # (Auto) 2300 (6734-8165) /uL [place] # (Auto) 500 (0-900) /uL Eos # (Auto) 300 (0-450) /uL Baso # (Auto) 100 (0-100) /uL PT 11.3 (9.4-12.5) SECONDS INR 1.0 (0.9-1.3) APTT 32 (25.1-36.5) SECONDS Sodium 136 L (137-145) mmol/L Potassium 4.2 (3.4-5.1) mmol/L Chloride 97 L (98-107) mmol/L Carbon Dioxide 33 H (22-32) mmol/L BUN 13 (7-17) mg/dL Creatinine 0.74 (0.52-1.04) mg/dL Estimated GFR > 60 (>60) mL/min BUN/Creatinine Ratio 17.6 (6-22) Glucose 91 (80-110) mg/dL Calcium 10.3 H (8.4-10.2) mg/dL Magnesium 2.1 (1.6-2.3) mg/dL Total Bilirubin 0.7 (0.2-1.3) mg/dL AST 28 (14-36) IU/L ALT 17 (<35) IU/L Alkaline Phosphatase 106 (38-126) U/L Total Creatine Kinase 114 (30-135) U/L Troponin I 0.017 (0.01-0.034) ng/mL Total Protein 8.0 (6.3-8.2) g/dL Albumin 4.8 (3.5-5.0) g/dL Globulin 3.2 (1.7-4.1) g/dL Albumin/Globulin Ratio 1.5 (1.0-2.8) Lipase 44 (23-300) U/L ECG Data Interpretation: normal sinus rhythm. No ST-T wave changes, normal axis. MDM Narrative Medical decision making narrative: Patient presenting for intermittent chest pains for months. Currently pain- free. Patient is noted to be hypertensive in the exam room, however she states that she is always hypertensive no matter what medications she seems to try. EKGs normal sinus rhythm without concerning findings. Troponin negative. Chest x-ray reviewed, no acute abnormalities identified. Patient stated she was not interested in discussing antihypertensive changes as she seems to have too many side effects of different medications, she will follow up with her primary care doctor. I also recommended that the patient follow up with Cardiology for further investigation of her intermittent chest pains. ED return precautions discussed at bedside. Patient expressed understanding of the plan and is in agreement at this time. All questions answered at the time of discharge. Discharge Plan Departure Patient Disposition: Home Clinical Impression: Chest pain Instructions: DI for Chest Pain Prescriptions: No Action gabapentin 300 mg capsule 300 mg PO BID Patient Comments: Pt takes first dose at 0600 and second dose at 1200; pt reports it causes her to feel too sedated and increases risk of falling when taken with other night time medications clonidine HCl 0.1 mg Tablet 0.1 mg PO BEDTIME Qty: 0 0RF methadone 10 mg Tablet 10 mg PO TID Qty: 30 0RF temazepam 15 mg Capsule 15 mg PO BEDTIME PRN (Reason: Sleep) Qty: 30 0RF carisoprodol 350 mg tablet 350 mg PO TID PRN (Reason: Muscle Spasm) lamotrigine 200 mg tablet 200 mg PO BID lamotrigine 25 mg tablet 50 mg PO BID lisinopril 40 mg tablet 40 mg PO DAILY aspirin 81 mg Tablet,Delayed Release (Dr/Ec) 81 mg PO QPM clopidogrel 75 mg Tablet 75 mg PO DAILY Qty: 30 1RF Referrals: Daniel He MD [Physician] - Viktor Alvarez MD [Primary Care Provider] - Stand Alone Forms: Patient Portal/API
[2023-10-09 18:00] VITALS: BP 176/81; PULSE 74; RESP 22; O2SAT 93
== END 2023-10-09 18:30 | disposition home or self-care (01) ==
PROVIDERS: Emergency Provider Emergency Medicine; Family Provider Family Medicine; PCP Family Medicine
DX: R07.9 Chest pain, unspecified (principal)
CPT/HCPCS: 36415; 71045; 80053; 82550; 83690; 83735; 84484; 85025; 85610; 85730; 93005; 99284

== ENCOUNTER → 2023-11-20 07:02 | Outpatient (CLI) | payer MEDICARE, OTHER, MEDICAID, SELFPAY ==
[2022-09-19 21:21] VITALS: BMI 21.4
--- NOTE | 2023-11-20 07:05 | DI.NM.S_ITS ---
PROCEDURE: NM FRANCO PERF SPECT R&S PHARM Rest and pharmacological stress myocardial perfusion SPECT with gated imaging and ejection fraction RADIOPHARMACEUTICAL: 27.1 mCi Tc-99m tetrafosmin IV at rest and 25.0 mCi Tc-99m tetrafosmin IV at peak effect of pharmacological stress. [id number]-[id number]-[id number] was performed. INDICATIONS: ATYPICAL CHEST PAIN TECHNIQUE: Radiopharmaceutical was injected at peak stress test, and also at rest. SPECT images were obtained. SPECT myocardial perfusion images were displayed in short axis, horizontal long axis, and vertical long axis views. Gated images were reviewed using [employer] software. COMPARISON: None. CARDIAC STRESS: A pharmacologic stress test was performed under the supervision of an attending staff, using an infusion of lexiscan 0.4mg IV X1. Hemodynamic data: There is normal blood pressure and heart rate response to pharmacologic stress. Symptoms: The patient denied anginal chest pain. Aminophylline: none EKG: No diagnostic changes of ischemia; no ectopy. FINDINGS: Raw data: There is good myocardial uptake of radiotracer. No significant motion artifacts. Evcg-wk-zqhxt ratio is 0.2 (normal is less than 0.38 for tetrafosmin tracer). Left ventricle function: Gated images demonstrate normal left ventricular wall thickening. No segmental wall motion abnormalities. No transient ischemic dilation; TID is 1.26 (normal less than 1.3). Left ventricle resting end diastolic volume is 80 mL. Left ventricle stress ejection fraction is 86%; normal range is above 45%. Myocardial perfusion: There is normal distribution of activity in the right and left ventricular myocardium. No fixed or reversible perfusion defects. SSS 0. IMPRESSION: Low risk, normal pharm nuclear stress test with normal systolic function. Dictated by: Triny Waldron MD on 11/21/2023 at 17:00 Approved by: Triny Waldron MD on 11/21/2023 at 17:01
== END ==
PROVIDERS: Family Provider Family Medicine; PCP Family Medicine; Referring Provider Family Medicine; Visit Provider Family Medicine
DX: R07.89 Other chest pain (principal)
CPT/HCPCS: 78452; 93017; A9502; J2785

== ENCOUNTER → 2024-02-22 12:56 | Outpatient (CLI) | payer MEDICARE, OTHER, MEDICAID, SELFPAY ==
[2022-09-19 21:21] VITALS: BMI 21.4
--- NOTE | 2024-02-22 12:59 | DI.ECHO.S_ITS ---
[place] +---------+ : : [address] : : : : [id number] : : : : Phone: [phone]+ Echocardiogram Report + + :Name: ALENA WASHINGTON Study Date: 02/22/2024 Height: 64 in : :[facility] ReadingLocation: Weight: 120 lb : : Gender: Female BSA: 1.6 m2 : :: 1955 Age: 68 yrs BP: 160/94 mmHg: :Reason For Study: CHEST PAIN, ATYPICAL : :Ordering Physician: ZEUS, : :SANJEEV Performed By: Jose Manuel Pelaez : :Referring: SANJEEV SCHULZ : + + Interpretation Summary The ejection fraction is estimated to be 60-65%. Diastolic parameters suggest probable normal left ventricular diastolic function and normal filling pressures. The right ventricular systolic function is normal. No significant valvular abnormality. The IVC is of normal diameter and collapses greater than 50% with a sniff. This suggests a low right atrial pressure of 3 mm Hg. Procedure: A two-dimensional transthoracic echocardiogram with color flow and Doppler was performed. The study quality was technically adequate. Comparison is made with the echocardiogram of 04/02/2018. The patient was in normal sinus rhythm during the exam. The heart rate ranged between 67-76 bpm during the study. Left Ventricle: The left ventricle is normal in size and wall thickness. The ejection fraction is estimated to be 60-65%. There are no obvious focal wall motion abnormalities noted but poor endocardial definition reduces the sensitivity for the detection of such. Diastolic parameters suggest probable normal left ventricular diastolic function and normal filling pressures. Right Ventricle: Borderline right ventricular enlargement. The right ventricular systolic function is normal. Atria: The left atrium is mildly dilated. The right atrium is mildly dilated. The interatrial septum grossly appears intact with no obvious evidence for an atrial septal defect. Mitral Valve: The mitral valve is normal in structure and function. There is no mitral valve stenosis. There is mild mitral regurgitation. Aortic Valve: The aortic valve is trileaflet. There is no aortic valve stenosis. No aortic regurgitation is present. Tricuspid Valve: The tricuspid valve is normal in structure and function. There is no tricuspid stenosis. No tricuspid regurgitation. Pulmonic Valve: The pulmonic valve is not well visualized. There is no pulmonic valvular stenosis. There is no pulmonic valvular regurgitation. Great Vessels: The aortic root is normal size. The ascending aorta could not be visualized. The IVC is of normal diameter and collapses greater than 50% with a sniff. This suggests a low right atrial pressure of 3 mm Hg. Pericardium/ Pleura There is no pericardial effusion. There is no pleural effusion. MMode/2D Measurements & Calculations LVIDd: 4.9 cm LVOT diam: 2.3 cm LVIDs: 2.8 cm Ao root diam: 3.2 cm FS: 43.0 % Ao Arch Diam (Prox Trans): 2.0 cm IVSd: 0.84 cm LVPWd: 0.90 cm LV glez. diameter/BSA (cm/m^2): 3.1 LV sys. diameter/BSA (cm/m^2): 1.8 LA A2 area: 20.6 cm2 RA long axis: 4.3 cm LA A4 area: 17.0 cm2 RA area: 12.7 cm2 LA length (vol): 5.2 cm RA vol: 31.9 ml LA vol: 57.3 ml RA : 20.2 ml/m2 LA vol index: 36.4 ml/m2 IVC diam: 1.3 cm RVD1 (basal): 4.0 cm RVD2 (mid): 3.8 cm TAPSE: 2.7 cm Doppler Measurements & Calculations Ao V2 max: 148.4 cm/sec LVOT Max Jairo: 139.5 cm/sec Ao V2 mean: 105.9 cm/sec LV V1 max P.8 mmHg Ao max P.8 mmHg LV V1 VTI: 24.9 cm Ao mean P.0 mmHg SANDRITA(I,D): 3.5 cm2 Ao V2 VTI: 29.4 cm SANDRITA(V,D): 3.8 cm2 sev ratio: 0.85 SANDRITA indexed to BSA (cm^2/m^2): 2.2 MV E max jairo: 83.1 cm/sec PA V2 max: 121.9 cm/sec MV A max jairo: 80.0 cm/sec PA V2 mean: 80.1 cm/sec MV E/A: 1.0 PA mean P.8 mmHg Med Peak E' Jairo: 7.0 cm/sec PA pr(Accel): 34.5 mmHg E/E' med: 11.8 Lat Peak E' Jairo: 10.0 cm/sec E/E' lat: 8.3 E/e' average: 10.1 MV dec time: 0.20 sec SVLVOT): 101.7 ml Reading Physician:JAMES
== END ==
LOC: ECHO 12:58
PROVIDERS: PCP Family Medicine; Referring Provider Internal Medicine; Visit Provider Internal Medicine
DX: R07.89 Other chest pain (principal); I34.0 Nonrheumatic mitral (valve) insufficiency
CPT/HCPCS: 93306

== ENCOUNTER → 2024-08-14 12:41 | Outpatient (CLI) | payer MEDICARE, MEDICAID, SELFPAY ==
[2022-09-19 21:21] VITALS: BMI 21.4
[2024-08-05 11:30] VITALS: BMI 21.4
--- NOTE | 2024-08-14 12:44 | DI.MG.S_ITS ---
BILATERAL DIGITAL SCREENING MAMMOGRAM 3D/2D WITH CAD: 08/14/2024 CLINICAL: Routine screening. Comparison is made to exams dated: 08/10/2022 mammogram, 09/29/2014 mammogram, and 12/02/2010 mammogram - [facility]. The breasts are heterogeneously dense, which may obscure small masses (category c / 51-75% glandular tissue). Current study was also evaluated with a Computer Aided Detection (CAD) system. There is a developing round equal density asymmetry in the left breast middle depth lateral region seen on the craniocaudal view only. No other significant masses, calcifications, or other findings are seen in either breast. IMPRESSION: INCOMPLETE: NEED ADDITIONAL IMAGING EVALUATION The developing round equal density asymmetry in the left breast is indeterminate. Additional views with possible ultrasound are recommended. Based on the Tyrer Cuzick model (a risk assessment model) the patient's lifetime risk is 6.0% and her 10 year risk is 3.5%. According to the ACR, ACS, and NCCN guidelines, an annual breast MRI exam along with mammogram is recommended if the patient's lifetime risk is 20% or greater. This exam was interpreted at Station ID: [id number]. NOTE: For mammograms, a report in lay terms will be sent to the patient. Approximately 15% of breast malignancies will not be visualized mammographically. In the management of a palpable breast mass, a negative mammogram must not discourage biopsy of a clinically suspicious lesion. Electronically Signed By: Kathy pathak/ruby:08/14/2024 17:22:38 letter sent: Additional Imaging Needed ACR BI-RADS Category 0: Incomplete: Need Additional Imaging Evaluation
--- NOTE | 2024-08-14 12:45 | DI.RAD.S_ITS ---
PROCEDURE: XR DEXA AXIAL SKELETON INDICATIONS: OSTEOPOROSIS COMPARISON: [facility], CR, XR DEXA AXIAL SKELETON, 08/10/2022, 14:42. FINDINGS: Left Hip: Bone mineral density is 0.495 g/cm2, T score -3.7, previously -2.9. Left Femoral Neck: Bone mineral density 0.482 g/cm2, T score -3.3, previously -3.1. Left Forearm: Bone mineral density is 0.569 g/cm2, T score -2.1, previously -1.7. (T score greater or equal to -1.0 to: NORMAL) (T score from -1.1 to -2.4: OSTEOPENIA) (T score less than or equal to -2.5: OSTEOPOROSIS) IMPRESSION: Worsening osteoporosis Follow-up guidelines as follows: Osteoporosis: Consider a repeat DEXA and Vertebral Fracture Assessment (VFA) exam in 2 years or sooner if medically necessary, to reassess this patient's status. Osteopenia: Consider a repeat DEXA in 2-3 years to reassess this patient's status, or if there is a new clinical indication. Normal: Consider a repeat DEXA in 5 years or sooner, or if there is a new clinical indication. All treatment decisions require clinical judgment and consideration of individual patient factors, including patient preferences, comorbidities, previous drug use, risk factors not captured in the FRAX model (e.g., frailty, falls, vitamin D deficiency, increased bone turnover, interval significant decline in bone density ) and possible under- or over-estimation of fracture risk by FRAX. In addition, the NOF Guide recommends that FDA-approved medical therapies be considered in postmenopausal women and men age >= 50 years with a: * Hip or vertebral (clinical or morphometric) fracture * T-score of <=-2.5 at the spine or hip * Ten-year fracture probability by FRAX of >= 3% for hip fracture or >=20% for major osteoporotic fracture. People with diagnosed cases of osteoporosis or at high risk for fracture should have regular bone mineral density tests. For patients eligible for Medicare, routine testing is allowed once every 2 years. The testing frequency can be increased to one year for patients who have rapidly progressing disease, those who are receiving or discontinuing medical therapy to restore bone mass, or have additional risk factors. Approved by: Harshad Moffett M.D. on 08/15/2024 at 13:54
--- NOTE | 2024-08-14 12:45 | DI.RAD.S_ITS ---
PROCEDURE: XR CERVICAL SPINE 4V OR 5V INDICATIONS: NECK PAIN TECHNIQUE: 5 views of the cervical spine were acquired. COMPARISON: None. FINDINGS: Bones: Disc space narrowing and sclerotic arthropathy noted in the mid cervical spine. Grade 1 anterior spondylolisthesis C3-4 . 2-3 mm translation noted at C3-4 between flexion extension. Craniovertebral relationships are normal. Normal bone mineralization. Soft tissues: Prevertebral soft tissues are normal in thickness. IMPRESSION: Degenerative disc disease and arthropathy without evidence of instability at C3-4 Approved by: Harshad Moffett M.D. on 08/14/2024 at 17:15
== END ==
LOC: MAMMO 12:43
PROVIDERS: PCP Family Medicine; Referring Provider Family Medicine; Visit Provider Family Medicine
DX: Z12.31 Encounter for screening mammogram for malignant neoplasm of breast (principal); M81.0 Age-related osteoporosis without current pathological fracture; R92.333 Mammographic heterogeneous density, bilateral breasts; Z78.0 Asymptomatic menopausal state; M50.31 Other cervical disc degeneration, high cervical region; M47.812 Spondylosis without myelopathy or radiculopathy, cervical region
CPT/HCPCS: 72050; 77063; 77067; 77080; 77081

== ENCOUNTER → 2024-08-22 12:31 | Outpatient (CLI) | payer MEDICARE, MEDICAID, SELFPAY ==
[2024-08-05 11:30] VITALS: BMI 21.4
--- NOTE | 2024-08-22 12:33 | DI.MRI.S_ITS ---
PROCEDURE: MR CERVICAL SPINE WO CON INDICATIONS: ABN NECK XRAY / NECK PAIN / LEFT ARM NUMBNESS TECHNIQUE: Noncontrast sagittal T1 spin echo and T2 fast spin echo, sagittal STIR, foraminal oblique sagittal T2 fast spin echo, and axial gradient echo or T2 fast spin echo through the cervical spine. COMPARISON: None. FINDINGS: Image quality: Somewhat limited evaluation given patient motion. Mild anterolisthesis of C2 on C3, [id number] anterolisthesis C3 on C4. Mild retrolisthesis C4 on C5, C5 on C6, C6 on C7. Mild anterolisthesis C7 on T1 and T1 on T2. Vertebral body height of cervical spine are well maintained. Diffuse marrow edema of C5 vertebral body, nonspecific and may be degenerative. [facility] in of fibrovascular end plate change about C4-5 and C5 through 6. Mild fibrovascular end plate change of the upper thoracic spine. Cord signal: Unremarkable Right neural foraminal stenosis: Mild at C3-4, moderate at C4-5, severe at C5-6, mild at C6-7 and moderate at C7-T1. Left neural foraminal stenosis: Extremely limited evaluation given stents is patient motion. Moderate at C3-4. Nondiagnostic at C4-5, C5-6. Mild at C6-7 Axial images: C2-3: Posterior disc osteophyte complex. No central canal stenosis. Moderate left facet arthropathy. C3-4: Left uncovertebral and left facet arthropathy. No central canal stenosis. C4-5: Extremely limited evaluation on axial images. Mild central canal stenosis. C5-6: Posterior disc osteophyte complex. Extremely limited evaluation axial images. Moderate central canal stenosis. C6-7: Posterior disc osteophyte complex. Mild central canal stenosis. Left uncovertebral arthropathy.. C7-T1: Moderate bilateral facet arthropathy. No central canal stenosis. Other soft tissue findings: 2.6 cm left thyroid nodule. IMPRESSION: 1. Extremely limited evaluation given patient motion. Nondiagnostic evaluation of left neural foramen at C4-5 and C5-6. 2. Multilevel degenerative changes of the cervical spine, most pronounced at C5-6, where there is moderate central canal stenosis, and severe right neural foraminal stenosis. Nondiagnostic left neural foraminal stenosis at C5-6. 3. 2.6 cm left thyroid nodule. Recommend further evaluation with thyroid ultrasound. Dictated by: Cookie Schmidt M.D. on 08/22/2024 at 15:15 Approved by: Cookie Schmidt M.D. on 08/22/2024 at 15:26
== END ==
PROVIDERS: PCP Family Medicine; Referring Provider Family Medicine; Visit Provider Family Medicine
DX: M47.812 Spondylosis without myelopathy or radiculopathy, cervical region (principal); M48.02 Spinal stenosis, cervical region; E04.1 Nontoxic single thyroid nodule; M54.2 Cervicalgia; R20.0 Anesthesia of skin
CPT/HCPCS: 72141

== ENCOUNTER → 2024-08-28 08:30 | Outpatient (CLI) | payer MEDICARE, MEDICAID, SELFPAY ==
[2024-08-05 11:30] VITALS: BMI 21.4
--- NOTE | 2024-08-28 08:31 | DI.US.S_ITS ---
LIMITED ULTRASOUND OF LEFT BREAST: 08/28/2024 CLINICAL: Patient returns today to evaluate a focal asymmetry in the left breast. Comparison is made to exams dated: 08/28/2024 mammogram, 08/14/2024 mammogram, and 08/10/2022 mammogram - [facility]. Real-time ultrasound of the left breast 2-3 o'clock region was performed. Prather scale images of the real-time examination were reviewed. No significant abnormalities were seen sonographically in the left breast. IMPRESSION: PROBABLY BENIGN There is no abnormality seen in the left breast to correspond with the mammography finding of concern which likely represent normal fibroglandular tissue. Findings are probably benign. A follow-up left mammogram with possible left ultrasound in 6 months is recommended to demonstrate stability. Findings and recommendations were conveyed to the patient during today's evaluation. This exam was interpreted at Station ID: [id number]. Electronically Signed By: Jeff Mata M.D. aty/:08/28/2024 10:11:38 letter sent: Followup Recommended ACR BI-RADS Category 3: Probably Benign
--- NOTE | 2024-08-28 08:31 | DI.MG.S_ITS ---
UNILATERAL LEFT DIGITAL DIAGNOSTIC MAMMOGRAM 3D/2D WITH ADDITIONAL VIEWS: 08/28/2024 CLINICAL: Additional evaluation requested from prior study. Comparison is made to exams dated: 08/14/2024 mammogram, 08/10/2022 mammogram, and 09/29/2014 mammogram - [facility]. The breasts are heterogeneously dense, which may obscure small masses (category c / 51-75% glandular tissue). There is a possible 0.7 cm oval equal density focal asymmetry with an obscured margin in the left breast at 3 o'clock middle depth. No other significant masses or calcifications are seen in the breast. IMPRESSION: INCOMPLETE: NEED ADDITIONAL IMAGING EVALUATION The possible 0.7 cm oval equal density focal asymmetry in the left breast resembles a cyst, fibroglandular tissue, or a solid mass and is indeterminate. An ultrasound is recommended for further evaluation and is scheduled to immediately follow this examination. Based on the Tyrer Cuzick model (a risk assessment model) the patient's lifetime risk is 6.0% and her 10 year risk is 3.5%. According to the ACR, ACS, and NCCN guidelines, an annual breast MRI exam along with mammogram is recommended if the patient's lifetime risk is 20% or greater. This exam was interpreted at Station ID: [id number]. NOTE: For mammograms, a report in lay terms will be sent to the patient. Approximately 15% of breast malignancies will not be visualized mammographically. In the management of a palpable breast mass, a negative mammogram must not discourage biopsy of a clinically suspicious lesion. Electronically Signed By: Jeff Mata M.D. aty/:08/28/2024 09:32:36 letter sent: Additional Imaging Needed ACR BI-RADS Category 0: Incomplete: Need Additional Imaging Evaluation
== END ==
LOC: MAMMO 08:31
PROVIDERS: PCP Family Medicine; Referring Provider Family Medicine; Visit Provider Family Medicine
DX: R92.8 Other abnormal and inconclusive findings on diagnostic imaging of breast (principal); N64.89 Other specified disorders of breast
CPT/HCPCS: 76642; 77065; G0279

== ENCOUNTER 2024-09-26 07:27 | Day surgery (SDC) | payer MEDICARE, MEDICAID, SELFPAY ==
[2024-08-05 11:30] VITALS: BMI 21.4
--- NOTE | 2024-09-26 | PATH_ITS ---
[facility] Accession Number: [id number] No. of containers..01 Tissue . 01 Material submitted: . colon - DESCENDING POLYP . 01 Diagnosis: DESCENDING POLYP: Tubular adenoma. [facility] 09/30/2024 1433 Local . 01 Electronically signed: . Kamran Fischer MD, Pathologist NPI- [id number] . 01 Gross description: . Received in formalin, labeled with two patient identifiers and designated descending polyp, and consists of two sheets-white, irregular soft tissues averaging 0.3 cm in greatest dimension, which are entirely submitted in cassette A1. ([id number]) /FRR 09/30/20243 Local . 01 Pathologist provided ICD-10: D12.4 . 01 CPT . 699640 Specimen Comment: A courtesy copy of this report has been sent to [phone] Performed at: [address] [id number] MD Kamran Fischer MD Phone: [phone]
[2024-09-26 09:31] VITALS: BP 159/82; PULSE 67; RESP 17; TEMP 36.4; O2SAT 99
--- NOTE | 2024-09-26 09:38 | PM.HP.1 ---
History of Present Illness History of Present Illness Date Patient Seen: 09/26/24 Time Patient Seen: 09:38 Chief complaint: Screening Colonoscopy Narrative: Silvia is here for her colonoscopy. See the prior office note for details. [facility] Medical History Depression Anxiety TIA (transient ischemic attack) Hepatitis Hypercholesteremia History of ETOH abuse Hypertension Seizures Methadone use Surgical History History of surgery (01/17/22) History of carpal tunnel surgery of left wrist (2014) Hx of hernia repair Hx of left knee surgery (2010) History of hip surgery Hx of tonsillectomy History of surgery (11/29/21) History of surgery (11/25/21) Social History household members: other Smoking Status: Former smoker alcohol intake: former Meds Home Medications and Allergies Home Medications Medication Instructions Recorded Confirmed Type aspirin 81 mg tablet,delayed 81 mg PO QPM 04/29/19 08/19/24 History release carisoprodol 350 mg tablet 350 mg PO TID PRN Muscle Spasm 04/29/19 09/26/24 History lamotrigine 200 mg tablet 200 mg PO BID 04/29/19 09/26/24 History lamotrigine 25 mg tablet 50 mg PO BID 04/29/19 09/26/24 History methadone 10 mg tablet 10 mg PO TID #30 tabs 11/30/21 09/26/24 Rx temazepam 15 mg capsule 15 mg PO BEDTIME PRN Sleep #30 caps 11/30/21 09/26/24 Rx clopidogrel 75 mg tablet 75 mg PO DAILY #30 tabs 09/20/22 09/26/24 Rx albuterol sulfate 90 mcg/actuation 2 puff inhalation Q4-6H PRN sob 08/19/24 09/26/24 History aerosol inhaler (Ventolin HFA) amlodipine 5 mg tablet 5 mg PO DAILY 08/19/24 09/26/24 History ibandronate 150 mg tablet 150 mg PO QMONTH 08/19/24 09/26/24 History meclizine 25 mg tablet 25 mg PO DAILY PRN Muscle Spasm 08/19/24 09/26/24 History naloxone 4 mg/actuation nasal spray 4 mg intranasal Q2M 08/19/24 09/26/24 History acetaminophen 325 mg tablet 650 mg PO PRN PRN Pain (Scale 09/26/24 09/26/24 History Score 1-3) betamethasone dipropionate 0.05 % applic topical 09/26/24 History topical cream lisinopril 20 mg tablet 20 mg PO DAILY 09/26/24 09/26/24 History omeprazole 20 mg capsule,delayed 20 mg PO DAILY 09/26/24 09/26/24 History release Allergies Allergy/AdvReac Type Severity Reaction Status Date / Time carbamazepine Allergy Unknown Verified 08/19/24 13:36 Sulfa (Sulfonamide Allergy Unknown very Verified 08/19/24 13:36 Antibiotics) sick, hospitalized Zhunxec-XVW-SyY Reductase AdvReac Mild extreme Verified 08/19/24 13:36 Inhibitor pain [Lyalyxu-Tme-Kqi Reductase Inhibitor] baclofen AdvReac Unknown felt like Verified 08/19/24 13:36 I was going to have a seizure, nausea NSAIDS (Non-Steroidal AdvReac Unknown gi upset; Verified 08/19/24 13:36 Anti-Inflamma ibuprofen ok Exam Const General: No acute distress Resp Effort & Inspection: normal respiratory effort Assessment & Plan Assessment and plan (1) Colon cancer screening: Status: Acute Plan Colonoscopy Time-Based Coding :: [TOTAL MINUTES] spent with patient and on the chart (including review of chart, obtaining history, exam, reviewing outside data, placing orders, documenting exam and treatment plan, and counseling patient) on [DATE].
--- NOTE | 2024-09-26 10:43 | PM.OP.COLON ---
Operative Date/Time/Diagnoses Date of procedure: 09/26/24 Time of procedure: 10:43 Pre-op diagnosis: Colon cancer screening Post-op diagnosis: same Procedure & Clinicians Study performed: Colonoscopy Same procedure as scheduled: Yes Surgeon: Aakash Perez Procedure Notes Procedure in detail: Surgeon: Aakash Perez MD Anesthesia: Olga Sotomayor MD Procedure: The patient was brought to the endoscopy suite, placed in supine position due to left shoulder pain. The patient was connected to monitoring devices. A time-out was performed. Sedation was administered. Once the patient was adequately sedated, a digital rectal exam was performed and was normal. The scope was then inserted and advanced to the cecum where the appendiceal orifice was identified and photographed. The scope was then slowly withdrawn over greater than 6 minutes. The mucosa was thoroughly inspected. There was a 5 mm polyp in the descending colon removed with a cold snare. The scope was retroflexed in the rectum. No other abnormalities were seen. The scope was straightened and removed. The patient was awakened and brought to recovery. Scope withdrawal time: 10 minutes Sedation time: 21 minutes EBL: 5 mL Findings: 5 mm descending colon polyp Post-procedure Disposition: PACU
[2024-09-26 10:49] VITALS: BP 125/53; PULSE 69; RESP 16; TEMP 36.6; O2SAT 96
[2024-09-26 10:55] VITALS: BP 151/77; PULSE 65; RESP 13; O2SAT 94
[2024-09-26 11:02] VITALS: BP 179/88; PULSE 59; RESP 11; O2SAT 95
[2024-09-26 11:10] VITALS: BP 184/86; PULSE 59; RESP 11; TEMP 36.4; O2SAT 96
== END 2024-09-26 12:11 | disposition home or self-care (01) ==
PROVIDERS: Family Provider Family Medicine; PCP Family Medicine; Referring Provider Surgery; Visit Provider Surgery
PROC: 0DJD8ZZ Inspection of Lower Intestinal Tract, Via Natural or Artificial Opening Endoscopic (ICD-10-PCS; CPT 45378; principal; 2024-09-26 10:00)
DX: Z12.11 Encounter for screening for malignant neoplasm of colon (principal); D12.4 Benign neoplasm of descending colon
CPT/HCPCS: 45385; J2704

== ENCOUNTER → 2024-10-03 13:38 | Outpatient (CLI) | payer MEDICARE, MEDICAID, SELFPAY ==
[2024-08-05 11:30] VITALS: BMI 21.4
== END ==
LOC: PHYS 13:41
PROVIDERS: Family Provider Family Medicine; PCP Family Medicine; Referring Provider Family Medicine; Visit Provider Family Medicine
DX: R20.0 Anesthesia of skin (principal)
CPT/HCPCS: 95909

== ENCOUNTER → 2024-11-29 15:34 | Outpatient (CLI) | payer MEDICARE, MEDICAID, SELFPAY ==
[2024-08-05 11:30] VITALS: BMI 21.4
--- NOTE | 2024-11-29 15:38 | DI.RAD.S_ITS ---
PROCEDURE: XR HIP W PEL IF DONE LT 2V INDICATIONS: HIP PAIN TECHNIQUE: AP pelvis with lateral view(s) of the left hip(s). COMPARISON: None. FINDINGS: Bones: No fractures or dislocations. Pelvic ring appears intact. No suspicious bony lesions. Note is made of prior right total hip arthroplasty. Moderately severe left hip joint degenerative osteoarthritic change is present. Soft tissues: The visualized bowel gas pattern is normal. No suspicious soft tissue calcifications. IMPRESSION: No trauma found. Normal appearing prior right total hip arthroplasty. Moderately severe left hip joint osteoarthritis. Dictated by: Mario Newton M.D. on 11/29/2024 at 16:48 Approved by: Mario Newton M.D. on 11/29/2024 at 16:50
--- NOTE | 2024-11-29 15:38 | DI.RAD.S_ITS ---
PROCEDURE: XR KNEE LT 3V INDICATIONS: KNEE PAIN TECHNIQUE: 3 views of the knee were acquired. COMPARISON: None. FINDINGS: Bones: No fractures or dislocations. No suspicious bony lesions. Left total knee arthroplasty shows no evidence of device disruption. There is, however, a subtle lucency along the iqugmiut bone-cement interface at the tibial component of the arthroplasty, a potential sign of device loosening. Soft tissues: No joint effusion. No suspicious soft tissue calcifications. IMPRESSION: The subtle lucency along the cement-bone interface at the tibial component of the arthroplasty raises concern for device loosening.. Dictated by: Mario Newton M.D. on 11/29/2024 at 16:50 Approved by: Mario Newton M.D. on 11/29/2024 at 16:52
== END ==
PROVIDERS: Family Provider Family Medicine; PCP Family Medicine; Referring Provider Family Medicine; Visit Provider Family Medicine
DX: M25.552 Pain in left hip (principal); M16.12 Unilateral primary osteoarthritis, left hip; M25.562 Pain in left knee; G89.29 Other chronic pain; Z96.641 Presence of right artificial hip joint; Z96.652 Presence of left artificial knee joint
CPT/HCPCS: 73502; 73562

== ENCOUNTER 2025-04-09 09:45 | Outpatient (RCR) | payer MEDICARE, MEDICAID, SELFPAY ==
[2024-08-05 11:30] VITALS: BMI 21.4
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
--- NOTE | 2025-02-26 11:13 | OT.OP.TRT ---
Visit Care Team Role Provider Type Viktor Alvarez MD Attending Provider Physician Family Provider Primary Care Provider Referring Provider Specialty: Family Practice Address: [address] [place] [address], [facility] A, [place], [address] Email: [email or web address] Occupational Therapy Treatment Note OT Outpatient Treatment Note - Adult Start: 02/05/25 09:49 Freq: Status: Active Protocol: Document 02/26/25 10:58 OWENESTUARDO (Rec: 02/26/25 11:13 OWENJANETNICHOLAS [id number]) OT Outpatient Adult Treatment Note Session Time Visit Start Date 02/26/25 Visit Start Time 09:45 Visit Stop Time 10:30 Visit Information Visit Number 2/6 Plan of Care Dates 02/05/25 to 03/19/25 Insurance Information Medicare, KX modifier after 19 visits Setting Treatment Setting Outpatient Care Visit Type Note Type Treatment Note - Subjective Identification Type Name Identification Reconciled With Medical Record Observations Pt reports that she has been having a lot of pain in her L shoulder. She declined performing all tasks with her L hand today due to reports of hand mvmts aggravating her L shldr. Pt with specific complaint of dropping her tweezers and scissors when performing grooming tasks. Todays tx focused on addressing these trace clerk/FM concerns. - Objective Short Term Goals 1. Pt will demonstrate improved FMC/dexterity with 9 HPT of 45 seconds. 2. Pt will demonstrate improved functional grasp of 20# on L. 3. Pt will demonstrate improved pinch strengths by 2# each B. 4. Pt will demonstrate picking up small items (coins) from counter and placing in bank without dropping any for 15 trials. Assisted Goals 1. Pt will be I with HEP. - Treatment 2 Descriptor retroposition mobilization: butterfly attempted, discontinued quickly due to pt c/o L shldr p! 1 Descriptor FMC/dexterity: Using small metal tweezers to car pick up driver porcupine balls, bringing balls toward her forehead (to simulate tweezing eyebrows), and then placing them in small containers x20 ( dropping 3) Picking up coins from counter using pincer or three jaw grasp and maintaining coin with distal control placing into bank (no dropping noted) Exercises 1 Descriptor FMC/strength/dexterity: graded clothespins yellow- black all on and off of perpendicular bars with 1 rb due to c/o shoulder p! digi flex yellow: alternating digits, performed in lap at midline due to c/o shoulder p! , needs min tc/vc to perform correctly digit ext: attempted with resisted supervisor safety deposit, reduced to rubber band for appropriate challenge - Assessment Patient Response to Treatment Good Rehabilitation Potential Good Impairments Identified ADLs,Body Mechanics, Coordination/Dexterity, Flexibility,Functional Activities,Motor Function,Pain ,Weakness,Posture,Range of Motion,Meaningful Activities, Eye-Hand Coordination Assessment of Improvement Pt was unable to tolerate butterfly mobilization today due to c/o p! in L shoulder. Pt's tx focused on FMC and strengthening for improved use of tools at home, ex. tweezers. OT encourages pt to bring her tweezers in, OT suggested trying to build up the handle for improved manipulation and reduced strain on arthritis. OT also asked pt to bring in her tputty so that appropriate exercises may be recommended to pt. OT encourages pt to continue to work on tendon glides, issued rubber band for digit ext task, and recommended gross grasp and alternating pinches with putty (more ex to follow). Pt verbalizes understanding and agrees to recommendations. Pt requires many modifications to tasks being performed due to multiple joint pain c/o. Pt remains appropriate for skilled OT services, cont per established POC. Reviewed with Patient/Caregiver Progress Being Made,Home Exercise Program - Plan Therapy Recommendations Continue with Current Program Amount of Therapy Recommended 1-2 Months Frequency of Treatment Once a Week Length of Session 45 Minutes Therapeutic Contents Active Range of Motion, Adaptive Equipment Education, Client Education,Functional Activities,Home Exercise Program,Joint Protection, Manual Therapy,Education, Neuromuscular Re-Education, Self-Care,Stretching/ Flexibility Activities, Therapeutic Activities, Therapeutic Exercises, Modalities Modalities As Needed Additional Types of Modalities PB, FELICITAP
--- NOTE | 2025-03-03 12:32 | OT.OP.TRT ---
Visit Care Team Role Provider Type Viktor Alvarez MD Attending Provider Physician Family Provider Primary Care Provider Referring Provider Specialty: Family Practice Address: [address] [place] [address], [facility] A, [place], [address] Email: [email or web address] Occupational Therapy Treatment Note OT Outpatient Treatment Note - Adult Start: 02/05/25 09:49 Freq: Status: Active Protocol: Document 03/03/25 11:34 RUPERTO (Rec: 03/03/25 12:31 RUPERTO [id number]) OT Outpatient Adult Treatment Note Session Time Visit Start Date 03/03/25 Visit Start Time 11:30 Visit Stop Time 12:15 Visit Information Visit Number 3/6 Plan of Care Dates 02/05/25 to 03/19/25 Insurance Information Medicare, KX modifier after 19 visits Setting Treatment Setting Outpatient Care Visit Type Note Type Treatment Note - Subjective Identification Type Name Identification Reconciled With Medical Record Observations Pt reports that her shoulders continue to be painful due to her sweeping and mopping the floor yesterday. She has requested to only work on her R hand today due to shoulder pain. - Objective Short Term Goals 1. Pt will demonstrate improved FMC/dexterity with 9 HPT of 45 seconds. 2. Pt will demonstrate improved functional grasp of 20# on L. 3. Pt will demonstrate improved pinch strengths by 2# each B. 4. Pt will demonstrate picking up small items (coins) from counter and placing in bank without dropping any for 15 trials. University Registrar Goals 1. Pt will be I with HEP. - Treatment 3 Descriptor OT built up pt's personal tweezers for improved FMC and reduced dropping during functional task of tweezing. OT recommended several styles of OA style nail clippers, including the counter based style. Pt brought in HEPs she has collected over the years, OT reviewed pts HEPs from previous therapies and made appropriate recommendations for which exercises to discontinue at this time. Pt verbalizes understanding. 2 Descriptor retroposition mobilization: not attempted, pt declines due to shoulder p! Exercises 2 Descriptor tputty: red gross grasp log roll alternating pinch hook fist digit add finger extension - Assessment Patient Response to Treatment Good Rehabilitation Potential Good Impairments Identified ADLs,Body Mechanics, Coordination/Dexterity, Flexibility,Functional Activities,Motor Function,Pain ,Weakness,Posture,Range of Motion,Meaningful Activities, Eye-Hand Coordination Assessment of Improvement Pt's tx somewhat self-limited due to multi joint p! c/o. Pt required increased time for transition between from waiting room to treatment room and to transition between tasks. Pt declined butterfly mobilization today due to fear of p! in shoulder. Pt brought in HEPs she has received over the years. OT reviewed them and made recommendations on what to continue due to current complaints. OT built up pt's tweezer handles for improved FM control with home use. OT made recommendations for OA style nail clippers for improved function as well. Pt brought her home tputty and demonstrated the exercises she has been performing. OT made changes to pt's HEP for tputty, issuing new HEP. Pt demonstrated these exercises today with min vcs for form and positioning. Pt requires many modifications to tasks being performed due to multiple joint pain c/o. Pt remains appropriate for skilled OT services, cont per established POC. Reviewed with Patient/Caregiver Progress Being Made,Home Exercise Program - Plan Therapy Recommendations Continue with Current Program Amount of Therapy Recommended 1-2 Months Frequency of Treatment Once a Week Length of Session 45 Minutes Therapeutic Contents Active Range of Motion, Adaptive Equipment Education, Client Education,Functional Activities,Home Exercise Program,Joint Protection, Manual Therapy,Education, Neuromuscular Re-Education, Self-Care,Stretching/ Flexibility Activities, Therapeutic Activities, Therapeutic Exercises, Modalities Modalities As Needed Additional Types of Modalities BRITTNEY HERRERA
--- NOTE | 2025-03-12 12:34 | OT.OP.TRT ---
Visit Care Team Role Provider Type Viktor Alvarez MD Attending Provider Physician Family Provider Primary Care Provider Referring Provider Specialty: Family Practice Address: [address] [place] [address], [facility] A, [place], [address] Email: [email or web address] Occupational Therapy Treatment Note OT Outpatient Treatment Note - Adult Start: 02/05/25 09:49 Freq: Status: Active Protocol: Document 03/12/25 11:36 [facility] (Rec: 03/12/25 12:15 [email or web address] Laptop) OT Outpatient Adult Treatment Note Session Time Visit Start Date 03/12/25 Visit Start Time 11:30 Visit Stop Time 12:15 Visit Information Visit Number 4/6 Plan of Care Dates 02/05/25 to 03/19/25 Insurance Information Medicare, KX modifier after 19 visits Setting Treatment Setting Outpatient Care Visit Type Note Type Treatment Note - Subjective Identification Type Name Identification Reconciled With Medical Record Observations Pt reports she's been doing a little spring cleaning. She says she took it easy yesterday so she could participate more in therapy today. She said that the built up tweezers worked really well. It was perfect! Pt stated that she thought the graded clothespin activity was a little easier today. Pt reports that she had to take her pain medication prior to therapy and apologized for how sleepy it makes her. - Objective Objective Measurements 9 HPT: L 65 seconds; R 52 seconds Short Term Goals 1. Pt will demonstrate improved FMC/dexterity with 9 HPT of 45 seconds. 2. Pt will demonstrate improved functional grasp of 20# on L. 3. Pt will demonstrate improved pinch strengths by 2# each B. 4. Pt will demonstrate picking up small items (coins) from counter and placing in bank without dropping any for 15 trials. MET Catering Staff Member Goals 1. Pt will be I with HEP. - Treatment 4 Descriptor Inhand Manipulation: -Picking up 8 quarters from counter, holding in palm, and translating coins from palm into bank to simulate the coin operated laundry machine pt uses (dropped 2) -Picking up and holding max coins in pts hand (8 quarters, 5 nickels, 1 dime, 3 pennies) and then translated coins from palm into bank (dropped 11) 2 Descriptor retroposition mobilization: not attempted, Pt continues to decline performing due to shoulder p!. D/C this exercise 1 Descriptor FMC/dexterity: -Using small plastic tweezers to worm picker pom pom balls then placing them in small containers x20 (dropping -Picking up 25 coins from counter using pincer or three jaw grasp and maintaining coin with distal control placing into bank (3 vcs to not slide off the edge of the counter) ( no dropping) Exercises 2 Descriptor tputty: red- Pt issued these as HEP last tx, pt is I with these. gross grasp log roll alternating pinch hook fist finger extension digit add 1 Descriptor FMC/strength/dexterity: graded clothespins yellow- black all on and off of perpendicular bars without rb digi flex yellow: alternating digits, performed in lap at midline due to c/o shoulder p! , needs min tc/vc to perform correctly digit ext: - Assessment Patient Response to Treatment Good Rehabilitation Potential Good Impairments Identified ADLs,Body Mechanics, Coordination/Dexterity, Flexibility,Functional Activities,Motor Function,Pain ,Weakness,Posture,Range of Motion,Meaningful Activities, Eye-Hand Coordination Assessment of Improvement Pt's tx continues to be shaped and somewhat self limited by her multi joint p! c/o. Pt was very lethargic during todays tx, requiring redirection, multiple vcs and repeated instructions. Pt reports this is due to taking her p! meds and muscle relaxer . Pt requires increased time to transition. D/C the butterfly mobilization due to pt's continued declination due to fear of p! in shoulder. Pt demonstrated I with tputty HEP. Pt did not like the finger ext exercise so OT educated her on an alternative for this. Pt verbalizes understanding and demonstrates it correctly. Pt demonstrates in hand manipulation with min vcs to avoid compensating and making task easier. Pt met STG #4 and did not drop any coins when picking up and placing in bank one at a time. When pt holds coins in palm and translates them to her digits and into bank she drops many times. Pt remains appropriate for skilled OT services, cont per established POC. Reviewed with Patient/Caregiver Progress Being Made,Home Exercise Program - Plan Therapy Recommendations Continue with Current Program Amount of Therapy Recommended 1-2 Months Frequency of Treatment Once a Week Length of Session 45 Minutes Therapeutic Contents Active Range of Motion, Adaptive Equipment Education, Client Education,Functional Activities,Home Exercise Program,Joint Protection, Manual Therapy,Education, Neuromuscular Re-Education, Self-Care,Stretching/ Flexibility Activities, Therapeutic Activities, Therapeutic Exercises, Modalities Modalities As Needed Additional Types of Modalities PB, MHP
--- NOTE | 2025-03-19 10:46 | OT.OP.TRT ---
Visit Care Team Role Provider Type Viktor Alvarez MD Attending Provider Physician Family Provider Primary Care Provider Referring Provider Specialty: Family Practice Address: [address] [place] [address], [facility] A, [place], [address] Email: [email or web address] Occupational Therapy Treatment Note OT Outpatient Treatment Note - Adult Start: 02/05/25 09:49 Freq: Status: Active Protocol: Document 03/19/25 09:34 RUPERTO (Rec: 03/19/25 10:46 RUPERTO [id number]) OT Outpatient Adult Treatment Note Session Time Visit Start Date 03/19/25 Visit Start Time 09:45 Visit Stop Time 10:30 Visit Information Visit Number 5/6 Plan of Care Dates 02/05/25 to 03/19/25 Insurance Information Medicare, KX modifier after 19 visits Setting Treatment Setting Outpatient Care Visit Type Note Type Progress Note - Subjective Identification Type Name Identification Reconciled With Medical Record Observations Pt reports that she's doing pretty good she said she was able to put the coins in coin operated laundry without dropping any. Pt also reports that she did not have to take p! pill this morning so she is not as tired today. Pt reports that she has been having a difficult time opening jam containers at her KAMILAH and difficulty with buttoning and zipping her clothes. - Objective Objective Measurements 9 HPT: L 65 seconds (03/12/25 pt declined performing today due to shoulder p!) (13 second decrease); R 36 seconds (26 second improvement) Radio Engineering Teacher: R 30, 30, 25 (avg 28.3#, 3.3# increase); L 20, 15, 10 (avg 15#, 5# increase) Pinch: lateral R 8# (0.5# increase), L 5# (1# increase); pincer R 4.5# (1.5# increase), L 2# (no change); 3 jaw R 3# (1# increase), L 5# (no change ) Short Term Goals 1. Pt will demonstrate improved FMC/dexterity with 9 HPT of 45 seconds. PARTIAL 2. Pt will demonstrate improved functional grasp of 20# on L. 3. Pt will demonstrate improved pinch strengths by 2# each B. 4. Pt will demonstrate picking up small items (coins) from counter and placing in bank without dropping any for 15 trials. MET Residential Goals 1. Pt will be I with HEP. - Treatment 4 Descriptor Inhand Manipulation: - 2 small ball CW and CCW in palm -Picking up 8 quarters from counter, holding in palm, and translating coins from palm into bank to simulate the coin operated laundry machine pt uses (dropped 1) -Picking up and holding max coins in pts hand (8 quarters, 5 nickels, 1 dime, 3 pennies) and then translated coins from palm into bank (dropped 1 ) 1 Descriptor FMC/dexterity: -stringing small beads with R hand -Picking up 25 coins from counter using pincer or three jaw grasp and maintaining coin with distal control placing into bank (no vcs to not slide off the edge of the counter) (dropped 1) Exercises 1 Descriptor FMC/strength/dexterity: graded clothespins (not performed) digi flex yellow: alternating digits, performed in lap at midline due to c/o shoulder p! , needs fewer vc and no tc to perform correctly digit ext: - Assessment Patient Response to Treatment Good Rehabilitation Potential Good Impairments Identified ADLs,Body Mechanics, Coordination/Dexterity, Flexibility,Functional Activities,Motor Function,Pain ,Weakness,Posture,Range of Motion,Meaningful Activities, Eye-Hand Coordination Progress Towards Goals Good Progress Assessment of Overall Progress Improving Assessment of Improvement Due to pt's multi-joint complaints, tx session continues to be modified to accommodate c/o p! Pt is especially limited on the L side due to shoulder c/o. Overall, pt tolerated tx well today. Pt demonstrates improvements in R penciller and pinch strength, L penciller strength, and R FMC with 9HPT, see objective section for details. Pt was alert for today's tx and able to participate more fully compared to last tx. Pt required less transition time but occasional rb due to c/o p !. Pt performs inhand manipulation and FMC tasks with min vcs to avoid compensating. Pt makes progress toward established goals and remains appropriate for skilled OT services, per established POC, for an additional 4 weeks. Reviewed with Patient/Caregiver Goals,Progress Being Made,Home Exercise Program Patient/Caregiver Understanding Good - Plan Therapy Recommendations Continue with Current Program Amount of Therapy Recommended 1-2 Months Frequency of Treatment Once a Week Length of Session 45 Minutes Therapeutic Contents Active Range of Motion, Adaptive Equipment Education, Client Education,Functional Activities,Home Exercise Program,Joint Protection, Manual Therapy,Education, Neuromuscular Re-Education, Self-Care,Stretching/ Flexibility Activities, Therapeutic Activities, Therapeutic Exercises, Modalities Modalities As Needed Additional Types of Modalities PB, FELICITAP
--- NOTE | 2025-03-19 10:46 | OT.OPPN ---
Current Diagnoses Primary osteoarthritis, unspecified hand (03/19/25) OT Progress Note OT Outpatient Treatment Note - Adult Start: 02/05/25 09:49 Freq: Status: Active Protocol: Document 03/19/25 09:34 RUPERTO (Rec: 03/19/25 10:46 RUPERTO [id number]) OT Outpatient Adult Treatment Note Session Time Visit Start Date 03/19/25 Visit Start Time 09:45 Visit Stop Time 10:30 Visit Information Visit Number 5/6 Plan of Care Dates 02/05/25 to 03/19/25 Insurance Information Medicare, KX modifier after 19 visits Setting Treatment Setting Outpatient Care Visit Type Note Type Progress Note - Subjective Identification Type Name Identification Reconciled With Medical Record Observations Pt reports that she's doing pretty good she said she was able to put the coins in coin operated laundry without dropping any. Pt also reports that she did not have to take p! pill this morning so she is not as tired today. Pt reports that she has been having a difficult time opening jam containers at her [employer] and difficulty with buttoning and zipping her clothes. - Objective Objective Measurements 9 HPT: L 65 seconds (03/12/25 pt declined performing today due to shoulder p!) (13 second decrease); R 36 seconds (26 second improvement) Field Sales Manager: R 30, 30, 25 (avg 28.3#, 3.3# increase); L 20, 15, 10 (avg 15#, 5# increase) Pinch: lateral R 8# (0.5# increase), L 5# (1# increase); pincer R 4.5# (1.5# increase), L 2# (no change); 3 jaw R 3# (1# increase), L 5# (no change ) Short Term Goals 1. Pt will demonstrate improved FMC/dexterity with 9 HPT of 45 seconds. PARTIAL 2. Pt will demonstrate improved functional grasp of 20# on L. 3. Pt will demonstrate improved pinch strengths by 2# each B. 4. Pt will demonstrate picking up small items (coins) from counter and placing in bank without dropping any for 15 trials. MET Care Home Goals 1. Pt will be I with HEP. - - Assessment Patient Response to Treatment Good Rehabilitation Potential Good Impairments Identified ADLs,Body Mechanics, Coordination/Dexterity, Flexibility,Functional Activities,Motor Function,Pain ,Weakness,Posture,Range of Motion,Meaningful Activities, Eye-Hand Coordination Progress Towards Goals Good Progress Assessment of Overall Progress Improving Assessment of Improvement Pt has made good functional progress since beginning skilled OT services. OT provided modification to pt?s tweezers which have enabled pt to perform grooming tasks with mod I. Pt reports that at most recent laundry day, she was able to insert the coins without dropping any. OT sessions have focused on FMC skills and improved dexterity. Pt makes progress with respect to this and strength, see objective section for details. Pt has specific complaints of difficulty with fasteners (buttons, zippers) and opening containers. Pt is making progress toward established goals and would benefit from continued skilled OT services x 4 weeks for additional work with FMC, strength, dexterity, for improved BADL/IADL. Reviewed with Patient/Caregiver Goals,Progress Being Made,Home Exercise Program Patient/Caregiver Understanding Good - Plan Therapy Recommendations Continue with Current Program Amount of Therapy Recommended 1-2 Months Frequency of Treatment Once a Week Length of Session 45 Minutes Therapeutic Contents Active Range of Motion, Adaptive Equipment Education, Client Education,Functional Activities,Home Exercise Program,Joint Protection, Manual Therapy,Education, Neuromuscular Re-Education, Self-Care,Stretching/ Flexibility Activities, Therapeutic Activities, Therapeutic Exercises, Modalities Modalities As Needed Additional Types of Modalities BRITTNEY HERRERA If you are in agreement with this Plan of Care, please return a signed and dated copy. I have reviewed this Plan of Care and certify that the skilled therapy services above are required to meet the patient?s needs. Physician Signature Date Printed Name and Credentials Clinical Instructor Signature Printed Name and Credentials
--- NOTE | 2025-03-26 11:04 | OT.OP.TRT ---
Visit Care Team Role Provider Type Viktor Alvarez MD Attending Provider Physician Family Provider Primary Care Provider Referring Provider Specialty: Family Practice Address: [address] [place] [address], [facility], [place], [address] Email: [email or web address] Occupational Therapy Treatment Note OT Outpatient Treatment Note - Adult Start: 02/05/25 09:49 Freq: Status: Active Protocol: Document 03/26/25 09:19 RUPERTO (Rec: 03/26/25 09:24 RUPERTO [id number]) OT Outpatient Adult Treatment Note Session Time Visit Start Date 03/26/25 Visit Start Time 09:48 Visit Stop Time 10:30 Visit Information Visit Number 1/4 (5 previous) Plan of Care Dates 03/20/25 - 04/15/25 Insurance Information Medicare, KX modifier after 19 visits Setting Treatment Setting Outpatient Care Visit Type Note Type Treatment Note - Subjective Identification Type Name Identification Reconciled With Medical Record Observations Pt reports that she's doing pretty good. She says she doesn't want to work her L UE due to her shoulder. Pt brought her tweezers in to have the built up adjusted. Pt reports no p! at start of tx (just the shoulder). - Objective Objective Measurements 9 HPT: L (declined by pt due to her shoulder); R 40 seconds Short Term Goals 1. Pt will demonstrate improved FMC/dexterity with 9 HPT of 45 seconds. PARTIAL 2. Pt will demonstrate improved functional grasp of 20# on L. 3. Pt will demonstrate improved pinch strengths by 2# each B. 4. Pt will demonstrate picking up small items (coins) from counter and placing in bank without dropping any for 15 trials. MET Transplant Immunologist Goals 1. Pt will be I with HEP. 2. Pt will button her shirt using button hook and mod I. MET 03/26/25 - Treatment 3 Descriptor Functional tasks/ADLs: opening and closing jar x 10 twistable and stackable pill case- pt disassembles and reassembles in her lap (no dropping) x 2 total cycles Button hook; OT educated pt on use of button hook to button and unbutton her blouse. Pt demonstrated correct use following OT demonstration/ instruction. Exercises 1 Descriptor FMC/strength/dexterity: theraband flex bar (yellow): R wrist flexion/extension x10; R pronation x10; (declined supination due to shldr p!) graded clothespins on/off perpendicular dowels: yellow- black digi flex red: gross grasp x 20 and alternating digits x 10 , performed in lap at midline due to c/o shoulder p! digit ext: - Assessment Patient Response to Treatment Good Rehabilitation Potential Good Impairments Identified ADLs,Body Mechanics, Coordination/Dexterity, Flexibility,Functional Activities,Motor Function,Pain ,Weakness,Posture,Range of Motion,Meaningful Activities, Eye-Hand Coordination Progress Towards Goals Good Progress Assessment of Overall Progress Improving Assessment of Improvement Due to pt's multi-joint complaints, tx session continues to be modified to accommodate c/o p! Pt requires increased encouragement to attempt tasks prior to refusing them with the expectation of shoulder p!, this was especially the case with the flex bar task. Pt tolerated functional tasks well today, demonstrating jar opening/closing, and pill sorter manipulation without dropping items. Pt reports that she often drops items at home. Pt continues to require rbs prn and modifications as necessary to limit shoulder involvement. Pt makes progress toward established goals and continues to be appropriate for skilled OT services. Cont per established POC. Reviewed with Patient/Caregiver Goals,Progress Being Made,Home Exercise Program Patient/Caregiver Understanding Good - Plan Therapy Recommendations Continue with Current Program Amount of Therapy Recommended 1 Month Frequency of Treatment Once a Week Length of Session 45 Minutes Therapeutic Contents Active Range of Motion, Adaptive Equipment Education, Client Education,Functional Activities,Home Exercise Program,Joint Protection, Manual Therapy,Education, Neuromuscular Re-Education, Self-Care,Stretching/ Flexibility Activities, Therapeutic Activities, Therapeutic Exercises, Modalities Modalities As Needed Additional Types of Modalities PB, FELICITAP
--- NOTE | 2025-04-09 11:04 | OT.OP.TRT ---
Visit Care Team Role Provider Type Viktor Alvarez MD Attending Provider Physician Family Provider Primary Care Provider Referring Provider Specialty: Family Practice Address: [address] [place] [address], [facility] [place], [address] Email: [email or web address] Occupational Therapy Treatment Note OT Outpatient Treatment Note - Adult Start: 02/05/25 09:49 Freq: Status: Active Protocol: Document 04/09/25 09:53 RUPERTO (Rec: 04/09/25 09:57 RUPERTO [id number]) OT Outpatient Adult Treatment Note Session Time Visit Start Date 04/09/25 Visit Start Time 09:50 Visit Stop Time 10:30 Visit Information Visit Number 2/4 (5 previous) Plan of Care Dates 03/20/25 - 04/15/25 Insurance Information Medicare, KX modifier after 19 visits Setting Treatment Setting Outpatient Care Visit Type Note Type Treatment Note - Subjective Identification Type Name Identification Reconciled With Medical Record Observations Pt reports My hands are doing good. I am only using the L one for a few things because of the shoulder. I've been working with the putty but not so much on the left because the shoulder starts hurting me . - Objective Objective Measurements Motorboat Mechanic: R 35, 27, 35 (avg 32.3#) L 4, 15, 20 (avg 13#); pincer : R 8#, L 5#; lateral R 9#, L 8#; 3 jaw R 4# L 5# 9HPT: R 34 seconds, L 33 seconds Quick Dash 45.5 Short Term Goals 1. Pt will demonstrate improved FMC/dexterity with 9 HPT of 45 seconds. MET 04/09/25 2. Pt will demonstrate improved functional grasp of 20# on L. MET for single squeeze 04/09/25, average 13# 3. Pt will demonstrate improved pinch strengths by 2# each B. 4. Pt will demonstrate picking up small items (coins) from counter and placing in bank without dropping any for 15 trials. MET Assisted Goals 1. Pt will be I with HEP. MET 2. Pt will button her shirt using button hook and mod I. MET 03/26/25 - Treatment 4 Descriptor Inhand Manipulation: -Picking up 8 quarters from counter, holding in palm, and translating coins from palm into bank to simulate the coin operated laundry machine pt uses (dropped 1) 1 Descriptor FMC/dexterity: -Picking up 25 coins from counter using pincer or three jaw grasp and maintaining coin with distal control placing into bank (no vcs to not slide off the edge of the counter) (dropped 1) Exercises 1 Descriptor FMC/strength/dexterity: graded clothespins on/off: lateral pinch squeezes yellow, red, green, blue x 10 each with rbs - Assessment Patient Response to Treatment Good Rehabilitation Potential Good Impairments Identified ADLs,Body Mechanics, Coordination/Dexterity, Flexibility,Functional Activities,Motor Function,Pain ,Weakness,Posture,Range of Motion,Meaningful Activities, Eye-Hand Coordination Progress Towards Goals Good Progress Assessment of Overall Progress Improving Assessment of Improvement Pt is pleasant and cooperative although self-limiting especially with use of L UE as pt is fearful of having shoulder pain later in the day . Pt demonstrated improved FMC today with respect to 9 HPT, R in 34 seconds and L in 33 seconds. Pt demonstrates increased sheriff's sergeant strength with R average of 32.3# (22.5# on average), L sheriff's sergeant average 13# ( 10# on eval) with a 1 time squeeze max of 20#. Pts perceived functional improvements with respect to the QuickDash 45.5 (75 on eval ). Pts tx included focus on lateral pinch as pt reports that using her house ba has been a little bit of a challenge for her. OT educated pt on a ba pinch exercise to perform with home tputty. Pt verbalized understanding. Pt is appropriate for d/c from OT at this time. Reviewed with Patient/Caregiver Goals,Progress Being Made,Home Exercise Program Patient/Caregiver Understanding Good - Plan Therapy Recommendations Discharge to Home Exercise Program,Discharge from Occupational Therapy
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
== END 2025-04-11 13:36 | disposition home or self-care (01) ==
LOC: OT 09:45
PROVIDERS: Family Provider Family Medicine; PCP Family Medicine; Referring Provider Family Medicine; Visit Provider Family Medicine
DX: M19.049 Primary osteoarthritis, unspecified hand (principal)
CPT/HCPCS: 97110; 97165; 97530; 97535

== ENCOUNTER → 2025-04-11 08:34 | Outpatient (CLI) | payer MEDICARE, MEDICAID, SELFPAY ==
[2024-08-05 11:30] VITALS: BMI 21.4
--- NOTE | 2025-04-11 08:35 | DI.MG.S_ITS ---
MM diagnostic mammo unilat LT: 04/11/2025. BI-RADS: 2 CLINICAL: 69-year old female for left diagnostic mammogram that is a follow-up to ultrasound, left on 08/28/2024. Tyrer-Cuzick lifetime risk of 4.9%. No personal or first-degree family history of breast cancer. PRIOR EXAMS 08/28/2024, 08/14/2024, 08/10/2022, 09/29/2014. MAMMOGRAPHY TECHNIQUE: 2D and 3D (tomosynthesis) digital mammographic views obtained, with additional images as needed for full coverage. Current study was also evaluated with a Computer Aided Detection (CAD) system. DENSITY Left: C. The breasts are heterogeneously dense, which may obscure small masses. MAMMOGRAPHY FINDINGS Left: CC only, Outer, Middle depth: There is an asymmetry present. This finding has been stable since prior mammogram dating back to 2013 and is consistent with a benign etiology. No prior ultrasound correlate identified. IMPRESSION: Left * No evidence of malignancy with benign findings. RECOMMENDATIONS Bilateral * Annual screening mammography (Due August 2025). COMMENTS: Findings and recommendations were conveyed to the patient during today's evaluation. OVERALL ASSESSMENT CATEGORY BI-RADS-2: Benign. [employer] recommends annual screening mammography beginning at age 40 for women with average risk of breast cancer. ELECTRONICALLY SIGNED: Margy Pena M.D. on 04/11/2025 at 10:05:30 AM PT Interpreting Station ID: [id number]
== END ==
PROVIDERS: Family Provider Family Medicine; PCP Family Medicine; Referring Provider Family Medicine; Visit Provider Family Medicine
DX: R92.8 Other abnormal and inconclusive findings on diagnostic imaging of breast (principal); N64.89 Other specified disorders of breast; R92.332 Mammographic heterogeneous density, left breast
CPT/HCPCS: 77065; G0279

== ENCOUNTER 2025-04-26 13:13 | Emergency (ER) | payer MEDICARE, MEDICAID, SELFPAY ==
[2024-08-05 11:30] VITALS: BMI 21.4
[2025-04-26] VITALS (12 sets, daily range): BP systolic 136–202; BP diastolic 65–97; PULSE 54–74; RESP 16–18; TEMP 36.9; O2SAT 95–100; BMI 23.1
--- NOTE | 2025-04-26 13:28 | DI.CT.S_ITS ---
PROCEDURE: CT ANGIO HEAD AND NECK INDICATIONS: Please evaluate for stroke TECHNIQUE: After the administration of intravenous contrast, 1 mm thick sections acquired from the aortic arch through the [place] of [place]. 3-dimensional rpathlk-ckzjootny-vmyhvctylh (MIP) and/or volume rendering reformats were acquired of the central intracranial vasculature and neck separately. For radiation dose reduction, the following was used: automated exposure control, adjustment of mA and/or kV according to patient size. COMPARISON: [facility], MR, MR STROKE, 09/20/2022, 8:11. [facility], CT, CT HEAD/BRAIN WO CON, 04/26/2025, 13:50. [facility], CT, CT ANGIO HEAD AND NECK, 09/19/2022, 18:09. FINDINGS: Image quality: Limited by bolus timing, with venous contamination. Mild motion artifact can be seen. Cerebral CT Angiogram: Internal carotid arteries: No acute findings. Intracranial ICA are patent with no significant stenosis. No occlusion. No aneurysm. Anterior cerebral arteries: Unremarkable. No significant stenosis. No occlusion. No aneurysm. Middle cerebral arteries: Unremarkable. No significant stenosis. No occlusion. No aneurysm. Posterior cerebral arteries: There is a type origin of the right posterior cerebral artery. No significant stenosis. No occlusion. No aneurysm. Basilar artery: Unremarkable. No significant stenosis. No occlusion. No aneurysm. Vertebral arteries: Unremarkable as visualized. Dural venous sinuses: Unremarkable given phase of enhancement. Other: Arterial phase appearance of the brain parenchyma is unremarkable. Neck CT Angiogram: Internal carotid arteries: Unremarkable. No significant stenosis. No dissection or occlusion. Common carotid arteries: Unremarkable. No significant stenosis. No dissection or occlusion. External carotid arteries: Unremarkable. No occlusion. Vertebral arteries: Unremarkable. No significant stenosis. No dissection or occlusion. Aortic Arch and Mediastinum: Partially visualized aortic arch unremarkable without evidence of aneurysm. Origins of the great vessels unremarkable. Other: Arterial phase soft tissues of the neck and chest are unremarkable. Left thyroid nodule again seen. IMPRESSION: No significant intracranial arterial abnormality is seen. No significant abnormality is seen within the arteries of the neck. Stable left thyroid nodule. Any quantitative measurements of stenosis were performed using NASCET criteria. Dictated by: Malick Marino M.D. on 04/26/2025 at 13:12 Approved by: Malick Marino M.D. on 04/26/2025 at 13:15
--- NOTE | 2025-04-26 13:29 | DI.CT.S_ITS ---
PROCEDURE: CT HEAD/BRAIN WO CON INDICATIONS: r/o stroke TECHNIQUE: Noncontrast 4.5 mm thick angled axial sections acquired from the foramen magnum to the vertex, with coronal and sagittal reformats. For radiation dose reduction, the following was used: automated exposure control, adjustment of mA and/or kV according to patient size. COMPARISON: [facility], CT, CT HEAD/BRAIN WO CON, 09/19/2022, 18:09. FINDINGS: Image quality: Diagnostic. CSF spaces: Basal cisterns are patent. No extra-axial fluid collections. The ventricles are symmetric in size and shape. Brain: No intracranial bleeds or mass effect. There is cerebral volume loss, with resultant ventricular and sulcal prominence. There are periventricular and deep white matter chronic small vessel ischemic changes. There is intracranial internal carotid artery atherosclerosis. Skull and face: Calvarium and visualized facial bones appear intact, without suspicious lesions. Sinuses: Visualized sinuses and mastoids are clear. IMPRESSION: No acute intracranial pathology. Age related volume loss and mild white matter small vessel chronic ischemic changes. Dictated by: Joseph Prater M.D. on 04/26/2025 at 14:10 Approved by: Joseph Prater M.D. on 04/26/2025 at 14:10
[2025-04-26 13:43] LABS: Add Manual Diff / Slide Review NO; Basophils Absolute Auto 0 /uL (0-100); Basophils Percent Auto 0.4 % (0-2); Eosinophils Absolute Auto 300 /uL (0-450); Eosinophils Percent Auto 4.8 % (2-4); Hematocrit 35.7 % (36-46); Hemoglobin 12.2 g/dL (12.0-16.0); Lymphocytes Absolute Auto 1300 /uL (1100-4500); Lymphocytes Percent Auto 18.5 % (25-40); Mean Corpuscular HGB Conc 34.1 % (30-36); Mean Corpuscular Hemoglobin 30.9 PG (26-34); Mean Corpuscular Volume 90.6 fL (80-100); Monocytes Absolute Auto 400 /uL (0-900); Monocytes Percent Auto 5.5 % (3-14); Neutrophils Absolute Auto 4900 /uL (1500-7000); Neutrophils Percent Auto 70.8 % (50-75); Platelet Count 259 X10^3/uL (150-400); Red Blood Cell Count 3.94 X10^6/uL (4.0-5.2); Red Cell Distribution Width 14.1 % (11.6-14.8)
[2025-04-26 14:02] LABS: Alanine Aminotransferase 17 IU/L (<35); Albumin 4.6 g/dL (3.5-5.0); Albumin Globulin Ratio 1.7 (1.0-2.8); Alkaline Phosphatase 83 U/L (38-126); Aspartate Aminotransferase 31 IU/L (14-36); BUN Creatinine Ratio 21.1 (6-22); Bilirubin Total 0.5 mg/dL (0.2-1.3); Blood Urea Nitrogen 15 mg/dL (7-17); Calcium 9.2 mg/dL (8.4-10.2); Carbon Dioxide 29 mmol/L (22-32); Chloride 101 mmol/L (98-107); Estimated Glomerular Filt Rate > 60 mL/min (>60); Globulin 2.7 g/dL (1.7-4.1); Glucose 91 mg/dL (70-99); HEMOLYSIS 29 (0-50); Potassium 4.5 mmol/L (3.4-5.1); Sodium 137 mmol/L (137-145); Total Protein 7.3 g/dL (6.3-8.2)
--- NOTE | 2025-04-26 14:39 | ED_ITS ---
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 Patient did have chest pain at 1 point but that resolved in the past 36 hours with no nausea vomiting diarrhea diaphoresis back pain jaw pain. Patient denies any abdominal pain UTI symptoms blurred vision difficulty speaking facial droop or difficulty swallowing. Other than what is stated 14 point review of system is negative. On Anticoagulants: Yes (Plavix) Related Data Home Medications ?Medication ?Instructions ?Recorded ?Confirmed aspirin 81 mg tablet,delayed 81 mg PO QPM 04/29/1906/05 release carisoprodol 350 mg tablet 350 mg PO TID PRN Muscle Sp asm 04/29/19 09/26/24 lamotrigine 200 mg tablet 200 mg PO BID 04/29/1909/26 lamotrigine 25 mg tablet 50 mg PO BID 04/29/19 albuterol sulfate 90 mcg/actuation 2 puff inhalation Q 4-6H PRN sob 08/19/24 09/26/24 aerosol inhaler (Ventolin HFA) amlodipine 5 mg tablet 5 mg PO DAILY 08/19/2409/26 ibandronate 150 mg tablet 150 mg PO QMONTH 08/19/24 meclizine 25 mg tablet 25 mg PO DAILY PRN Muscle Sp asm 08/19/24 09/26/24 naloxone 4 mg/actuation nasal spray 4 mg intranasal Q2 M 08/19/24 09/26/24 acetaminophen 325 mg tablet 650 mg PO PRN PRN Pain (Sc wagner 09/26/24 09/26/24 Score 1-3) betamethasone dipropionate 0.05 % applic topical 09/26 topical cream lisinopril 20 mg tablet 20 mg PO DAILY 09/26/2409/13 omeprazole 20 mg capsule,delayed 20 mg PO DAILY 09/26/24 release Previous Rx's ?Medication ?Instructions ?Recorded methadone 10 mg tablet 10 mg PO TID #30 tabs temazepam 15 mg capsule 15 mg PO BEDTIME PRN Sleep # 30 caps 11/30/21 clopidogrel 75 mg tablet 75 mg PO DAILY #30 tabs 07/04 Allergies Allergy/AdvReac Type Severity Reaction Status Date / Time hydrochlorothiazide Allergy Mild Headache Verified 04/26/25 14:55 carbamazepine Allergy Unknown Verified 04/26/25 13:16 clarithromycin Allergy Unknown Verified 04/26/25 14:55 Sulfa (Sulfonamide Allergy Unknown very Verified 04/26/25 13:16 Antibiotics) sick, hospitalized Afjrdjv-PFH-AuO Reductase AdvReac Mild extreme Verified 04/26/25 13:16 Inhibitor (Dsncvff-Xqe-Mwt pain Reductase Inhibitor) baclofen AdvReac Unknown felt like Verified 04/26/25 13:16 I was going to have a seizure, nausea NSAIDS (Non-Steroidal AdvReac Unknown gi upset; Verified 04/26/25 13:16 Anti-Inflamma ibuprofen ok Review of Systems Review of Systems ROS Unobtainable: All systems reviewed & are unremarkable except as noted in HPI and below Hematologic/Lymphatic On Anticoagulants: Yes (Plavix) Patient History Medical History Depression Anxiety TIA (transient ischemic attack) Hepatitis Hypercholesteremia History of ETOH abuse Hypertension Seizures Methadone use Surgical History History of surgery (01/17/22) History of carpal tunnel surgery of left wrist (2014) Hx of hernia repair Hx of left knee surgery (2010) History of hip surgery Hx of tonsillectomy History of surgery (11/29/21) History of surgery (11/25/21) Social History household members: other Smoking Status: Former smoker alcohol intake: former Smoking Status: Former smoker tobacco type: cigarettes alcohol intake frequency: holidays/special occasions only Exam Narrative Exam Narrative: GENERAL: [69] year old patient appears stated age. Well-developed patient, in mild distress. HEAD: Atraumatic. Normocephalic. EYES: Pupils equal round and reactive. Extraocular motions intact. No scleral icterus. No injection or drainage. ENT: Nose without bleeding, purulent drainage. Throat without erythema, tonsillar hypertrophy or exudate. Airway patent. NECK: Trachea midline. Non tender CARDIOVASCULAR: Regular rate and rhythm without murmurs, gallops, or rubs. RESPIRATORY: Clear to auscultation. Breath sounds equal bilaterally. No wheezes, rales, or rhonchi. GASTROINTESTINAL: Abdomen soft, non-tender, nondistended. EXTREMITIES: No edema or joint tenderness. BACK: Nontender without deformity or crepitance. No flank tenderness. NEURO: AOx3. GCS GCS 15 nonfocal exam neuro exam 5/5 bilateral upper and lower extremity her to nose opposite to heal rapid alternating movements negative pronator drift all intact SKIN: No rash or erythema of visible areas Initial Vital Signs Initial Vital Signs: Vital Signs Temperature 98.4 F 04/26/25 13:16 Pulse Rate 69 04/26/25 13:16 Respiratory Rate 18 04/26/25 13:16 Blood Pressure 202/93 H 04/26/25 13:16 Pulse Oximetry 100 04/26/25 13:16 Oxygen Delivery Method Room Air 04/26/25 13:16 Scores HEART Score Heart Score history: Slightly Suspicious Heart Score EKG: Normal Heart Score Age: > or = 65 years old Heart Score risk factors: > 3 risk factors or hx of atherosclerotic disease Heart Score troponin: < or = to normal limit Heart Score Total: 4 Course Orders Ordered: ED Orders 04/26/25 13:28 CT angio head and neck Stat 04/26/25 13:29 CT head/brain wo con Stat 04/26/25 13:34 Complete Blood Count AUTO DIFF Stat Comprehensive Metabolic Panel Stat 04/26/25 14:52 MR head/brain wo con Stat 04/26/25 16:00 Troponin I Stat Vital Signs Vital signs: Vital Signs - 8 hr 04/26/25 13:16 04/26/25 14:32 04/26/25 14:32 Temperature 98.4 F Pulse Rate 69 62 Respiratory Rate 18 Blood Pressure 202/93 H 181/81 H Pulse Oximetry 100 95 Oxygen Delivery Method Room Air 04/26/25 14:52 04/26/25 15:00 04/26/25 15:01 Temperature Pulse Rate 58 L Respiratory Rate Blood Pressure 164/80 H 136/97 H Pulse Oximetry 97 Oxygen Delivery Method 04/26/25 15:01 04/26/25 15:53 06/14/25 15:55 Temperature Pulse Rate 60 74 60 Respiratory Rate Blood Pressure Pulse Oximetry 97 97 Oxygen Delivery Method 04/26/25 15:55 04/26/25 16:00 04/26/25 16:00 Temperature Pulse Rate 60 Respiratory Rate 16 Blood Pressure 196/84 H 171/73 H Pulse Oximetry 99 Oxygen Delivery Method 04/26/25 16:30 04/26/25 16:31 04/26/25 16:31 Temperature Pulse Rate 54 L 54 L Respiratory Rate 16 Blood Pressure 150/65 H Pulse Oximetry 96 96 Oxygen Delivery Method 04/26/25 17:00 Temperature Pulse Rate 61 Respiratory Rate Blood Pressure Pulse Oximetry 98 Oxygen Delivery Method MDM - Neuro Symptoms/Deficit Lab Data 04/26/25 13:34 04/26/25 13:34 Labs: Lab Results 04/26/25 04/26/25 Range/Units 13:34 16:00 WBC 7.0 (4.5-11.0) X10^3/uL RBC 3.94 L (4.0-5.2) X10^6/uL Hgb 12.2 (12.0-16.0) g/dL Hct 35.7 L (36-46) % MCV 90.6 (80-100) fL MCH 30.9 (26-34) PG MCHC 34.1 (30-36) % RDW 14.1 (11.6-14.8) % Plt Count 259 (150-400) X10^3/uL Neut % (Auto) 70.8 (50-75) % Lymph % (Auto) 18.5 L (25-40) % [place] % (Auto) 5.5 (3-14) % Eos % (Auto) 4.8 H (2-4) % Baso % (Auto) 0.4 (0-2) % Neut # (Auto) 4900 (6319-2205) /uL Lymph # (Auto) 1300 (0206-9089) /uL [place] # (Auto) 400 (0-900) /uL Eos # (Auto) 300 (0-450) /uL Baso # (Auto) 0 (0-100) /uL Sodium 137 (137-145) mmol/L Potassium 4.5 (3.4-5.1) mmol/L Chloride 101 (98-107) mmol/L Carbon Dioxide 29 (22-32) mmol/L BUN 15 (7-17) mg/dL Creatinine 0.71 (0.52-1.04) mg/dL Estimated GFR > 60 (>60) mL/min BUN/Creatinine Ratio 21.1 (6-22) Glucose 91 (70-99) mg/dL Calcium 9.2 (8.4-10.2) mg/dL Total Bilirubin 0.5 (0.2-1.3) mg/dL AST 31 (14-36) IU/L ALT 17 (<35) IU/L Alkaline Phosphatase 83 (38-126) U/L Troponin I < 0.012 (0.01-0.034) ng/mL Total Protein 7.3 (6.3-8.2) g/dL Albumin 4.6 (3.5-5.0) g/dL Globulin 2.7 (1.7-4.1) g/dL Albumin/Globulin Ratio 1.7 (1.0-2.8) Imaging Data CT scan - head: Radiologist's Impression: [place] [address] CT Scan Report Signed Patient: Ani Call MR#: [id number] : 06/13/2023 Acct:[id number] Age/Sex: 1Y 10M / F Date of Service: 04/26/25 Loc: ED Accession Number: [id number] Procedure: CT head/brain wo con Ordering Provider: Dimitry Jameson D.O. PROCEDURE: CT HEAD/BRAIN WO CON INDICATIONS: trauma, hit back of head against cement, drowsy TECHNIQUE: Noncontrast 4.5 mm thick angled axial sections acquired from the foramen magnum to the vertex, with coronal and sagittal reformats. For radiation dose reduction, the following was used: automated exposure control, adjustment of mA and/or kV according to patient size. COMPARISON: None. FINDINGS: Image quality: Diagnostic. CSF spaces: Basal cisterns are patent. No extra-axial fluid collections. Ventricles are normal in size and shape. Brain: No midline shift. No intracranial mass effect or hemorrhage. [place]- white matter interface is normal. Skull and face: Calvarium and visualized facial bones are intact, without suspicious lesions. Sinuses: Visualized sinuses and mastoids are clear. IMPRESSION: No acute intracranial pathology. No obvious displaced skull fracture. Dictated by: Joseph Prater M.D. on 04/26/2025 at 13:35 Approved by: Joseph Prater M.D. on 04/26/2025 at 13:[address] [address] [address] Scan Report Signed Patient: Silvia Rosas MR#: [id number] : 1955 Acct:[id number] Age/Sex: 69 / F Date of Service: 04/26/25 Loc: ED Accession Number: [id number] Procedure: CT angio head and neck Ordering Provider: Dimitry Jameson D.O. PROCEDURE: CT ANGIO HEAD AND NECK INDICATIONS: Please evaluate for stroke TECHNIQUE: After the administration of intravenous contrast, 1 mm thick sections acquired from the aortic arch through the [place] of [place]. 3-dimensional ujeacbq-umxezspbm-ufptwcbelw (MIP) and/or volume rendering reformats were acquired of the central intracranial vasculature and neck separately. For radiation dose reduction, the following was used: automated exposure control, adjustment of mA and/or kV according to patient size. COMPARISON: [facility], MR, MR STROKE, 09/20/2022, 8:11. [facility], CT, CT HEAD/BRAIN WO CON, 04/26/2025, 13:50. [facility], CT, CT ANGIO HEAD AND NECK, 09/19/2022, 18:09. FINDINGS: Image quality: Limited by bolus timing, with venous contamination. Mild motion artifact can be seen. Cerebral CT Angiogram: Internal carotid arteries: No acute findings. Intracranial ICA are patent with no significant stenosis. No occlusion. No aneurysm. Anterior cerebral arteries: Unremarkable. No significant stenosis. No occlusion. No aneurysm. Middle cerebral arteries: Unremarkable. No significant stenosis. No occlusion. No aneurysm. Posterior cerebral arteries: There is a type origin of the right posterior cerebral artery. No significant stenosis. No occlusion. No aneurysm. Basilar artery: Unremarkable. No significant stenosis. No occlusion. No aneurysm. Vertebral arteries: Unremarkable as visualized. Dural venous sinuses: Unremarkable given phase of enhancement. Other: Arterial phase appearance of the brain parenchyma is unremarkable. Neck CT Angiogram: Internal carotid arteries: Unremarkable. No significant stenosis. No dissection or occlusion. Common carotid arteries: Unremarkable. No significant stenosis. No dissection or occlusion. External carotid arteries: Unremarkable. No occlusion. Vertebral arteries: Unremarkable. No significant stenosis. No dissection or occlusion. Aortic Arch and Mediastinum: Partially visualized aortic arch unremarkable without evidence of aneurysm. Origins of the great vessels unremarkable. Other: Arterial phase soft tissues of the neck and chest are unremarkable. Left thyroid nodule again seen. IMPRESSION: No significant intracranial arterial abnormality is seen. No significant abnormality is seen within the arteries of the neck. Stable left thyroid nodule. Any quantitative measurements of stenosis were performed using NASCET criteria. [address] [address] Magnetic Resonance Report Signed Patient: Silvia Rosas MR#: [id number] : 1955 Acct:[id number] Age/Sex: 69 / F Date of Service: 04/26/25 Loc: ED Accession Number: [id number] Procedure: MR head/brain wo con Ordering Provider: Dimitry Jameson D.O. PROCEDURE: MR HEAD/BRAIN WO CON INDICATIONS: stretcher/ hx of tia / left sided weakness TECHNIQUE: Non-contrast axial T1 spin echo, axial T2 fast spin echo, sagittal and axial FLAIR, coronal T2 fast spin echo, axial gradient echo, axial diffusion and ADC through the brain. COMPARISON: [facility], , MR HEAD/BRAIN WO/W CON, 05/05/2021, 12:14. [facility], MR, MR HEAD/BRAIN WO/W CON, 11/23/2021, 14:54. [facility], MR, MR STROKE, 09/20/2022, 8:11. [facility], CT, CT ANGIO HEAD AND NECK, 04/26/2025, 13:50. [facility], CT, CT HEAD/BRAIN WO CON, 04/26/2025, 13:50. FINDINGS: Image quality: This examination is limited by involuntary motion artifact. CSF spaces: Ventricles appear symmetric in size and shape. Basal cisterns are patent. No extra-axial fluid collections. Brain: No intracranial bleeds or mass effects. There is cerebral volume loss for age. There are periventricular and deep white matter chronic small vessel ischemic changes. Brainstem appears normal. Diffusion-weighted images show no acute infarct. No chronic ischemic insults. Normal intravascular flow voids are present. Skull and face: Calvarial bone marrow is normal in signal. Orbits are normal. Note is made of bilateral lens replacements. Sinuses: Sinuses and mastoids are clear. IMPRESSION: No findings of acute or subacute infarction can be seen. Note is made of age-appropriate brain parenchymal volume loss and chronic small vessel ischemic changes. Motion limited study. ECG Data Interpretation: Sinus Bradycardia HR 57 [place] 182 QTS [address]-t wave change No previous ekg MDM Narrative Medical decision making narrative: All lab work vital signs nurse triage note medication list previous ER visits in all imaging studies reviewed. Imaging studies includes CTA head and neck CT head and brain MRI did not reveal any acute process. GCS of 15 nonfocal neuro exam alert and oriented x4 troponin was negative EKG did not show any ST-T wave changes. Heart score 4. Differential diagnosis include aneurysm subdural hemorrhage mass tumor vertigo viral labyrinthitis TIA CVA. Follow up with PCP this coming week for re-evaluation.. Discharge Plan Departure Patient Disposition: Home Clinical Impression: Arm weakness Headache Qualifiers: Headache type: tension-type Headache chronicity pattern: episodic headache I ntractability: intractable Qualified Code(s): G44.211 - Episodic tension-type headache, intractable Chest pain Qualifiers: Chest pain type: chest pain on breathing Qualified Code(s): R07.1 - Chest pain on breathing Instructions: DI for Muscle Weakness Activity Restrictions/Additional Instructions: Return with new or worsening symptoms. Follow up with PCP next week for re- evaluation. Prescriptions: No Action amlodipine 5 mg tablet 5 mg PO DAILY ibandronate 150 mg tablet 150 mg PO QMONTH meclizine 25 mg tablet 25 mg PO DAILY PRN (Reason: Muscle Spasm) naloxone 4 mg/actuation spray,non-aerosol 4 mg intranasal Q2M Rx Instructions: spray 1 dose into ONE nostril; alternate nostrils w each dose until help arrives albuterol sulfate [Ventolin HFA] 90 mcg/actuation HFA aerosol inhaler 2 puff inhalation Q4-6H PRN (Reason: sob) methadone 10 mg Tablet 10 mg PO TID Qty: 30 0RF temazepam 15 mg Capsule 15 mg PO BEDTIME PRN (Reason: Sleep) Qty: 30 0RF acetaminophen 325 mg tablet 650 mg PO PRN PRN (Reason: Pain (Scale Score 1-3)) lisinopril 20 mg tablet 20 mg PO DAILY betamethasone dipropionate 0.05 % cream topical omeprazole 20 mg Capsule,Delayed Release(Dr/Ec) 20 mg PO DAILY carisoprodol 350 mg tablet 350 mg PO TID PRN (Reason: Muscle Spasm) lamotrigine 200 mg tablet 200 mg PO BID lamotrigine 25 mg tablet 50 mg PO BID aspirin 81 mg Tablet,Delayed Release (Dr/Ec) 81 mg PO QPM clopidogrel 75 mg Tablet 75 mg PO DAILY Qty: 30 1RF Referrals: Viktor Alvarez MD [Primary Care Provider, [facility]] Stand Alone Forms: Patient Portal/API
--- NOTE | 2025-04-26 14:52 | DI.MRI.S_ITS ---
PROCEDURE: MR HEAD/BRAIN WO CON INDICATIONS: stretcher/ hx of tia / left sided weakness TECHNIQUE: Non-contrast axial T1 spin echo, axial T2 fast spin echo, sagittal and axial FLAIR, coronal T2 fast spin echo, axial gradient echo, axial diffusion and ADC through the brain. COMPARISON: [facility], MR, MR HEAD/BRAIN WO/W CON, 05/05/2021, 12:14. [facility], MR, MR HEAD/BRAIN WO/W CON, 11/23/2021, 14:54. [facility], MR, MR STROKE, 09/20/2022, 8:11. [facility], CT, CT ANGIO HEAD AND NECK, 04/26/2025, 13:50. [facility], CT, CT HEAD/BRAIN WO CON, 04/26/2025, 13:50. FINDINGS: Image quality: This examination is limited by involuntary motion artifact. CSF spaces: Ventricles appear symmetric in size and shape. Basal cisterns are patent. No extra-axial fluid collections. Brain: No intracranial bleeds or mass effects. There is cerebral volume loss for age. There are periventricular and deep white matter chronic small vessel ischemic changes. Brainstem appears normal. Diffusion-weighted images show no acute infarct. No chronic ischemic insults. Normal intravascular flow voids are present. Skull and face: Calvarial bone marrow is normal in signal. Orbits are normal. Note is made of bilateral lens replacements. Sinuses: Sinuses and mastoids are clear. IMPRESSION: No findings of acute or subacute infarction can be seen. Note is made of age-appropriate brain parenchymal volume loss and chronic small vessel ischemic changes. Motion limited study. Dictated by: Malick Marino M.D. on 04/26/2025 at 15:01 Approved by: Malick Marino M.D. on 04/26/2025 at 15:03
[2025-04-26 16:47] LABS: Troponin I < 0.012 ng/mL (0.01-0.034)
--- NOTE | 2025-04-26 17:01 | EKG_ITS ---
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
== END 2025-04-26 17:15 | disposition home or self-care (01) ==
PROVIDERS: Emergency Provider Family Medicine; Family Provider Family Medicine; PCP Family Medicine
DX: R42 Dizziness and giddiness (principal); R07.9 Chest pain, unspecified; Z79.01 Long term (current) use of anticoagulants; G44.211 Episodic tension-type headache, intractable; R07.1 Chest pain on breathing; R53.1 Weakness; Z86.73 Personal history of transient ischemic attack (TIA), and cerebral infarction without residual deficits
CPT/HCPCS: 36415; 70450; 70496; 70498; 70551; 80053; 84484; 85025; 93005; 99283; 99284